=== PATIENT | female | born 1950 | race Caucasian/White ===

== ENCOUNTER 2017-04-10 11:35 | Outpatient (CLI) | payer MEDICARE ==
--- NOTE | 2017-04-10 13:15 | RAD ---
CHEST TWO VIEWS: Date: 04-10-17 Comparison: 03-10-15 History: Cough. FINDINGS: There is mild increased linear interstitial density with pulmonary hyperinflation, stable. There is no pneumothorax, pleural fluid, lobar consolidation, or alveolar edema. Post-operative clips are present in the upper abdomen. Mild increased linear density is noted in the right infrahilar region, similar when compared to the 2 015 exam. IMPRESSION: Increased linear interstitial density and pulmonary hyperinflation, stable. Question history of COPD. No focal consolidation or alveolar edema is noted. POS: [facility]
== END 2017-04-10 11:36 | disposition home or self-care (01) ==
LOC: RAD 11:35
PROVIDERS: ATTEND Family Medicine
DX: R05 Cough (principal); E78.5 Hyperlipidemia, unspecified; L65.9 Nonscarring hair loss, unspecified; I10 Essential (primary) hypertension
CPT/HCPCS: 36415; 71020; 80053; 80061; 81001; 84439; 84443; 84481; 85025

== ENCOUNTER 2017-05-15 11:26 | Outpatient (CLI) | payer MEDICARE | END 2017-05-15 11:27 | disposition home or self-care (01) | LOC: BICMAMMO 11:26 | PROVIDERS: ATTEND Family Medicine | DX: Z12.31 Encounter for screening mammogram for malignant neoplasm of breast (principal) | CPT/HCPCS: 77063; 77067 ==

== ENCOUNTER 2018-04-24 23:24 | Inpatient (IN) | payer MEDICARE ==
[2018-04-24 23:58] LABS: Hemoglobin 11.3 g/dL (12.0-16.0); White Blood Cell (WBC) Count 18.1 thou/uL (4.8-10.8)
[2018-04-24 23:59] LABS: #Basophils 0.1 thou/uL (0.0-0.2); #Eosinphils 0.2 thou/uL (0.0-0.7); #Lymphocytes 2.8 thou/uL (1.20-3.40); #Monocytes 0.9 thou/uL (0.11-0.59); %Basophils 0.5 % (0.0-1.0); %Eosinophils 1.4 % (0.0-10.0); %Lymphocytes 15.6 % (21.0-51.0); %Neutrophils 77.5 % (42.0-75.0); Mean Corpuscular HGB CONC 31.3 g/dL (32.0-36.0); Mean Corpuscular Hemoglobin 28.3 pg (27.0-31.0); Mean Corpuscular Volume 90.4 fL (78.0-98.0); Mean Platelet Volume 7.3 fL (7.4-10.4); Platelet Count 479 thou/uL (130-400); RBC Distribution Width 12.2 % (11.5-14.5)
[2018-04-25] MEDS ORDERED: Ondansetron PF 4 MG/2 ML Vial ONE (00:16)
[2018-04-25 00:18] LABS: ALT (SGPT) 32 U/L (8-55); AST (SGOT) 79 U/L (5-34); Albumin 3.7 g/dL (3.4-4.8); Alkaline Phosphatase 259 U/L (40-150); Anion Gap 22 mmol/L (10-20); BUN (Urea Nitrogen) 23 mg/dL (9.8-20.1); Bilirubin, Total 0.9 mg/dL (0.2-1.2); CK (CPK) 755 U/L (29-168); Calc. Creatinine Clearance 0 mL/min (70-130); Calcium 9.5 mg/dL (7.8-10.44); Carbon Dioxide 18 mmol/L (23-31); Chloride 102 mmol/L (98-107); Estimated GFR-MDRD 27; Globulin 3.8 g/dL (2.4-3.5); Glucose 149 mg/dL (80-115); Potassium 4.6 mmol/L (3.5-5.1); Protein, Total 7.5 g/dL (6.0-8.3); Sodium 137 mmol/L (136-145)
[2018-04-25 01:29] LABS: Bilirubin Small (Negative); Blood, Urine Negative (Negative); Clarity CLOUDY (Clear); Glucose, Urine (Dipstick) Negative (Negative); Leukocyte Large (Negative); Nitrite Positive (Negative); Protein, Urine (Dipstick) Trace mg/dL (Neg-Trace); Specific Gravity, Urine 1.016 (1.002-1.036)
[2018-04-25 01:32] LABS: Bacteria/HPF 4+ HPF (None Seen); RBC/HPF 0-3 HPF (0-3); Squamous Epithelial 0-3 HPF (0-3)
[2018-04-25 01:41] LABS: Pathc Cast-AUWi Flag 7.12 (0-2.49); Yeast-AUWi Flag 43.1 (0-25.0)
[2018-04-25 01:52] LABS: Hyaline Casts/LPF 0-3 HYALINE CAST LPF (0-3 Hyaline)
[2018-04-25 01:53] LABS: Other Casts/LPF None Seen LPF (0-3 Hyaline); Yeast-All Forms None Seen HPF (None Seen)
[2018-04-25] MEDS ORDERED: cefTRIAXone\\ROCEPHIN 1 GM VIAL ONE (04:01)
--- NOTE | 2018-04-25 07:01 | RAD ---
PELVIC RADIOGRAPH: Date: 04/24/18 PROVIDED CLINICAL HISTORY: Right hip pain. FINDINGS: There is no evidence for fracture or other acute osseous abnormality. If there is persistent clinical concern, conservative management and follow-up imaging are advised. IMPRESSION: As above. POS: [facility]
--- NOTE | 2018-04-25 08:00 | RAD ---
CHEST 1 VIEW: Date: 04/25/18 HISTORY: Cough. COMPARISON: Chest radiograph from 2017. FINDINGS: Abnormal appearance of the right paratracheal line. No pneumothorax. No large effusion. Right upper quadrant surgical clips are present. Possible ascites in the abdomen. IMPRESSION: Abnormal widening of the right paratracheal stripe, for which a nonemergent CT of the chest with cont rast is recommended. CODE T. POS: [facility]
[2018-04-25] MEDS ORDERED: Bisacodyl 5 MG TAB PO PRN (08:11)
[2018-04-25] MEDS ORDERED: Heparin 1,000 UNITS/ML VIAL ONE (09:00)
[2018-04-25] MEDS: cefTRIAXone\\ROCEPHIN 1 GM in Sodium Chloride 0.9% 100 ML IVPB SCH (09:46)
[2018-04-25] MEDS: Sodium Chloride 0.9% 1,000 ML IV SCH ×2 (09:47→15:27)
[2018-04-25] MEDS: Losartan 25 MG TAB PO SCH (09:47)
[2018-04-25] MEDS: Cyclobenzaprine 10 MG TAB PO SCH ×3 (09:47→21:18)
[2018-04-25] MEDS: HYDROcodone/Acetaminophen 5/325 mg Tablet PO PRN (11:03)
--- NOTE | 2018-04-25 12:52 | HP ---
COVERING PHYSICIAN: Dr. Dao Miranda. HISTORY OF PRESENT ILLNESS: The patient is a 68-year-old female, who presented to the emergency room complaining of lower back pain, inability to walk and mobilize due to back pain, inability to take care of herself due to inability to walk and mobilize secondary to back pain. The patient knows that she has had a recent history of back pain for approximately 4 to 6 months now after a fall. She re-injured her back again after another fall. She has been undergoing some physical therapy, some treatment with pain medication. She states that she is no longer able to lift herself up out of bed, really unable to ambulate secondary to pain. She was supposed to have an MRI, however, she was unable to get to the MRI center due to inability to get out of bed. She notes no other medical complaints related to fever and nausea. She does have some constipation issue and she has noticed some relatively poor p.o. intake. She lives alone, really does not have anybody care for her at home. Otherwise, no other medical issues are otherwise noted. She noticed pain to the right lower back with weakness of her right lower leg. It was noted that her PCP Dr. Mccann noted her liver and kidney functions were abnormal, and she has some medicines changed due to that, which she stated was Advil. Currently at this time, she is resting in bed, unable to raise herself up due to pain and feeling like her right hip does not work. She does note she has a recent x-rays of her hip done, which were normal. ALLERGIES: SHE IS ALLERGIC TO LISINOPRIL. CURRENT MEDICATIONS: 1. Losartan 100 mg daily. 2. Meloxicam 7.5 mg daily. 3. Atenolol 1 mg daily. 4. Cyclobenzaprine 10 mg every 8 hours. PAST MEDICAL HISTORY: Positive for hypertension. PAST SURGICAL HISTORY: Positive for cholecystectomy, hernia repair, anti-reflux surgery for gastroesophageal reflux disease. SOCIAL AND PERSONAL HISTORY: She is , although she lives away from her . She does not drink alcohol at this time. FAMILY HISTORY: Noncontributory at this time. PHYSICAL EXAMINATION: VITAL SIGNS: Temperature 98.1, pulse 100, respirations 20, O2 sats 92%, and BP 110/64. GENERAL: She appears to be alert, active, in no acute distress. She is unable to raise her head up in bed secondary to pain. She points to pain to her right hip and right lower back. She feels like her right leg is weak. HEENT: Normocephalic. Sclerae and conjunctivae clear. NECK: Supple. Full range of motion. No bruits. HEART: Reveals a regular rate and rhythm. No murmurs, gallops, or rubs. LUNGS: Bilateral breath sounds. ABDOMEN: Soft, nontender. Bowel sounds are present and active. There is no hepatosplenomegaly noted. NEUROLOGICAL: She is alert and oriented x3. She is able to lift her left lower leg against gravity, unable to hold and maintain it. It does appear to be normal in strength. Pulses are 2+ throughout the exam. She does have some palpable back pain to the right SI joint area. LABORATORY DATA: White blood count is 18.1, hemoglobin 11.3, hematocrit 36.2. Electrolytes; sodium 137, potassium 4.6, chloride 102, CO2 of 18, BUN 23, creatinine 1.85. Alkaline phosphatase is 2.59. Creatine kinase is 755. AST is elevated at 79. Urinalysis shows too numerous to count white blood cells. IMAGING STUDIES: Pelvis x-ray is normal. Chest x-ray is clear, although there is an abnormal to the right paratracheal line. IMPRESSION: 1. This is a 68-year-old female who presents with inability to walk and bear weight of unknown etiology, possibly related to some type of lumbar disease process. 2. Urinary tract infection. 3. Elevated creatinine, probably secondary to dehydration. 4. Elevated creatine kinase. Recent fall was noted. 5. Abnormal chest x-ray. PLAN: 1. I have discussed the findings with the patient. We will proceed with MRI of the lower back. 2. CT scan of the chest. 3. I have placed her on IV Levaquin for UTI. 4. I have discussed the possibility of disposition issues for the patient. We will get Case Management, PT/OT involved. Job ID: [id number]
--- NOTE | 2018-04-25 13:49 | CT ---
CT CHEST WITHOUT CONTRAST HIGH RESOLUTION: Date: 04/25/18 HISTORY: Abnormal chest x-ray. COMPARISON: Radiograph from prior day. FINDINGS: There is a large right suprahilar mass invading through the mediastinum. This mass measures 7.2 x 8.1 cm. There is mass effect on the posterior wall of the trachea. There is extension to the right upper lobe bronchi. There are abnormal right paratracheal lymph nodes measuring up to 1.5 cm. A 12.2 cm right adrenal and 2.8 cm left adrenal mass are present. There appear to be multiple hypodense foci throughout the live r, likely metastatic disease. There are severe emphysematous changes of the lungs. A very large bulla is present in the right upper lobe. Mild right basilar atelectasis. Multiple small peripheral pleural nodules. Severe background emphysema. IMPRESSION: 1. Large right hilar mass with mediastinal invasion indicating lung cancer. 2. Bilateral adrenal mass suggesting metastatic disease. 3. Difficult to evaluate, although there are felt to be multiple hypodense masses throughout the nataliia er, also likely metastatic disease. A full workup with a PET CT or a chest/abdomen/pelvis CT with contrast is recommended. Multiple attempts were made to discuss this case with the nurse, although was hung up on multiple giulia es. CODE CR. POS: [facility]
[2018-04-25] MEDS ORDERED: CEFAZOLIN/Water 2 GM/20 ML SYRINGE SLOW IVP SCH (14:30)
--- NOTE | 2018-04-25 14:48 | MRI ---
MRI LUMBAR SPINE WITHOUT CONTRAST: Technique: Multiplanar, multisequence MRI images were obtained of the lumbar spine. The exam was unable to be completed due to patient discomfort. T1, T2 and STIR sequence sagittal imag es were obtained. T2 axial images were obtained. Indications: Low back pain. Hip pain. Leg pain. The side of discomfort is not specified. Comparison: MRI Lumbar spine, July 2008. FINDINGS: Vertebral bodies of the lumbar spine maintain height and alignment. There is abnormal signal througho ut the visualized lower thoracic and lumbar vertebrae. There are heterogeneous areas of signal abnorm ality throughout these vertebral bodies suggesting metastatic disease to the spine. There is diffuse abnormal signal involving the sacrum. The right sacrum shows expansion and heterogen eity and there appears to be a soft tissue component with epidural extension producing central canal stenosis in the sacrum. This would be producing involvement of the S1 and S2 nerve roots, especially on the right. No significant disc bulge or disc protrusion seen from L1 through L5. At L5-S1 there is mild diffuse disc bulge with facet hypertrophy. There is bilateral foraminal narrowing at L5-S1 due to disc bulge and hypertrophic change. IMPRESSION: 1. Diffuse splotchy signal abnormality involving all visualized vertebral bodies consistent with diff use metastatic disease. 2. Diffuse signal abnormality involving the sacrum consistent with metastatic involvement. There is e xpansile process involving the right sacrum with soft tissue component resulting in epidural encroach ment in the sacrum as described above. Metastatic process would be suspected. This patient has a lung mass described on CT chest from earlier today. POS: [facility]
--- NOTE | 2018-04-25 16:20 | CON ---
DATE OF CONSULTATION: HISTORY OF PRESENT ILLNESS: This is a 68-year-old female, who has been having severe back and right hip pain for several weeks, resulting in ultimately inability to get around due to pain with standing. She has also noticed some fecal incontinence and decreased urine output by her account. She is scheduled for some physical therapy, but has not been able to get out of the house to attend to that. She was admitted to the hospital and found to have a large right hilar mass, probably enlarged lymph nodes extending into the mediastinum. PAST MEDICAL HISTORY: Includes a history of hypertension, for which she is on atenolol and losartan. She has no other major medical illnesses. ALLERGIES: SHE REPORTS ALLERGIES TO LISINOPRIL, WHICH CAUSES A COUGH. PAST SURGICAL HISTORY: Cholecystectomy. SOCIAL HISTORY: She is for 43 years. However, lives in [place] and has been there for almost the past 17 years and she lives up here. Initially moved here with her sister who subsequently from some sort of malignancy. The closest family here is a nephew, who lives in [place] and she lives in [place]. She smoked at least a pack of cigarettes a day until one and half years ago. She is a nonalcohol user. PHYSICAL EXAMINATION: GENERAL: On examination, she is alert, cooperative lady, and in no distress at rest. VITAL SIGNS: She has a blood pressure recorded at 110/64, heart rate of 100. NECK: I do not appreciate any lymphadenopathy and she has no tenderness. She does have soft radiated carotid bruits I believe and a soft murmur at the right upper sternal border just below the clavicle. ABDOMEN: Obese and nontender. EXTREMITIES: She has a palpable pedal pulse on the left foot and then absent pedal pulses on the right foot. She admits to numbness in the right foot, but has good color and temperature. Motor function appears intact. PLAN: At this time is for cervical mediastinal exploration and biopsy for tissue diagnosis. Informed consent has been obtained. Job ID: [id number]
[2018-04-25] MEDS: Atenolol 50 MG TAB PO SCH (21:18)
[2018-04-25] MEDS: Cetirizine HCl 10 MG TAB PO SCH (21:19)
[2018-04-25] MEDS: Enoxaparin Sodium 30 MG/0.3 ML SYRINGE SC SCH (21:20)
--- NOTE | 2018-04-26 00:13 | CON ---
DATE OF CONSULTATION: HISTORY OF PRESENT ILLNESS: Ms. Ramirez is a very pleasant woman who has fallen once tripping over a cat and once tripping over a dog, and fallen into a hole in the yard. She fell back into the hole trying to get out of the hole apparently. Her back has been hurting her since, and she tells me that she has actually been spending most of her time in bed because of severe back pain. I was consulted because of a chest x-ray and CT abnormality. PAST MEDICAL HISTORY: 1. Strongly positive for lung cancer in multiple family members. 2. History of cholecystectomy. 3. History of a herniorrhaphy. 4. History of reflux surgery. SOCIAL HISTORY: She is a smoker, but not a drinker. FAMILY HISTORY: She has a family history as mentioned strongly positive for lung cancer. I believe she has lost her sister to lung cancer. She has 1 sister left and lost both her parents and they are in their early 60s. PHYSICAL EXAMINATION: GENERAL: She is very pleasant. She is intermittently tearful talking about her family history. VITAL SIGNS: She is afebrile. Heart rate is 100, respiratory rate is 20, oximetry is 92% to 96%, blood pressure 121/70. HEENT: Pupils are equal. Sclerae are anicteric. NECK: Supple. LUNGS: Clear. HEART: Regular rhythm. S1 and S2 are normal. ABDOMEN: Soft and nontender. EXTREMITIES: Without clubbing, cyanosis, or edema. LYMPH: I could not palpate any cervical lymphadenopathy. LABORATORY DATA: White count 18.1, hemoglobin 11.3, platelets 479. Sodium 137, potassium 4.6, chloride 102, bicarb 18, BUN 23, creatinine 1.85. Creatinine on April [address] of her chest shows a superior right chest paratracheal mass, it is quite large. Significant mediastinal lymph nodes. This finding suggested of hepatic metastatic disease. Lumbar spine MRI showed evidence of diffuse metastatic disease. IMPRESSION: Widespread metastatic bronchogenic carcinoma. The likelihood of a tissue diagnosis from bronchoscopies probably ride around 50%. Most of this probably is extrabronchial, but there is a chance it could be endobronchial extension. I think the likelihood of a tissue diagnosis, especially with frozen sections is much higher with a mediastinoscopy. I have consulted Cardiothoracic Surgery, and they have been gracious enough to see her, and hopefully, we will have her on a schedule for tomorrow. This was a 50-minute consult, 50% of the time was spent on the unit coordinating care. Job ID: [id number]
--- NOTE | 2018-04-26 00:56 | CON ---
DATE OF CONSULTATION: REASON FOR CONSULTATION: Metastatic cancer. HISTORY OF PRESENT ILLNESS: A 68-year-old female with long tobacco abuse history, presenting to the ER with worsening lower back and right hip pain with an inability to walk secondary to the pain. The patient has been complaining of lower back and right hip pain for the last few months, status post fall, which had improved. However, she had fallen again in the yard and the pain returned and has not improved. She has been undergoing physical therapy and treatment with antiinflammatory medication. She states now because of the pains, she has difficulty getting out of bed. She was scheduled for outpatient MRI, however, this has not been completed. She complained of mild nausea in the ER, however, no other nausea or vomiting. She denies any diarrhea, constipation, fevers, or drenching night sweats. She does complain of approximately 30-pound weight loss over the last few months with some reduced appetite and states that she has had poor p.o. intake. She lives alone, is unable to cook because she has difficulty getting out of bed because of the pain. She also complains of right foot numbness and some weakness of her right leg. She denies any headaches, change in vision, lightheadedness, or dizziness. She denies any shortness of breath, but is complaining of cough over the last few months that has progressively gotten worsened and productive of brown colored sputum, but denies any hemoptysis. CT of the chest without contrast showed a large right hilar mass with mediastinal invasion and bilateral adrenal masses suggesting metastatic disease and multiple hypodense foci throughout the liver. MRI of the lumbar spine showed diffuse blotchy signal abnormality involving all visualized vertebral bodies consistent with diffuse metastatic disease. Also showed diffuse signal abnormality in the sacrum and expansile process involving the right sacrum with soft tissue component resulting in epidural encroachment in the sacrum. The patient has been evaluated by Dr. Wallace and is being planned for mediastinoscopy. REVIEW OF SYSTEMS: 10-point review of systems negative, except as per HPI. PAST MEDICAL HISTORY: 1. Hypertension. 2. Tobacco abuse. PAST SURGICAL HISTORY: 1. Cholecystectomy. 2. Hernia repair. 3. Anti-reflux surgery for GERD. SOCIAL HISTORY: She is , lives alone. Denies alcohol. Past social history of extensive tobacco abuse as a teenage years and quit approximately one and half years ago. She states she used to smoke up to 4 to 5 packs a day in the 70s and then reduced to one pack a day until she quit a year and a half ago. FAMILY HISTORY: Family history of non-small cell lung cancer in multiple family members, all of whom were smokers. PHYSICAL EXAMINATION: VITAL SIGNS: Temperature 98.1, pulse 100, respirations 20, saturating 92% to 96% on room air, and blood pressure 110/64. GENERAL APPEARANCE: The patient is lying in bed, in no acute distress. Appears comfortable. HEENT: Normocephalic and atraumatic with no scleral icterus present. NECK: Supple. Full range of motion. CARDIAC: S1, S2. Regular rhythm and rate without murmurs, rubs, or gallops. LUNGS: Clear to auscultation bilaterally without wheezing, rales, or rhonchi. ABDOMEN: Soft, nondistended, and nontender. LYMPHATICS: No palpable lymphadenopathy. EXTREMITIES: No edema. NEUROLOGIC: Cranial nerves 2 through 12 are grossly intact. The patient is able to move all extremities and strength is 5/5 in all four extremities. BACK: Some palpable tenderness in the right SI joint area. PSYCHIATRIC: Awake, alert, and oriented x3 with appropriate mood and affect. LABORATORY DATA: Hemoglobin 11.3, white blood cells 18.1 with 77.5% neutrophils with an ANC of 14.0, and platelets 479. Sodium 137, potassium 4.6, BUN 23, and creatinine 1.85. AST 79, ALT 32, alkaline phosphatase 259, and creatine kinase 755. Urine shows positive nitrites and small bilirubin, large leukocyte esterase, 4+ bacteria. Urine white cells [id number] count. Urine culture shows presumptive E. coli. IMAGING DATA: CT chest without contrast shows a large right suprahilar mass invading to the mediastinum measuring 7.2 x 8.1 cm. There is mass effect in the posterior wall of the trachea and extension of the right upper lobe bronchi. There were abnormal right paratracheal lymph nodes measuring up to 1.5 cm and the 12.2 cm right adrenal and 2.8 cm left adrenal masses that are present. There appeared to be multiple evident hypodense foci throughout the liver likely metastatic disease. Multiple small peripheral nodules. Severe background emphysema. MRI of the lumbar spine without contrast shows diffuse blotchy signal abnormality involving all visualized vertebral bodies consistent with diffuse osseous metastatic disease and diffuse signal abnormality involving the sacrum consistent with metastatic involvement. There is expansile process involving the right sacrum with soft tissue component resulting in epidural encroachment in the sacrum. ASSESSMENT AND PLAN: A 68-year-old female with extensive tobacco abuse history, presenting with worsening lower back and right hip pain, found to have diffuse osseous metastatic disease as well as a large right lung mass with metastases to the liver and adrenal glands. Disease is likely from a lung primary and patient has been evaluated by Dr. Wallace who is planning a mediastinoscopy tomorrow for tissue diagnosis. The patient does require further staging with PET scan, which can be done as an outpatient along with an MRI of the brain. At this time, we would hold off on MRI of the brain and any further CT scans with contrast as patient appears to have acute kidney injury, which may be secondary to rhabdomyolysis as her creatine kinase is extremely elevated and she has been bed down secondary to pain for a while. If her kidney function improves with fluids, can go ahead with MRI of the brain with contrast to evaluate for metastatic disease as well as CT of the chest, abdomen, pelvis with contrast. I discussed the likely diagnosis and different types of lung cancer and prognosis and potential treatments with the patient at the bedside. Due to patient's extreme pain keeping her bed-bound, she may benefit from palliative radiation to this area and I will consult Dr. Dawn to evaluate. She has no signs of cord compression and has 5/5 strength in both lower extremities and upper extremities without saddle anesthesia or incontinence and no evidence on MRI of the lumbar spine of cord compression, but she does have some epidural encroachment on the sacrum. We will follow along with you and follow final path results and further staging imaging. Thank you for this consult. Job ID: [id number]
[2018-04-26] MEDS: Sodium Chloride 0.9% 1,000 ML IV SCH ×3 (07:13→18:02)
[2018-04-26 07:32] LABS: #Eosinphils 0.2 thou/uL (0.0-0.7); #Lymphocytes 1.5 thou/uL (1.20-3.40); #Monocytes 0.7 thou/uL (0.11-0.59); #Neutrophils 6.8 thou/uL (1.40-6.50); %Basophils 0.5 % (0.0-1.0); %Eosinophils 2.2 % (0.0-10.0); %Monocytes 7.3 % (0.0-10.0); Hemoglobin 8.8 g/dL (12.0-16.0); Mean Corpuscular HGB CONC 32.8 g/dL (32.0-36.0); Mean Corpuscular Hemoglobin 30.1 pg (27.0-31.0); Mean Corpuscular Volume 91.9 fL (78.0-98.0); Mean Platelet Volume 7.4 fL (7.4-10.4); Platelet Count 288 thou/uL (130-400); RBC Distribution Width 12.2 % (11.5-14.5); Red Blood Cell (RBC) Count 2.91 mill/uL (4.20-5.40); White Blood Cell (WBC) Count 9.2 thou/uL (4.8-10.8)
[2018-04-26] MEDS ORDERED: Glycopyrrolate 0.2 MG/ML 5 ML SYRINGE ONE (07:37)
[2018-04-26] MEDS ORDERED: PHENYLEPHRINE-NS 100 MCG/ML 10 ML SYRINGE ONE (07:37)
[2018-04-26] MEDS ORDERED: Ondansetron PF 4 MG/2 ML Vial ONE (07:37)
[2018-04-26] MEDS ORDERED: Lidocaine 1% PF 5 ML VIAL ONE (07:37)
[2018-04-26] MEDS ORDERED: Rocuronium Bromide 10 MG/ML (10ML VIAL) ONE (07:37)
[2018-04-26] MEDS ORDERED: Dexamethasone 20 MG/5 ML VIAL ONE (07:37)
[2018-04-26] MEDS ORDERED: PROPOFOL 200 MG/20 ML VIAL ONE (07:37)
[2018-04-26 07:43] LABS: ALT (SGPT) 27 U/L (8-55); AST (SGOT) 71 U/L (5-34); Albumin 2.9 g/dL (3.4-4.8); Alkaline Phosphatase 208 U/L (40-150); Anion Gap 16 mmol/L (10-20); BUN (Urea Nitrogen) 23 mg/dL (9.8-20.1); Bilirubin, Total 0.4 mg/dL (0.2-1.2); Calc. Creatinine Clearance 24 mL/min (70-130); Calcium 8.3 mg/dL (7.8-10.44); Carbon Dioxide 18 mmol/L (23-31); Chloride 109 mmol/L (98-107); Estimated GFR-MDRD 19; Globulin 2.9 g/dL (2.4-3.5); Glucose 74 mg/dL (80-115); Potassium 4.4 mmol/L (3.5-5.1); Protein, Total 5.8 g/dL (6.0-8.3); Sodium 139 mmol/L (136-145)
[2018-04-26] MEDS: Losartan 25 MG TAB PO SCH (08:31)
[2018-04-26] MEDS: Cyclobenzaprine 10 MG TAB PO SCH ×2 (08:31→15:48)
--- NOTE | 2018-04-26 09:03 | PRG ---
DATE OF SERVICE: 04/26/2018 SUBJECTIVE: The patient continues to complain of pain, inability to ambulate. Workup in progress as per chart review. Planning for mediastinal exploration. OBJECTIVE: VITAL SIGNS: Temperature 99.0, pulse of 99 to 100, respirations 18, and blood pressure 105/63. GENERAL: She is awake and alert, uncomfortable due to pain. HEART: Regular rate and rhythm. LUNGS: Clear. EXTREMITIES: No edema. LABORATORY DATA: White blood cell count 9200, hemoglobin and hematocrit 8.8 and 26.8 significant drop from 04/24 when it was 11.3 and 36.2, platelets of 288. Sodium 139, potassium 4.4, chloride 109, CO2 of 18, BUN and creatinine of 23 and 2.57 with GFR of 19. AST and ALT of 71 and 227, alkaline phosphatase elevated at 208. ASSESSMENT AND PLAN: This is a 68-year-old female patient with new onset likely metastatic bronchogenic cancer. Appreciate consultants assistance. Further plan per Cardiovascular Surgery for mediastinal exploration and biopsy of tissue diagnosis. Job ID: [id number]
[2018-04-26] MEDS: cefTRIAXone\\ROCEPHIN 1 GM in Sodium Chloride 0.9% 100 ML IVPB SCH (09:43)
[2018-04-26] MEDS ORDERED: Fentanyl 100 MCG/2 ML VIAL ONE (12:24)
[2018-04-26] MEDS ORDERED: Ondansetron HCl/PF 4 MG/2 ML Vial IVP PRN (13:08)
--- NOTE | 2018-04-26 13:16 | CON ---
DATE OF CONSULTATION: 04/26/2018 REASON FOR CONSULTATION: Ms. Ramirez is a 68-year-old female, who appears to have a clinical stage IV, T3, N2, M1 lung carcinoma with bone metastasis. I was asked to see her for consideration of palliative radiation therapy. HISTORY OF PRESENT ILLNESS: Ms. Ramirez has had several falls recently. She fell one time and was bruised, but subsequently got better from that. About month later, she began having lower back pain on the right side. She did see her family physician for this and was placed on muscle relaxers and physical therapy and initially improved. However, more recently her pain had progressed. She was scheduled for an outpatient MRI. However, she was having difficulty moving around, although she was able to ambulate with a walker. However, she was having shortness of breath with only walking a few steps. Her sister thought she might have pneumonia. Therefore, she was brought to the emergency room for evaluation and workup. She was admitted to the hospital for that and underwent a CT scan of the chest as well as an MRI of the lumbar spine. Her exam had to be done without contrast because of an elevated creatinine. Her creatine kinase was elevated and there was concern that she was having rhabdomyolysis. MRI of the lumbar spine showed a very large mass involving the right side of the sacrum and encroaching on the nerve roots at S1 and S2. CT of the chest revealed a large right suprahilar mass measuring 7.2 x 8.1 cm. There was mediastinal adenopathy. There were a right adrenal mass and a left adrenal mass. There were multiple hypodense lesions in the liver concerning for metastatic disease. She had severe emphysematous changes of the lung with a large bulla in the right upper lobe. Concern was for metastatic malignancy. She has seen Dr. Samayoa, Dr. Thacker, and Dr. Wallace. Plan today is for her to undergo mediastinoscopy to try and get tissue diagnosis. I have been asked to see her to discuss her options for treatment with radiation. Presently, she reports that the pain is primarily in her right hip, back, and leg. She lies flat and does not move. She is fairly comfortable. The pain is much worse with movement. She denies any other areas of pain. She has had some numbness in her right foot, which she has had since she started physical therapy, so for at least a month. She has had some urgency of urination and it is noted that she is being treated for a urinary tract infection from her urinalysis when she was admitted. She has also had some constipation. She denies any specific weakness in the legs or arms, but again her movement is primarily limited because of her pain. She does have dyspnea on exertion and is only able to walk basically across the room. She has no orthopnea or shortness of breath at rest. She denies any chest pain or hemoptysis. She has a non-productive cough, which is new. She does report a 46-pound weight loss recently. She voices no other complaints. PAST MEDICAL HISTORY: 1. Hypertension. 2. GE reflux disease. 3. Status post cholecystectomy. 4. Status post umbilical hernia repair. 5. Status post hiatal hernia repair. MEDICATIONS: 1. Losartan. 2. Meloxicam. 3. Atenolol. 4. Cyclobenzaprine. ALLERGIES: LISINOPRIL, WHICH CAUSED A COUGH. SOCIAL HISTORY: She previously smoked up to 1.5 packs per day. She has not smoked for the last year and a half. She has no other tobacco use. She denies any alcohol use. She has been living in [place], [place] by herself. She is , but her apparently lives in [place] and they have not been together for 17 years. She has a sister with her today, who lives in [place]. FAMILY HISTORY: Her maternal grandfather had from stomach cancer. Her mother from lung cancer, throat cancer, and heart disease. She had a sister who from lung cancer. Her sister who is with her today is a survivor from lung cancer. Her father had heart disease. There is no other family history of malignancy. REVIEW OF SYSTEMS: A 12-system review of systems was positive for the 46-pound weight loss. She has no headaches, nausea, or vomiting. Remainder of the review of system is otherwise negative. PHYSICAL EXAMINATION: VITAL SIGNS: Height 5 feet 3 inches, weight 158 pounds, blood pressure 118/73, pulse 99, respiration 16, temperature 99.0. O2 saturation is 96%. GENERAL: She is alert and oriented and in no apparent distress. She is well-developed and well-nourished. Karnofsky performance status is 60%. EYES: Pupils are equal, round, and reactive to light. Extraocular movements are intact. ENT: Oral cavity and oropharynx are without lesion or erythema. Palate elevates symmetrically. Gingiva is intact. NECK: Supple without cervical or supraclavicular adenopathy. No thyromegaly. Larynx midline. LUNGS: Breathing nonlabored. Clear to auscultation and percussion. CARDIOVASCULAR: Heart, regular rate and rhythm without murmur. EXTREMITIES: No lower extremity edema. BACK: No tenderness on fist percussion of her spine. The subjective area of tenderness is over the right SI joint region. LYMPHATIC: No axillary or inguinal adenopathy. ABDOMEN: Bowel sounds present. Soft, nontender, nondistended without mass or hepatosplenomegaly. Liver percusses to normal size. SKIN: Without rash or purpura. NEUROLOGIC: Cranial nerves 2 through 12 grossly intact. Motor strength is 5/5 in both upper and lower extremities in all muscle groups tested. Reflexes are diminished but symmetrical. Sensory exam was not checked and gait was not tested as she has increased pain in the sitting and walking position. LABORATORY DATA: Urinalysis showed too numerous to count wbc's and positive nitrite consistent with urinary tract infection. Chemistry group showed fairly normal electrolytes. Creatinine was 1.85 on admission and increased to 2.57 today. Her alkaline phosphatase is elevated at 259. Creatine kinase is elevated at 755. Albumin was 3.7. CBC revealed a white blood cell count of 18,100 on admission. Hemoglobin is 11.3 with a hematocrit of 36.2, platelet count was 479,000. Today , it shows a white blood cell count of 9200 with hemoglobin of 8.8, hematocrit of 26.8, platelet count of 288,000. RADIOLOGICAL STUDIES: CT scan of the chest showed a very large right suprahilar mass measuring 8.1 cm. There was felt to be some mass effect on the posterior trachea. There is some associated mediastinal adenopathy. There are hypodense lesions in the liver. There is a large right adrenal mass and smaller a left adrenal mass. MRI of the lumbar spine shows a very large mass in the bone on the right side of the sacrum in the region of the SI joint. This is encroaching on the right S1 and S2 nerve root. ASSESSMENT: Ms. Ramirez is a 68-year-old female with, what appears to be, clinically a stage IV, T3, N2, M1 lung carcinoma. We do not yet have pathology. She also apparently has rhabdomyolysis and her creatinine is increasing. Her scans were limited by lack of contrast which could not be given because of her acute renal injury. PLAN: I had a long discussion with Ms. Ramirez today and her sister regarding her diagnosis, prognosis, prognostic factors, and treatment options. I explained to them that the most important thing at this point is to get tissue diagnosis. She is scheduled sometime today to undergo mediastinoscopy by Dr. Wallace for biopsy and to obtain tissue diagnosis. Her treatment options will depend on what the tissue diagnosis is. There is no question that her primary problem is pain at the present time. This is emanating from the bone metastasis involving the right side of the sacrum. She has no motor weakness, but does have some numbness on her foot which is likely from the lesion. She had difficulty ambulating which is because of the pain. She is getting pain medication to try and control her pain. She will need to have her pain controlled with medication by the time that she is discharged. I think she might benefit from a course of palliative radiation therapy to the sacral lesion. This may still be beneficial regardless of the diagnosis of either small cell carcinoma or non-small cell carcinoma which is most likely diagnosis. The logistics of radiation as well as the benefits and risks of treatments were discussed. The simulation procedure was discussed. Side effects would include, but will not be limited to skin reaction, fatigue, lower blood counts, nausea, vomiting, and small risk of damage to her intestines or other structures that receive radiation therapy. I will need to coordinate the delivery of her radiation therapy with Dr. Samayoa, specially if this is small cell carcinoma. If it is non-small carcinoma, we will likely proceed with radiation therapy, perhaps as soon as Sunday with simulation. If it is small cell carcinoma, we may still give her radiation therapy. She will need additional workup once she recovers from her acute kidney injury. This could include an MRI of the brain. Final pathology will help dictate that as well. She had numerous questions as did her sister regarding her prognosis, and I told them at this point it is too early to speculate on prognosis, although this is likely not going to be cured. However, the treatment and the potential benefits from treatment will all depend on the tissue pathology and so we will need to discuss this further once that is obtained. I will continue to follow her with you, and we will perhaps proceed with simulation on Sunday depending on her clinical course. Thank you for this interesting consultation. Job ID: [id number] [facility]
--- NOTE | 2018-04-26 15:45 | RAD ---
ONE VIEW CHEST: 04/26/18 COMPARISON: 04/24/18 HISTORY: Cough. FINDINGS: There is peripheral calcification in the right paratracheal region. There is associated mass on recen t CT. Stable emphysematous changes. IMPRESSION: Redemonstration of right paratracheal/right suprahilar mass. POS: [facility]
[2018-04-27] MEDS: Cetirizine HCl 10 MG TAB PO SCH ×2 (02:16→21:59)
[2018-04-27] MEDS: Atenolol 50 MG TAB PO SCH ×2 (02:16→21:53)
[2018-04-27] MEDS: Cyclobenzaprine 10 MG TAB PO SCH ×4 (02:17→21:59)
[2018-04-27] MEDS: Enoxaparin Sodium 30 MG/0.3 ML SYRINGE SC SCH ×2 (02:17→21:59)
[2018-04-27] MEDS: Sodium Chloride 0.9% 1,000 ML IV SCH ×2 (06:52→09:47)
[2018-04-27] MEDS: Losartan 25 MG TAB PO SCH (09:22)
[2018-04-27] MEDS: cefTRIAXone\\ROCEPHIN 1 GM in Sodium Chloride 0.9% 100 ML IVPB SCH (09:23)
[2018-04-27] MEDS: HYDROcodone/Acetaminophen 5/325 mg Tablet PO PRN ×3 (09:30→23:04)
[2018-04-27] MEDS: Potassium Chloride 10 MEQ in Dextrose 5 % And 0.9 % NaCl 1,000 ML IV SCH (10:30)
[2018-04-27 12:27] LABS: #Lymphocytes 0.9 thou/uL (1.20-3.40); #Monocytes 0.6 thou/uL (0.11-0.59); #Neutrophils 8.6 thou/uL (1.40-6.50); %Basophils 0.1 % (0.0-1.0); %Eosinophils 0.4 % (0.0-10.0); %Lymphocytes 9.1 % (21.0-51.0); %Monocytes 5.7 % (0.0-10.0); %Neutrophils 84.7 % (42.0-75.0); Hemoglobin 9.2 g/dL (12.0-16.0); Mean Corpuscular HGB CONC 32.2 g/dL (32.0-36.0); Mean Corpuscular Hemoglobin 29.6 pg (27.0-31.0); Mean Corpuscular Volume 91.9 fL (78.0-98.0); Mean Platelet Volume 7.2 fL (7.4-10.4); Platelet Count 332 thou/uL (130-400); RBC Distribution Width 12.4 % (11.5-14.5); White Blood Cell (WBC) Count 10.2 thou/uL (4.8-10.8)
--- NOTE | 2018-04-27 12:30 | PRG ---
DATE OF SERVICE: 04/27/2018 PRIMARY CARE PHYSICIAN: Castillo Mccann MD SUBJECTIVE: The patient continues to have pain, but she is able to ambulate with her walker to her room. She tolerated the procedure yesterday. She denies chest pain, shortness of breath, nausea, or vomiting. She states that her appetite is good. She denies any pain or burning with urination, but does have decreased urinary output. OBJECTIVE: VITAL SIGNS: Temperature 98.3, pulse of 87, respirations 18, blood pressure 109/67, and pulse ox 88% to 92% on 2 L. GENERAL: She is awake and alert. No acute distress. No conversational dyspnea. NECK: Supple with small hematoma midline with a healing incision, which is clean, dry, and intact. HEART: Regular rate and rhythm. LUNGS: Decreased breath sounds. No wheezes, rales, or rhonchi. ABDOMEN: Soft. EXTREMITIES: With no edema. She has some tenderness to palpation throughout her legs. 2+ peripheral pulses bilaterally. LABORATORY DATA: White blood cell count 9.2, hemoglobin and hematocrit 8.8 and 26.8 from yesterday, platelets of 288. Today's labs are pending. Pathology for mediastinal biopsy is pending. ASSESSMENT/PLAN: This is a 68-year-old female patient with new onset metastatic lung carcinoma. 1. Mediastinal mass, consistent with lung carcinoma with metastasis. Awaiting pathology. Further plan per Oncology and Radiation Oncology. 2. Acute renal injury. We will continue fluid resuscitation, likely secondary to prerenal component as well as mild rhabdomyolysis with elevated creatine kinase. We will continue to follow. 3. Anemia. I will follow hemoglobin later today and recheck in the morning. 4. Urinary tract infection. We will continue Rocephin day 2 5. Pain control appears to be stable. She appears much more comfortable today than on admission. Possible initiation of radiation therapy on Sunday for palliation of her pain. Job ID: [id number] [facility]
--- NOTE | 2018-04-27 12:42 | PRG ---
DATE OF SERVICE: 04/27/2018 SUBJECTIVE: Irma Ramirez is doing much better this morning, status post , awaiting path report. OBJECTIVE: VITAL SIGNS: Sats 80% on room air, temperature 98, and blood pressure 109/67. CHEST: Decreased breath sounds. No wheezing. CARDIAC: Normal S1 and S2. No gallops or murmurs. LABORATORY DATA: Urine is growing E coli. Creatinine is 2.57. IMPRESSION: 1. Status post no lung mass. 2. Azotemia. 3. Urinary tract infection. PLAN: Await path report. Treatment for UTI as outlined. She can hopefully be discharged home once she is stabilized and follow up with her Oncology. Job ID: [id number]
[2018-04-27 12:48] LABS: ALT (SGPT) 25 U/L (8-55); AST (SGOT) 50 U/L (5-34); Alkaline Phosphatase 189 U/L (40-150); Anion Gap 15 mmol/L (10-20); BUN (Urea Nitrogen) 28 mg/dL (9.8-20.1); Bilirubin, Total 0.3 mg/dL (0.2-1.2); CK (CPK) 487 U/L (29-168); Calc. Creatinine Clearance 26 mL/min (70-130); Calcium 8.6 mg/dL (7.8-10.44); Carbon Dioxide 21 mmol/L (23-31); Chloride 108 mmol/L (98-107); Estimated GFR-MDRD 20; Globulin 3.3 g/dL (2.4-3.5); Glucose 129 mg/dL (80-115); Potassium 4.3 mmol/L (3.5-5.1); Protein, Total 6.3 g/dL (6.0-8.3); Sodium 140 mmol/L (136-145)
[2018-04-28] MEDS: HYDROcodone/Acetaminophen 5/325 mg Tablet PO PRN ×3 (03:14→21:55)
[2018-04-28] MEDS: Potassium Chloride 10 MEQ in Dextrose 5 % And 0.9 % NaCl 1,000 ML IV SCH ×3 (03:15→14:41)
[2018-04-28 07:26] LABS: #Eosinphils 0.1 thou/uL (0.0-0.7); #Lymphocytes 1.3 thou/uL (1.20-3.40); #Monocytes 0.3 thou/uL (0.11-0.59); %Basophils 0.2 % (0.0-1.0); %Eosinophils 2.2 % (0.0-10.0); %Lymphocytes 18.6 % (21.0-51.0); %Monocytes 4.9 % (0.0-10.0); %Neutrophils 74.1 % (42.0-75.0); Hemoglobin 8.5 g/dL (12.0-16.0); Mean Corpuscular HGB CONC 31.5 g/dL (32.0-36.0); Mean Corpuscular Hemoglobin 29.4 pg (27.0-31.0); Mean Corpuscular Volume 93.6 fL (78.0-98.0); Platelet Count 325 thou/uL (130-400); RBC Distribution Width 12.4 % (11.5-14.5); Red Blood Cell (RBC) Count 2.89 mill/uL (4.20-5.40); White Blood Cell (WBC) Count 6.8 thou/uL (4.8-10.8)
[2018-04-28 07:49] LABS: Anion Gap 14 mmol/L (10-20); BUN (Urea Nitrogen) 25 mg/dL (9.8-20.1); Calc. Creatinine Clearance 30 mL/min (70-130); Calcium 8.5 mg/dL (7.8-10.44); Carbon Dioxide 20 mmol/L (23-31); Chloride 111 mmol/L (98-107); Estimated GFR-MDRD 24; Glucose 98 mg/dL (80-115); Potassium 4.1 mmol/L (3.5-5.1); Sodium 141 mmol/L (136-145)
[2018-04-28] MEDS: Cyclobenzaprine 10 MG TAB PO SCH ×3 (08:25→21:55)
[2018-04-28] MEDS: cefTRIAXone\\ROCEPHIN 1 GM in Sodium Chloride 0.9% 100 ML IVPB SCH (08:36)
[2018-04-28] MEDS: Cetirizine HCl 10 MG TAB PO SCH (21:55)
[2018-04-28] MEDS: Enoxaparin Sodium 30 MG/0.3 ML SYRINGE SC SCH (21:56)
[2018-04-28] MEDS: Atenolol 50 MG TAB PO SCH (21:56)
--- NOTE | 2018-04-28 23:45 | PRG ---
DATE OF SERVICE: 04/28/2018 PRIMARY CARE PHYSICIAN: Castillo Mccann MD SUBJECTIVE: The patient is doing some better. She has had improved pain. She is ambulating with a walker in the room. She denies chest pain, shortness of breath, nausea, or vomiting. She is anxious to begin treatment once the final pathology results. OBJECTIVE: VITAL SIGNS: Temperature 98.1, pulse of 96, respirations 18, blood pressure 111/64, pulse ox 93% on room air. GENERAL: She is awake and alert, in no acute distress. Speech is clear. She appears comfortable. HEENT: Mucosa is moist. NECK: Supple. HEART: Regular rate and rhythm. LUNGS: Clear bilaterally. ABDOMEN: Soft. EXTREMITIES: With no edema. LABORATORY DATA: White blood cell count 6800, hemoglobin and hematocrit 8.5 and 27.1, and platelets 325. Sodium 141, potassium 4.1, chloride 111, CO2 of 20, BUN and creatinine 25 and 2.09 with a GFR of 24, calcium of 8.5. Urine culture is growing E coli, sensitive to ceftriaxone. Again, mediastinal biopsy pathology is still pending. ASSESSMENT AND PLAN: This is a 68-year-old female patient, admitted with severe back and leg pain, found to have metastatic bone disease in her spine and upper legs as well as a mediastinal mass. 1. Mediastinal mass, consistent with lung carcinoma with metastasis, awaiting pathology. Further plan per Oncology and Radiation Oncology, possibly initiating radiation therapy tomorrow. 2. Acute renal injury, improving with fluid resuscitation. Continue to follow creatine kinase and renal function. 3. Anemia, improved from yesterday. 4. Urinary tract infection, on antibiotics with Rocephin day #3. 5. Analgesia. She appears to be more comfortable than admission, and hopefully radiation therapy will continue to aid in her pain as well. Job ID: [id number] [facility]
[2018-04-29 06:25] LABS: #Eosinphils 0.2 thou/uL (0.0-0.7); #Lymphocytes 1.6 thou/uL (1.20-3.40); #Monocytes 0.5 thou/uL (0.11-0.59); #Neutrophils 5.8 thou/uL (1.40-6.50); %Basophils 0.3 % (0.0-1.0); %Lymphocytes 20.3 % (21.0-51.0); %Monocytes 5.6 % (0.0-10.0); %Neutrophils 71.8 % (42.0-75.0); Hemoglobin 8.4 g/dL (12.0-16.0); Mean Corpuscular HGB CONC 31.2 g/dL (32.0-36.0); Mean Corpuscular Hemoglobin 29.3 pg (27.0-31.0); Mean Platelet Volume 6.7 fL (7.4-10.4); Platelet Count 298 thou/uL (130-400); RBC Distribution Width 12.3 % (11.5-14.5); Red Blood Cell (RBC) Count 2.88 mill/uL (4.20-5.40); White Blood Cell (WBC) Count 8.1 thou/uL (4.8-10.8)
[2018-04-29 06:48] LABS: ALT (SGPT) 28 U/L (8-55); AST (SGOT) 90 U/L (5-34); Albumin 2.6 g/dL (3.4-4.8); Alkaline Phosphatase 242 U/L (40-150); Anion Gap 12 mmol/L (10-20); BUN (Urea Nitrogen) 22 mg/dL (9.8-20.1); Bilirubin, Total 0.3 mg/dL (0.2-1.2); CK (CPK) 856 U/L (29-168); Calc. Creatinine Clearance 40 mL/min (70-130); Calcium 8.1 mg/dL (7.8-10.44); Carbon Dioxide 21 mmol/L (23-31); Chloride 110 mmol/L (98-107); Estimated GFR-MDRD 33; Globulin 2.7 g/dL (2.4-3.5); Glucose 92 mg/dL (80-115); Potassium 5.2 mmol/L (3.5-5.1); Protein, Total 5.3 g/dL (6.0-8.3); Sodium 138 mmol/L (136-145)
[2018-04-29] MEDS: cefTRIAXone\\ROCEPHIN 1 GM in Sodium Chloride 0.9% 100 ML IVPB SCH (07:52)
[2018-04-29] MEDS: HYDROcodone/Acetaminophen 5/325 mg Tablet PO PRN ×3 (07:52→20:24)
[2018-04-29] MEDS: Cyclobenzaprine 10 MG TAB PO SCH ×3 (07:52→20:24)
[2018-04-29] MEDS: Potassium Chloride 10 MEQ in Dextrose 5 % And 0.9 % NaCl 1,000 ML IV SCH (08:51)
[2018-04-29] MEDS ORDERED: Magnesium Citrate 300 ML BOT PO SCH (11:15)
[2018-04-29] MEDS ORDERED: methylPREDNISolone Sod Succ/PF 125 MG/2 ML VIAL IVP SCH (11:15)
--- NOTE | 2018-04-29 12:12 | PRG ---
DATE OF SERVICE: 04/29/2018 SUBJECTIVE: I re-evaluated Ms. Ramirez today. She underwent mediastinoscopy on Sunday to try and get pathological diagnosis. Pathology is currently pending. She has had more shortness of breath since Sunday. Yesterday, her breathing was doing better, but today seems to be a little worse. She is having cough. She is not getting out of bed much. She is able to ambulate some with assistance. However , at the most, she walks just perhaps to the bathroom. She is having more urine output. Her pain seems to be fairly well controlled at the present time with pain medication. She voices no other complaints. OBJECTIVE: VITAL SIGNS: Height 5 feet 3 inches, weight 158 pounds, blood pressure is 142/76, pulse is 99, respirations are 20, temperature 99.1, O2 saturation is 95% on 2 L. CONSTITUTIONAL: She is alert and oriented. Breathing is mildly labored. Karnofsky Performance Status is 50%. LUNGS: Some bibasilar crackles. CARDIOVASCULAR: Regular rate and rhythm without murmur. NEUROLOGIC: The patient is still moving all extremities, and neuro exam is unchanged from Sunday. LABORATORY DATA: CBC reveals white blood cell count of 8100 with hemoglobin of 8.4, hematocrit of 27.0, platelet count of 298,000. Chemistry group reveals creatinine of 1.58 today, which is better than several days ago when it was 2.57. Her potassium today is 5.2. Her creatine kinase remains elevated at 856, and her alkaline phosphatase is 242. Albumin is 2.6. ASSESSMENT: She likely has metastatic lung cancer to the bone. Pathology from her procedure on Sunday is currently pending. She does have more shortness of breath since Sunday. Her acute renal injury is stable on hydration. PLAN: I had planned to do a simulation today on Ms. Ramirez for consideration of starting radiation therapy. Possibly, I would have done a simulation and a treatment today. However, I am concerned about her stability as to do a treatment with radiation, it would require us taking her out of the hospital for several hours. Given that she has had more shortness of breath, I feel that we need to give her a little bit more time to see if these things can be improved. I have encouraged her to get out of bed as much as possible and to try and ambulate as much as possible. Hopefully, she would not develop pneumonia. If we take her out of the hospital and she has a code event, then we would not be equipped to handle that on that day like today. Neurologically, she is stable, and her pain seems to be well controlled at the present time. Additionally, we need to wait for pathology. Therefore, we will not proceed with simulation and treatment today. We will likely plan a simulation and treatment on Sunday. Pathology should be back by that time. Job ID: [id number] [facility]
[2018-04-29] MEDS ORDERED: Sodium Chloride 0.9% 1,000 ML IV SCH (12:15)
--- NOTE | 2018-04-29 13:36 | PRG ---
DATE OF SERVICE: 04/29/2018 SUBJECTIVE: Pathology report remains pending on mediastinal mass with apparent lung metastases. The patient states her pain is somewhat controlled on current oral narcotics; however, she has not had a bowel movement since admission and feels she is becoming more worsening constipation. Does have positive flatus. Denies any urinary symptoms following Rocephin for UTI with a culture showing pansensitive Escherichia coli. The patient denies any formal shortness of breath while on nasal cannula and at rest, but is short of breath with activity to the restroom off nasal cannula. The patient has emphysematous changes on chest x-ray. She is a long- time smoker, only quit one year ago per patient, likely has COPD, and this has been untreated secondary to the patient's lack of desire to seek treatment with her physician. LABORATORY DATA: Laboratory work of 138 sodium, 5.2 potassium, 1.58 creatinine, alkaline phosphatase of 242. CK of 856. White blood cell count of 2.8, hemoglobin of 8.4, and platelet count of 298. OBJECTIVE: VITAL SIGNS: Temperature is 99.8, pulse is 96, respiratory rate is 18, oxygen saturation 95% on 2 L nasal cannula, and blood pressure of 108/64. GENERAL: The patient is alert and oriented, no acute distress. HEENT: Head, normocephalic and atraumatic. Extraocular movements are intact. Sclerae are white. Nasal cannula in place. The patient appears greater than stated age. NECK: Supple. HEART: Regular rate and rhythm at the time of exam. No murmurs auscultated. LUNGS: With poor air movement bilaterally. Diminished in lung bases. No rhonchi, rales, crackles, or wheezes. ABDOMEN: Nontender. Positive bowel sounds throughout. EXTREMITIES: Lower extremities are without cyanosis or edema. The patient is alert and oriented x3. No focal deficits. Speech is normal. ASSESSMENT AND PLAN: Mediastinal mass with lung metastases. Given the patient' s tobacco history, likely a large contributing factor on chest x-ray and CT. Emphysema is apparent and the patient does produce symptoms consistent with this on exam, however, has not been treated or diagnosed on outpatient basis. We will start DuoNebs scheduled, Solu-Medrol burst and continue Rocephin for the time being for likely mild chronic obstructive pulmonary disease exacerbation. The patient remains on nasal cannula for comfort. The patient's anemia of chronic disease secondary to above metastatic disease, does not likely cause symptomatic anemia likely or other untreated chronic obstructive pulmonary disease, causing this urinary tract infection, is being improved by antibiotics as above. The patient's rhabdomyolysis appears to be waxing and waning. Encouraging the patient to get up and move with physical therapy. Acute kidney injury on chronic renal insufficiency, will continue to titrate the patient's fluids as needed. Currently, the patient is not on active IV fluids at this point in time, would look at giving the patient bolus since her CK increased. Constipation, giving mag citrate and following up with Senokot, as well the patient is on narcotics for pain management for metastatic disease and rhabdomyolysis. We will continue to follow along for the time being. The patient is on prophylactic Lovenox renal dose. Awaiting cancer plan from the cancer team. Job ID: [id number] [facility]
--- NOTE | 2018-04-29 16:17 | PRG ---
DATE OF SERVICE: 04/29/2018 SERVICE: Pulmonary Medicine. INTERVAL HISTORY: The patient is doing from a respiratory standpoint. Denies any current chest pain, nausea, vomiting, fevers, or chills. She is having a cough. She feels like she has sputum to generate, but cannot get it up. She also has right upper quadrant discomfort. She had not had a bowel movement over 5 days. Overall, there has been no significant change however to her general condition. We are still awaiting pathology results from the mediastinoscopy. OBJECTIVE: VITAL SIGNS: Afebrile, currently with a T-max of 99.1, pulse was 99, blood pressure 142/76, respirations 20, saturation 95% on 2 L nasal cannula. GENERAL: The patient is awake, alert, in no apparent distress. LUNGS: Decent air entry. I really do not appreciate a prolonged expiratory phase or wheezing. Rhonchi are present. They clear with cough. No crackles are noted. HEART: Normal rate, regular. ABDOMEN: Soft. There is tenderness to palpation in the right upper quadrant. No rebound is present. MUSCULOSKELETAL: No cyanosis or clubbing. No pitting in the bilateral lower extremities. NEUROLOGIC: Grossly nonfocal. LABORATORY DATA: WBC 8.1, hemoglobin 8.4, platelets 298,000. Potassium 5.2. Creatinine 1.58 and beautifully downtrending. Basic metabolic profile is otherwise unremarkable. CK is trending upward, alkaline phosphatase is trending upward. AST and ALT are both trending upward. Total bilirubin remains low. Urine white count is greater than 50. E. coli is growing in the urine. This is a pansensitive organism. ASSESSMENT: 1. Widely metastatic process, pathology on mediastinoscopy is currently pending. 2. Urinary tract infection. 3. Acute kidney injury, improving. 4. Right upper quadrant abdominal pain. 5. Constipation. DISCUSSION AND PLAN: I will put in a right upper quadrant ultrasound to make certain we are not dealing with any gallbladder issue here. The total bilirubin is normal and I am doubtful that we will. I will schedule some simethicone. Agree with steroids, nebulized medications, and antibiotics. The chest x-ray was reassuring on the . We will repeat a chest x-ray, Critical Care will continue to follow. Job ID: [id number]
[2018-04-29] MEDS: Dextrose 5 %-0.45 % NaCl 1,000 ML IV SCH (16:20)
--- NOTE | 2018-04-29 18:06 | RAD ---
2 VIEWS CHEST: Date: 04/29/18 COMPARISON: 04/26/18. HISTORY: Cough. FINDINGS: Two views of the chest show normal sized cardiomediastinal silhouette. There is a stable mass along t he right superior mediastinum. No consolidation or pleural effusion seen. IMPRESSION: Stable right upper lobe mass. POS: [facility]
[2018-04-29] MEDS: Simethicone Chewable 80 MG TAB PO SCH ×2 (18:08→20:24)
[2018-04-29] MEDS: Enoxaparin Sodium 30 MG/0.3 ML SYRINGE SC SCH (20:23)
[2018-04-29] MEDS: Cetirizine HCl 10 MG TAB PO SCH (20:24)
[2018-04-29] MEDS: Atenolol 50 MG TAB PO SCH (20:24)
[2018-04-29] MEDS: Senokot S 8.6-50 MG TAB PO SCH (20:24)
[2018-04-30] MEDS: HYDROcodone/Acetaminophen 5/325 mg Tablet PO PRN ×4 (00:52→19:12)
[2018-04-30] MEDS: Dextrose 5 %-0.45 % NaCl 1,000 ML IV SCH ×3 (01:09→19:35)
[2018-04-30 07:46] LABS: ALT (SGPT) 29 U/L (8-55); AST (SGOT) 59 U/L (5-34); Albumin 2.7 g/dL (3.4-4.8); Alkaline Phosphatase 232 U/L (40-150); Anion Gap 16 mmol/L (10-20); BUN (Urea Nitrogen) 19 mg/dL (9.8-20.1); Bilirubin, Total 0.2 mg/dL (0.2-1.2); Calc. Creatinine Clearance 50 mL/min (70-130); Calcium 8.1 mg/dL (7.8-10.44); Carbon Dioxide 18 mmol/L (23-31); Chloride 108 mmol/L (98-107); Estimated GFR-MDRD 42; Globulin 2.9 g/dL (2.4-3.5); Glucose 131 mg/dL (80-115); Potassium 4.6 mmol/L (3.5-5.1); Protein, Total 5.6 g/dL (6.0-8.3); Sodium 137 mmol/L (136-145)
[2018-04-30] MEDS: Senokot S 8.6-50 MG TAB PO SCH ×2 (07:52→19:26)
[2018-04-30] MEDS: Simethicone Chewable 80 MG TAB PO SCH ×3 (07:52→18:03)
[2018-04-30] MEDS: Cyclobenzaprine 10 MG TAB PO SCH ×3 (07:53→19:26)
[2018-04-30] MEDS: cefTRIAXone\\ROCEPHIN 1 GM in Sodium Chloride 0.9% 100 ML IVPB SCH (07:54)
--- NOTE | 2018-04-30 08:09 | ULT ---
RIGHT UPPER QUADRANT ULTRASOUND: Date: 04/30/18 HISTORY: Right upper quadrant pain. FINDINGS: The patient is post cholecystectomy. The common duct measures 9.0 mm in diameter. No intrahepatic tracy iary ductal dilatation is seen. The liver demonstrates multiple hypoechoic lesions, the largest measu ring 3.8 cm in the right lobe and 3.5 cm in the left lobe. Pancreas is not satisfactorily visualized due to overlying bowel gas. The right kidney is unremarkable. A 4.6 cm right adrenal mass is seen. No free fluid is seen in Morison's pouch. IMPRESSION: 1. Findings are suspicious for metastatic disease involving the liver and right adrenal gland. 2. Status post cholecystectomy with prominent common bile duct. POS: [facility]
[2018-04-30] MEDS ORDERED: Magnesium Citrate 300 ML BOT PO SCH (11:45)
--- NOTE | 2018-04-30 12:37 | EKG ---
Test Reason : HYPOTENSION Blood Pressure : / mmHG Vent. Rate : 101 BPM Atrial Rate : 101 BPM P-R Int : 114 ms QRS Dur : 072 ms QT Int : 340 ms P-R-T Axes : 050 015 053 degrees QTc Int : 440 ms Sinus tachycardia Abnormal ECG Confirmed by DUSTY COHEN ([id number]), loan expeditor KATY CRANE ([id number]) on 04/30/2018 12:37:28 PM Referred By: Confirmed By:DUSTY COHEN
--- NOTE | 2018-04-30 15:56 | PRG ---
DATE OF SERVICE: 04/30/2018 HISTORY OF PRESENT ILLNESS: The patient states that she never received laxative. Reading nursing report, the patient apparently refused. The patient is still requesting when discussed at bedside to something for constipation, is passing gas, is not throwing up. Does remain somewhat nauseated at times following pain medication administration. The patient does feel she is breathing slightly better with ambulation to restroom following titration and the patient's respiratory program regarding her emphysema, was initially n.p.o. this morning for ultrasound which has later been read to show liver and adrenal possible metastatic disease to the right side. Pathology report from mediastinal lymph node is still pending. Formal Cancer Team planning is still pending, pending the biopsy results. The patient remains on Rocephin for prior UTI, E coli sensitive, however, given the patient's shortness of breath. Regarding her emphysema status with possibly look to continue up until day #7, Rocephin while breathing treatments and steroids being applied. Temperature of 98.0, pulse of 82 to 103 last 12 hours, respiratory rate of 18, oxygen saturation 93% on 2 L nasal cannula, and blood pressure 100/62. Red blood cell count of 2.8, hemoglobin of 8.4, and white blood cell count of 8.1. Sodium 137, potassium of 4.6, CO2 of 18, creatinine following 1 L bolus yesterday and continued IV fluids was 1.26. CK level pending in a.m. Albumin of 2.7. Nasal viral panel is negative. Chest x-ray from yesterday afternoon shows stable right upper lobe mass. PHYSICAL EXAMINATION: GENERAL: The patient is alert and oriented, in no acute distress. HEENT: head; normocephalic and atraumatic. Extraocular movements are intact. The patient appears greater than stated age. Nasal cannula in place. Oral mucosa is moist. NECK: Supple. HEART: Regular rate and rhythm at time of exam. No murmurs auscultated. LUNGS: Clear to auscultation bilaterally. Moderate air movement slightly diminished at bases. ABDOMEN: Protuberant. Positive bowel sounds. Minimally tender throughout. No guarding or rebound. EXTREMITIES: Lower extremities are without cyanosis or edema. The patient is alert and oriented x3. No focal deficits. Speech is normal. ASSESSMENT AND PLAN: Mediastinal mass with apparent lung, liver, and adrenal gland right-sided metastatic disease, pending biopsy results, and Cancer Team plan. UTI, emphysema, anemia of chronic disease, acute on chronic renal insufficiency with rhabdomyolysis secondary to metastatic disease, and constipation. We will reorder magnesium citrate and hope the patient will take today and continue Rocephin as discussed above. Pressure breathing treatments and Dulera. Trend CK and renal function. Continue Physical Therapy efforts. The patient is barely walking giving muscle pain, analgesia currently with hydrocodone. The patient's listed PCP is Dr. Castillo Mccann, I believe he is still in vacation. We will discuss with Dr. Parikh, who will continue to follow the patient. Job ID: [id number]
--- NOTE | 2018-04-30 16:13 | PRG ---
DATE OF SERVICE: 04/30/2018 SUBJECTIVE: Ms. Ramirez was doing reasonably well. Her pain is reasonably well controlled. OBJECTIVE: VITAL SIGNS: She is afebrile. Heart rate is 82, respiratory rate is 16, oximetry is 93 on 2 L. Blood pressure is 100/62. LUNGS: Clear. HEART: Regular rhythm. ABDOMEN: Soft. LABORATORY DATA: Sodium 137, potassium 4.6, chloride 108, bicarb 18, BUN 19, and creatinine 1.26. IMPRESSION: 1. Stage IV bronchogenic carcinoma, cell type is still pending. She has no reported frozen section, the biopsies were submitted on . 2. Acute on chronic kidney disease, it is improving. 3. Mild hyperchloremic acidosis. 4. Elevated alkaline phosphatase, most likely related to bone metastases. 5. Hypoalbuminemia. 6. Anemia of chronic disease. 7. Deconditioning and weight loss. PLAN: Await pathology, then proceed with treatment. Job ID: [id number]
[2018-04-30] MEDS: Mometasone/Formoterol 120 PUFF INHALER INH SCH (18:21)
[2018-04-30] MEDS: Cetirizine HCl 10 MG TAB PO SCH (19:26)
[2018-04-30] MEDS: Atenolol 50 MG TAB PO SCH (19:26)
[2018-04-30] MEDS: Enoxaparin Sodium 30 MG/0.3 ML SYRINGE SC SCH (19:26)
[2018-05-01] MEDS: HYDROcodone/Acetaminophen 5/325 mg Tablet PO PRN ×2 (03:24→17:51)
[2018-05-01] MEDS: Mometasone/Formoterol 120 PUFF INHALER INH SCH ×2 (06:38→18:09)
[2018-05-01] MEDS: Dextrose 5 %-0.45 % NaCl 1,000 ML IV SCH (07:02)
[2018-05-01] MEDS: cefTRIAXone\\ROCEPHIN 1 GM in Sodium Chloride 0.9% 100 ML IVPB SCH (07:43)
[2018-05-01] MEDS: Senokot S 8.6-50 MG TAB PO SCH ×2 (07:44→19:44)
[2018-05-01] MEDS: Cyclobenzaprine 10 MG TAB PO SCH ×3 (07:44→19:42)
[2018-05-01 08:33] LABS: ALT (SGPT) 30 U/L (8-55); AST (SGOT) 54 U/L (5-34); Albumin 2.6 g/dL (3.4-4.8); Alkaline Phosphatase 227 U/L (40-150); Anion Gap 14 mmol/L (10-20); BUN (Urea Nitrogen) 16 mg/dL (9.8-20.1); Bilirubin, Total 0.2 mg/dL (0.2-1.2); CK (CPK) 539 U/L (29-168); Calc. Creatinine Clearance 62 mL/min (70-130); Calcium 8.1 mg/dL (7.8-10.44); Carbon Dioxide 20 mmol/L (23-31); Chloride 110 mmol/L (98-107); Estimated GFR-MDRD 54; Globulin 2.8 g/dL (2.4-3.5); Glucose 97 mg/dL (80-115); Potassium 3.9 mmol/L (3.5-5.1); Protein, Total 5.4 g/dL (6.0-8.3); Sodium 140 mmol/L (136-145)
[2018-05-01] MEDS: Lorazepam 1 MG TAB PO PRN ×2 (11:05→23:13)
[2018-05-01] MEDS: Cetirizine HCl 10 MG TAB PO SCH (19:42)
[2018-05-01] MEDS: Atenolol 50 MG TAB PO SCH (19:42)
[2018-05-01] MEDS: Enoxaparin Sodium 30 MG/0.3 ML SYRINGE SC SCH (19:44)
--- NOTE | 2018-05-01 21:23 | PRG ---
DATE OF SERVICE: 05/01/2018 HISTORY OF PRESENT ILLNESS: The [facility] on an outpatient basis with hospital unavailable for physical exam. However, the patient did work with Physical Therapy upon return and ambulated 100 feet on 2 L nasal cannula with a rolling walker. Continues to have some muscular pain. No new concerns per nursing staff. Pathology report are currently still pending on mediastinal mass. The patient is making progress regarding bowel movements, had 2 today regarding constipation. On vital signs, temperature 99.0, pulse of 100, respiratory rate of 18, oxygen saturation 92% on 2 L nasal cannula, blood pressure 122/86. Hemoglobin 8.4, platelet count of 298. Sodium 140, potassium 3.9, creatinine of 1.02. CK trending down to 539. MRI ordered for tomorrow of brain. ASSESSMENT AND PLAN: Metastatic mass of mediastinum with lung, liver, adrenal gland metastatic disease with likely involvement into muscles. Awaiting pathology report for cancer team's plan. Patient adequately treated regarding urinary tract infection, however, possible chronic obstructive pulmonary disease exacerbation. Regarding the patient's emphysema found on imaging, continuing Dulera and breathing treatments. I would likely recommend using antibiotics by day #7. The patient's acute renal insufficiency is slowly improving with IV fluids regarding rhabdomyolysis, secondary to metastatic disease. Constipation appears to be resolved following Senokot S, as well as magnesium citrate. Continue with Physical Therapy efforts, nasal cannula for oxygen support, and analgesia with hydrocodone and follow up on cancer team's plan and brain MRI. Job ID: [id number]
[2018-05-01] MEDS ORDERED: Diltiazem HCl 125 MG, Admixture Fee 1 EACH in Sodium Chloride 0.9% 100 ML IVPB SCH (22:30)
[2018-05-01 23:25] LABS: Anion Gap 13 mmol/L (10-20); BUN (Urea Nitrogen) 15 mg/dL (9.8-20.1); Calc. Creatinine Clearance 65 mL/min (70-130); Calcium 8.8 mg/dL (7.8-10.44); Carbon Dioxide 24 mmol/L (23-31); Chloride 107 mmol/L (98-107); Estimated GFR-MDRD 57; Glucose 99 mg/dL (80-115); Potassium 4.3 mmol/L (3.5-5.1); Sodium 140 mmol/L (136-145)
[2018-05-01 23:31] LABS: Troponin I 0.011 ng/mL (< 0.028)
[2018-05-02] MEDS: Mometasone/Formoterol 120 PUFF INHALER INH SCH ×2 (07:22→18:39)
[2018-05-02] MEDS: HYDROcodone/Acetaminophen 5/325 mg Tablet PO PRN ×2 (07:26→19:52)
[2018-05-02] MEDS: Senokot S 8.6-50 MG TAB PO SCH ×2 (08:25→19:55)
[2018-05-02] MEDS: Cyclobenzaprine 10 MG TAB PO SCH ×3 (08:26→20:00)
--- NOTE | 2018-05-02 09:05 | PRG ---
DATE OF SERVICE: 05/02/2018 PRIMARY CARE PHYSICIAN: Castillo Mccann MD SUBJECTIVE: The patient is now in telemetry due to episode of SVT. She denies chest pain, shortness of breath. She has had increased cough. She tolerated outpatient consultation with [facility] in preparation for radiation therapy. She does appear more short of breath today with some improvement with her neb treatments. Appears more confused. Also MRI of her brain pending for today. OBJECTIVE: VITAL SIGNS: Temperature 98.2, pulse of 102 to 108, respirations 20, blood pressure 141/66, pulse ox is 96% on 3 L nasal cannula. GENERAL: She is awake and alert, confused, but answers questions appropriately, easily redirected. Denies pain, some cough and shortness of breath with exertion. Mucosa is moist. NECK: Supple. HEART: Tachycardic. LUNGS: Wheezes expiratory. ABDOMEN: Soft. EXTREMITIES: No edema. LABORATORY DATA: Pending. ASSESSMENT AND PLAN: 1. This is a 68-year-old female patient admitted for inability to walk and intractable pain, found to have a mediastinal mass with metastasis to her bones, lung, liver, adrenal gland, awaiting final pathology from the mediastinal biopsy. Appreciate Oncology's evaluation and following. 2. Urinary tract infection, appears to be resolved. We will discontinue antibiotics day number seven. 3. Chronic obstructive pulmonary disease exacerbation. We will continue neb treatments, possibly initiate steroids if okay with Pulmonary. 4. Rhabdomyolysis is resolving. 5. Confusion. Possible metastatic brain disease as well. We will await MRI of the brain and follow her labs. Job ID: [id number]
--- NOTE | 2018-05-02 10:44 | PRG ---
DATE OF SERVICE: 05/01/2018 SERVICE: Pulmonary Medicine INTERVAL HISTORY: The patient is doing really well from Respiratory standpoint. Denies any fevers, chills, nausea, or vomiting. She continues to cough and is bringing up a little bit of phlegm. That being said, her appetite is improved. She went down for radiation therapy today. It was challenging for her to sit through, but she was able to get through at all without significant setback. PHYSICAL EXAMINATION: VITAL SIGNS: Afebrile, pulse 100, blood pressure 132/78, respirations 20, saturation 94% on 2 L nasal cannula. GENERAL: The patient is awake, alert, in no apparent distress. LUNGS: Decent air entry. Rhonchi are present. No prolonged expiratory phase or wheezing is appreciated. HEART: Normal rate and regular. ABDOMEN: Soft, nontender, and nondistended. Bowel sounds are positive. MUSCULOSKELETAL: No cyanosis or clubbing. There is no pitting in the bilateral lower extremities. Skin tenting is much improved. : No Mathews. NEUROLOGIC: Grossly nonfocal. LABORATORY AND DIAGNOSTIC DATA: Sodium 140, chloride 110, bicarb 20 and improving, creatinine downtrending to 1.02. AST and ALT remain elevated, but are stable. Alkaline phosphatase is also stable. Urine culture is growing E coli. Respiratory virus panel is unremarkable. Ultrasound of the abdomen demonstrates metastatic disease of the liver, and adrenal gland. Prominent common bile duct is noted. Chest x-ray demonstrates mediastinal lesion. ASSESSMENT: 1. Widely metastatic process, pathology currently pending from mediastinoscopy. 2. Urinary tract infection. 3. Acute kidney injury, resolved. 4. Constipation. DISCUSSION AND PLAN: She is tolerating p.o. As such, I will interrupt IV fluids. Her abdominal pain is much improved. Pulmonary will continue to follow along for the time being. Pathology is currently pending. Job ID: [id number]
[2018-05-02] MEDS: Atenolol 50 MG TAB PO SCH (19:51)
[2018-05-02] MEDS: Enoxaparin Sodium 30 MG/0.3 ML SYRINGE SC SCH (19:52)
[2018-05-02] MEDS: Cetirizine HCl 10 MG TAB PO SCH (19:54)
[2018-05-03] MEDS: HYDROcodone/Acetaminophen 5/325 mg Tablet PO PRN ×2 (02:39→06:36)
[2018-05-03 06:35] LABS: #Eosinphils 0.1 thou/uL (0.0-0.7); #Lymphocytes 1.6 thou/uL (1.20-3.40); #Monocytes 0.3 thou/uL (0.11-0.59); #Neutrophils 4.6 thou/uL (1.40-6.50); %Basophils 0.3 % (0.0-1.0); %Eosinophils 1.7 % (0.0-10.0); %Lymphocytes 24.4 % (21.0-51.0); %Monocytes 3.8 % (0.0-10.0); %Neutrophils 69.8 % (42.0-75.0); Hemoglobin 7.6 g/dL (12.0-16.0); Mean Corpuscular HGB CONC 32.9 g/dL (32.0-36.0); Mean Corpuscular Hemoglobin 30.2 pg (27.0-31.0); Mean Corpuscular Volume 91.8 fL (78.0-98.0); Platelet Count 347 thou/uL (130-400); RBC Distribution Width 12.6 % (11.5-14.5); Red Blood Cell (RBC) Count 2.52 mill/uL (4.20-5.40); White Blood Cell (WBC) Count 6.6 thou/uL (4.8-10.8)
[2018-05-03 06:56] LABS: Anion Gap 14 mmol/L (10-20); BUN (Urea Nitrogen) 14 mg/dL (9.8-20.1); Calc. Creatinine Clearance 75 mL/min (70-130); Calcium 8.4 mg/dL (7.8-10.44); Carbon Dioxide 23 mmol/L (23-31); Chloride 106 mmol/L (98-107); Estimated GFR-MDRD 68; Glucose 80 mg/dL (80-115); Potassium 4.1 mmol/L (3.5-5.1); Sodium 139 mmol/L (136-145)
[2018-05-03] MEDS: Mometasone/Formoterol 120 PUFF INHALER INH SCH ×2 (07:04→19:32)
[2018-05-03] MEDS: Senokot S 8.6-50 MG TAB PO SCH ×3 (07:50→22:44)
[2018-05-03] MEDS ORDERED: CARBOplatin 450 MG in Sodium Chloride 0.9% 250 ML 250 ML IVPB SCH (08:00)
[2018-05-03] MEDS ORDERED: Dexamethasone 10 MG in Sodium Chloride 0.9% 50 ML IVPB SCH (08:00)
[2018-05-03] MEDS ORDERED: Palonosetron HCl 0.25 MG in Sodium Chloride 0.9% 50 ML IVPB SCH (08:00)
--- NOTE | 2018-05-03 09:17 | SPC ---
SONOGRAPHIC GUIDED LEFT UPPER EXTREMITY PICC PLACEMENT: HISTORY: Cancer. Need for long-term IV access. FINDINGS: After explaining the procedure and answering all questions, the left upper extremity was prepped and draped in the usual sterile fashion. Sterile technique, buffered local anesthesia, sonographic olga nce, and a 22 gauge needle were used to carefully access the left basilic vein. Standard technique w as used to place the tip of a 5 Yi dual-lumen PICC so that the tip lies at the level of the super ior vena cava. The catheter was flushed and secured externally. The patient tolerated the procedure well and was returned in unchanged condition. FLUOROSCOPY TIME: Zero seconds. IMPRESSION: Left upper extremity peripherally inserted central catheter, ready for use. POS: TPC
[2018-05-03] MEDS ORDERED: SODIUM CHLORIDE 0.9% IVPB SCH (13:00)
[2018-05-03] MEDS ORDERED: CARBOPLATIN IVPB SCH (13:00)
[2018-05-03 13:04] LABS: Uric Acid 6.3 mg/dL (2.6-6.0)
[2018-05-03 13:23] LABS: T4 6.7 ug/dL (4.87-11.72); Thyroid Stimulating Hormone 1.1983 uIU/mL (0.35-4.94)
--- NOTE | 2018-05-03 17:58 | PRG ---
DATE OF SERVICE: 05/03/2018 SERVICE: Pulmonary Medicine. INTERVAL HISTORY: The patient is doing fine from respiratory standpoint. Denies any current chest pain, nausea, vomiting, fevers, or chills. She was brought down to the telemetry unit yesterday because of a tachyarrhythmia. Ultimately, this was well controlled this morning. She was moved to the Oncology floor. She was initiated chemotherapy. She started having a tachyarrhythmia once again with a little bit of increasing shortness of breath. Otherwise, there has been no interval change to her condition. She denies any current fevers, chills, nausea, or vomiting. She is not coughing anything. PHYSICAL EXAMINATION: VITAL SIGNS: Afebrile, pulse 150, respirations 22, saturations 93% on 3.5 L nasal cannula. GENERAL: The patient is awake and alert, in no apparent distress. LUNGS: Minimal dependent crackles are noted. She actually does not have a lot of rhonchi today. No wheezing is appreciated. There is no prolonged expiratory phase. HEART: Normal rate and regular. ABDOMEN: Soft, nontender, and nondistended. Bowel sounds are positive. MUSCULOSKELETAL: No cyanosis or clubbing. There is trace pitting in the bilateral lower extremities. NEUROLOGIC: Grossly nonfocal. LABORATORY DATA: WBC 6.6, hemoglobin 7.6, platelets 347,000. Basic metabolic profile is essentially unremarkable. Potassium 4.1, uric acid 6.3. LDH 1648. TSH falls within normal limits. Troponin is negative x1. Urine culture is growing E coli. Respiratory virus panel was unremarkable. ASSESSMENT: 1. Small-cell lung cancer, widely metastatic. 2. Urinary tract infection. 3. Acute kidney injury, resolved. 4. Supraventricular tachycardia, recurrent. DISCUSSION AND PLAN: I will schedule diltiazem 30 mg p.o. q.6 hours for now. We will titrate this up through time if needed. Pulmonary Critical Care will continue to follow through the weekend. Once her heart rate is under control, she will be a decent candidate for transition home. If she remains significantly volume overloaded, a single dose of Lasix will be considered. Job ID: [id number]
[2018-05-03] MEDS: Atenolol 50 MG TAB PO SCH (20:03)
[2018-05-03] MEDS: Enoxaparin Sodium 30 MG/0.3 ML SYRINGE SC SCH (20:03)
[2018-05-04 06:20] LABS: #Lymphocytes 0.5 thou/uL (1.20-3.40); #Monocytes 0.2 thou/uL (0.11-0.59); #Neutrophils 5.7 thou/uL (1.40-6.50); %Eosinophils 0.4 % (0.0-10.0); %Lymphocytes 8.3 % (21.0-51.0); %Neutrophils 88.3 % (42.0-75.0); Hemoglobin 7.9 g/dL (12.0-16.0); Mean Corpuscular HGB CONC 31.4 g/dL (32.0-36.0); Mean Corpuscular Volume 92.4 fL (78.0-98.0); Mean Platelet Volume 6.7 fL (7.4-10.4); Platelet Count 383 thou/uL (130-400); RBC Distribution Width 12.6 % (11.5-14.5); Red Blood Cell (RBC) Count 2.72 mill/uL (4.20-5.40); White Blood Cell (WBC) Count 6.5 thou/uL (4.8-10.8)
[2018-05-04] MEDS: Mometasone/Formoterol 120 PUFF INHALER INH SCH ×2 (07:28→20:11)
[2018-05-04] MEDS ORDERED: Dexamethasone 10 MG in Sodium Chloride 0.9% 50 ML IVPB SCH (08:00)
[2018-05-04] MEDS: Acetaminophen 325 MG TAB PO PRN ×2 (08:42→15:44)
[2018-05-04] MEDS: Senokot S 8.6-50 MG TAB PO SCH ×2 (08:43→20:41)
[2018-05-04] MEDS: Atenolol 50 MG TAB PO SCH ×2 (08:43→20:39)
[2018-05-04] MEDS: guaiFENesin/Codeine Phosphate 200 mg/20 mg 10 ml UD Cup PO PRN ×2 (10:09→18:23)
[2018-05-04] MEDS: Enoxaparin Sodium 30 MG/0.3 ML SYRINGE SC SCH (20:41)
--- NOTE | 2018-05-04 21:12 | PRG ---
DATE OF SERVICE: 05/04/2018 SERVICE: Pulmonary Medicine. INTERVAL HISTORY: The patient is doing fine from respiratory standpoint. Breathing comfortably. She is actually in good mood today. She denies any fevers, chills, or overnight events. She is not looking for the MRI of the brain tomorrow because she has pretty severe claustrophobia. Otherwise, there has been no interval change to her condition. PHYSICAL EXAMINATION: VITAL SIGNS: Afebrile, pulse 96, blood pressure 130/60, respirations 20, saturation 92% on 4 L nasal cannula. GENERAL: The patient is awake and alert, in no apparent distress. LUNGS: Improved air entry. She still has decreased entry on the right. There was good air entry on the left with a prolonged expiratory phase. There are some rhonchus breath sounds today, less wheezing is appreciated here. HEART: Normal rate and regular. ABDOMEN: Soft, nontender, and nondistended. Bowel sounds are positive. MUSCULOSKELETAL: No cyanosis or clubbing. There is no pitting in the bilateral lower extremities. NEUROLOGIC: Grossly nonfocal. LABORATORY DATA: CBC is essentially unremarkable/stable with a hemoglobin of 7.9. Basic metabolic profile is completely unremarkable. Uric acid was 6.3, LDH 1648. E coli was growing in the urine previously. ASSESSMENT: 1. Small-cell lung cancer, widely metastatic. 2. Urinary tract infection secondary to Escherichia coli. 3. Acute kidney injury, resolved. 4. Supraventricular tachycardia, resolved. DISCUSSION AND PLAN: The 30 mg of diltiazem that she takes q.6 hours seems to be holding her heart rate. As such, we will leave the dose where it is. From a purely respiratory standpoint, nothing prevents discharge from the hospital. Pulmonary will continue to follow along; however, while she remains in-house. I gave her brief course of steroids for her respiratory issues. Job ID: [id number]
[2018-05-05] MEDS: guaiFENesin/Codeine Phosphate 200 mg/20 mg 10 ml UD Cup PO PRN ×2 (00:19→23:45)
[2018-05-05 05:30] LABS: #Lymphocytes 0.4 thou/uL (1.20-3.40); #Monocytes 0.1 thou/uL (0.11-0.59); #Neutrophils 8.6 thou/uL (1.40-6.50); %Eosinophils 0.2 % (0.0-10.0); %Lymphocytes 4.2 % (21.0-51.0); %Monocytes 1.4 % (0.0-10.0); %Neutrophils 94.2 % (42.0-75.0); Hemoglobin 8.1 g/dL (12.0-16.0); Mean Corpuscular HGB CONC 32.5 g/dL (32.0-36.0); Mean Corpuscular Hemoglobin 29.9 pg (27.0-31.0); Mean Corpuscular Volume 92.2 fL (78.0-98.0); Mean Platelet Volume 6.5 fL (7.4-10.4); Platelet Count 457 thou/uL (130-400); RBC Distribution Width 12.6 % (11.5-14.5); Red Blood Cell (RBC) Count 2.69 mill/uL (4.20-5.40); White Blood Cell (WBC) Count 9.2 thou/uL (4.8-10.8)
[2018-05-05 05:55] LABS: Anion Gap 13 mmol/L (10-20); BUN (Urea Nitrogen) 16 mg/dL (9.8-20.1); Calc. Creatinine Clearance 82 mL/min (70-130); Calcium 8.3 mg/dL (7.8-10.44); Carbon Dioxide 24 mmol/L (23-31); Chloride 108 mmol/L (98-107); Estimated GFR-MDRD 72; Glucose 123 mg/dL (80-115); Potassium 4.2 mmol/L (3.5-5.1); Sodium 141 mmol/L (136-145); Uric Acid 6.9 mg/dL (2.6-6.0)
[2018-05-05] MEDS: Mometasone/Formoterol 120 PUFF INHALER INH SCH ×2 (06:26→19:44)
[2018-05-05] MEDS ORDERED: Dexamethasone 10 MG in Sodium Chloride 0.9% 50 ML IVPB SCH (08:00)
[2018-05-05 08:30] LABS: CK (CPK) 437 U/L (29-168); LDH 1762 U/L (125-220)
[2018-05-05] MEDS ORDERED: Midazolam HCl 2 mg/2 ml Vial ONE ×2 (10:45→10:52)
[2018-05-05] MEDS ORDERED: Fentanyl 100 MCG/2 ML VIAL ONE (10:52)
[2018-05-05] MEDS ORDERED: PROPOFOL 200 MG/20 ML VIAL ONE (11:15)
--- NOTE | 2018-05-05 12:35 | PRG ---
DATE OF SERVICE: 05/05/2018 SUBJECTIVE: She is in usual unchanged state from yesterday. Conversive. Her cough seems to be settled when she is in position and taken the cough medicine. Position being left lateral decubitus type position. OBJECTIVE: VITAL SIGNS: She is maintained being afebrile, pulse is 98, respiratory rate is 18 to 28, today little higher. Saturating 97% and BP is up little bit to 160s/70s. LUNGS: She had gone down and had an MRI today following up on her lungs. Lung sounds are continued to be rales bilaterally. HEART: S1 and S2 with no rubs, murmurs, or gallops. ASSESSMENT: Metastatic small cell cancer bronchogenic with metastasis to bone. She also has urinary tract infection, continue antibiotics. Her supraventricular tachycardia is resolved with diltiazem. PLAN: Plan is for discharge per Oncology at this point. Job ID: [id number]
[2018-05-05] MEDS: Atenolol 50 MG TAB PO SCH ×2 (13:22→21:12)
[2018-05-05] MEDS: predniSONE 20 MG TAB PO SCH (13:22)
[2018-05-05] MEDS: Senokot S 8.6-50 MG TAB PO SCH ×2 (13:22→21:13)
--- NOTE | 2018-05-05 13:49 | MRI ---
MRI BRAIN WITH AND WITHOUT GADOLINIUM CONTRAST: HISTORY: Lung cancer. Initial staging. FINDINGS: There is no evidence of acute intracranial hemorrhage or infarct. Ventricles appear normal in size, shape, and position. There is no mass effect, shift of midline structures, or abnormal areas of cont rast enhancement. IMPRESSION: No evidence of intracranial metastatic disease. POS: SHERIDANH
[2018-05-05] MEDS ORDERED: Furosemide 20 MG/2 ML VIAL SLOW IVP SCH (19:15)
--- NOTE | 2018-05-05 19:20 | PRG ---
DATE OF SERVICE: 05/05/2018 SERVICE: Pulmonary Medicine. INTERVAL HISTORY: The patient is doing poorly from respiratory standpoint. She underwent an MRI today. She is having increasing work of breathing and shortness of breath. She also has complaints of mouth sores which are quite painful and preventing her from actually taking any p.o. nutrition. PHYSICAL EXAMINATION: VITAL SIGNS: Afebrile, pulse 97, blood pressure 132/63, respirations 20, saturation 92% on 4 L nasal cannula. GENERAL: The patient is awake and alert, in no apparent distress. LUNGS: Decent air entry. Slightly prolonged expiratory phase is noted. There is expiratory wheezing present, but dependent crackles predominate. HEART: Normal rate, regular. ABDOMEN: Soft, nontender, and nondistended. Bowel sounds are positive. MUSCULOSKELETAL: No cyanosis or clubbing. There is no pitting in the bilateral lower extremities. NEUROLOGIC: Grossly nonfocal. LABORATORY DATA: Sodium 141, chloride 108 and up trending, glucose 123. Uric acid is up trending to 6.9, LDH is up trending to 1700 with a CK of 437, downtrending gently. E. coli is growing in the urine. IMAGING: MRI demonstrates no evidence of intracranial metastatic disease. ASSESSMENT: 1. Small-cell lung cancer, widely metastatic. 2. Urinary tract infection secondary to Escherichia coli. 3. Acute kidney injury, resolved. 4. Supraventricular tachycardia, resolved. 5. Mouth sores. DISCUSSION AND PLAN: The patient's touch volume overloaded. As such, we will provide her with a dose of Lasix today and tomorrow morning. We will continue antibiotics, steroids, nebulized medications. Pulmonary Critical Care will continue to follow along while the patient remains inhouse. I will also give her some Magic mouthwash for her mouth sores. Job ID: [id number]
[2018-05-05] MEDS: Acetaminophen 325 MG TAB PO PRN (21:13)
[2018-05-05] MEDS: Enoxaparin Sodium 30 MG/0.3 ML SYRINGE SC SCH (21:14)
[2018-05-05] MEDS: Aluminum & Magnesium Hydroxide 60 ML, Lidocaine 2% Viscous Solution 30 ML, diphenhydrAM... SSW PRN (21:15)
[2018-05-06 06:48] LABS: Band 3 % (5-11); Hemoglobin 7.9 g/dL (12.0-16.0); Lymphocytes 4 % (21-51); MDiff Complete? YES; Mean Corpuscular HGB CONC 32.1 g/dL (32.0-36.0); Mean Corpuscular Hemoglobin 29.6 pg (27.0-31.0); Mean Corpuscular Volume 92.3 fL (78.0-98.0); Mean Platelet Volume 6.5 fL (7.4-10.4); Neutrophil 93 % (42-75); Platelet Count 430 thou/uL (130-400); Platelet Morphology Comment Appears Increased; RBC Distribution Width 12.6 % (11.5-14.5); Red Blood Cell (RBC) Count 2.67 mill/uL (4.20-5.40); White Blood Cell (WBC) Count 7.9 thou/uL (4.8-10.8)
[2018-05-06 06:51] LABS: Anion Gap 16 mmol/L (10-20); BUN (Urea Nitrogen) 24 mg/dL (9.8-20.1); Calc. Creatinine Clearance 72 mL/min (70-130); Calcium 8.5 mg/dL (7.8-10.44); Carbon Dioxide 22 mmol/L (23-31); Chloride 108 mmol/L (98-107); Estimated GFR-MDRD 62; Glucose 120 mg/dL (80-115); Potassium 4.5 mmol/L (3.5-5.1); Sodium 141 mmol/L (136-145)
[2018-05-06] MEDS: Atenolol 50 MG TAB PO SCH ×2 (08:03→20:27)
[2018-05-06] MEDS: Senokot S 8.6-50 MG TAB PO SCH ×2 (08:03→20:27)
[2018-05-06] MEDS: predniSONE 20 MG TAB PO SCH (08:04)
[2018-05-06] MEDS: Mometasone/Formoterol 120 PUFF INHALER INH SCH ×2 (08:41→19:48)
[2018-05-06] MEDS ORDERED: Furosemide 20 MG/2 ML VIAL SLOW IVP SCH (09:00)
[2018-05-06] MEDS: Ibuprofen 600 MG TAB PO PRN (09:11)
[2018-05-06] MEDS: Polyethylene Glycol 3350 17 GM Packet PO SCH (09:11)
--- NOTE | 2018-05-06 09:59 | PRG ---
DATE OF SERVICE: 05/06/2018 SUBJECTIVE: The patient this morning is in good spirits. States her low back pain has improved somewhat. Eager for physical therapy. OBJECTIVE: VITAL SIGNS: Temperature 98.1, pulse 88, respirations 20, and blood pressure 138/70. HEENT: Clear. NECK: Supple. HEART: Regular rate and rhythm. LUNGS: Left-sided rhonchi. ABDOMEN: Soft. EXTREMITIES: No edema. LABORATORY DATA: White count 7.9, hemoglobin and hematocrit 7.9 and 24.6, platelet 430. Sodium 141, potassium 4.5, creatinine 0.91, BUN 24, blood sugar 120. LDH 1762, CK 437, TSH 1.193. Urine with greater than 50 wbc's, 4+ bacteria with E. coli. ASSESSMENT: 1. Metastatic small cell lung cancer with mets to the spine and adrenal glands. 2. Dehydration, resolving. 3. Escherichia coli urinary tract infection. 4. Tachyarrhythmia, stable with Cardizem. 5. Acute kidney injury, resolved. 6. Mouth sores. 7. Constipation. 8. Status post mediastinoscopy with biopsy by Dr. Wallace. 9. Anemia, started on . PLAN: 1. Continue chemo and radiation per Dr. Samayoa and Dr. Dawn. 2. MiraLAX and Colace. 3. Physical therapy. 4. Continue to follow. Job ID: [id number]
--- NOTE | 2018-05-06 11:17 | PRG ---
DATE OF SERVICE: 05/03/2018 SUBJECTIVE: The patient is doing well. She denies chest pain or shortness of breath. No more further episodes of palpitations. No chest pain. Continues to await further therapy. She tolerated therapy with [facility]. OBJECTIVE: VITAL SIGNS: On 05/03; temperature 98.1, pulse is 98, respirations 18, blood pressure 133/60, pulse ox 93% on room air. GENERAL: She is awake and alert. Appears comfortable, in no acute distress. HEART: Regular rate and rhythm. LUNGS: No wheezes. Decreased breath sounds. ABDOMEN: Soft. EXTREMITIES: There is no edema. LABORATORY DATA: White blood cell count 6,600, hemoglobin 7.6, platelets 347,000. Potassium 4.1. ASSESSMENT AND PLAN: 1. This is a 68-year-old female patient, admitted for inability to walk, intractable pain, and now found to have widely metastatic bronchogenic carcinoma. Plan for treatment per Oncology and Radiation Oncology. 2. Chronic obstructive pulmonary disease. Continue neb treatments. 3. Rhabdomyolysis is resolved. 4. Urinary tract infection. Off antibiotics now. 5. Mental status change. Possible metastatic disease to the brain. Job ID: [id number]
--- NOTE | 2018-05-06 11:26 | PQF ---
MARCO ANTONIO MENDES, MARY Humphrey JR, MD [id number] CLINICAL DOCUMENTATION IMPROVEMENT CLARIFICATION FORM: ICD-10 Updated PLEASE DO AN ADDENDUM TO THE PROGRESS NOTE WITH ANY DOCUMENTATION UPDATES OR ADDITIONS AND CARRY THROUGH TO DC SUMMARY. THANK YOU. DATE: 05-06-18 ATTN: DR. TUTTLE Please exercise your independent, professional judgment in responding to the clarification form. Clinical indicators are provided on the bottom of this form for your review Please check appropriate box(s): [ ] Acute Metabolic Encephalopathy: [ ] Acute Hypoxic Encephalopathy [ ] Other Diagnosis [ ] Unable to determine In addition, please specify: Present on Admission (POA): [ ] Yes [ ] No [ ] Unable to determine For continuity of documentation, please document condition throughout progress notes and discharge summary. Thank You. CLINICAL INDICATORS - SIGNS / SYMPTOMS / LABS ED P 93-103 RR 94-99% ON RA BP 72/41; 109/70 04-27 ([facility]): O2 SAT 80% [facility]% ON RA 04-29 ([facility]): SHE HAS HAD MORE SOB SINCE SUNDAY; O2 SAT 95% ON 2LNC; BREATHING IS MILDLY LABORED 04-29 (CHRISTY): DENIES ANY FORMAL SOB WHILE ON NC AND AT REST. GETS SOB W/ ACTIVITY TO RESTROOM OFF NC. EMPHYSEMA; WILL START DUONEBS; SOLU-MEDROL; ROCEPHIN; LIKELY MILD COPD EXACERBATION; 05-02 ([facility]): CONFUSION. POSSIBLE METASTATIC BRAIN DX - AWAIT MRI OF BRAIN; UTI; COPD EXAC; RHABDO; SVT; MARGARETTE 05-05 MRI BRAIN - NO EVIDENCE OF INTRACRANIAL METASTATIC DX RISK FACTORS 04-30 DOUGLAS: * STAGE IV BRONCHOGENIC CARCINOMA, * ELEVATED ALKALINE PHOSPHATASE, MOST LIKELY R/T BONE METS * HYPOALBUMINEMIA 04-27 ([facility]); MARGARETTE; UTI TREATMENTS: MAR: ROCEPHIN IV 04-25 TO 05-01 IVF NS 04-25/04-30 CARDIZEM IV 05-01 POTASSIUM IV 04-27 TO 04-29 LASIX IV 05-05 CPOE: 05-05 MRI BRAIN OXYGEN 04-30 2-4 LNC THANK YOU, TIFFANY (This form is maintained as a part of the permanent medical record) 2014 [employer]. All Rights Reserved Tiffany Shelby RN, BS [email or web address]
--- NOTE | 2018-05-06 13:44 | PRG ---
DATE OF SERVICE: SUBJECTIVE: The patient appears to be doing well. She had some chemo earlier today. OBJECTIVE: VITAL SIGNS: Temperature 97.7, pulse 87, respirations 20, O2 saturation 93% on a Ventimask, blood pressure 146/68. HEENT: Unremarkable. NECK: No JVD. LUNGS: Coarse breath sounds. CARDIAC: S1 and S2 regular. ABDOMEN: Soft. EXTREMITIES: No edema. LABORATORY DATA: White blood cell count 7.9, hematocrit 24.6, and platelet count 430. Sodium 141, potassium 4.5, BUN 24, creatinine 0.9, glucose 120. ASSESSMENT: Small cell lung cancer. PLAN: Continuing chemotherapy. She remains hypoxic and is receiving breathing treatments, steroids, and Dulera. She will remain in the hospital until her hypoxemia is improved. Job ID: [id number]
[2018-05-06] MEDS ORDERED: PEGFILGRASTIM-JMDB 6 MG/0.6 ML SYRINGE SQ SCH (14:15)
[2018-05-06] MEDS: Aluminum & Magnesium Hydroxide 60 ML, Lidocaine 2% Viscous Solution 30 ML, diphenhydrAM... SSW PRN (14:47)
[2018-05-06] MEDS ORDERED: Milk Of Magnesia 30 ML UDCUP PO PRN (20:08)
[2018-05-06] MEDS: Enoxaparin Sodium 30 MG/0.3 ML SYRINGE SC SCH (20:29)
[2018-05-07] MEDS: Mometasone/Formoterol 120 PUFF INHALER INH SCH ×2 (06:43→18:35)
[2018-05-07 06:58] LABS: Anion Gap 15 mmol/L (10-20); BUN (Urea Nitrogen) 31 mg/dL (9.8-20.1); Calc. Creatinine Clearance 77 mL/min (70-130); Calcium 8.6 mg/dL (7.8-10.44); Carbon Dioxide 24 mmol/L (23-31); Chloride 105 mmol/L (98-107); Estimated GFR-MDRD 61; Glucose 105 mg/dL (80-115); Potassium 3.8 mmol/L (3.5-5.1); Sodium 140 mmol/L (136-145)
[2018-05-07] MEDS: Atenolol 50 MG TAB PO SCH ×2 (08:43→20:19)
[2018-05-07] MEDS: predniSONE 20 MG TAB PO SCH (08:43)
[2018-05-07] MEDS: Polyethylene Glycol 3350 17 GM Packet PO SCH (08:54)
[2018-05-07] MEDS: Senokot S 8.6-50 MG TAB PO SCH ×2 (08:54→20:19)
[2018-05-07] MEDS: Sodium Chloride 0.9% 1,000 ML IV SCH (11:24)
--- NOTE | 2018-05-07 14:32 | PRG ---
DATE OF SERVICE: SUBJECTIVE: This morning, she is better, less short of breath. OBJECTIVE: VITAL SIGNS: Saturations are 90, pulse 92, temperature 99, blood pressure 109/58. CHEST: Decreased breath sounds. No wheezing CARDIAC: Normal S1 and S2. No gallops. ABDOMEN: No masses. IMPRESSION: 1. Small cell carcinoma. 2. Respiratory failure. PLAN: She can go home until oxygen saturation is improved. It is unclear why sats are not any better. Her CT shows a large mediastinal mass without any other infiltrates. Try nasal O2. Continue otherwise supportive care. Added Dulera to her present treatment. We will follow. Job ID: [id number]
--- NOTE | 2018-05-07 14:35 | PRG ---
DATE OF SERVICE: 05/07/2018 SUBJECTIVE: The patient has no complaints of chest pain, shortness of breath. She is on oxygen. She does complain of persistent constipation, although she was up and down on the bedside commode last night. Question of whether she is refusing her MiraLAX. OBJECTIVE: VITAL SIGNS: Temperature 99.0, pulse 92, respirations 20, pulse ox 90 on a Venturi mask, blood pressure 119/58. HEART: Regular rate and rhythm. LUNGS: Clear. ABDOMEN: Soft, nontender. EXTREMITIES: With no edema. LABORATORY DATA: Sodium 140, potassium 3.8, chloride 105, CO2 of 24, creatinine 0.92, BUN 31, glucose 105. ASSESSMENT: 1. Hypoxemia, on a Venturi mask. 2. Metastatic small cell lung cancer with metastasis to the spine and adrenal glands. 3. Dehydration, improving. 4. Escherichia coli urinary tract infection, on antibiotics. 5. Tachyarrhythmia, stable with Cardizem. 6. Acute kidney injury. 7. Mouth sores. 8. Constipation. 9. Status post mediastinoscopy with biopsy by Dr. Wallace. 10. Anemia of chronic disease. PLAN: 1. Continue chemoradiation. 2. MiraLAX and Colace. 3. Physical therapy. 4. We will increase hydration. Job ID: [id number]
[2018-05-07] MEDS: Enoxaparin Sodium 30 MG/0.3 ML SYRINGE SC SCH (20:19)
[2018-05-08] MEDS: Sodium Chloride 0.9% 1,000 ML IV SCH ×2 (00:17→14:26)
[2018-05-08 04:18] LABS: Anion Gap 12 mmol/L (10-20); BUN (Urea Nitrogen) 21 mg/dL (9.8-20.1); Calc. Creatinine Clearance 92 mL/min (70-130); Calcium 8.3 mg/dL (7.8-10.44); Carbon Dioxide 25 mmol/L (23-31); Chloride 107 mmol/L (98-107); Estimated GFR-MDRD 75; Glucose 87 mg/dL (80-115); Sodium 140 mmol/L (136-145)
[2018-05-08] MEDS: Mometasone/Formoterol 120 PUFF INHALER INH SCH ×2 (06:08→19:09)
--- NOTE | 2018-05-08 07:58 | PRG ---
DATE OF SERVICE: 05/08/2018 SUBJECTIVE: The patient slept well last night. She still has a prominent cough, but loose. Weaned down to a 4 L of O2 nasal cannula. OBJECTIVE: VITAL SIGNS: Temperature 98.4, pulse 93, respirations 18, pulse ox 90 on 4 L of O2, blood pressure 138/62. HEART: Regular rate and rhythm. LUNGS: With bilateral rales. No wheezing this morning. ABDOMEN: Soft. EXTREMITIES: No edema. LABORATORY DATA: Sodium 140, potassium 4.0, creatinine 0.77, BUN 21. ASSESSMENT: 1. Hypoxemia, on 4 L of O2 nasal cannula. 2. Metastatic small-cell lung cancer with metastases to the spine and adrenal glands. 3. Dehydration, improving. 4. Escherichia coli urinary tract infection. 5. Tachyarrhythmia, stable. 6. Acute kidney injury. 7. Mouth sores. 8. Constipation. 9. Status post mediastinoscopy with biopsy by Dr. Wallace. 10. Anemia of chronic disease. PLAN: 1. Continue chemo and radiation. 2. Increase physical therapy. 3. Discharge planning. Job ID: [id number]
[2018-05-08] MEDS: Atenolol 50 MG TAB PO SCH ×2 (08:06→20:08)
[2018-05-08] MEDS: predniSONE 20 MG TAB PO SCH (08:06)
[2018-05-08] MEDS: Polyethylene Glycol 3350 17 GM Packet PO SCH (08:08)
[2018-05-08] MEDS: Senokot S 8.6-50 MG TAB PO SCH ×2 (08:08→20:09)
[2018-05-08] MEDS: Ibuprofen 600 MG TAB PO PRN (09:01)
[2018-05-08] MEDS: Aluminum & Magnesium Hydroxide 60 ML, Lidocaine 2% Viscous Solution 30 ML, diphenhydrAM... SSW PRN (12:18)
[2018-05-08] MEDS: Enoxaparin Sodium 30 MG/0.3 ML SYRINGE SC SCH (20:09)
[2018-05-09] MEDS: Sodium Chloride 0.9% 1,000 ML IV SCH ×2 (03:52→20:32)
[2018-05-09 04:48] LABS: Anion Gap 12 mmol/L (10-20); BUN (Urea Nitrogen) 15 mg/dL (9.8-20.1); Calc. Creatinine Clearance 104 mL/min (70-130); Calcium 8.2 mg/dL (7.8-10.44); Carbon Dioxide 23 mmol/L (23-31); Chloride 108 mmol/L (98-107); Estimated GFR-MDRD 87; Glucose 83 mg/dL (80-115); Potassium 4.1 mmol/L (3.5-5.1); Sodium 139 mmol/L (136-145)
[2018-05-09] MEDS: Mometasone/Formoterol 120 PUFF INHALER INH SCH ×2 (07:12→20:09)
[2018-05-09] MEDS: Atenolol 50 MG TAB PO SCH ×2 (08:42→20:29)
[2018-05-09] MEDS: Polyethylene Glycol 3350 17 GM Packet PO SCH (08:42)
[2018-05-09] MEDS: Senokot S 8.6-50 MG TAB PO SCH ×2 (08:42→20:13)
--- NOTE | 2018-05-09 10:46 | PRG ---
DATE OF SERVICE: 05/09/2018 SUBJECTIVE: The patient continues to improve slowly. She is now ambulating with Physical Therapy. She still remains slightly hypoxic. OBJECTIVE: VITAL SIGNS: Temperature 98.1, pulse 113, respirations 18, pulse ox 90 on 3 L, and blood pressure 125/68. HEART: Regular rate and rhythm. LUNGS: With occasional rhonchi. Productive cough still present. ABDOMEN: Soft. EXTREMITIES: No edema. LABORATORY DATA: Sodium 139, potassium 4.1, creatinine 0.68, and BUN 13. ASSESSMENT: 1. Hypoxemia, improving slowly on 3 L nasal cannula with 90% O2 saturation. 2. Metastatic small cell lung cancer with mets to spine and adrenal glands. 3. Dehydration, improved. 4. Escherichia coli urinary tract infection, resolving. 5. Tachyarrhythmia. 6. Acute kidney injury. 7. Oral thrush, to begin Diflucan. 8. Constipation, resolved now with loose stools. 9. Status post mediastinoscopy with biopsy by Dr. Wallace. 10. Anemia of chronic disease, on Neulasta. PLAN: 1. Continue chemo and radiation. 2. Continue physical therapy. 3. Discontinue MiraLAX. 4. Begin Zoloft 25 daily. 5. Begin Diflucan 100 daily. 6. Discharge planning. Job ID: [id number]
[2018-05-09] MEDS: Fluconazole 100 MG TAB PO SCH (10:47)
[2018-05-09] MEDS ORDERED: predniSONE 20 MG TAB PO SCH (16:00)
--- NOTE | 2018-05-09 16:18 | PRG ---
DATE OF SERVICE: 05/09/2018 SUBJECTIVE: Ms. Ramirez still is hypoxemic. She has respiratory distress to a mild degree when she walks around the room. When she is at rest, she is comfortable. Heart rate is 85, respiratory rate is 18, oximetry is 95% on 3 L. Room air testing will be done today to determine oxygen requirements, but it is highly likely she will require home O2 oxygen. She will also benefit from a nebulizer given the severity of her chronic obstructive pulmonary disease. OBJECTIVE: LUNGS: She has wheezing. HEART: Regular rhythm. ABDOMEN: Soft and nontender. EXTREMITIES: Without asymmetry. She is complaining of left lower extremity difficulties with pain and says she has trouble putting on pants. She may do better wearing a pullover dress when she gets home. LABORATORY DATA: Her last hemoglobin 7.9 three days ago. Her electrolytes are normal. IMPRESSION: 1. Small cell lung cancer. 2. Chronic obstructive pulmonary disease with ongoing bronchospasm. Would probably benefit from a low-dose of prednisone as well as a nebulizer at home. I do not think the Symbicort will be enough in the way of inhaled steroids to prevent her bronchospasm. Some of her wheezing is secondary to endobronchial compression of her bronchus, I suspect. We will continue to follow until she is discharged. Job ID: [id number]
[2018-05-09] MEDS ORDERED: Loperamide HCl 2 MG CAP PO PRN (17:15)
[2018-05-09] MEDS ORDERED: Diphenoxylate HCl/Atropine Tablet PO PRN (17:15)
--- NOTE | 2018-05-09 20:03 | RAD ---
KUB: 05/09/18 HISTORY: 68-year-old female with history of abdominal pain and constipation. The transverse colon appears to have some potential associated colonic wall thickening associated wit h it which could raise concern for colitis. There is a circumscribed approximately 10 cm diameter sof t tissue density mass off the lower pole region of the left kidney, this certainly could represent a cyst. No evidence of abnormal solid fecal material throughout the colon or rectum to suggest constipa tion. IMPRESSION: Evidence for some transverse colon wall thickening, nonspecific, but this certainly can be seen in ca ses of colitis. Approximately 10 cm diameter mass involving the lower pole of the left kidney w hich may just represent a very large cyst. Nonemergent followup imaging in this regard is suggested. POS: CLAIR
[2018-05-09] MEDS: Enoxaparin Sodium 30 MG/0.3 ML SYRINGE SC SCH (20:28)
[2018-05-10 06:23] LABS: Anion Gap 13 mmol/L (10-20); BUN (Urea Nitrogen) 14 mg/dL (9.8-20.1); Calc. Creatinine Clearance 103 mL/min (70-130); Calcium 8.1 mg/dL (7.8-10.44); Carbon Dioxide 21 mmol/L (23-31); Chloride 107 mmol/L (98-107); Estimated GFR-MDRD 85; Glucose 104 mg/dL (80-115); Potassium 4.4 mmol/L (3.5-5.1); Sodium 137 mmol/L (136-145)
[2018-05-10] MEDS: Mometasone/Formoterol 120 PUFF INHALER INH SCH ×2 (07:36→19:12)
[2018-05-10] MEDS: Atenolol 50 MG TAB PO SCH ×2 (08:53→20:12)
[2018-05-10] MEDS: predniSONE 20 MG TAB PO SCH (08:53)
[2018-05-10] MEDS: Senokot S 8.6-50 MG TAB PO SCH ×2 (08:53→19:52)
[2018-05-10] MEDS: Fluconazole 100 MG TAB PO SCH (08:53)
[2018-05-10] MEDS: Aluminum & Magnesium Hydroxide 60 ML, Lidocaine 2% Viscous Solution 30 ML, diphenhydrAM... SSW PRN ×2 (10:52→18:27)
[2018-05-10] MEDS: Sodium Chloride 0.9% 1,000 ML IV SCH ×2 (10:53→23:49)
[2018-05-10] MEDS: Vancomycin HCl 25 MG/ML Oral PO SCH ×3 (11:34→23:49)
--- NOTE | 2018-05-10 13:22 | PRG ---
DATE OF SERVICE: 05/10/2018 SUBJECTIVE: Irma Ramirez was complaining of abdominal pain last night, but says she is better this morning. Abdominal films did not show any dilated loops of bowel or anything suggestive of fecal impaction. A renal mass was seen per the report. Her lungs are still remarkable for mild wheezes. OBJECTIVE: VITAL SIGNS: She is afebrile. Oximetry is 95% on 4 L. We turned her oxygen down to 3 L for a goal saturating of 90 respiratory, and blood pressure of 149/65. LUNGS: Remarkable for diffuse wheezes. HEART: Regular rhythm. ABDOMEN: Soft. LABORATORY DATA: Sodium 137, potassium 4.4, chloride 107, bicarbonate 21, BUN 14, creatinine 0.69. IMPRESSION: 1. Small cell lung cancer. 2. Deconditioning. 3. Chronic obstructive pulmonary disease, back on prednisone. She probably should take a week of 20 mg and then cut to 10 mg a day. I will be happy to see her in 2 weeks after discharge. She may be stable for discharge this week and hopefully oxygen therapy and nebulizer at the house. Job ID: [id number]
--- NOTE | 2018-05-10 14:24 | PRG ---
DATE OF SERVICE: 05/10/2018 SUBJECTIVE: The patient's diarrhea has improved this morning. She did have multiple bouts yesterday. Her Clostridium difficile toxin did come back positive. No nausea or vomiting this morning. She still has a prominent cough. OBJECTIVE: VITAL SIGNS: Temperature 98.6, pulse 95, respirations 22, pulse ox 94% on 4 L, and blood pressure 149/65. HEART: Regular rate and rhythm. LUNGS: Clear. ABDOMEN: Normal bowel sounds. Mildly diffuse tenderness. EXTREMITIES: No edema. LABORATORY DATA: Sodium 137, potassium 4.4, BUN 14, creatinine 0.69, CO2 of 21, glucose 104. ASSESSMENT: 1. Clostridium difficile gastroenteritis. 2. Metastatic small cell lung cancer with METS to the spine and adrenal gland. 3. Dehydration, stable. 4. Escherichia coli urinary tract infection, resolved. 5. Tachyarrhythmia, on Tenormin and Cardizem. 6. Acute kidney injury, stable. 7. Oral thrush, on Diflucan. 8. Constipation, resolved. 9. Status post mediastinoscopy with biopsy by Dr. Wallace. 10. Anemia of chronic disease. PLAN: 1. Complete first course of chemo, and schedule for another round in three weeks. Receive XRT this week and schedule for next week. 2. Continue with PT. 3. Palliative Care consult. 4. Vanco 125 p.o. q.6 x10 days. 5. Hold MiraLAX. 6. Continue Zoloft 25 daily. 7. Continue Diflucan. 8. Discharge planning. Job ID: [id number]
--- NOTE | 2018-05-10 14:31 | PQF ---
MARCO ANTONIO MENDES, MARY Humphrey JR, MD [id number] CLINICAL DOCUMENTATION IMPROVEMENT CLARIFICATION FORM: ICD-10 Updated PLEASE DO AN ADDENDUM TO THE PROGRESS NOTE WITH ANY DOCUMENTATION UPDATES OR ADDITIONS AND CARRY THROUGH TO DC SUMMARY. THANK YOU. DATE: 05-10-18 ATTN: DR. TUTTLE Please exercise your independent, professional judgment in responding to the clarification form. Clinical indicators are provided on the bottom of this form for your review Please check appropriate box(s): [ ] Acute Respiratory Failure: [ ] with Hypoxia[ ] with Hypercapnia [ ] Acute On Chronic Respiratory Failure: [ ] with Hypoxia [ ] with Hypercapnia [ ] Acute Respiratory Failure due to small cell lung cancer, widely metastatic [ ] Chronic Respiratory Failure only [ ] with Hypoxia [ ] with Hypercapnia [ ] Other diagnosis [ ] Unable to determine In addition, please specify: Present on Admission (POA): [ ] Yes [ ] No [ ] Unable to determine For continuity of documentation, please document condition throughout progress notes and discharge summary. Thank You. CLINICAL INDICATORS - SIGNS / SYMPTOMS / LABS 04-27 (ANGELA): O2 SAT 80% ON RA 04-28 (RIKKI): 93% ON RA 04-29 (LANDON): SHE HAS HAD MORE SOB SINCE SUNDAY; O2 SAT 95% ON 2LNC; BREATHING IS MILDLY LABORED 04-29 (JAELYN): DENIES ANY FORMAL SOB WHILE ON NC AND AT REST. GETS SOB W/ ACTIVITY TO RESTROOM OFF NC. EMPHYSEMA; WILL START DUONEBS; SOLU-MEDROL; ROCEPHIN; LIKELY MILD COPD EXACERBATION; 1-1 (MARRY) HYOXEMIA ON VENTURI MASK - (ANGELA): RESP FAILURE 1-2 (MARRY): HYPOXEMIA ON 4L OF O2 NC. 1-3 (STELLA): ROOM AIR TESTING WILL BE DONE TODAY TO DETERMINE OXYGEN REQUIREMENTS, BUT IT IS HIGHLY LIKELY SHE WILL REQUIRE HOME OXYGEN RISKS: 04-29 (JAELYN) LIKELY MILD COPD EXACERBATION; 05-03 (ALEE): SMALL-CELL LUNG CANCER, WIDELY METASTATIC TREATMENTS: COPE: RT ORDERS FOR OXYGEN 04-30 OXYGEN 3NLC THEN 4LNC 05-04 VENTURI MASK 1-1 4LNC MAR: ROCEPHIN IV 04-25 TO 12-26 IVF D5 W/ NACL @ 100ML/HR 04-29 THEN NS IV @ 75 ML/HR VANCOMYCIN PO 1-4 DUONEB 04-29 TO PRESENT PREDNISONE PO 1-4 DECADRON 05-03 / 05-04 / 05-05 Thank you, Tiffany (This form is maintained as a part of the permanent medical record) 2015 [employer]. All Rights Reserved Tiffany Shelby RN, BS [email or web address]
[2018-05-10] MEDS: Enoxaparin Sodium 30 MG/0.3 ML SYRINGE SC SCH (20:12)
[2018-05-10] MEDS: guaiFENesin/Codeine Phosphate 200 mg/20 mg 10 ml UD Cup PO PRN (20:13)
[2018-05-11] MEDS: Aluminum & Magnesium Hydroxide 60 ML, Lidocaine 2% Viscous Solution 30 ML, diphenhydrAM... SSW PRN ×2 (04:25→18:26)
[2018-05-11 04:39] LABS: Anion Gap 12 mmol/L (10-20); BUN (Urea Nitrogen) 12 mg/dL (9.8-20.1); Calc. Creatinine Clearance 98 mL/min (70-130); Carbon Dioxide 23 mmol/L (23-31); Chloride 105 mmol/L (98-107); Estimated GFR-MDRD 81; Glucose 93 mg/dL (80-115); Sodium 136 mmol/L (136-145)
[2018-05-11 05:03] LABS: White Blood Cell (WBC) Count 0.4 thou/uL (4.8-10.8)
[2018-05-11] MEDS: Vancomycin HCl 25 MG/ML Oral PO SCH ×3 (05:40→17:46)
[2018-05-11 05:56] LABS: Hemoglobin 6.2 g/dL (12.0-16.0); Mean Corpuscular HGB CONC 32.5 g/dL (32.0-36.0); Mean Corpuscular Hemoglobin 29.1 pg (27.0-31.0); Mean Corpuscular Volume 89.5 fL (78.0-98.0); Mean Platelet Volume 8.2 fL (7.4-10.4); Platelet Count 70 thou/uL (130-400); Platelet Morphology Comment Appears Decreased; RBC Distribution Width 12.2 % (11.5-14.5); Red Blood Cell (RBC) Count 2.14 mill/uL (4.20-5.40)
[2018-05-11] MEDS: Acetaminophen 325 MG TAB PO PRN ×2 (08:53→17:02)
[2018-05-11] MEDS: predniSONE 20 MG TAB PO SCH (08:54)
[2018-05-11] MEDS: Atenolol 50 MG TAB PO SCH ×2 (08:55→22:35)
[2018-05-11] MEDS: Fluconazole 100 MG TAB PO SCH (08:56)
[2018-05-11] MEDS: Senokot S 8.6-50 MG TAB PO SCH (08:56)
[2018-05-11] MEDS: Mometasone/Formoterol 120 PUFF INHALER INH SCH ×2 (09:13→22:03)
--- NOTE | 2018-05-11 10:21 | PRG ---
DATE OF SERVICE: 05/11/2018 SUBJECTIVE: The patient is having problems with constipation and she says her breathing is okay. OBJECTIVE: VITAL SIGNS: On exam, her temperature is 100.2, pulse 110, respirations in the mid 20s, O2 saturation 94% on 4 L, and blood pressure 167/75. HEENT: Unremarkable. NECK: No JVD. LUNGS: Coarse rhonchi. CARDIAC: S1 and S2, regular. ABDOMEN: Soft. EXTREMITIES: No edema. LABORATORY DATA: White blood cell count 0.4, hemoglobin 6.2, hematocrit 19.2, and platelet count 70. Sodium 136, potassium 4, chloride 105, CO2 of 23, BUN 12, creatinine 0.7, and glucose 81. ASSESSMENT: 1. Neutropenia and anemia. 2. Status post chemotherapy for small-cell lung cancer. 3. Deconditioning. 4. Chronic obstructive pulmonary disease with continued hypoxemia. 5. Constipation. PLAN: 1. The patient will likely require transfusion of blood products, given the development of anemia. 2. Also may need to start on Neupogen. 3. Laxative as needed. Job ID: [id number]
[2018-05-11] MEDS: Sodium Chloride 0.9% 1,000 ML IV SCH (13:05)
--- NOTE | 2018-05-11 17:31 | PRG ---
DATE OF SERVICE: 05/11/2018 SUBJECTIVE: This morning, the patient is feeling relatively well. However, she just developed her bout of diarrhea. Yesterday, she had no diarrhea and did well until 30 minutes. She states her breathing is much improved. She continues to feel weak. Her cough has improved. OBJECTIVE: VITAL SIGNS: Temperature 98.8, T-max is 100.2, pulse 107, respiration 22, pulse ox 93 on 4 L nasal cannula, and blood pressure 150/67. GENERAL: The patient looks relatively well. HEENT: Clear. HEART: Regular rate and rhythm. LUNGS: With coarse breath sounds; however, much improved. No wheezing or rhonchi present at this time. ABDOMEN: Soft. EXTREMITIES: No edema. LABORATORY DATA: White count 0.4, H and H 6.2 and 19.2, and platelets 70. Sodium 136, potassium 4.0, creatinine 0.72, and BUN 12. ASSESSMENT: 1. Clostridium difficile gastroenteritis, waxing and waning. 2. Metastatic small cell lung cancer with metastases to the spine and adrenal gland. 3. Dehydration, stable. 4. Acute on chronic respiratory failure with hypoxemia. 5. Escherichia coli urinary tract infection. 6. Acute tachyarrhythmia. 7. Acute kidney injury, improved. 8. Oral thrush, improved. 9. Status post mediastinoscopy with biopsy by Dr. Wallace. 10. Pancytopenia secondary to chemo with anemia of chronic disease. PLAN: 1. Packed red blood cells today given by Dr. Rodríguez. 2. Recheck labs in a.m. 3. Continue with p.o. vancomycin. 4. Palliative Care consult. 5. We will continue to discuss with Dr. Samayoa. Job ID: [id number]
[2018-05-11] MEDS: Cefepime 2 GM in Sodium Chloride 0.9% 100 ML IVPB SCH (17:46)
[2018-05-11] MEDS: Ibuprofen 600 MG TAB PO PRN (19:10)
[2018-05-11] MEDS ORDERED: Furosemide 40 MG/4 ML VIAL ONE (19:22)
--- NOTE | 2018-05-11 19:54 | RAD ---
CHEST ONE VIEW: 05/11/18 HISTORY: Respiratory distress. COMPARISON: Radiograph 04/29/18. FINDINGS: There appears to be a catheter projecting over the left hemiabdomen. PICC line is in good position. Mild pulmonary edema. Heart size is enlarged. Small effusions. Large right hilar mass. IMPRESSION: 1. Mild increased air space opacity suggesting pulmonary edema. 2. Large right hilar and peritracheal mass. POS: HOME
[2018-05-11 20:01] LABS: Hemoglobin 8.3 g/dL (12.0-16.0); Mean Corpuscular HGB CONC 33.4 g/dL (32.0-36.0); Mean Corpuscular Hemoglobin 29.6 pg (27.0-31.0); Mean Corpuscular Volume 88.6 fL (78.0-98.0); Platelet Count 38 thou/uL (130-400); RBC Distribution Width 12.3 % (11.5-14.5); Red Blood Cell (RBC) Count 2.81 mill/uL (4.20-5.40); White Blood Cell (WBC) Count 0.2 thou/uL (4.8-10.8)
[2018-05-11 20:13] LABS: Base Excess (BEa) -5.2 mEq/L (-2.0 to +3.0); CO2 Tension 26.7 mmHg (35.0-45.0); Calcium, Ionized 1.08 mmol/L (1.12-1.30); Carboxyhemoglobin (COHb) 1.4 gm% (0.0-3.0); Hemoglobin (Hb) 8.7 g/dL (12.0-16.0); O2 Tension (PaO2) 114.3 mmHg (> 80.0); Potassium - ABG Lab 3.94 mmol/L (3.70-5.30); pH, Arterial 7.45 (7.35-7.45)
[2018-05-11 20:15] LABS: ALV-art Gradient 280.125 (0-20); Puncture Site R BRACHIAL
[2018-05-11 20:20] LABS: Platelet Morphology Comment Appears Decreased
[2018-05-11 20:41] LABS: CKMB 2.5 ng/mL (0-6.6)
[2018-05-11 20:46] LABS: ALT (SGPT) 108 U/L (8-55); AST (SGOT) 115 U/L (5-34); Albumin 3.2 g/dL (3.4-4.8); Alkaline Phosphatase 160 U/L (40-150); Anion Gap 18 mmol/L (10-20); BUN (Urea Nitrogen) 14 mg/dL (9.8-20.1); Calc. Creatinine Clearance 85 mL/min (70-130); Calcium 7.7 mg/dL (7.8-10.44); Carbon Dioxide 17 mmol/L (23-31); Chloride 104 mmol/L (98-107); Estimated GFR-MDRD 69; Globulin 2.6 g/dL (2.4-3.5); Glucose 128 mg/dL (80-115); Potassium 4.5 mmol/L (3.5-5.1); Protein, Total 5.8 g/dL (6.0-8.3); Sodium 134 mmol/L (136-145)
--- NOTE | 2018-05-11 21:09 | PDOC.EVN ---
Event Note - Event Note Event Note: Progress Note- CODE GREEN: Subjective: I responded to a CODE GREEN called overhead at 1905 and arrived shortly after the code had been called. Nursing staff stated patient was on contact precautions for C-diff and neutropenia. Had been diagnosed this hospital stay with small cell carcinoma and was currently receiving chemotherapy in patient. Became pancytopenic today with WBC of 0.3, hemoglobin of 6.2, and platelets of 70. She had 1 unit PRBCs ordered and finished transfusion around 1500 today. Developed first true fever after transfusion and became acutely short of breath at approximately 1900 prompting the CODE GREEN. Objective: Initial vitals. BP 180s/80s, Pulse 130- regular, Resp 30, SpO2 93% on non-rebreather. GEN: respiratory distress CV: tachycardia, regular, Pulm: crackles throughout lungs Labs: BNP 1300, Hemoglobin 8.3, Trop- 0.030 CXR: pulmonary edema, right mediastinal mass A&P: 1. Transfusion associated fluid overload- Ordered lasix 40 mg IVP and ordered patient to be transferred to the ICU for BiPAP. I re-evaluated the patient in the ICU and she was resting comfortably on the BiPAP with oxygen saturation at 100%. Patient was a FULL CODE at my last evaluation. I spoke with Dr. Rodríguez ( recreational aide pulmonology) who was in agreement with the plan at this time. I also spoke with the patient's nephew/adoptive son following the CODE GREEN and updated him on the patient's status. Will re-evaluate later this evening and will defer further evaluation to the patient's primary team.
[2018-05-11] MEDS ORDERED: Furosemide 40 MG/4 ML VIAL SLOW IVP SCH (23:30)
[2018-05-11] MEDS: Enoxaparin Sodium 30 MG/0.3 ML SYRINGE SC SCH (23:37)
[2018-05-12] MEDS: Vancomycin HCl 25 MG/ML Oral PO SCH ×4 (00:30→18:49)
[2018-05-12] MEDS: Cefepime 2 GM in Sodium Chloride 0.9% 100 ML IVPB SCH ×3 (00:51→19:26)
--- NOTE | 2018-05-12 00:57 | PRG ---
DATE OF SERVICE: 05/11/2018 TIME SEEN: 10:30 p.m. SUBJECTIVE: This evening, patient had bouts of increasing shortness of breath. She was transferred over to the ICU. Chest x-ray was obtained, which showed pulmonary edema with BNP of 1663. OBJECTIVE: VITAL SIGNS: Temperature at this time 102.1, pulse 96, and O2 saturation 100% on BiPAP. GENERAL: The patient with respiratory distress, comfortable with BiPAP. HEART: Regular rate and rhythm. LUNGS: With bilateral rhonchi and rales. ABDOMEN: Soft. EXTREMITIES: No edema. LABORATORY DATA: White count 0.2, hemoglobin and hematocrit 8.3 and 24.9, and platelets 38. ASSESSMENT: 1. Acute respiratory failure/pulmonary edema, secondary to pulmonary overload probably related to the transfusion. 2. Clostridium difficile gastroenteritis. 3. Metastatic small cell lung cancer. 4. Escherichia coli urinary tract infection. PLAN: 1. Given additional dose of Lasix 40 IV. 2. Re-culture blood culture and urine culture. 3. Pulmonary involved. 4. Continue to follow. Job ID: [id number]
[2018-05-12] MEDS ORDERED: Sodium Chloride 0.9% 500 ML IVPB SCH (02:30)
[2018-05-12 06:06] LABS: Hemoglobin 6.5 g/dL (12.0-16.0); Mean Corpuscular HGB CONC 33.5 g/dL (32.0-36.0); Mean Corpuscular Hemoglobin 29.6 pg (27.0-31.0); Mean Corpuscular Volume 88.5 fL (78.0-98.0); Mean Platelet Volume 8.7 fL (7.4-10.4); Platelet Count 22 thou/uL (130-400); RBC Distribution Width 12.2 % (11.5-14.5); Red Blood Cell (RBC) Count 2.18 mill/uL (4.20-5.40); White Blood Cell (WBC) Count 0.1 thou/uL (4.8-10.8)
[2018-05-12 06:17] LABS: Anion Gap 14 mmol/L (10-20); BUN (Urea Nitrogen) 16 mg/dL (9.8-20.1); Calc. Creatinine Clearance 73 mL/min (70-130); Calcium 7.6 mg/dL (7.8-10.44); Carbon Dioxide 21 mmol/L (23-31); Chloride 105 mmol/L (98-107); Estimated GFR-MDRD 64; Glucose 98 mg/dL (80-115); Potassium 3.3 mmol/L (3.5-5.1); Sodium 137 mmol/L (136-145)
[2018-05-12 06:39] LABS: Platelet Morphology Comment Appears Decreased
[2018-05-12] MEDS: Mometasone/Formoterol 120 PUFF INHALER INH SCH ×2 (07:51→18:29)
[2018-05-12] MEDS ORDERED: Acetaminophen 1,000 MG in Premix Bag 1 BAG IVPB SCH (08:15)
[2018-05-12] MEDS ORDERED: diphenhydrAMINE 25 MG CAP PO SCH (08:15)
[2018-05-12] MEDS ORDERED: Famotidine/PF 20 mg/2ml Vial SLOW IVP SCH (08:15)
[2018-05-12] MEDS ORDERED: Furosemide 40 MG/4 ML VIAL SLOW IVP SCH ×2 (09:00→10:00)
--- NOTE | 2018-05-12 09:09 | PRG ---
DATE OF SERVICE: 05/12/2018 PULMONARY/CRITICAL CARE PROGRESS NOTE TIME SPENT: 35 minutes of critical care time. SUBJECTIVE: This patient was transferred to the ICU last night after developing severe respiratory distress when she had a fever. She was treated for pulmonary edema, although I am not quite sure that was the cause of her respiratory arrest. She is better this morning. I have been able to take her BiPAP off that she wore all night. OBJECTIVE: VITAL SIGNS: Her temperature is 97.9, pulse is 80, blood pressure 101/49, O2 saturation 100%. A 24-hour intake 2525 in and 1940 out. HEENT: Unremarkable. NECK: No JVD. LUNGS: She has crackles at both bases. CARDIAC: S1 and S2. Regular. ABDOMEN: Soft. EXTREMITIES: No edema. LABORATORY DATA: White blood cell count 0.1, hemoglobin 6.5, hematocrit 19.3, and platelet count 22. Sodium 137, potassium 3.3, chloride 105, CO2 of 21, BUN 16, creatinine 0.8, glucose 98. ASSESSMENT: 1. Neutropenic with fever. 2. Severe anemia. 3. Thrombocytopenia. 4. Status post chemotherapy. 5. Oral thrush. 6. Underlying chronic obstructive pulmonary disease. 7. Lung cancer. PLAN: 1. The patient will be transfused with 1 unit of blood and one combined unit platelets. She will be premedicated with Pepcid, Benadryl, and Tylenol, and she will also receive Lasix during the transfusion. 2. She will continue empiric antibiotics, steroids, nebulization therapy. 3. On and off BiPAP as needed. 4. Leave in the ICU for right now. Job ID: [id number]
[2018-05-12] MEDS: predniSONE 20 MG TAB PO SCH (09:34)
[2018-05-12] MEDS: Fluconazole 100 MG TAB PO SCH (09:34)
[2018-05-12] MEDS: Atenolol 50 MG TAB PO SCH ×2 (09:35→21:04)
[2018-05-12] MEDS ORDERED: Pantoprazole 40 MG VIAL IVP SCH (11:00)
[2018-05-12] MEDS: Aluminum & Magnesium Hydroxide 60 ML, Lidocaine 2% Viscous Solution 30 ML, diphenhydrAM... SSW PRN ×2 (11:40→19:57)
[2018-05-12] MEDS ORDERED: Digoxin 0.5 MG/2 ML AMP ONE (15:54)
[2018-05-12] MEDS ORDERED: Digoxin 0.5 MG/2 ML AMP SLOW IVP SCH ×3 (16:15→22:30)
--- NOTE | 2018-05-12 17:52 | PRG ---
DATE OF SERVICE: SUBJECTIVE: The patient had a rough night last night, had to be placed on BiPAP and transferred to the ICU. She was given IV Lasix and did diurese; however, her blood pressure dropped and had to receive a 500 mL normal saline bolus. This morning, she is off BiPAP and feeling much better and talking and conversing. OBJECTIVE: VITAL SIGNS: Temperature last night 102.1, this morning, 98.5, pulse 90, blood pressure 90/35 and 115/75. HEART: Regular rate and rhythm. LUNGS: Improved this morning. Still with occasional expiratory rhonchi. ABDOMEN: Soft. EXTREMITY: With no edema. LABORATORY DATA: Sodium 137, potassium 3.3, creatinine 0.88. White count 0.1, hemoglobin and hematocrit of 6.5 and 19.3, and platelet of 22. ASSESSMENT: 1. Acute respiratory failure with pulmonary edema. 2. Klebsiella bacteremia/sepsis. 3. Clostridium difficile gastroenteritis. 4. Escherichia coli urinary tract infection. 5. Metastatic small-cell lung cancer. 6. Oral thrush. PLAN: 1. One unit packed red blood cell and 1 unit of platelets. 2. Continue cefepime, vancomycin, and consult Dr. Betancur. 3. Continue Diflucan. 4. I have talked with sister and the patient at length. The sister had previously worked at [employer], so she is very familiar with treatment and the course of treatment. 5. We will continue to follow. Job ID: [id number]
[2018-05-12] MEDS: HEPARIN IVPB SCH (18:49)
[2018-05-12] MEDS: [UNRECOGNIZED DRUG - OTHER] IVPB SCH (18:49)
[2018-05-12] MEDS: GENTAMICIN IVPB SCH (18:49)
--- NOTE | 2018-05-12 19:56 | CON ---
DATE OF CONSULTATION: 05/12/2018 REASON FOR CONSULTATION: Neutropenic fever with bacteremia. 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 The index diagnosis was established when she presented at the end of April with lower back pain, inability to walk. Workup revealed a large right hilar mass with mediastinal invasion and bilateral adrenal metastases. Vertebral bodies severely visualized on MRI of lumbar spine showed also evidence of diffuse metastatic disease and appeared to be a soft tissue component with epidural extension producing central canal stenosis of the sacral area and involvement of S1 and S2 nerve roots. MRI of head did not show any evidence of involvement of the central nervous system in the cranial area. The surgical pathology was consistent with a small cell carcinoma. On May 02, the patient had a left upper extremity double-lumen PICC line inserted. On May 03, she started chemotherapy with carboplatin, etoposide, and dexamethasone. Initially, she was given Rocephin and vancomycin that was discontinued. Cultures from urine sample from April 25 revealed a fairly sensitive strain of E. coli. On May 09, she developed diarrhea and C. diff toxin and antigen positive and she was started on oral vancomycin. Her white cell count dropped to 0.4 on May 11 from the first course of chemotherapy, at same time there was development of temperature elevation up to 102 and now we have 2 sets of blood cultures, 1 from the PICC line and the other from venous sample from the right arm positive for Klebsiella pneumoniae, pending susceptibility studies. Currently, the patient is awake. She is feeling a little bit better. Denies any headaches. No visual symptoms. Mild dyspnea noted. No chest pain. Still with moderate back pain in the lower lumbosacral area. No abdominal pain. Diarrhea seems to have subsided for the past 24 to 48 hours. She has urinary catheter inserted since yesterday. PAST MEDICAL HISTORY: Includes chronic smoking as well as hypertension. She has had prior cholecystectomy, hernia repair, and Yvonne fundoplication for management of GERD and now recently diagnosed small cell lung cancer with widely metastatic disease. SOCIAL HISTORY: , although lives separate from her . Quit smoking recently. FAMILY HISTORY: Noncontributory. CURRENT MEDICATIONS: 1. Tylenol. 2. Albuterol. 3. Atenolol. 4. Cefepime 2 g q.8. 5. Diltiazem. 6. Furosemide. 7. Fluconazole. 8. Motrin. 9. Prednisone 20 mg daily. 10. Zoloft. 11. Filgrastim. 12. Oral vancomycin. PHYSICAL EXAMINATION: VITAL SIGNS: T-max 102, she has been afebrile for the past 24 hours. Blood pressure 105/63, pulse 127, respirations 19, O2 saturations 96% 2 L nasal cannula. SKIN: The patient has a PICC line in the medial aspect of left upper extremity and peripheral IV access in distal aspect of the left upper extremity. She has a Mathews catheter inserted. I's and O's had been positive for the past many days. No areas of skin breakdown. Some petechiae. HEENT: No lymphadenopathy. Ocular movements conjugate. Pupils are equal. Oral cavity has very tiny little ulcerations with mild stomatitis. Numerous teeth in place with some decay and gum disease. NECK: Supple. No jugular venous distention or carotid bruits. LUNGS: Symmetric air entry without crackles or wheezing. ABDOMEN: Soft, not distended or tender. No ascites. Bowel sounds are present. No bladder distention. EXTREMITIES: No joint inflammatory activity. Trace edema in lower extremities. Pulses 1+ in dorsalis pedis. Plantar responses are flexor. She moves all extremities equally. NEUROLOGIC: She is awake and oriented, follows commands, pleasant. Good recollection. LABORATORY DATA: The latest white cell count 0.1, hemoglobin 6.5, MCV 88, platelets 22,000. PH 7.45, pCO2 of 26, pO2 of 114. Sodium 137, creatinine 0.88. There is elevation of transaminases and alkaline phosphatase and bilirubin, which has worsened recently. The alkaline phosphatase has been elevated for a longer period of time, probably indicative of liver metastatic disease. Microbiology as noted above. She also has presumptive Enterococcus from the urine culture. There is a chest x-ray from yesterday, which showed increased airspace opacity suggestive of pulmonary edema and large right hilar peritracheal mass. ASSESSMENT: 1. Hypertension. 2. Newly diagnosed metastatic small cell lung cancer with involvement of liver and widespread areas of bone and adrenals. 3. Recently started chemotherapy with neutropenic fever and Klebsiella species bacteremia, possibility of colonization of the PICC line inserted about a week before. 4. Clostridium difficile colitis diagnosed a few days before the Klebsiella bacteremia was identified. DISCUSSION: Differential diagnosis includes Klebsiella bacteremia from PICC line colonization versus an alternate source. Until proven otherwise, the PICC line is to be considered colonized. In view of the difficulty in replacing it due to coagulability problems and improvement in her overall clinical status on cefepime, we will recommend gentamicin lock solution to be administered until the line can be safely removed and exchanged. This may be not feasible for quite a few days. I do not think we need to target the Enterococcus obtained from the urinary sample just yet. The C. difficile treatment will have to continue while she is on antimicrobial therapy. She is at high risk for recrudescence of C. difficile upon discontinuation of C. difficile treatment. I would recommend tapering vancomycin phase once the acute phase of treatment is completed. Again, the main goal here is to continue supportive management antimicrobials until we have adequate recovery of her white cell count. If there is a recrudescence of fever, then we will have to add antifungal therapy with either micafungin or voriconazole. Job ID: [id number] [facility]
[2018-05-12] MEDS ORDERED: Amiodarone 150 MG, Admixture Fee 1 EACH in Dextrose 5% in Water 100 ML IVPB SCH (21:45)
--- NOTE | 2018-05-12 22:01 | CON ---
DATE OF CONSULTATION: 05/12/2018 TYPE OF CONSULTATION: Cardiology INDICATION FOR CONSULTATION: This is a 68-year-old female who has lung cancer with metastasis, who is in the hospital for chemotherapy and radiation therapy, who developed today atrial fibrillation with rapid ventricular response and decompensation. We were asked to see her concerning her atrial fibrillation. She also has sepsis. She also has white blood cell count, which is less than 1. At this time, her heart rate is in the 130s to 140s. She became hypoxic and also had increased respiratory rate, and was admitted to the intensive care unit. She was not intubated. She is a full code. At this time, her heart rate is between 110s to 130s with atrial fibrillation. At one time, she was in atrial flutter with heart rate of 141 beats per minute. She then converted to atrial fibrillation. At this time, she remains in atrial fibrillation. Earlier today, she was in the sinus rhythm. I do not see any history of previous cardiac history in the past. PAST MEDICAL HISTORY: Significant for lung cancer with metastasis. She has history of cholecystectomy. She has had gastroesophageal reflux surgery. She has had herniorrhaphy. SOCIAL HISTORY: She has smoked in the past. She has family members, who are alive and well. FAMILY HISTORY: She has had a history of lung cancer in the past with family members, sister and also I believe her father. ALLERGIES: SHE IS ALLERGIC TO LISINOPRIL AND LORAZEPAM. MEDICATIONS: Her present medications include: 1. Tylenol. 2. Tenormin. 3. Maxipime. 4. Diltiazem. 5. She has been on p.o. diltiazem. We will switch this to IV. 6. She is on diphenhydramine. 7. She is on Lovenox and we will need to change this. 8. She is on Diflucan. 9. Gentamicin. 10. Guaifenesin with codeine. 11. Motrin. 12. Nebulizer treatments. 13. Protonix. 14. Prednisone. 15. Vancomycin. REVIEW OF SYSTEMS: Not obtainable at this time. She is lethargic at this time and not responding to questions. PHYSICAL EXAMINATION: GENERAL: Reveals blood pressure 132/59, heart rate at this time is about 110s to 120s, respiratory rate is 15. She is afebrile, O2 saturation is 97%. HEENT: Shows head to be normocephalic and atraumatic. NECK: Carotid pulses are present without any bruits. CHEST: Has scattered rales. This may be upper airway noise. She is not clearing respirations very well. CARDIOVASCULAR: Reveals an irregularly irregular rhythm. I do not hear any gross murmurs. ABDOMEN: Soft and nontender. EXTREMITIES: Showed no clubbing, cyanosis, or edema. Pulses are present. NEUROLOGICAL: Again, the patient is lethargic. LABORATORY DATA: Today shows sodium 137, her creatinine was 0.88. Liver function was slightly abnormal with AST of 115, ALT of 108, calcium is 7.7. Her BNP was 1663. Troponin I is 0.030. Her WBC is 0.1, hemoglobin 6.5, her platelet count is 22,000. She has been seen by Dr. Asher already regarding her lung cancers and most likely sepsis. She will continue on her antibiotics. She has been given blood transfusion at this time. IMPRESSION: 1. Atrial fibrillation and flutter with rapid ventricular response. I will add digoxin. She is already on IV diltiazem. We will add digoxin to see if we can get better rate control. Hopefully, she will convert back to sinus rhythm. 2. Metastatic lung cancer with what appears to be underlying sepsis, as well as severe decrease in her white blood cell count of 0.1, also significant anemia with hemoglobin of 6.5 with leukopenia. She is obviously at risk for further infections. Platelet count is also 22,000. She is at risk of increased bleeding. She is not a very good candidate for anticoagulation. Despite having atrial flutter and fibrillation, the best that we can resolve this as soon as possible with hope that she will convert back to sinus rhythm. She does not have any history of coronary disease in the past. We will obtain an echocardiogram for evaluation of left ventricular systolic function and chamber sizes. 3. Metastatic lung disease. This is being dealt with by the oncologist. Obviously, her prognosis is not good. She continues to be a full code. This may need to be discussed. We will try best to stabilize the patient and hopefully convert her back to sinus rhythm. She will be able to maintain her present treatment. 4. Hypertension, this is under good control at this time. We will treat her appropriately. If need to be, we can hold off on her medication if she becomes hypotensive. Further recommendations will depend on the results of the echocardiogram. Job ID: [id number]
[2018-05-12] MEDS ORDERED: Furosemide 40 MG/4 ML VIAL ONE (22:02)
[2018-05-12] MEDS: Amiodarone 450 MG, Admixture Fee 1 EACH in Dextrose 5% in Water 250 ML IVPB SCH (22:12)
[2018-05-13] MEDS: Vancomycin HCl 25 MG/ML Oral PO SCH ×5 (00:16→23:14)
[2018-05-13] MEDS: Cefepime 2 GM in Sodium Chloride 0.9% 100 ML IVPB SCH ×3 (01:57→17:18)
[2018-05-13] MEDS ORDERED: Digoxin 0.5 MG/2 ML AMP SLOW IVP SCH (02:00)
[2018-05-13] MEDS: GENTAMICIN IVPB SCH ×4 (02:36→21:52)
[2018-05-13] MEDS: HEPARIN IVPB SCH ×4 (02:36→21:52)
[2018-05-13] MEDS: [UNRECOGNIZED DRUG - OTHER] IVPB SCH ×4 (02:36→21:52)
[2018-05-13] MEDS: Amiodarone 450 MG, Admixture Fee 1 EACH in Dextrose 5% in Water 250 ML IVPB SCH (05:49)
[2018-05-13 06:43] LABS: Hemoglobin 9.9 g/dL (12.0-16.0); Mean Corpuscular HGB CONC 33.4 g/dL (32.0-36.0); Mean Corpuscular Hemoglobin 29.1 pg (27.0-31.0); Platelet Count 34 thou/uL (130-400); RBC Distribution Width 12.2 % (11.5-14.5); Red Blood Cell (RBC) Count 3.41 mill/uL (4.20-5.40); White Blood Cell (WBC) Count 0.2 thou/uL (4.8-10.8)
[2018-05-13 06:52] LABS: Anion Gap 17 mmol/L (10-20); BUN (Urea Nitrogen) 16 mg/dL (9.8-20.1); Calc. Creatinine Clearance 75 mL/min (70-130); Calcium 8.1 mg/dL (7.8-10.44); Carbon Dioxide 24 mmol/L (23-31); Chloride 98 mmol/L (98-107); Estimated GFR-MDRD 66; Glucose 95 mg/dL (80-115); Sodium 136 mmol/L (136-145)
[2018-05-13 07:29] LABS: MDiff Complete? YES; Platelet Morphology Comment Appears Decreased; Polychromasia SLIGHT = 2-3 cells (100X) (0-2/hpf)
--- NOTE | 2018-05-13 07:38 | PRG ---
DATE OF SERVICE: 05/11/2018 The patient is on chemo and radiation therapy for small cell carcinoma of the lung. She also has Clostridium difficile infection and she on oral antibiotics. She is not on the IV antibiotics. She had a temperature of 100.2 at 8 o'clock this morning. Currently, she is having chills. Most recent blood pressure 139/64. Her CBC shows WBC 400, hemoglobin 6.2, and platelets of 70,000. The patient will be cultured and started on cefepime. I will also request Infectious Disease Consultation to manage antibiotics in view of the fact that the patient has Clostridium difficile infection and could potentially be septic. Job ID: [id number]
[2018-05-13] MEDS: Mometasone/Formoterol 120 PUFF INHALER INH SCH ×2 (07:44→18:28)
[2018-05-13] MEDS: Digoxin 0.5 MG/2 ML AMP SLOW IVP SCH (08:09)
[2018-05-13] MEDS: Atenolol 50 MG TAB PO SCH ×2 (08:10→21:15)
[2018-05-13] MEDS: Fluconazole 100 MG TAB PO SCH (08:10)
[2018-05-13] MEDS: predniSONE 20 MG TAB PO SCH (08:11)
[2018-05-13] MEDS: Pantoprazole 40 MG VIAL IVP SCH (08:11)
--- NOTE | 2018-05-13 09:09 | RAD ---
SINGLE VIEW OF THE CHEST: Comparison: 04-26-18, 05-11-18 History: Respiratory distress FINDINGS: Single view of the chest shows an enlarged but stable cardiomediastinal silhouette with atherosclerot ic calcifications in the aorta. The PICC line is unchanged in position. Increased interstitial markin gs are present. There is no evidence of consolidation, mass, or pleural effusion. IMPRESSION: Stable exam. POS: CLAIR
--- NOTE | 2018-05-13 09:44 | PRG ---
DATE OF SERVICE: 05/13/2018 SUBJECTIVE: A 68-year-old female, in the ICU this morning. She is on an amiodarone drip. OBJECTIVE: VITAL SIGNS: Pulse is 68, blood pressure is 126/80, sats are 96, respiratory rate 22. She denies any difficulty breathing. Echo is being done. CHEST: Decreased breath sounds. No wheezing. CARDIAC: Normal S1 and S2. ABDOMEN: Soft, no masses. LABORATORY DATA: She had a blood culture positive for Klebsiella. She is on vancomycin and Maxipime. White count is 0.2, platelet count 34. Lytes are normal. IMPRESSION: 1. Status post chemotherapy for small cell lung cancer with ensuing pancytopenia. 2. Atrial fibrillation. 3. Respiratory failure, improved. PLAN: Continue broad-spectrum antibiotics, amiodarone, neb treatments, supportive care, p.r.n. BiPAP. We will follow while in the ICU. Job ID: [id number]
--- NOTE | 2018-05-13 10:00 | PRG ---
DATE OF SERVICE: 05/13/2018 TIME: 7:45 a.m. SUBJECTIVE: The patient is feeling much better this morning. She did have a rough night last night. She was started on amiodarone drip and converted to a normal sinus rhythm at 11 p.m. last night. No complaints of any chest pain, shortness of breath, nausea, or vomiting at this time. OBJECTIVE: VITAL SIGNS: Temperature 98.6, pulse 85, respirations 15, and pulse ox 99 on 2 L. HEART: Regular rate and rhythm. LUNGS: Relatively clear. ABDOMEN: Soft. ASSESSMENT: 1. Acute respiratory failure with pulmonary edema, stable at this time. 2. Klebsiella bacteremia. 3. Clostridium difficile gastroenteritis. 4. Escherichia coli urinary tract infection. 5. Metastatic small cell lung cancer. 6. Oral thrush. 7. New onset atrial fibrillation converted to a sinus rhythm. PLAN: 1. Continue amiodarone drip per Cardiology. 2. Continue antibiotics. Appreciate Dr. Betancur. The patient is doing much better this morning, feeling much better. We will continue to follow. Job ID: [id number]
[2018-05-13] MEDS: Aluminum & Magnesium Hydroxide 60 ML, Lidocaine 2% Viscous Solution 30 ML, diphenhydrAM... SSW PRN (10:16)
--- NOTE | 2018-05-13 16:52 | PQF ---
MARCO ANTONIO MENDES, MARY Humphrey JR, MD [id number] CLINICAL DOCUMENTATION IMPROVEMENT CLARIFICATION FORM: ICD-10 Updated PLEASE DO AN ADDENDUM TO THE PROGRESS NOTE WITH ANY DOCUMENTATION UPDATES OR ADDITIONS AND CARRY THROUGH TO DC SUMMARY. THANK YOU. DATE: 05-13-18 ATTN: DR. TUTTLE Please exercise your independent, professional judgment in responding to the clarification form. Clinical indicators are provided on the bottom of this form for your review Please check appropriate box(es): [ ] Sepsis due to PICC Line [ ] Sepsis due to UTI [ ] Sepsis due to C.Diff Gastroenteritis [ ] Other diagnosis [ ] Unable to determine In addition, please specify: Present on Admission (POA): [ ] Yes [ ] No [ ] Unable to determine For continuity of documentation, please document condition throughout progress notes and discharge summary. Thank You. CLINICAL INDICATORS - SIGNS / SYMPTOMS / LABS - UA - E-COLI 1-5 (BERYL) C-Diff and could potentially be septic 1-6 (SUHAS): Possibility of colonization of PICC Line inserted about a week before vs alternative source 1-3 STOOL - C. DIFFICILE RISK FACTORS 12- H&P (SAMAYOA): UTI - (MARRY): METASTATIC SMALL CELL LUNG CANCER W/ METS TO SPINE AND ADRENAL GLANDS 05-03 STARTED CHEMO (JUL) TREATMENTS: 1-6 ID CONSULT MAR: MAXIPIME IV 1-5 TO PRESENT VANCOMYCIN IV 1-4 TO PRESENT ROCEPHIN IV 04-25 TO 05-01 ETOPOSIDE IV 05-03 CARBOPLATIN IV 05-03 12- UA - E-COLI 1-3 STOOL - C. DIFFICILE 1-5 BLOOD CULTURE: PICC LINE - GRAM NEGATIVE AYAKA RIGHT ARM - KLEBSIELLA PNEUMONIAE 1-6 URINE CULTURE - PRESUMPTIVE ENTEROCOCCUS THANK YOU, TIFFANY (This form is maintained as a part of the permanent medical record) 2015 [employer]. All Rights Reserved Tiffany Shelby RN, BS [email or web address] Cell [facility]
--- NOTE | 2018-05-13 17:40 | PRG ---
DATE OF SERVICE: 05/13/2018 SUBJECTIVE: A bit sleepy, but feels okay. No headaches. Little bit of cough with kind of thick sputum. No chest pain. No abdominal pain. OBJECTIVE: VITAL SIGNS: Temperature max 99.9, BP 120/50s, pulse 72, respirations 22. GENERAL: Awake and oriented. LUNGS: Large airway rhonchi noticed. HEART: S1 and S2. Regular rate. ABDOMEN: Soft, not distended. PICC line in place. LABORATORY DATA: White cell count is at 0.2, 34,000 platelets. Hemoglobin 9.9, creatinine 0.86. Urine culture with presumptive enterococcus and Klebsiella pneumoniae. Two sets of blood cultures, one from PICC line and one from venous sample. Repeat chest x-ray with cardiomediastinal silhouette enlarged, interstitial markings are increased. ASSESSMENT AND DISCUSSION: 1. Hypertension, newly diagnosis metastatic small cell lung cancer with liver involvement and bone, adrenal gland involvement, recent started chemotherapy with neutropenic fever, Klebsiella species bacteremia with a likely colonization of PICC line. 2. C difficile colitis with improvement in diarrhea. The patient currently on cefepime intravenously plus vancomycin orally administered. Plan is to eventually remove the PICC line once coagulopathy resolves with improvement in the bone marrow function. Await on susceptibility profile of the organism to eventually transition to oral antimicrobial therapy if feasible. Job ID: [id number]
--- NOTE | 2018-05-13 18:30 | PDOC.CTH ---
Cardiology Progress Note - Subjective Pt. seen and eval. by me. No cardiac complaints. She converted from Afib to NSR on Amiodarone. She tells me that she has a history of SVT in the past. - Objective Vital Signs Temp Pulse Resp Pulse Ox 05/13/18 18:28 100 05/13/18 18:27 71 18 100 05/13/18 13:58 71 17 99 05/13/18 12:00 99.9 F H 05/13/18 08:10 92 05/13/18 08:09 85 05/13/18 08:00 98.6 F 05/13/18 07:44 99 05/13/18 07:43 85 15 99 05/13/18 07:35 98 05/13/18 07:00 98.6 F Admit Weight 158 lb 11.2 oz Weight 162 lb 11.218 oz 05/12/18 05/13/18 05/14/18 06:59 06:59 06:59 Intake Total 2525 2060 889 Output Total 1940 3405 600 Balance 585 -1345 289 - Physical Examination General/Neuro: alert & oriented x3 Neck: no JVD present Lungs: unlabored respirations, other: (bilateral scattered rhonchi) Heart: RRR Abdomen: NT/ND, soft - Labs Result Diagrams: 05/13/18 05:55 05/13/18 05:55 Troponin/CKMB CK-MB (CK-2) 2.5 ng/mL (0-6.6) 05/11/18 19:50 Troponin I 0.030 ng/mL (< 0.028) H 05/11/18 19:50 - Assessment/Plan 1. Sepsis on antibiotics, 2. Neutropenia due to metastatic lung cancer chemotherapy. 3. Rhabdomyollysis. 4. MARGARETTE 5.Metastaicsmall cell lung cancer. 6. Afib/flutter. Maintaining NSR on amiodarone. Continue present Tx.
[2018-05-14] MEDS: Cefepime 2 GM in Sodium Chloride 0.9% 100 ML IVPB SCH ×3 (02:19→17:03)
[2018-05-14] MEDS: Vancomycin HCl 25 MG/ML Oral PO SCH ×3 (05:16→18:34)
[2018-05-14 05:51] LABS: Mean Corpuscular HGB CONC 33.9 g/dL (32.0-36.0); Mean Corpuscular Hemoglobin 29.7 pg (27.0-31.0); Mean Corpuscular Volume 87.8 fL (78.0-98.0); Platelet Count 22 thou/uL (130-400); RBC Distribution Width 12.3 % (11.5-14.5); Red Blood Cell (RBC) Count 3.37 mill/uL (4.20-5.40); White Blood Cell (WBC) Count 0.6 thou/uL (4.8-10.8)
[2018-05-14 05:58] LABS: Anion Gap 14 mmol/L (10-20); BUN (Urea Nitrogen) 20 mg/dL (9.8-20.1); Calc. Creatinine Clearance 83 mL/min (70-130); Calcium 8.2 mg/dL (7.8-10.44); Carbon Dioxide 24 mmol/L (23-31); Chloride 103 mmol/L (98-107); Estimated GFR-MDRD 74; Glucose 83 mg/dL (80-115); Potassium 3.4 mmol/L (3.5-5.1); Sodium 138 mmol/L (136-145)
[2018-05-14 06:17] LABS: Band 12 % (5-11); Lymphocytes 74 % (21-51); MDiff Complete? YES; Metamyelocyte 2 % (0-0); Monocytes 6 % (0-10); Neutrophil 6 % (42-75); Platelet Morphology Comment Appears Decreased
[2018-05-14] MEDS: Mometasone/Formoterol 120 PUFF INHALER INH SCH ×2 (08:05→20:02)
[2018-05-14] MEDS: Atenolol 50 MG TAB PO SCH ×2 (08:57→20:57)
[2018-05-14] MEDS: Fluconazole 100 MG TAB PO SCH (08:58)
[2018-05-14] MEDS: Pantoprazole 40 MG VIAL IVP SCH (08:58)
[2018-05-14] MEDS: predniSONE 20 MG TAB PO SCH (08:58)
[2018-05-14] MEDS: Digoxin 0.5 MG/2 ML AMP SLOW IVP SCH (08:59)
--- NOTE | 2018-05-14 09:19 | PRG ---
DATE OF SERVICE: 05/14/2018 SUBJECTIVE: James is status post chemotherapy in the ICU. OBJECTIVE: VITAL SIGNS: Blood pressure resolved at 117/60, pulse is 76, respirations 18. GENERAL: She is in no distress. CHEST: Decreased breath sounds. No wheezing. CARDIAC: Normal S1 and S2. No gallops. ABDOMEN: No masses. DIAGNOSTIC DATA: Chest x-ray today shows the right paratracheal mass, but otherwise no other infiltrates were seen. LABORATORY DATA: Pancytopenia with a white count of 0.6, hemoglobin and hematocrit 10 and 29, platelet count 22. IMPRESSION: Status post chemo for small cell; pancytopenia; hypotension, resolved. She can probably be transferred outside to Oncology floor once she is off the amiodarone. PLAN: Pulmonary/Critical Care will follow while in the ICU. Job ID: [id number]
--- NOTE | 2018-05-14 09:33 | RAD ---
PORTABLE UPRIGHT FRONTAL CHEST RADIOGRAPH: Date: 05-14-18 Comparison: 05-13-18 History: Shortness of breath. FINDINGS: There is a left upper extremity PICC, distal tip terminating over the region of the cavoatrial juncti on. There is a suprahilar/paratracheal mass on the right, stable. No pneumothorax, lobar consolidatio n, or alveolar edema. Mild blunting of the costophrenic angles may signify small pleural effusions or pleural thickening. IMPRESSION: No significant interval change. POS: CLAIR
--- NOTE | 2018-05-14 10:05 | PRG ---
DATE OF SERVICE: 05/14/2018 SUBJECTIVE: This point, the patient is doing well. She continues to improve slowly daily. No complaints of shortness of breath. She states her cough has improved. OBJECTIVE: VITAL SIGNS: Temperature 97.7, heart rate 75, blood pressure 131/53, and O2 saturation 91%. GENERAL: No acute distress this a.m. She looks much better. HEART: Regular rate and rhythm. LUNGS: Clear. ABDOMEN: Soft. EXTREMITIES: With no edema. LABORATORY DATA: White count 0.6, H and H 10 and 29.6, and platelet 22. Sodium 138, potassium 3.4, chloride 103, and glucose 83. ASSESSMENT: 1. Acute respiratory failure with pulmonary edema, stable. 2. Klebsiella bacteremia probably from the peripherally inserted central catheter line. 3. Clostridium difficile gastroenteritis. 4. Escherichia coli urinary tract infection. 5. Metastatic small cell lung cancer. 6. Thrush. 7. New onset atrial fibrillation, presently in a sinus rhythm. PLAN: 1. Continue amiodarone per Cardiology. 2. Replace PICC line soon. 3. Continue present plan. 4. To call to discuss the low platelet count with Sheila. The patient may need another 6-pack of platelets. Job ID: [id number]
--- NOTE | 2018-05-14 10:18 | PQF ---
MARCO ANTONIO MENDES DR. [id number] T4-A- [id number] CLINICAL DOCUMENTATION IMPROVEMENT CLARIFICATION FORM: ICD-10 Updated PLEASE DO AN ADDENDUM TO THE PROGRESS NOTE WITH ANY DOCUMENTATION UPDATES OR ADDITIONS AND CARRY THROUGH TO DC SUMMARY. THANK YOU. DATE: 05-06-18 ATTN: DR. BRANDT Please exercise your independent, professional judgment in responding to the clarification form. Clinical indicators are provided on the bottom of this form for your review Please check appropriate box(s): [ ] Acute Metabolic Encephalopathy: [ ] Acute Hypoxic Encephalopathy [ xx] Other Diagnosis [ ] Unable to determine In addition, please specify: Present on Admission (POA): [ ] Yes [xx ] No [ ] Unable to determine For continuity of documentation, please document condition throughout progress notes and discharge summary. Thank You. CLINICAL INDICATORS - SIGNS / SYMPTOMS / LABS ED P 93-103 RR - 94-99% ON RA BP 72/41; 109/70 04-27 (ANGELA): O2 SAT 80% ON RA 04-28 (RIKKI): 93% ON RA 04-29 (LANDON): SHE HAS HAD MORE SOB SINCE SUNDAY; O2 SAT 95% ON 2LNC; BREATHING IS MILDLY LABORED 04-29 (JAELYN): DENIES ANY FORMAL SOB WHILE ON NC AND AT REST. GETS SOB W/ ACTIVITY TO RESTROOM OFF NC. EMPHYSEMA; WILL START DUONEBS; SOLU-MEDROL; ROCEPHIN; LIKELY MILD COPD EXACERBATION; 05-02 (RIKKI): CONFUSION. POSSIBLE METASTATIC BRAIN DX - AWAIT MRI OF BRAIN; UTI; COPD EXAC; RHABDO; SVT; MARGARETTE 05-05 MRI BRAIN - NO EVIDENCE OF INTRACRANIAL METASTATIC DX RISK FACTORS 04-30 DOUGLAS: * STAGE IV BRONCHOGENIC CARCINOMA, * ELEVATED ALKALINE PHOSPHATASE, MOST LIKLY R/T BONE METS * HYPOALBUMINEMIA 04-27 (RIKKI); MARGARETTE; UTI TREATMENTS: MAR: ROCEPHIN IV 04-25 TO 05-01 IVF NS 04-25/04-30 CARDIZEM IV 05-01 POTASSIUM IV 04-27 TO 04-29 LASIX IV 05-05 CPOE: 05-05 MRI BRAIN OXYGEN 04-30 2-4 LNC THANK YOU, TIFFANY (This form is maintained as a part of the permanent medical record) 2014 [employer]. All Rights Reserved Tiffany Shelby RN, BS [email or web address] Cell [facility]
[2018-05-14] MEDS: GENTAMICIN IVPB SCH (10:45)
[2018-05-14] MEDS: [UNRECOGNIZED DRUG - OTHER] IVPB SCH (10:45)
[2018-05-14] MEDS: HEPARIN IVPB SCH (10:45)
[2018-05-14 13:43] VITALS: BMI 28.8
--- NOTE | 2018-05-14 14:00 | PDOC.CTH ---
Cardiology Progress Note - Subjective The pt seen and examined. No overnight events. No cardiac complaints. - Objective Vital Signs Temp Pulse Resp BP Pulse Ox 05/14/18 13:15 74 22 H 05/14/18 12:00 97.8 F 05/14/18 08:59 78 05/14/18 08:58 78 126/55 L 05/14/18 08:57 78 126/55 L 05/14/18 08:39 95 05/14/18 08:00 97.4 F L 98 05/14/18 07:59 78 18 95 05/14/18 04:00 97.7 F Admit Weight 158 lb 11.2 oz Weight 162 lb 11.218 oz 05/13/18 05/14/18 05/15/18 06:59 06:59 06:59 Intake Total 2060 1368 650 Output Total 3405 1045 280 Balance -1345 323 370 - Physical Examination General/Neuro: alert & oriented x3 Neck: no JVD present Lungs: other: (diminished at bases) Heart: RRR Abdomen: soft Extremities: other: (No edema) - Labs Result Diagrams: 05/14/18 05:15 05/14/18 05:15 Troponin/CKMB CK-MB (CK-2) 2.5 ng/mL (0-6.6) 05/11/18 19:50 Troponin I 0.030 ng/mL (< 0.028) H 05/11/18 19:50 - Assessment/Plan 1. Afib/flutter - Maintaining NSR on amiodarone, which was stopped due to hx of lung cancer. Start Digoxin 0.125mg qd and Cardizem 120mg qd. Not on OAC or ASA due to very low Platelet level. 2. Sepsis - on antibiotics, 3. Neutropenia due to metastatic lung cancer chemotherapy. 4. Rhabdomyollysis. 5. MARGARETTE - improved and stable 6.Metastaicsmall cell lung cancer. MAR reviewed Review of Systems - Review of Systems Constitutional: reports: weakness EENTM: reports: no symptoms reported Respiratory: reports: shortness of breath Cardiac (ROS): reports: no symptoms reported ABD/GI: reports: no symptoms reported : reports: no symptoms reported
[2018-05-14] MEDS: Aluminum & Magnesium Hydroxide 60 ML, Lidocaine 2% Viscous Solution 30 ML, diphenhydrAM... SSW PRN (18:35)
[2018-05-15] MEDS: Vancomycin HCl 25 MG/ML Oral PO SCH ×4 (01:46→17:35)
[2018-05-15] MEDS: Cefepime 2 GM in Sodium Chloride 0.9% 100 ML IVPB SCH ×3 (02:49→17:35)
[2018-05-15] MEDS: [UNRECOGNIZED DRUG - OTHER] IVPB SCH ×3 (03:30→17:36)
[2018-05-15] MEDS: GENTAMICIN IVPB SCH ×3 (03:30→17:36)
[2018-05-15] MEDS: HEPARIN IVPB SCH ×3 (03:30→17:36)
[2018-05-15 04:03] LABS: Anion Gap 10 mmol/L (10-20); BUN (Urea Nitrogen) 25 mg/dL (9.8-20.1); Calc. Creatinine Clearance 84 mL/min (70-130); Calcium 8.1 mg/dL (7.8-10.44); Carbon Dioxide 25 mmol/L (23-31); Chloride 106 mmol/L (98-107); Estimated GFR-MDRD 75; Glucose 110 mg/dL (80-115); Potassium 3.2 mmol/L (3.5-5.1); Sodium 138 mmol/L (136-145)
[2018-05-15 04:14] LABS: Band 18 % (5-11); Hemoglobin 11.3 g/dL (12.0-16.0); Lymphocytes 39 % (21-51); MDiff Complete? YES; Mean Corpuscular HGB CONC 34.5 g/dL (32.0-36.0); Mean Corpuscular Hemoglobin 30.1 pg (27.0-31.0); Mean Corpuscular Volume 87.3 fL (78.0-98.0); Mean Platelet Volume 9.5 fL (7.4-10.4); Monocytes 14 % (0-10); Myelocyte 2 % (0-0); Neutrophil 27 % (42-75); Platelet Count 39 thou/uL (130-400); Platelet Morphology Comment Appears Decreased; RBC Distribution Width 12.3 % (11.5-14.5); Red Blood Cell (RBC) Count 3.73 mill/uL (4.20-5.40); White Blood Cell (WBC) Count 1.7 thou/uL (4.8-10.8)
[2018-05-15] MEDS: Mometasone/Formoterol 120 PUFF INHALER INH SCH ×2 (07:47→19:21)
[2018-05-15] MEDS: predniSONE 20 MG TAB PO SCH (09:12)
[2018-05-15] MEDS: Atenolol 50 MG TAB PO SCH ×2 (09:12→21:35)
[2018-05-15] MEDS: Pantoprazole 40 MG VIAL IVP SCH (09:12)
[2018-05-15] MEDS: Fluconazole 100 MG TAB PO SCH (09:12)
[2018-05-15] MEDS: Digoxin 0.5 MG/2 ML AMP SLOW IVP SCH (09:13)
--- NOTE | 2018-05-15 09:21 | RAD ---
SINGLE VIEW OF THE CHEST: Comparison: 05-14-18 History: Ventilated patient with respiratory failure. FINDINGS: Single view of the chest shows a normal sized cardiomediastinal silhouette. The PICC line is unchange d in position. There is fullness along the right superior mediastinum. No change has occurred compare d to the prior exam. IMPRESSION: Stable exam. POS: [facility]
--- NOTE | 2018-05-15 12:00 | PRG ---
DATE OF SERVICE: 05/15/2018 SUBJECTIVE: Irma Ramirez is status post chemotherapy for small-cell lung cancer. She was transferred yesterday out of the ICU. She is doing better. OBJECTIVE: VITAL SIGNS: Sats are 95% on 2 L, pulse 68, and blood pressure was 138/64. CHEST: Decreased breath sounds. No wheezing. CARDIAC: Normal S1 and S2. No gallops. ABDOMEN: No masses. LABORATORY DATA: White count improved to 1.7, hemoglobin and hematocrit 11 and 32, and platelet count is still low 39. IMPRESSION: 1. Small-cell lung cancer, status post chemotherapy. 2. Pancytopenia. Platelet count is stable. She received 10 units of packed cells. X-ray stable, right paratracheal mass looks smaller. Disposition, home when okay with Oncology. Pulmonary will follow. Job ID: [id number]
--- NOTE | 2018-05-15 13:41 | PDOC.CTH ---
Cardiology Progress Note - Subjective The pt seen and examined. No overnight events. No cardiac complaints. - Objective Vital Signs Temp Pulse Resp BP Pulse Ox 05/15/18 09:13 68 05/15/18 09:12 68 05/15/18 09:10 68 05/15/18 08:00 95 05/15/18 04:00 98.3 F 91 20 138/64 92 L Admit Weight 158 lb 11.2 oz Weight 162 lb 11.218 oz 05/14/18 05/15/18 05/16/18 06:59 06:59 06:59 Intake Total 1368 1100 Output Total 1045 330 Balance 323 770 - Physical Examination General/Neuro: alert & oriented x3 Neck: no JVD present Lungs: CTA (diminished at bases) Heart: RRR Abdomen: soft Extremities: other: (no edema) - Labs Result Diagrams: 05/15/18 03:35 05/15/18 03:35 Troponin/CKMB CK-MB (CK-2) 2.5 ng/mL (0-6.6) 05/11/18 19:50 Troponin I 0.030 ng/mL (< 0.028) H 05/11/18 19:50 - Assessment/Plan 1. Afib/flutter - Maintaining regular rhythm with Digoxin 0.125mg qd and Cardizem 120mg qd. Not on OAC or ASA due to very low Platelet level. 2. Sepsis - on antibiotics, 3. Neutropenia due to metastatic lung cancer chemotherapy. 4. Rhabdomyollysis. 5. MARGARETTE - improved and stable 6.Metastic small cell lung cancer. MAR reviewed Pt. seen and eval. by me. I agree with the A/P by the [employer]. She is maintaining NSR. She has a history of SVT in the past. At ths time it is best to continue the betablockers. No further cardiac w/u at this time. I will sign off. if further cardiac problems then I will be happy to see her again. Review of Systems - Review of Systems Constitutional: reports: no symptoms reported EENTM: reports: no symptoms reported Respiratory: reports: no symptoms reported Cardiac (ROS): reports: no symptoms reported ABD/GI: reports: no symptoms reported : reports: no symptoms reported Musculoskeletal: reports: no symptoms reported
--- NOTE | 2018-05-15 14:43 | PRG ---
DATE OF SERVICE: 05/15/2018 SUBJECTIVE: The patient looks and feels so much better this morning. She is awake, alert, sitting up in bed. OBJECTIVE: VITAL SIGNS: Temperature 98.3, pulse 91, respirations 20, pulse oximetry 92% on 2 L, blood pressure 138/64. HEART: Regular rate and rhythm. LUNGS: Clear. ABDOMEN: Soft. LABORATORY DATA: White count 1.7, up from 0.6, H and H 11 and 32, platelets 39. Sodium 138, potassium 3.2, chloride 106, creatinine 0.7, BUN 25. ASSESSMENT: 1. Acute respiratory failure with pulmonary edema, stable. 2. Klebsiella bacteremia probably from PICC line. 3. Clostridium difficile gastroenteritis. 4. Escherichia coli urinary tract infection. 5. Metastatic small-cell lung cancer. 6. New onset atrial fibrillation. Presently in sinus rhythm. PLAN: 1. Continue digoxin. 2. Replace PICC line soon. 3. Discharge planning. Job ID: [id number]
[2018-05-15] MEDS: Aluminum & Magnesium Hydroxide 60 ML, Lidocaine 2% Viscous Solution 30 ML, diphenhydrAM... SSW PRN (21:30)
[2018-05-16] MEDS: Vancomycin HCl 25 MG/ML Oral PO SCH ×4 (00:25→18:36)
[2018-05-16] MEDS: Cefepime 2 GM in Sodium Chloride 0.9% 100 ML IVPB SCH ×2 (02:50→12:37)
[2018-05-16] MEDS: [UNRECOGNIZED DRUG - OTHER] IVPB SCH (03:54)
[2018-05-16] MEDS: HEPARIN IVPB SCH (03:54)
[2018-05-16] MEDS: GENTAMICIN IVPB SCH (03:54)
[2018-05-16 07:08] LABS: Hemoglobin 9.5 g/dL (12.0-16.0); Mean Corpuscular HGB CONC 32.9 g/dL (32.0-36.0); Mean Corpuscular Hemoglobin 28.9 pg (27.0-31.0); Mean Corpuscular Volume 87.6 fL (78.0-98.0); Platelet Count 43 thou/uL (130-400); RBC Distribution Width 12.2 % (11.5-14.5); Red Blood Cell (RBC) Count 3.27 mill/uL (4.20-5.40); White Blood Cell (WBC) Count 6.6 thou/uL (4.8-10.8)
[2018-05-16] MEDS: Mometasone/Formoterol 120 PUFF INHALER INH SCH ×2 (08:15→19:33)
[2018-05-16 08:21] LABS: Band 31 % (5-11); Dohle Bodies MODERATE; Lymphocytes 21 % (21-51); MDiff Complete? YES; Metamyelocyte 3 % (0-0); Monocytes 13 % (0-10); Myelocyte 4 % (0-0); Neutrophil 27 % (42-75); Nucleated RBC 2 % (0); Ovalocytes SLIGHT = 2-5 cells (100X) (0-1/hpf); Platelet Morphology Comment Appears Decreased; Polychromasia SLIGHT = 2-3 cells (100X) (0-2/hpf); Reactive Lymphocytes 1 % (0-10); Reflex for Review?? NO; Toxic Granulation MODERATE
[2018-05-16] MEDS: Digoxin 0.5 MG/2 ML AMP SLOW IVP SCH (11:22)
[2018-05-16] MEDS: Atenolol 50 MG TAB PO SCH ×2 (11:52→20:17)
[2018-05-16] MEDS: Digoxin 0.125 MG TAB PO SCH (11:52)
[2018-05-16] MEDS: Pantoprazole 40 MG VIAL IVP SCH (11:53)
[2018-05-16] MEDS: Fluconazole 100 MG TAB PO SCH (11:53)
[2018-05-16] MEDS: predniSONE 20 MG TAB PO SCH (11:55)
--- NOTE | 2018-05-16 14:47 | PRG ---
DATE OF SERVICE: 05/16/2018 SUBJECTIVE: The patient remains stable. Complains of rawness to her bottom. OBJECTIVE: VITAL SIGNS: Temperature 98.3, pulse 68, respirations 16, and pulse ox 94 on 2 L. HEART: Regular rate and rhythm. LUNGS: Clear. ABDOMEN: Soft, nontender. : Bottom is quite raw, red with maceration. Small open sore on the sacrum. LABORATORY DATA: White count 6.6, H and H of 9.5 and 28.7, and platelets 43. ASSESSMENT: 1. Sacral decubitus/breakdown. Plan to obtain wound care consult. 2. Acute respiratory failure with pulmonary edema, resolved. 3. Klebsiella bacteremia from PICC line. 4. Clostridium difficile gastroenteritis. 5. Escherichia coli urinary tract infection. 6. Metastatic small cell lung cancer. 7. New-onset atrial fibrillation in sinus rhythm. PLAN: 1. Wound care consult. 2. Replace PICC line soon. Hopefully, the platelet count will rise above 50 within the next day or two. 3. Discharge planning. The patient has an apartment available nearby. Discharged home when okay with Oncology. 4. The patient to sit in chair most of the day. Job ID: [id number]
[2018-05-16] MEDS: Aluminum & Magnesium Hydroxide 60 ML, Lidocaine 2% Viscous Solution 30 ML, diphenhydrAM... SSW PRN (18:37)
--- NOTE | 2018-05-16 19:29 | EKG ---
Test Reason : Blood Pressure : / mmHG Vent. Rate : 141 BPM Atrial Rate : 322 BPM P-R Int : 000 ms QRS Dur : 094 ms QT Int : 326 ms P-R-T Axes : 000 001 233 degrees QTc Int : 499 ms Atrial flutter with variable A-V block Abnormal ECG Confirmed by JAMIL SOLOMON ([id number]) on 05/16/2018 7:28:54 PM Referred By: Confirmed By:JAMIL SOLOMON
[2018-05-16] MEDS: Cefdinir 300 MG CAP PO SCH (20:17)
[2018-05-17] MEDS: Vancomycin HCl 25 MG/ML Oral PO SCH ×4 (00:04→17:44)
[2018-05-17] MEDS ORDERED: HEPARIN IVPB SCH (00:15)
[2018-05-17] MEDS ORDERED: GENTAMICIN IVPB SCH (00:15)
[2018-05-17] MEDS ORDERED: [UNRECOGNIZED DRUG - OTHER] IVPB SCH (00:15)
[2018-05-17 03:53] LABS: Band 27 % (5-11); Hemoglobin 9.7 g/dL (12.0-16.0); Lymphocytes 11 % (21-51); MDiff Complete? YES; Mean Corpuscular HGB CONC 34.3 g/dL (32.0-36.0); Mean Corpuscular Hemoglobin 29.7 pg (27.0-31.0); Mean Corpuscular Volume 86.5 fL (78.0-98.0); Mean Platelet Volume 9.9 fL (7.4-10.4); Metamyelocyte 7 % (0-0); Monocytes 7 % (0-10); Myelocyte 3 % (0-0); Neutrophil 45 % (42-75); Platelet Count 47 thou/uL (130-400); Platelet Morphology Comment Appears Decreased; RBC Distribution Width 12.3 % (11.5-14.5); Red Blood Cell (RBC) Count 3.26 mill/uL (4.20-5.40); White Blood Cell (WBC) Count 9.9 thou/uL (4.8-10.8)
[2018-05-17] MEDS: Mometasone/Formoterol 120 PUFF INHALER INH SCH ×2 (07:38→19:30)
[2018-05-17] MEDS: Atenolol 50 MG TAB PO SCH ×2 (08:17→19:48)
[2018-05-17] MEDS: predniSONE 20 MG TAB PO SCH (08:17)
[2018-05-17] MEDS: Digoxin 0.125 MG TAB PO SCH (08:18)
[2018-05-17] MEDS: Cefdinir 300 MG CAP PO SCH ×2 (08:18→19:48)
[2018-05-17] MEDS: Fluconazole 100 MG TAB PO SCH (08:19)
--- NOTE | 2018-05-17 15:34 | PRG ---
DATE OF SERVICE: 05/17/2018 SUBJECTIVE: The patient is feeling great. She denies any headaches. No shortness of breath or abdominal pain. PICC line has been removed. OBJECTIVE: VITAL SIGNS: Normal. GENERAL: Awake, alert, and oriented. LUNGS: Clear. HEART: S1 and S2. Regular rate. ABDOMEN: Soft, not distended or tender. LABORATORY DATA: White cell count is up to 6.6, hemoglobin 9.5, platelets 43,000. Chemistry not remarkable. ASSESSMENT AND DISCUSSION: Hypertension, newly diagnosed metastatic small cell lung cancer with liver metastasis as well as bone metastasis, adrenal gland involvement. Started chemotherapy with neutropenic fever with likely Klebsiella bacteremia with colonization of PICC line. Clostridium difficile colitis with improvement. At this point, we will transition her to oral Augmentin for 5 days and continue Clostridium difficile treatment with vancomycin with a protracted oral tapering dose. Job ID: [id number]
[2018-05-17 19:49] VITALS: BP 138/63
[2018-05-17 20:34] VITALS: TEMP 98.3
--- NOTE | 2018-05-18 01:32 | DIS ---
DATE OF ADMISSION: 04/25/2018 DATE OF DISCHARGE: 05/17/2018 DISCHARGE DIAGNOSES: 1. Metastatic small cell lung cancer with metastasis to the spine and adrenal glands. 2. Acute respiratory failure with pulmonary edema. 3. Sacral decubitus/breakdown. 4. Klebsiella sepsis from PICC line. 5. Clostridium difficile gastroenteritis with sepsis. 6. Escherichia coli urinary tract infection. 7. New onset atrial fibrillation, in sinus rhythm. CONSULTANTS: 1. Dr. Hoover. 2. Dr. Quinteros. 3. Dr. Samayoa. 4. Dr. Betancur. 5. Dr. Rodríguez. 6. Dr. Wallace. PROCEDURES: Mediastinoscopy with biopsy by uri Stratton. BRIEF HISTORY: This is a 68-year-old white female who presented to the emergency room with persistent and exacerbating low back pain with inability to walk due to the pain. She has had back pain for off and on for the past several months. She was undergoing physical therapy and receiving pain medications. Plain x-rays have been unremarkable. However, she presented to the emergency room with severe pain, where multiple x-rays were obtained, which revealed metastatic cancer. HOSPITAL COURSE: A chest CT was obtained, which revealed a large right suprahilar mass invading the mediastinum, which measured 7 x 8 cm with a mass effect on the posterior wall of the trachea. Multiple densities noted throughout the liver with bilateral adrenal masses measuring approximately up to 3 cm. A lumbar spine MRI was obtained, which revealed diffuse metastatic disease especially involving the sacrum. Multiple consults were obtained include Dr. Dawn and Dr. Samayoa. Chemotherapy was initiated as well as radiation therapy. The patient subsequently developed pancytopenia and sepsis, which required intubation and placement in the ICU. The platelet count was followed and eventually, the platelets fannie to 47 and her pancytopenia slowly improved. She was in the ICU for approximately 1 week and eventually transferred back to Oncology, where she is doing well. Multiple cultures were obtained and she was found to have C difficile gastroenteritis as well as sepsis due to Klebsiella, which most likely came from the PICC line. This is presently being removed today. She was also noted to have an E coli UTI upon early admission. She has been placed on multiple antibiotics and she has been seen by social service. She presently has arrangements in an apartment to live nearby. DISCHARGE MEDICATIONS: Will include; 1. Atenolol 100 p.o. b.i.d. 2. Cefdinir 300 p.o. b.i.d. 3. Digoxin 0.125 p.o. daily. 4. Diltiazem 120 p.o. daily CD. 5. Protonix 40 daily. 6. Prednisone will be tapered to 10 daily. 7. Zoloft 25 daily. 8. Vancomycin 125 p.o. q.i.d. for an additional 3 days. If all goes well, the patient will be discharged today. The patient was also noted to have sacral breakdown and she has been presently receiving therapy with wound care. Job ID: [id number]
--- NOTE | 2018-05-19 08:58 | EKG ---
Test Reason : URGENT Blood Pressure : / mmHG Vent. Rate : 156 BPM Atrial Rate : 312 BPM P-R Int : 000 ms QRS Dur : 068 ms QT Int : 156 ms P-R-T Axes : -58 018 196 degrees QTc Int : 251 ms Atrial flutter with variable A-V block Low voltage QRS Nonspecific ST and T wave abnormality Abnormal ECG Confirmed by VALERIA POTTS, TRACY ([id number]) on 05/19/2018 8:57:38 AM Referred By: MARRY Confirmed By:TRACY SHAW MD
--- NOTE | 2018-05-19 09:05 | EKG ---
Test Reason : Blood Pressure : / mmHG Vent. Rate : 097 BPM Atrial Rate : 097 BPM P-R Int : 122 ms QRS Dur : 080 ms QT Int : 360 ms P-R-T Axes : 035 021 050 degrees QTc Int : 457 ms Normal sinus rhythm Low voltage QRS Nonspecific ST abnormality Abnormal ECG Confirmed by TRACY SHAW MD ([id number]) on 05/19/2018 9:05:13 AM Referred By: Confirmed By:TRACY SHAW MD
--- NOTE | 2018-05-20 10:23 | OP ---
DATE OF PROCEDURE: 04/26/2018 PREOPERATIVE DIAGNOSIS: Massive mediastinal lymphadenopathy. PROCEDURE: Cervical mediastinal exploration and biopsy. ANESTHESIA: General. ESTIMATED BLOOD LOSS: Minimal. DESCRIPTION OF PROCEDURE: After adequate anesthesia had been obtained, the patient was prepped and draped. Incision was made in the suprasternal notch, carried down to the trachea and blunt dissection carried into the mediastinum. The scope was then inserted and large amount of adenopathy was noted just to the right of the trachea. After aspiration, multiple biopsies were obtained of this necrotic material and sent for pathology. There was some bleeding from the capsule of these lymph nodes and this was controlled with coagulation and then pressure. Following good control, the wound was closed in layers and the patient is to be taken to the ICU in guarded condition. Job ID: [id number]
== END 2018-05-17 22:54 | disposition home or self-care (01) | DRG 180 ==
LOC: ERS 23:24 → T4-A 04-25 02:04 → OBSVTOIN 04-25 02:04 → 2NO 05-01 22:01 → ONC 05-03 10:20 → CCU 05-11 19:49 → ONC 05-14 18:13
PROVIDERS: ADMIT Family Medicine; ATTEND Family Medicine
PROC: 5A09457 Assistance with Respiratory Ventilation, 24-96 Consecutive Hours, Continuous Positive Airway Pressure (ICD-10-PCS; principal; 2018-04-26)
PROC: 0WBC4ZX Excision of Mediastinum, Percutaneous Endoscopic Approach, Diagnostic (ICD-10-PCS; 2018-05-06)
DX: C34.90 Malignant neoplasm of unspecified part of unspecified bronchus or lung (principal); A41.59 Other Gram-negative sepsis; T80.211A Bloodstream infection due to central venous catheter, initial encounter; J96.01 Acute respiratory failure with hypoxia; D61.810 Antineoplastic chemotherapy induced pancytopenia; N39.0 Urinary tract infection, site not specified; C79.72 Secondary malignant neoplasm of left adrenal gland; C79.71 Secondary malignant neoplasm of right adrenal gland; C79.51 Secondary malignant neoplasm of bone; M62.82 Rhabdomyolysis; N17.9 Acute kidney failure, unspecified; J44.1 Chronic obstructive pulmonary disease with (acute) exacerbation; I47.1 Supraventricular tachycardia; B37.0 Candidal stomatitis; A04.72 Enterocolitis due to Clostridium difficile, not specified as recurrent; I48.92 Unspecified atrial flutter; I48.91 Unspecified atrial fibrillation; T45.1X5A Adverse effect of antineoplastic and immunosuppressive drugs, initial encounter; D70.9 Neutropenia, unspecified; R50.81 Fever presenting with conditions classified elsewhere; Z87.891 Personal history of nicotine dependence; E86.0 Dehydration; B96.20 Unspecified Escherichia coli [E. coli] as the cause of diseases classified elsewhere; Z92.21 Personal history of antineoplastic chemotherapy; Z92.3 Personal history of irradiation; Z79.899 Other long term (current) drug therapy; Z88.8 Allergy status to other drugs, medicaments and biological substances; I10 Essential (primary) hypertension; Z79.1 Long term (current) use of non-steroidal anti-inflammatories (NSAID); K21.9 Gastro-esophageal reflux disease without esophagitis
CPT/HCPCS: 36415; 36416; 36430; 36569; 51701; 70553; 71045; 71046; 71250; 72148; 72170; 74018; 76705; 77014; 77290; 77307; 77334; 77336; 77412; 77417; 80048; 80053; 81003; 81015; 82550; 82553; 82805; 83615; 83880; 84436; 84443; 84484; 84550; 85014; 85018; 85025; 86850; 86900; 86901; 87045; 87046; 87077; 87086; 87149; 87186; 87324; 87449; 87633; 87798; 87899; 88305; 88331; 88334; 88341; 88342; 88360; 93005; 93010; 93306; 94640; 94660; 94664; 96361; 96365; 96375; C1751; C9113; G8978-GP-CJ; G8978-GP-CK; G8979-GP-CI; G8987-GO-CL; G8988-GO-CJ; J0131; J0282; J0692; J0696; J1100; J1160; J1447; J1580; J1644; J1650; J1940; J2001; J2250; J2405; J2469; J2505; J2704; J2930; J3010; J3480; J7042; J7050; J7070; J7506; J7620; J9045; J9181; P9016; P9035; S0028

== ENCOUNTER 2018-05-28 09:55 | Day surgery (SDC) | payer MEDICARE ==
[2018-05-28] MEDS ORDERED: Sodium Chloride 0.9% 20 ML ONE (10:14)
[2018-05-28 10:18] VITALS: BP 142/66; TEMP 97.6
[2018-05-28] MEDS ORDERED: PALONOSETRON HCL 0.05 MG/ML 5 ML VIAL IVP SCH (10:30)
[2018-05-28] MEDS ORDERED: Dexamethasone 4 mg/ml Vial SLOW IVP SCH (10:30)
[2018-05-28] MEDS ORDERED: CARBOplatin 450 MG in Sodium Chloride 0.9% 250 ML 250 ML IVPB SCH (10:30)
[2018-05-28] MEDS ORDERED: ETOPOSIDE IVPB SCH (10:45)
[2018-05-28] MEDS ORDERED: SODIUM CHLORIDE 0.9% IVPB SCH (10:45)
[2018-05-28] MEDS ORDERED: ATEZOLIZUMAB 1,200 MG in Sodium Chloride 0.9% 250 ML 250 ML IVPB SCH (11:00)
== END 2018-05-28 15:34 | disposition home or self-care (01) ==
LOC: ONC/OP 09:55
PROVIDERS: ATTEND Internal Medicine Hematology & Oncology
DX: Z51.11 Encounter for antineoplastic chemotherapy (principal); C34.11 Malignant neoplasm of upper lobe, right bronchus or lung; Z88.8 Allergy status to other drugs, medicaments and biological substances; Z87.891 Personal history of nicotine dependence
CPT/HCPCS: 96375; 96413; 96417; J1100; J2469; J7050; J9022; J9045; J9181

== ENCOUNTER 2018-05-29 08:49 | Day surgery (SDC) | payer MEDICARE ==
[2018-05-29] MEDS ORDERED: Sodium Chloride 0.9% 20 ML ONE (08:55)
[2018-05-29] MEDS ORDERED: Dexamethasone 10 MG/ML VIAL SLOW IVP SCH (09:15)
[2018-05-29] MEDS ORDERED: SODIUM CHLORIDE 0.9% IVPB SCH (09:15)
[2018-05-29] MEDS ORDERED: ETOPOSIDE IVPB SCH (09:15)
[2018-05-29 10:05] VITALS: BP 142/60; TEMP 98
== END 2018-05-29 12:16 | disposition home or self-care (01) ==
LOC: ONC/OP 08:49
PROVIDERS: ATTEND Internal Medicine Hematology & Oncology
DX: Z51.11 Encounter for antineoplastic chemotherapy (principal); C34.11 Malignant neoplasm of upper lobe, right bronchus or lung; Z79.52 Long term (current) use of systemic steroids; Z79.899 Other long term (current) drug therapy; Z88.8 Allergy status to other drugs, medicaments and biological substances
CPT/HCPCS: 96375; 96413; J1100; J1642; J7050; J9181

== ENCOUNTER 2018-05-30 08:55 | Day surgery (SDC) | payer MEDICARE ==
[2018-05-30] MEDS ORDERED: Sodium Chloride 0.9% 30 ML ONE (09:13)
[2018-05-30] MEDS ORDERED: Dexamethasone 10 MG/ML VIAL SLOW IVP SCH (09:15)
[2018-05-30 09:59] VITALS: BP 131/60; TEMP 97.6
[2018-05-31] MEDS ORDERED: Dexamethasone 10 MG/ML VIAL SLOW IVP SCH (09:00)
== END 2018-05-30 11:51 | disposition home or self-care (01) ==
LOC: ONC/OP 08:55
PROVIDERS: ATTEND Internal Medicine Hematology & Oncology
DX: Z51.11 Encounter for antineoplastic chemotherapy (principal); C34.11 Malignant neoplasm of upper lobe, right bronchus or lung; Z79.899 Other long term (current) drug therapy; Z88.8 Allergy status to other drugs, medicaments and biological substances
CPT/HCPCS: 96375; 96413; J1100; J7050; J9181

== ENCOUNTER 2018-05-31 08:57 | Day surgery (SDC) | payer MEDICARE ==
[2018-05-31] MEDS ORDERED: PEGFILGRASTIM-JMDB 6 MG/0.6 ML SYRINGE SQ SCH (09:15)
[2018-05-31 09:22] VITALS: BP 169/72; TEMP 97.6
== END 2018-05-31 11:10 | disposition home or self-care (01) ==
LOC: ONC/OP 08:57
PROVIDERS: ATTEND Internal Medicine Hematology & Oncology
DX: Z51.11 Encounter for antineoplastic chemotherapy (principal); C34.11 Malignant neoplasm of upper lobe, right bronchus or lung; Z79.899 Other long term (current) drug therapy; Z88.8 Allergy status to other drugs, medicaments and biological substances
CPT/HCPCS: 96372; Q5108

== ENCOUNTER 2018-06-07 10:36 | Inpatient (IN) | payer MEDICARE ==
[2018-06-07] MEDS: Sodium Chloride 0.9% 1,000 ML IV SCH ×2 (13:57→23:46)
[2018-06-07 14:13] VITALS: BMI 27.1
[2018-06-07] MEDS ORDERED: Acetaminophen 325 MG TAB PO PRN (17:40)
[2018-06-07] MEDS ORDERED: Ondansetron PF 4 MG/2 ML Vial IVP PRN (17:40)
[2018-06-07] MEDS ORDERED: HYDROcodone/Acetaminophen 7.5/325 mg Tablet PO PRN (17:40)
--- NOTE | 2018-06-07 18:09 | HP ---
HISTORY OF PRESENT ILLNESS: This is a 68-year-old white female with metastatic small cell lung cancer to the spine and adrenal glands, who presents with neutropenic fever. The patient was hospitalized in late April for chronic low back pain. She was seen in the emergency room and x-rays were obtained, which revealed metastatic cancer. She had lesions involving her spine and adrenal gland as well as her sacrum. She also had a large right suprahilar mass invading the mediastinum, which was approximately 8 cm. There is also multiple lesions within the liver and adrenal glands as well as the sacrum. Dr. Dawn and Dr. Samayoa were consulted. The patient received several weeks of radiation and has recently received her second round of chemotherapy, which was completed several days prior. She was doing well until this morning when she felt very ill with a high fever. She presented to Dr. Samayoa's office, where she was given IV fluids and antibiotics. She was then admitted to Oncology for further treatment. PAST MEDICAL HISTORY: 1. Metastatic small cell lung cancer. 2. Recent history of acute respiratory failure with pulmonary edema. 3. History of sacral decubitus breakdown. 4. In 04/2018, Klebsiella infection of the PICC line, which was removed. 5. C. diff gastroenteritis with sepsis. 6. Recent E. coli UTI. 7. Paroxysmal atrial fibrillation. 8. Hypertension. 9. Hyperlipidemia. 10. Tobacco abuse. PAST SURGICAL HISTORY: Include gallbladder surgery, abdominal hernia surgery, and thyroid nodule removal. FAMILY HISTORY: Father with heart disease and hypertension. Mother with lung cancer and heart disease and throat cancer. Several siblings with lung cancer. SOCIAL HISTORY: She lives alone. She is a former smoker, she quit in 2017. She is . She has no children. She has multiple animals at home. MEDICATIONS: Include; 1. Atenolol 100 p.o. b.i.d. 2. Cefdinir 300 p.o. b.i.d. 3. Digoxin 0.125 daily. 4. Diltiazem 120 CD daily. 5. Protonix 40 daily. 6. Prednisone 10 mg daily. 7. Zoloft 25 daily. 8. Vancomycin 125 p.o. q.i.d. ALLERGIES: TO LISINOPRIL, WHICH CAUSES COUGH. REVIEW OF SYSTEMS: As above. PHYSICAL EXAMINATION: VITAL SIGNS: Temperature 98.1, pulse 66, respirations 16, pulse ox 100, and blood pressure 117/56. GENERAL: The patient actually looks much better than when she was last seen. HEENT: Clear. NECK: Supple. HEART: Regular rate and rhythm. LUNGS: Relatively clear. ABDOMEN: Soft and nontender. EXTREMITIES: With no edema. ASSESSMENT: 1. Metastatic small cell lung cancer. 2. Neutropenic fever. 3. Pancytopenia. 4. Clostridium difficile gastroenteritis. 5. Paroxysmal atrial fibrillation. PLAN: 1. Admit. 2. Transfuse 2 units packed red blood cells. 3. Cefepime IV. 4. Vancomycin p.o. 5. Consult Sheila Magaña, who has already seen the patient. 6. We will continue to follow. 7. We will continue the vancomycin per Dr. Betancur's protocol. Job ID: [id number]
[2018-06-07] MEDS: Famotidine 20 MG TAB PO SCH (20:49)
[2018-06-07] MEDS: Atenolol 50 MG TAB PO SCH (20:49)
[2018-06-08 04:30] LABS: Platelet Count 26 thou/uL (130-400)
[2018-06-08 04:46] LABS: Anion Gap 12 mmol/L (10-20); BUN (Urea Nitrogen) 16 mg/dL (9.8-20.1); Calc. Creatinine Clearance 83 mL/min (70-130); Calcium 8.1 mg/dL (7.8-10.44); Carbon Dioxide 18 mmol/L (23-31); Chloride 112 mmol/L (98-107); Estimated GFR-MDRD 80; Glucose 83 mg/dL (80-115); Potassium 4.1 mmol/L (3.5-5.1); Sodium 138 mmol/L (136-145)
[2018-06-08 04:59] LABS: Band 18 % (5-11); Large Platelets SLIGHT; Lymphocytes 42 % (21-51); MDiff Complete? YES; Mean Corpuscular HGB CONC 33.2 g/dL (32.0-36.0); Mean Corpuscular Hemoglobin 29.5 pg (27.0-31.0); Mean Corpuscular Volume 88.8 fL (78.0-98.0); Mean Platelet Volume 9.4 fL (7.4-10.4); Monocytes 8 % (0-10); Neutrophil 30 % (42-75); Platelet Morphology Comment Appears Decreased; RBC Distribution Width 14.7 % (11.5-14.5); Reactive Lymphocytes 2 % (0-10); Red Blood Cell (RBC) Count 3.05 mill/uL (4.20-5.40)
[2018-06-08] MEDS: Atenolol 50 MG TAB PO SCH ×2 (08:41→20:57)
[2018-06-08] MEDS: Digoxin 0.125 MG TAB PO SCH (08:42)
[2018-06-08] MEDS: Famotidine 20 MG TAB PO SCH ×2 (08:44→20:57)
[2018-06-08] MEDS: Sodium Chloride 0.9% 1,000 ML IV SCH ×2 (08:44→21:10)
[2018-06-08] MEDS: predniSONE 5 MG TAB PO SCH (08:47)
[2018-06-08] MEDS: Vancomycin HCl 25 MG/ML Oral PO SCH (08:53)
--- NOTE | 2018-06-08 09:12 | PRG ---
DATE OF SERVICE: 06/08/2018 SUBJECTIVE: The patient is doing well this morning. No complaints of headache, shortness of breath, nausea, or vomiting. She received 2 units of packed red blood cells yesterday. OBJECTIVE: VITAL SIGNS: Temperature 98.0, pulse 70, respirations 12, pulse ox is 99% on room air, and blood pressure 123/56. HEART: Regular rate and rhythm. LUNGS: Clear. ABDOMEN: Soft. EXTREMITIES: No edema. LABORATORY DATA: White count 1.0 up from less than 1, H and H 9.0 and 27.1, and platelets 26. Sodium 138, potassium 4.1, chloride 112, CO2 of 18, creatinine 0.73, and BUN 16. ASSESSMENT: 1. Neutropenic fever. 2. Pancytopenia. 3. Metastatic small-cell lung cancer. 4. Clostridium difficile gastroenteritis, culture negative. 5. Paroxysmal atrial fibrillation. PLAN: 1. We will leave platelet transfusion up to Sheila Magaña. 2. Continue cefepime and vancomycin. 3. Repeat labs in a.m. Job ID: [id number]
--- NOTE | 2018-06-08 23:30 | CON ---
DATE OF CONSULTATION: REASON FOR CONSULT: Neutropenic fever. HISTORY OF PRESENT ILLNESS: Ms. Ramirez is a pleasant 68-year-old female, who has received two cycles of chemotherapy for extensive stage small cell carcinoma. Her last cycle of carboplatin, etoposide and acentric was completed on May 30. She did have Neulasta on May 31. She presented to the clinic on yesterday with a fever of 101.1 and generalized fatigue. Her white count was 0.4. Her hemoglobin was 6.8 and her platelet count was 53,000. She was admitted for neutropenic fever. Her UA was positive for nitrites and bacteria. She has been started on antibiotics and IV fluids. PAST MEDICAL HISTORY: 1. Extensive stage small cell carcinoma. 2. Hypertension. 3. Anxiety and depression. 4. GERD. 5. History of smoking. PAST SURGICAL HISTORY: 1. Cholecystectomy. 2. Umbilical hernia repair. 3. Hiatal hernia repair. 4. Antireflux surgery. 5. Cervical mediastinal exploration and biopsy. ALLERGIES: ATIVAN AND LOSARTAN. HOME MEDICATIONS: 1. Vancomycin 125 mg daily. 2. Tenormin b.i.d. 3. Lanoxin daily. 4. Cardizem daily. 5. Protonix daily. 6. Prednisone daily. 7. Zoloft daily. FAMILY HISTORY: Non-small cell lung cancer in multiple family members, all of whom were smokers. SOCIAL HISTORY: , lives with her sister, Ebony Patel. 40-pack year history of smoking. No alcohol or illicit drug use. REVIEW OF SYSTEMS: GENERAL: Positive for fever. No chills, night sweats, or weight loss. EYES: No blurred or double vision. ENT: No pain, hoarseness, sore throat, or dysphagia. CV: No chest pain, palpitations, syncope. RESPIRATORY: No shortness of breath, dyspnea on exertion, or cough. GI: No nausea, vomiting, diarrhea, constipation, or abdominal pain. : No dysuria or hematuria. MUSCULOSKELETAL: No joint or back pain. SKIN: No rash or pruritus. HEMATOLOGICAL: No bruising, bleeding or clotting. NEUROLOGICAL: Positive for weakness and right foot numbness. PHYSICAL EXAMINATION: VITAL SIGNS: Temperature 98, pulse is 72, respiratory rate 18, BP is 141/62. She is 97% on 2 L. GENERAL: Well-developed, well-nourished female in no acute distress. HEENT: Normocephalic, atraumatic. Pupils are equal and reactive to light. NECK: Supple. CV: Regular rate and rhythm. LUNGS: Clear. ABDOMEN: Soft and nontender. Bowel sounds are positive. EXTREMITIES: There is no clubbing, cyanosis, or edema. SKIN: No rash. HEMATOLOGICAL: No petechiae or purpura. NEUROLOGICAL: Nonfocal. PSYCH: The patient is alert, oriented, and appropriate. PERTINENT LABS AND X-RAYS: Current WBCs are 1.0, hemoglobin 9.0, hematocrit 27.1, platelet count is 26,000. She has 30% neutrophils, 18% bands, 42% lymphocytes. Sodium is 138, potassium 4.1, chloride 112, CO2 is 18, BUN is 16, creatinine 0.73, calcium 8.1. C difficile is antigen and toxin negative. Urine culture shows no growth at 24 hours. ASSESSMENT: 1. Extensive stage small cell lung cancer, status post chemotherapy with Neulasta. 2. Neutropenic fever. 3. Recent Clostridium difficile infection. DISCUSSION: The patient is tolerating antibiotics and IV fluids. She is feeling much better. Her white count is beginning to trend upward. She has some blood-tinged sputum from her nose. Her platelet count has dropped. We will give her one unit of platelets and continue antibiotics. She is scheduled for a MediPort placement on Sunday morning. If her white count is not improved significantly tomorrow, she will unlikely be able to have that placed on Sunday. We would discharge her home to follow up with the surgeon later in the week. If her white count has improved, we will discuss with Dr. Mccann whether to keep her overnight to have her MediPort placed and then discharge her on Sunday after the procedure. Thank you for the consult. Job ID: [id number]
[2018-06-09 04:26] LABS: Anion Gap 14 mmol/L (10-20); BUN (Urea Nitrogen) 8 mg/dL (9.8-20.1); Calc. Creatinine Clearance 92 mL/min (70-130); Calcium 8.3 mg/dL (7.8-10.44); Carbon Dioxide 19 mmol/L (23-31); Chloride 110 mmol/L (98-107); Estimated GFR-MDRD 90; Glucose 87 mg/dL (80-115); Potassium 3.7 mmol/L (3.5-5.1); Sodium 139 mmol/L (136-145)
[2018-06-09 05:35] LABS: Band 28 % (5-11); Hemoglobin 9.3 g/dL (12.0-16.0); Lymphocytes 16 % (21-51); MDiff Complete? YES; Mean Corpuscular HGB CONC 33.6 g/dL (32.0-36.0); Mean Corpuscular Hemoglobin 29.3 pg (27.0-31.0); Mean Corpuscular Volume 87.4 fL (78.0-98.0); Mean Platelet Volume 8.1 fL (7.4-10.4); Metamyelocyte 4 % (0-0); Monocytes 5 % (0-10); Myelocyte 4 % (0-0); Neutrophil 43 % (42-75); Platelet Count 54 thou/uL (130-400); Platelet Morphology Comment Appears Decreased; RBC Distribution Width 14.8 % (11.5-14.5); Red Blood Cell (RBC) Count 3.16 mill/uL (4.20-5.40); White Blood Cell (WBC) Count 2.8 thou/uL (4.8-10.8)
[2018-06-09] MEDS: Digoxin 0.125 MG TAB PO SCH (08:39)
[2018-06-09] MEDS: Famotidine 20 MG TAB PO SCH ×2 (08:39→20:05)
[2018-06-09] MEDS: Atenolol 50 MG TAB PO SCH ×2 (08:39→20:05)
[2018-06-09] MEDS: predniSONE 5 MG TAB PO SCH (08:39)
[2018-06-09] MEDS: Vancomycin HCl 25 MG/ML Oral PO SCH (08:45)
--- NOTE | 2018-06-09 11:56 | PRG ---
DATE OF SERVICE: 06/09/2018 SUBJECTIVE: The patient continues to do well. Appetite has improved. Fever has resolved. OBJECTIVE: VITAL SIGNS: Temp 98.2, pulse 85, respirations 16, pulse ox 98 on 2 L, and blood pressure 131/60. HEART: Regular rhythm. LUNGS: Clear. ABDOMEN: Soft. EXTREMITIES: With no edema. LABORATORY DATA: White count increased from 1.0 to 2.8, H and H are 9.3 and 27.6. Sodium 139, potassium 3.7, chloride 110, CO2 19, creatinine 0.66, and BUN 8. ASSESSMENT: 1. Neutropenic fever, resolving. All blood culture, urine culture, and stool clostridium difficile culture negative. 2. Pancytopenia, improving. 3. Metastatic small cell lung cancer. 4. Clostridium difficile. 5. Paroxysmal atrial fibrillation, stable. PLAN: 1. The patient's pancytopenia is improving slowly. 2. All cultures are negative. 3. The patient is in agreement to be n.p.o. tonight and have Dr. Crawford place the MediPort in the a.m. Job ID: [id number]
[2018-06-09] MEDS: Sodium Chloride 0.9% 1,000 ML IV SCH ×2 (12:15→19:24)
[2018-06-10] MEDS: Sodium Chloride 0.9% 1,000 ML IV SCH (05:10)
[2018-06-10 05:38] LABS: Anion Gap 13 mmol/L (10-20); BUN (Urea Nitrogen) 6 mg/dL (9.8-20.1); Calc. Creatinine Clearance 86 mL/min (70-130); Calcium 8.6 mg/dL (7.8-10.44); Carbon Dioxide 21 mmol/L (23-31); Chloride 111 mmol/L (98-107); Estimated GFR-MDRD 82; Glucose 95 mg/dL (80-115); Potassium 4.1 mmol/L (3.5-5.1); Sodium 141 mmol/L (136-145)
[2018-06-10 07:00] LABS: Anisocytosis SLIGHT = 6-15 cells (100X) (0-5/hpf); Band 20 % (5-11); Hemoglobin 10.2 g/dL (12.0-16.0); Lymphocytes 32 % (21-51); MDiff Complete? YES; Mean Corpuscular HGB CONC 32.5 g/dL (32.0-36.0); Mean Corpuscular Hemoglobin 28.7 pg (27.0-31.0); Mean Corpuscular Volume 88.3 fL (78.0-98.0); Mean Platelet Volume 8.6 fL (7.4-10.4); Metamyelocyte 1 % (0-0); Monocytes 3 % (0-10); Myelocyte 5 % (0-0); Neutrophil 39 % (42-75); Platelet Count 51 thou/uL (130-400); Platelet Morphology Comment Appears Decreased; RBC Distribution Width 14.9 % (11.5-14.5); Red Blood Cell (RBC) Count 3.55 mill/uL (4.20-5.40); White Blood Cell (WBC) Count 5.4 thou/uL (4.8-10.8)
[2018-06-10] MEDS: Atenolol 50 MG TAB PO SCH (07:45)
[2018-06-10 08:37] VITALS: TEMP 97.9
[2018-06-10] MEDS ORDERED: Bupivacaine HCl 0.5%/Epinephrine 1:200,000/PF 30 ml Vial ONE (08:43)
[2018-06-10] MEDS ORDERED: Lidocaine 2% PF 5 ML VIAL ONE (08:43)
--- NOTE | 2018-06-10 08:57 | PRG ---
DATE OF SERVICE: 06/10/2018 SUBJECTIVE: The patient is doing very well this morning. On her way now for a MediPort placement by Dr. Crawford. OBJECTIVE: VITAL SIGNS: Temperature 98.0, pulse 76, blood pressure 158/68, respirations 16, and pulse ox 97%. HEART: Regular rate and rhythm. LUNGS: Clear. ABDOMEN: Soft. EXTREMITIES: No edema. LABORATORY DATA: White count 5.4 and H and H of 10 and 31, they are all continuing to rise; and platelet is 51. ASSESSMENT: 1. Neutropenic fever, resolving. 2. Pancytopenia, improving. 3. Metastatic small cell lung cancer for Clostridium difficile. 4. Paroxysmal atrial fibrillation. PLAN: 1. MediPort placement this morning. 2. If all goes well, possibly can be discharged home this afternoon. Job ID: [id number]
[2018-06-10] MEDS ORDERED: Fentanyl 100 MCG/2 ML VIAL ONE (09:35)
[2018-06-10] MEDS ORDERED: Midazolam HCl 2 mg/2 ml Vial ONE (09:39)
[2018-06-10] MEDS ORDERED: traMADol HCl 50 MG TAB PO PRN ×2 (10:24)
[2018-06-10] MEDS ORDERED: Acetaminophen 500 MG TAB PO PRN (10:24)
--- NOTE | 2018-06-10 10:41 | OP ---
DATE OF PROCEDURE: 06/10/2018 PREOPERATIVE DIAGNOSIS: Metastatic lung cancer, stage IV in need of antineoplastic chemotherapy access. POSTOPERATIVE DIAGNOSIS: Metastatic lung cancer, stage IV in need of antineoplastic chemotherapy access. PROCEDURE PERFORMED: Left subclavian vein MediPort low-profile, fluoroscopy used. ANESTHESIA: TIVA, local of 0.5% Marcaine with epinephrine 30 mL mixed with 2% Xylocaine 10 mL. DESCRIPTION OF PROCEDURE: The patient was taken to the operating room, where under intravenous sedation, neck and chest were prepared with ChloraPrep and draped in routine fashion. Local anesthetic was infiltrated into the skin and subcutaneous tissue about the operative site. Left infraclavicular approach was used to cannulate the left subclavian vein, obtained good return of venous blood, J-wire threaded, trocar catheter was removed. Skin was incised and enlarged sharply to create a subcutaneous pocket with blunt and sharp dissection using cautery for hemostasis. Dilator and Peel-Away sheath were placed over the J-wire into the superior vena cava and dilator and J-wire were removed. Catheter was placed through the Peel-Away sheath and Peel-Away sheath was removed. Fluoroscopically, the catheter was placed in optimal position in the superior vena cava and catheter tailored to length and connected to the MediPort, placed in the subcutaneous pocket and secured with two interrupted sutures 3-0 Prolene. Subcutaneous tissue was approximated with 3-0 Monocryl, skin with subdermal 4-0 Monocryl, and [place] glue applied. MediPort was accessed with a [place] needle, aspirated blood, and flushed with heparinized saline solution. The patient tolerated the procedure well. Job ID: [id number]
--- NOTE | 2018-06-10 11:28 | RAD ---
CHEST 1 VIEW: INDICATION: PACU. COMPARISON: 05/15/2018. FINDINGS: Left-sided PICC line has been removed. There is a new left subclavian chest wall port. The tip of t he catheter projects in the region of the cavoatrial junction. Visualized lungs are clear. No pneum othorax is evident. Prominent soft tissue within the right paratracheal region is stable. IMPRESSION: 1. New left chest wall port. No pneumothorax. 2. Stable right paratracheal soft tissue prominence. POS: [facility]
[2018-06-10] MEDS: Digoxin 0.125 MG TAB PO SCH (11:38)
[2018-06-10] MEDS: Famotidine 20 MG TAB PO SCH (11:38)
[2018-06-10] MEDS: Vancomycin HCl 25 MG/ML Oral PO SCH (11:38)
[2018-06-10 11:39] VITALS: BP 145/66
[2018-06-10] MEDS: predniSONE 5 MG TAB PO SCH (12:03)
--- NOTE | 2018-06-10 13:23 | DIS ---
DATE OF ADMISSION: 06/07/2018 DATE OF DISCHARGE: 06/10/2018 DISCHARGE DIAGNOSES: 1. Neutropenic fever. 2. Pancytopenia. 3. Metastatic small cell lung cancer. 4. Paroxysmal atrial fibrillation. 5. Clostridium difficile gastroenteritis, resolved. PROCEDURE: MediPort placement by Dr. Crawford. DISCHARGE MEDICATIONS: 1. Atenolol 50 b.i.d. 2. Digoxin 0.125 daily. 3. Diltiazem CD 120 daily. 4. Prednisone 10 p.o. daily. 5. Zyrtec 10 at bedtime. 6. Protonix 40 daily. 7. Tylenol p.r.n. BRIEF HISTORY: This is a 68-year-old white female with metastatic small cell lung cancer to the spine and adrenal glands, who presented with neutropenic fever. The patient was hospitalized in late April following her initial chemo regimen. She recently completed her 2nd cycle of chemo, which included carboplatin, etoposide, acentric as well as receiving XRT x3 weeks. The patient again presented with fever to Dr. Samayoa's office. She was found to be neutropenic with a white count less than 1 as well as anemia and thrombocytopenia. HOSPITAL COURSE: The patient was admitted with a neutropenic fever. Blood cultures, urine cultures, and stool cultures were obtained, which were found to be unremarkable. Fever did resolve. The patient was started on IV Levaquin. She has done excellent. Her white count went from 0.6 to 1.0 and 2.8 to 5.4 today. H and H have risen to 10/31 and platelet of 51. She did receive 2 units of packed red blood cells and 1 unit of platelets while in the hospital. She had a MediPort placed today by Dr. Crawford. She is doing well. She will be discharged and will follow up with Dr. Samayoa. Job ID: [id number]
[2018-06-10] MEDS ORDERED: PROPOFOL 200 MG/20 ML VIAL ONE (15:24)
[2018-06-10] MEDS ORDERED: Lidocaine 1% PF 5 ML VIAL ONE (15:24)
--- NOTE | 2018-06-12 11:51 | PQF ---
MARCO ANTONIO MENDES DAVID R JR MD [id number] CLINICAL DOCUMENTATION CLARIFICATION FORM: POST DISCHARGE Please exercise your independent, professional judgment in responding to the clarification form. Clinical indicators are provided on the bottom of this form for your review Please check appropriate box(s): Pancytopenia/Neutropenic fever due to: [ ] Chemotherapy/antineoplastic drugs [ ] Metastatic Small Cell Lung Cancer [ ] Other diagnosis [ ] Unable to determine CLINICAL INDICATORS - SIGNS / SYMPTOMS / LABS: 06/10 DS- BRIEF HISTORY, "She recently completed her 2nd round of chemo" Decreased WBC 2/2 WBC 1.0 L Decreased RBC 2/2 RBC 3.05 L Decreased PLT 2/2 Plt count 26 L Fever 2/1 H&P, HPI, " Presents with neutropenic fever" RISK FACTORS: Chemotherapy 2/1 H&P Metastatic Small Cell Lung Cancer TREATMENT: Transfusions 2/1 TRANSFUSION PRBC 2/2 TRANSFUSION PLATELETS (This form is maintained as a part of the permanent medical record) 2014 [employer] All Rights Reserved Marilyn [email or web address] [phone] MTDD
--- NOTE | 2018-06-13 11:11 | CON ---
DATE OF CONSULTATION: HISTORY OF PRESENT ILLNESS: Irma Ramirez is a 68-year-old female, followed by Dr. Samayoa, undergoing chemotherapy for stage IV metastatic small cell carcinoma, T3 N2 M1 with bone, liver and adrenal mets. She has had radiation. She needs MediPort for IV antineoplastic chemotherapy access. PAST MEDICAL HISTORY: Hypertension; anxiety; depression; GERD; history of blood transfusion; tobacco abuse; stage IV lung cancer; history of tobacco abuse, cessation two years ago. PAST SURGICAL HISTORY: Cholecystectomy, umbilical hernia repair, hiatal hernia repair with Yvonne fundoplication, cervical mediastinal exploration and biopsy on 06/27/2017. ALLERGIES: ATIVAN AND LOSARTAN. MEDICATIONS: Atenolol, cefdinir 300 mg capsules a day, diltiazem 120 mg a day, Protonix 40 mg a day, prednisone 10 mg a day, sertraline 25 mg a day, vancomycin 125 mg capsules. REVIEW OF SYSTEMS: Noncontributory. PHYSICAL EXAMINATION: VITAL SIGNS: Weight 149 pounds, height 5 feet 3 inches, blood pressure 124/41, pulse 70, temperature 99 degrees. HEAD, EARS, EYES, NOSE AND THROAT: Unremarkable. LUNGS: Clear to auscultation. CARDIAC: Regular rate and rhythm without murmur or gallop. ABDOMEN: Soft and nontender. EXTREMITIES: Unremarkable. ASSESSMENT: Lung cancer, metastatic. PLAN: MediPort, low-profile. IV sedation, local, outpatient. She understands risks, benefits, and consents. Job ID: [id number]
== END 2018-06-10 14:27 | disposition home or self-care (01) | DRG 809 ==
LOC: ONC 13:19
PROVIDERS: ADMIT Family Medicine; ATTEND Family Medicine
PROC: 30233N1 Transfusion of Nonautologous Red Blood Cells into Peripheral Vein, Percutaneous Approach (ICD-10-PCS; principal; 2018-06-07)
PROC: 0JH63WZ Insertion of Totally Implantable Vascular Access Device into Chest Subcutaneous Tissue and Fascia, Percutaneous Approach (ICD-10-PCS; 2018-06-10)
PROC: 02HV33Z Insertion of Infusion Device into Superior Vena Cava, Percutaneous Approach (ICD-10-PCS; 2018-06-10)
DX: D61.818 Other pancytopenia (principal); A04.72 Enterocolitis due to Clostridium difficile, not specified as recurrent; C34.90 Malignant neoplasm of unspecified part of unspecified bronchus or lung; C78.1 Secondary malignant neoplasm of mediastinum; C78.7 Secondary malignant neoplasm of liver and intrahepatic bile duct; C79.70 Secondary malignant neoplasm of unspecified adrenal gland; C79.51 Secondary malignant neoplasm of bone; R50.81 Fever presenting with conditions classified elsewhere; I48.0 Paroxysmal atrial fibrillation; I10 Essential (primary) hypertension; E78.5 Hyperlipidemia, unspecified; Z87.891 Personal history of nicotine dependence; K21.9 Gastro-esophageal reflux disease without esophagitis; F41.8 Other specified anxiety disorders; Z79.2 Long term (current) use of antibiotics; Z79.52 Long term (current) use of systemic steroids; Z80.8 Family history of malignant neoplasm of other organs or systems; Z92.21 Personal history of antineoplastic chemotherapy; Z92.3 Personal history of irradiation
CPT/HCPCS: 36415; 36430; 71045; 80048; 80053; 81001; 82248; 83615; 84100; 84550; 85025; 86850; 86900; 86901; 87040; 87086; 87324; 87449; 99203; C1788; G0463; J0670; J1642; J1956; J2001; J2250; J2704; J3010; J7512; P9016; P9035

== ENCOUNTER 2018-06-17 08:29 | Outpatient (CLI) | payer MEDICARE ==
--- NOTE | 2018-06-17 11:34 | CT ---
CT CHEST WITH CONTRAST: CT ABDOMEN WITH CONTRAST: CT PELVIS WITH CONTRAST: HISTORY: Lung cancer. Radiation. Chemotherapy. COMPARISON: CT chest, high resolution, 04/25/2018. FINDINGS: The right perihilar mass has decreased in size. Using the same plane of reference, this measures 1.6 x 4 x 6.7 cm. This previously measured 7.2 x 8.1 cm. No coronal images were sent on the prior high -resolution CT to measure a craniocaudad length. The mediastinal invasion has decreased. Confluent right paratracheal lymphadenopathy, markedly decre ased in size, now measuring up to 7 mm in short axis. Aortic contour is normal. There is an embolism at the junction of the right and left main pulmonary arteries, extending to the segmental branch of the posterior segment, left upper lobe. This was call ed to Dr. Samayoa at 9:18 a.m. No pericardial effusion. Subtle hypodensity, left lobe of thyroid, measures less than 1 cm. There is a large bulla in the right upper lobe. Moderate background emphysema. No pericardial effus ion. No new pulmonary metastatic nodules. Innumerable hypodensities throughout the liver. Index lesion in hepatic segment 5, abutting the caps ule, on axial image 71, measures 1.8 cm. Index lesion in hepatic segment 2, on axial image 52, measu res up to 2.2 cm. Right adrenal gland mass has decreased in size, measuring up to 2.7 cm in AP dimension, previously 5. 3 cm. Left adrenal gland mass has decreased in size, measuring up to 2.4 cm, previously 3.1 cm. Large left renal cyst. Extensive atherosclerotic plaque. There are no dilated loops of large or small bowel. No retroperitoneal adenopathy. Old right anteri or 9th rib fracture. Subacute posterior left 5th rib fracture with sclerosis. T5 vertebra concernin g for osseous metastatic disease. There is abnormal sclerosis in the L3 and L4 vertebrae, concerning for osseous metastatic disease. There is a pathologic fracture through the right superior endplate of L5, which does not extend to th e inferior endplate. There is a lytic mass throughout the right sacrum, from S1-S4. There is extens ion of a soft tissue mass along the right S1, S2, and S3 nerve roots. The femurs are intact. IMPRESSION: 1. Marked interval size decrease of right paratracheal mass with decreased mediastinal invasion. 2. Marked size decrease of right paratracheal adenopathy. 3. Revisualization of hepatic metastatic disease. Size evaluation is limited, as the only compariso n I have for review is a CT of the chest without contrast. 4. Size decrease in bilateral adrenal metastatic disease. 5. Pulmonary embolism, as described. 6. Large lytic mass in the right sacrum with perineural invasion, as well as pathologic fracture. T his finding was called to Dr. Samayoa. 7. Lower lumbar spine metastatic disease. 8. Healing rib fractures. CODE CR POS: [facility]
[2018-06-17] MEDS ORDERED: ISOVUE-370 76%-LOCM 1 ML ONE (13:05)
== END 2018-06-17 08:30 | disposition home or self-care (01) ==
LOC: BICCT 08:29
PROVIDERS: ATTEND Internal Medicine Hematology & Oncology
DX: C34.91 Malignant neoplasm of unspecified part of right bronchus or lung (principal); S22.49XD Multiple fractures of ribs, unspecified side, subsequent encounter for fracture with routine healing; C79.51 Secondary malignant neoplasm of bone; I26.99 Other pulmonary embolism without acute cor pulmonale; C79.72 Secondary malignant neoplasm of left adrenal gland; C79.71 Secondary malignant neoplasm of right adrenal gland; C78.7 Secondary malignant neoplasm of liver and intrahepatic bile duct; R59.0 Localized enlarged lymph nodes; Z92.3 Personal history of irradiation
CPT/HCPCS: 71260; 74177; 80053; 82248; 83615; 84100; 84436; 84443; 84550; Q9966

== ENCOUNTER 2018-06-18 09:48 | Day surgery (SDC) | payer MEDICARE ==
[~2018-06-18 09:48] MED LIST: ATEZOLIZUMAB 1,200 MG in Sodium Chloride 0.9% 250 ML 250 ML IVPB SCH; CARBOPLATIN IVPB SCH; Dexamethasone 10 MG/ML VIAL SLOW IVP SCH; PALONOSETRON HCL 0.05 MG/ML 5 ML VIAL IVP SCH; SODIUM CHLORIDE 0.9% IVPB SCH
[2018-06-18] MEDS ORDERED: Sodium Chloride 0.9% 30 ML ONE (10:09)
[2018-06-18] MEDS ORDERED: Sodium Chloride 0.9% 40 ML ONE (10:27)
[2018-06-18 11:08] VITALS: BP 147/68; TEMP 97.7
== END 2018-06-18 13:09 | disposition home or self-care (01) ==
LOC: ONC/OP 09:48
PROVIDERS: ATTEND Internal Medicine Hematology & Oncology
DX: Z51.11 Encounter for antineoplastic chemotherapy (principal); C34.11 Malignant neoplasm of upper lobe, right bronchus or lung; F41.9 Anxiety disorder, unspecified; F32.9 Major depressive disorder, single episode, unspecified; K21.9 Gastro-esophageal reflux disease without esophagitis; I10 Essential (primary) hypertension; Z87.891 Personal history of nicotine dependence; Z88.8 Allergy status to other drugs, medicaments and biological substances
CPT/HCPCS: 96375; 96413; 96417; J1100; J1642; J2469; J7050; J9022; J9045; J9181

== ENCOUNTER 2018-06-19 01:08 | Day surgery (SDC) | payer MEDICARE ==
[2018-06-19] MEDS ORDERED: Dexamethasone 10 MG/ML VIAL SLOW IVP SCH (03:30)
[2018-06-19] MEDS ORDERED: Sodium Chloride 0.9% 20 ML ONE (08:31)
[2018-06-19 08:51] VITALS: BP 148/65; TEMP 97
== END 2018-06-19 11:49 | disposition home or self-care (01) ==
LOC: ONC/OP 01:08
PROVIDERS: ATTEND Internal Medicine Hematology & Oncology
DX: Z51.11 Encounter for antineoplastic chemotherapy (principal); C34.11 Malignant neoplasm of upper lobe, right bronchus or lung; Z88.8 Allergy status to other drugs, medicaments and biological substances; Z79.52 Long term (current) use of systemic steroids; Z79.899 Other long term (current) drug therapy
CPT/HCPCS: 96375; 96413; J1100; J1642; J7050; J9181

== ENCOUNTER 2018-06-20 01:10 | Day surgery (SDC) | payer MEDICARE ==
[2018-06-20] MEDS ORDERED: Sodium Chloride 0.9% 20 ML ONE (07:49)
[2018-06-20] MEDS ORDERED: Dexamethasone 10 MG/ML VIAL SLOW IVP SCH (08:30)
[2018-06-20 08:48] VITALS: BP 174/75; TEMP 97.8
== END 2018-06-20 15:56 | disposition home or self-care (01) ==
LOC: ONC/OP 01:10
PROVIDERS: ATTEND Internal Medicine Hematology & Oncology
DX: Z51.11 Encounter for antineoplastic chemotherapy (principal); C34.11 Malignant neoplasm of upper lobe, right bronchus or lung; Z88.8 Allergy status to other drugs, medicaments and biological substances
CPT/HCPCS: 96375; 96413; J1100; J1642; J7050; J9181

== ENCOUNTER 2018-06-21 00:05 | Day surgery (SDC) | payer MEDICARE ==
[2018-06-21] MEDS ORDERED: PEGFILGRASTIM-JMDB 6 MG/0.6 ML SYRINGE SQ SCH (06:15)
[2018-06-21 12:25] VITALS: BP 161/71; TEMP 98.1
== END 2018-06-21 12:27 | disposition home or self-care (01) ==
LOC: ONC/OP 00:05
PROVIDERS: ATTEND Internal Medicine Hematology & Oncology
DX: Z51.11 Encounter for antineoplastic chemotherapy (principal); C34.90 Malignant neoplasm of unspecified part of unspecified bronchus or lung; Z88.8 Allergy status to other drugs, medicaments and biological substances
CPT/HCPCS: 96372; Q5108

== ENCOUNTER 2018-06-28 00:20 | Inpatient (IN) | payer MEDICARE ==
[2018-06-28 01:34] LABS: Hemoglobin 6.8 g/dL (12.0-16.0); Mean Corpuscular HGB CONC 32.3 g/dL (32.0-36.0); Mean Corpuscular Hemoglobin 28.8 pg (27.0-31.0); Mean Corpuscular Volume 89.2 fL (78.0-98.0); Mean Platelet Volume 7.8 fL (7.4-10.4); Platelet Count 45 thou/uL (130-400); RBC Distribution Width 14.6 % (11.5-14.5); Red Blood Cell (RBC) Count 2.37 mill/uL (4.20-5.40); White Blood Cell (WBC) Count 0.5 thou/uL (4.8-10.8)
[2018-06-28 01:48] LABS: ALT (SGPT) 19 U/L (8-55); AST (SGOT) 11 U/L (5-34); Albumin 3.4 g/dL (3.4-4.8); Alkaline Phosphatase 113 U/L (40-150); Anion Gap 13 mmol/L (10-20); BUN (Urea Nitrogen) 15 mg/dL (9.8-20.1); Bilirubin, Total 0.5 mg/dL (0.2-1.2); Calc. Creatinine Clearance 0 mL/min (70-130); Calcium 8.6 mg/dL (7.8-10.44); Carbon Dioxide 21 mmol/L (23-31); Chloride 106 mmol/L (98-107); Estimated GFR-MDRD 58; Globulin 2.5 g/dL (2.4-3.5); Glucose 126 mg/dL (80-115); Potassium 4.1 mmol/L (3.5-5.1); Protein, Total 5.9 g/dL (6.0-8.3); Sodium 136 mmol/L (136-145)
[2018-06-28] MEDS ORDERED: Cefepime 2 GM in Sodium Chloride 0.9% 100 ML IVPB SCH ×2 (02:00→10:00)
[2018-06-28 03:16] LABS: Bilirubin Small (Negative); Blood, Urine Negative (Negative); Clarity CLOUDY (Clear); Glucose, Urine (Dipstick) Negative (Negative); Leukocyte Small (Negative); Nitrite Positive (Negative); Protein, Urine (Dipstick) 30 mg/dL (Neg-Trace); Specific Gravity, Urine 1.022 (1.002-1.036); Urobilinogen 0.2 mg/dL (0.2-1.0); pH, Urine 5.5 (5.0-9.0)
[2018-06-28 03:19] LABS: Bacteria/HPF 3+ HPF (None Seen); Pathc Cast-AUWi Flag 2.47 (0-2.49); RBC/HPF 0-3 HPF (0-3); Squamous Epithelial 0-3 HPF (0-3); WBC/HPF 21-50 HPF (0-3)
[2018-06-28 03:32] LABS: Hyaline Casts/LPF 0-3 HYALINE CAST LPF (0-3 Hyaline)
[2018-06-28 03:56] VITALS: BMI 27.1
[2018-06-28] MEDS ORDERED: Ondansetron ODT 4 MG TAB SL PRN ×2 (04:05→07:29)
[2018-06-28] MEDS ORDERED: Ondansetron PF 4 MG/2 ML Vial IVP PRN ×2 (04:05→07:29)
[2018-06-28] MEDS ORDERED: Acetaminophen 325 MG TAB PO PRN (04:05)
[2018-06-28 05:58] LABS: Lactic Acid 0.7 mmol/L (0.5-2.2)
[2018-06-28] MEDS ORDERED: Diabetic Tussin 200 MG/10 ML UDCUP PO PRN (07:29)
--- NOTE | 2018-06-28 07:59 | RAD ---
CHEST 2 VIEWS: COMPARISON: 06/10/2018. HISTORY: Fever. FINDINGS: Persistent opacification of the right peritracheal region. Atherosclerosis of the aorta is noted. H eart size is upper normal. There is atherosclerosis of the aortic knob. Pulmonary vessels and hilum are normal. Costophrenic angles are clear. No consolidation or mass. No pneumothorax or acute oss eous abnormalities. There is a moderate likely chronic compression fracture along the upper thoracic spine with associated kyphosis. IMPRESSION: No significant interval change. POS: [facility]
[2018-06-28] MEDS ORDERED: Prevnar 13-Val Conj/PF 0.5 ML SYRINGE IM ONE (09:00)
[2018-06-28] MEDS ORDERED: Digoxin 0.125 MG TAB PO SCH (09:00)
[2018-06-28] MEDS: Atenolol 50 MG TAB PO SCH ×2 (10:15→20:29)
[2018-06-28] MEDS: Milk Of Magnesia 30 ML UDCUP PO SCH (10:17)
[2018-06-28] MEDS: predniSONE 5 MG TAB PO SCH (10:18)
[2018-06-28] MEDS: Rivaroxaban 15 MG TAB PO SCH ×2 (12:50→16:30)
[2018-06-28] MEDS: Cefepime 2 GM in Sodium Chloride 0.9% 100 ML IVPB SCH (15:18)
--- NOTE | 2018-06-28 16:09 | HP ---
PRIMARY CARE PHYSICIAN: Dr. Castillo Mccann. CHIEF COMPLAINT: Fever. HISTORY OF PRESENT ILLNESS: The patient had contact with her niece and extended relatives, who had tested positive for strep throat and felt like she had a flu- like symptoms the following day and contacted the patient to let her know about this. She went in for testing in emergency department, had negative flu and negative strep testing. The patient was seen approximately [address] Castillo Mccann for post hospital discharge followup, also had neutropenic fever at that point in time, status post MediPort placement with Dr. Crawford, followed by Dr. Samayoa at that point in time with Hematology/Oncology, who has instructed to stop outpatient steroids at that visit d/cing prednisone 20 mg. the patient denies any gross upper respiratory symptoms. Once told of urinary findings, does say she has mild dysuria, but she states that it is somewhat baseline for her. Denies any flank pain, has some underlying chronic pain secondary to metastatic small cell lung disease. Denies any cough or sputum production at baseline, has been diagnosed with COPD given tobacco history, did quit two years ago. The patient's only major complaint is right lower extremity swelling and pain in her ankle. Denies any injury. Swellings resolved by lying flat, worse with walking on it, did report per patient, her last scan did show some metastatic disease in her pelvis. However, we will review the imaging report. Review of past medical, social, and surgical history includes; allergies of lisinopril; chronic obstructive pulmonary disease; hyperlipidemia; metastatic lung disease; paroxysmal atrial fibrillation; status post PE, on Xarelto; metastatic adenocarcinoma additionally reported; neutropenic fever; hypertension; tobacco abuse; history of thyroid nodule; prior herniated disc, followed by Dr. Navarrete in 2004; fracture of humerus, 2010; fracture of right hand following a fall, 2010; history of SVT, 2010, evolved into paroxysmal atrial fibrillation more recently with PE as above. Home medications include hydrocodone 7.5/325, cyclobenzaprine 10 mg t.i.d. p.r.n. for pain and muscle cramps, Proventil 90 mcg base two puffs p.r.n. q.4 hours, diltiazem 120 mg extended release daily, digoxin 125 mcg daily, pantoprazole 40 mg daily, Zoloft 25 mg daily for depressed mood secondary to general medical condition, atenolol 100 mg b.i.d. The patient with prior gallbladder removal, prior hernia repair at umbilical region, and prior port placement as above. The patient currently living alone. Ambulates with aid of walker. There is an echocardiogram from May of this year showing ejection fraction of 55% to 60%. Diastolic dysfunction suggested. [id number] tricuspid regurgitation. The patient has had prior code green this year while hospitalized following port placement for respiratory distress. Last CT abdomen , chest, and pelvis reviewed w/ decrease in right peritracheal mass with decreased mediastinal invasion, decreased right peritracheal adenopathy, continued hepatic metastatic disease visualized, decrease in bilateral adrenal metastatic disease. Pulmonary embolism present, stable. Lytic lesion to pelvis, large on right sacrum with pathologic fracture present. Lower lumbar spine metastatic disease present. Healing rib fractures present. LABORATORY DATA: White blood cell of 0.5. Neutrophil percentage, not reported. Hemoglobin of 6.8 and platelet count of 45. Sodium of 136, potassium of 4.1, CO2 of 21, creatinine of 0.96, glucose of 126, calcium of 8.6, AST of 11, ALT of 19, and lactic acid recheck of 0.7. Urinalysis with positive nitrites, positive leukocyte esterase, positive bacteria, and positive protein. Chest x-ray without any acute changes. No suggestion of pneumonia. Influenza negative. Acute strep swab, negative. PHYSICAL EXAMINATION: VITAL SIGNS: Review of current vital signs; temperature of 98.2, pulse of 81, blood pressure of 119/56, and the patient on 2 L nasal cannula at 100% oxygen. This is her baseline home oxygen requirement for her lung disease. GENERAL: The patient is alert and oriented, in no acute distress. HEENT: Head is normocephalic and atraumatic. Extraocular movements are intact. Nasal cannula is in place. Oral mucosa is moist. HEART: Regular without murmurs. LUNGS: Slightly diminished breath sounds, however, clear to auscultation bilaterally. No wheezes or rhonchi. ABDOMEN: Positive pain in left lower quadrant without rebound or guarding. EXTREMITIES: Lower extremities including right without cyanosis or edema. No pain with mobilization or palpation of right malleoli or connecting ligaments. The patient is alert and oriented x3. Speech is normal. No focal deficits. ASSESSMENT AND PLAN: Neutropenic fever; pancytopenia; urinary tract infection; small-cell lung disease with metastatic components throughout the body including pelvis, liver, adrenal glands, mediastinum; paroxysmal atrial fibrillation; pulmonary emboli, on anticoagulation with Xarelto; chronic obstructive pulmonary disease, on home oxygen in conjunction with the patient's metastatic lung disease; constipation; pancytopenia. We will consult Hematology/Oncology for continuing of care. We will continue cefepime from emergency department for known urinary tract infection. Follow up on culture. We will continue the patient's Xarelto at the time being. The patient without any signs or symptoms of bleeding. We will reassess the patient's anemia and pancytopenia with repeat blood work. We will consider transfusion if needed. The patient is currently stable on 2 L nasal cannula. Further respiratory decompensation would consider transfusion more strongly. We will restart the patient's home dose of prednisone prior listed at 5 mg. We will default to any further recommendations from Hematology/Oncology regarding steroid use. P.r.n. breathing treatments at this point in time regarding chronic obstructive pulmonary disease. No active wheezes. We will start the patient on milk of magnesia regarding constipation and trend bowel movements. The patient states she had a bowel movement within the last two days, which was soft , brown, and normal. We will continue patient's rate and rhythm control medications including digoxin and diltiazem. The patient is not currently a candidate for Lovenox given thrombocytopenia, would have a consideration for holding Xarelto if the platelets do not improve. We will continue to treat pulmonary embolism at this point in time since the patient is stable. We will continue proton pump inhibitor from home for her gastroesophageal reflux disease. Job ID: [id number] [facility]
--- NOTE | 2018-06-28 21:13 | CON ---
DATE OF CONSULTATION: REASON FOR CONSULT: Neutropenia. HISTORY OF PRESENT ILLNESS: Ms. Ramirez is a very pleasant 68-year-old female with extensive stage small cell carcinoma with bone, liver and adrenal METS. She had cycle 3 of dose reduced carboplatin, [employer]-16 and Tecentriq on June 18. She did receive Neulasta support after treatment. She presented this morning to the emergency room with complaints of fever. She is noted to have 3+ bacteria in her urine. Her white count was 0.5, hemoglobin was 6.8, and platelet count was 45,000. She was admitted for IV antibiotic therapy. She was started on cefepime. Blood culture and urine returned gram-negative rods. This is the patient's 2nd hospitalization after treatment despite the dose reduction of the carboplatin. She did have a recent CT scan, which showed marked interval decrease in the right paratracheal mass with decreased mediastinal invasion. There was decreased right peritracheal adenopathy. There was a saddle PE noted on CT scan and patient has been taking Xarelto. Currently, patient denies any chest pain, shortness of breath. No abdominal discomfort. No nausea, vomiting, diarrhea, or constipation. No rash. PAST MEDICAL HISTORY: 1. Extensive stage small cell carcinoma. 2. Recent pulmonary emboli. 3. Hypertension. 4. Anxiety and depression. 5. GERD. PAST SURGICAL HISTORY: 1. Cholecystectomy. 2. Cervical mediastinal exploration and biopsy. 3. Hiatal hernia repair. 4. Anti-reflux surgery for GERD. ALLERGIES: 1. ATIVAN. 2. LOSARTAN. HOME MEDICATIONS: 1. Atenolol 100 mg b.i.d. 2. Digoxin 125 mcg daily. 3. Diltiazem daily. 4. Protonix 40 mg daily. 5. Prednisone 5 mg daily. 6. Xarelto 20 mg daily. FAMILY HISTORY: Noncontributory. SOCIAL HISTORY: , lives with her sister, 40 pack-year history of smoking, recently discontinued last year. No alcohol or illicit drug use. REVIEW OF SYSTEMS: A 10-point review of systems is negative except for noted in HPI. PHYSICAL EXAMINATION: VITAL SIGNS: Temperature is 99.4, pulse is 78, respiratory rate 16, BP is 109/51. She is 99% on 2 L. GENERAL: Well-developed, well-nourished female, in no acute distress. HEENT: Normocephalic, atraumatic. Pupils equal and reactive to light. NECK: Supple. CARDIOVASCULAR: Regular rate and rhythm. LUNGS: Clear. ABDOMEN: Soft and nontender. Bowel sounds are positive. EXTREMITIES: No clubbing, cyanosis, or edema. SKIN: No rash. HEMATOLOGICAL: No petechiae or purpura. NEUROLOGICAL: Nonfocal. PSYCHIATRIC: The patient is alert, orientated and appropriate. PERTINENT LABS AND X-RAYS: Current WBCs are 0.5, hemoglobin 6.8, hematocrit 21.1, platelet count 45,000. Sodium is 136, potassium 4.1, chloride 106, CO2 is 21, BUN is 15, creatinine 0.96. Lactic acid is 0.7, calcium 8.6, total bilirubin is 0.5, AST is 11, ALT is 19, alkaline phosphatase is 113. Serum total protein is 5.9, albumin 3.4, globulin 2.5. Urine showed 3+ bacteria. Urine and blood culture positive for gram-negative davis, negative for strep and flu. ASSESSMENT: 1. Gram-negative davis bacteremia. 2. Neutropenia after chemotherapy. 3. Anemia. 4. Recent pulmonary embolus. 5. Extensive small cell lung cancer with recent improvement on CT scan. DISCUSSION: The patient has been started on cefepime and we will continue Levaquin. Plan to transfuse 1 unit of packed RBCs and check a CBC on a daily basis. She did receive Fulphila, this should begin to work within the next few days, so I expect her white count to improve. She has history of Clostridium difficile and so we will check her stool should she began to have diarrhea. Thank you for the consult. We will follow her hospital course closely. Job ID: [id number]
[2018-06-28] MEDS: Acetaminophen 500 MG TAB PO PRN (23:54)
[2018-06-29] MEDS: Cefepime 2 GM in Sodium Chloride 0.9% 100 ML IVPB SCH ×3 (03:17→18:18)
[2018-06-29] MEDS ORDERED: Sodium Chloride 0.9% 500 ML IVPB SCH (04:15)
[2018-06-29 04:45] LABS: Hemoglobin 7.2 g/dL (12.0-16.0); Mean Corpuscular HGB CONC 34.3 g/dL (32.0-36.0); Mean Corpuscular Hemoglobin 30.2 pg (27.0-31.0); Mean Platelet Volume 8.9 fL (7.4-10.4); Platelet Count 19 thou/uL (130-400); RBC Distribution Width 14.3 % (11.5-14.5); Red Blood Cell (RBC) Count 2.39 mill/uL (4.20-5.40)
[2018-06-29 04:57] LABS: Anion Gap 10 mmol/L (10-20); BUN (Urea Nitrogen) 13 mg/dL (9.8-20.1); Calc. Creatinine Clearance 71 mL/min (70-130); Calcium 8.3 mg/dL (7.8-10.44); Carbon Dioxide 24 mmol/L (23-31); Chloride 109 mmol/L (98-107); Estimated GFR-MDRD 67; Glucose 108 mg/dL (80-115); Potassium 3.6 mmol/L (3.5-5.1); Sodium 139 mmol/L (136-145)
[2018-06-29 05:20] LABS: Band 20 % (5-11); Lymphocytes 53 % (21-51); MDiff Complete? YES; Metamyelocyte 2 % (0-0); Monocytes 13 % (0-10); Neutrophil 11 % (42-75); Nucleated RBC 1 % (0); Platelet Morphology Comment Appears Decreased; RBC Morphology Normal; Reactive Lymphocytes 1 % (0-10)
[2018-06-29 07:35] LABS: Digoxin 0.74 ng/mL (0.8-2.0)
[2018-06-29] MEDS: Atenolol 50 MG TAB PO SCH ×2 (08:41→20:04)
[2018-06-29] MEDS: predniSONE 5 MG TAB PO SCH (08:42)
[2018-06-29] MEDS: Milk Of Magnesia 30 ML UDCUP PO SCH (08:42)
--- NOTE | 2018-06-29 16:27 | PRG ---
DATE OF SERVICE: 06/29/2018 HISTORY OF PRESENT ILLNESS: The patient still feels fatigued and constipated, somewhat more so than yesterday following ramp-up of antibiotic therapy. The patient verbalized understanding regarding Klebsiella being found and sensitive to current antibiotics. Nursing staff overnight had reported lower blood pressures. The patient normally runs in the one teens. The patient did not have any specific symptoms with that. She did undergo a bolus of 500 mL this a.m., status post 1 unit of PRBCs from yesterday for anemia. Platelet count has dropped overnight to 19. However, there are no reports of bleeding per nursing staff or patient. The patient has been on Xarelto for PE, that has happened in the last 6 months here, held morning dose until further evaluation, determination with cancer team can be taken to see if they will make any additional transfusions including platelets or continuation with Xarelto at platelets of 19 at this point in time. PHYSICAL EXAMINATION: VITAL SIGNS: Temperature of 98.2, pulse of 68, respiratory rate of 18, oxygen saturation 98% on 2 L nasal cannula, and blood pressure 105/51. GENERAL: The patient is alert and oriented. No acute distress. HEENT: Head is normocephalic and atraumatic. Extraocular movements are intact. Nasal cannula in place. Oral mucosa is moist. NECK: Supple. HEART: Regular rate and rhythm at the time of my exam. No murmurs auscultated. LUNGS: With slightly diminished breath sounds. No wheezes or rhonchi. ABDOMEN: Still somewhat tender to left lower quadrant. No rebound or guarding present. Positive bowel sounds throughout. EXTREMITIES: Lower extremities without cyanosis or edema. NEUROLOGIC: The patient is alert and oriented x3. No focal deficits. Speech is normal. ASSESSMENT AND PLAN: Neutropenic fever, pancytopenia, chronic obstructive pulmonary disease, constipation, urinary tract infection, small-cell lung cancer with metastatic disease, paroxysmal atrial fibrillation, pulmonary emboli, on anticoagulation. As above, holding anticoagulation temporarily, may recheck platelet count prior to giving at this p.m. or default to Hematology/Oncology recommendations going forward. The need for platelet transfusion would likely do so if it drops under 15. The patient has discontinued steroids approximately 4 to 6 weeks prior to admission. She is currently just on a low dose of 5 mg. Hemoglobin responded well to PRBC transfusion. The patient appears to be tolerating cefepime and Levaquin. However, marginal blood pressures at this point in time. I discussed with the patient may be lysis with inflammatory molecules being produced from antibiotic treatment, which will likely clear up in 1 to 2 days here. We will continue current antibiotic regimen. The patient continues to have p.r.n. DuoNeb titrating bowel regimen. We will follow up on p.m. platelet check. Job ID: [id number]
[2018-06-29] MEDS: Rivaroxaban 15 MG TAB PO SCH (18:06)
[2018-06-30] MEDS: Cefepime 2 GM in Sodium Chloride 0.9% 100 ML IVPB SCH ×2 (02:28→11:11)
[2018-06-30] MEDS: Acetaminophen 500 MG TAB PO PRN (02:29)
[2018-06-30 02:31] LABS: Hemoglobin 7.4 g/dL (12.0-16.0); Mean Corpuscular Hemoglobin 28.3 pg (27.0-31.0); Mean Corpuscular Volume 88.4 fL (78.0-98.0); Mean Platelet Volume 9.7 fL (7.4-10.4); Platelet Count 17 thou/uL (130-400); RBC Distribution Width 14.4 % (11.5-14.5); White Blood Cell (WBC) Count 2.5 thou/uL (4.8-10.8)
[2018-06-30 02:51] LABS: Band 8 % (5-11); Hypochromia SLIGHT = 6-15 cells (100X) (0-5/hpf); Lymphocytes 28 % (21-51); MDiff Complete? YES; Monocytes 8 % (0-10); Neutrophil 56 % (42-75); Nucleated RBC 1 % (0); Platelet Morphology Comment Appears Decreased
[2018-06-30 02:54] LABS: Anion Gap 13 mmol/L (10-20); BUN (Urea Nitrogen) 9 mg/dL (9.8-20.1); Calc. Creatinine Clearance 78 mL/min (70-130); Calcium 8.2 mg/dL (7.8-10.44); Carbon Dioxide 20 mmol/L (23-31); Chloride 111 mmol/L (98-107); Estimated GFR-MDRD 74; Glucose 105 mg/dL (80-115); Potassium 3.7 mmol/L (3.5-5.1); Sodium 140 mmol/L (136-145)
[2018-06-30 02:56] LABS: Troponin I Less than 0.010 ng/mL (< 0.028)
[2018-06-30] MEDS: Milk Of Magnesia 30 ML UDCUP PO SCH (08:31)
[2018-06-30] MEDS: Atenolol 50 MG TAB PO SCH ×2 (08:31→21:49)
[2018-06-30] MEDS: predniSONE 5 MG TAB PO SCH (08:31)
[2018-06-30] MEDS ORDERED: Bisacodyl 5 MG TAB PO PRN (10:01)
[2018-06-30] MEDS ORDERED: Calcium Carbonate 500 MG ChewTAB PO PRN (10:01)
[2018-06-30] MEDS ORDERED: Mag-Al 1200 mg/1200 mg/30 ML UDCUP PO PRN (10:01)
[2018-06-30] MEDS ORDERED: Bismuth Subs 17.5mg/mL Susp 120 ML BOT PO PRN (10:01)
--- NOTE | 2018-06-30 17:19 | PRG ---
DATE OF SERVICE: 06/30/2018 HISTORY OF PRESENT ILLNESS: The patient had some chest pain intermittently overnight, was found to be positional when lying flat, has struggled with GERD in the past. When she had head of bed up to 30 degrees, she was able to sleep without issues. EKG and troponin were performed and both were in normal, negative limits. The patient denies any change in breathing status, stable on the baseline nasal cannula oxygenation. Nursing staff reported blood streaked stools, given low platelets; however, no other signs or symptoms of bleeding are occurring. The patient had completed approximately 2 weeks of Xarelto prior to discontinuing yesterday secondary to declining platelet function. Per nursing staff speaking with Hematology-Oncology Team, the patient to be transfused with 1 unit PRBCs again today for a total of 2 units since admission. The patient has tolerated antibiotics well regarding Klebsiella pneumoniae on cultures. Temperature of 97.6, pulse of 70, respiratory rate of 18, oxygen saturation 97% on 2 L nasal cannula, and blood pressure of 112/56. LABORATORY DATA: White blood cell count improved to 2.5, hemoglobin to 7.4 prior to second unit of PRBCs today. Platelet count has slowly declined to 17. Creatinine remained stable at 0.78. Dig level at 0.74 yesterday. PHYSICAL EXAMINATION: GENERAL: The patient is alert and oriented, in no acute distress. HEENT: Head is normocephalic and atraumatic. Extraocular movements are intact. Sclerae are white. Nasal cannula in place. Oral mucosa is moist. NECK: Supple. HEART: Regular rate and rhythm. No murmurs are auscultated. LUNGS: With diminished breath sounds at bilateral bases. No wheezes or rhonchi. ABDOMEN: With positive bowel sounds throughout. Soft, nontender. EXTREMITIES: Lower extremities without cyanosis or edema. NEUROLOGIC: The patient is alert and oriented x3. No focal deficits. Speech is normal. ASSESSMENT AND PLAN: Include urinary tract infection; metastatic lung cancer; paroxysmal atrial fibrillation, currently in sinus rhythm; recent PE, on anticoagulation, which is currently being held secondary to thrombocytopenia, getting 1 unit PRBCs per Hematology-Oncology's recommendations; chronic obstructive pulmonary disease with continued p.r.n. breathing treatment, the patient is not significantly reporting any cough or wheeze, and reports no sputum production. The patient states she did have a bowel movement with aid of stool softeners and laxatives, but did have some gastroesophageal reflux disease as above. Giving additional support with p.r.n. such as Tums, Maalox, etc. The patient will continue to attempt to sleep with head of bed up at 30 degrees for the time being. We will move the patient to [facility] at this point in time. Once the patient's platelets have stabilized, we would recommend restart of anticoagulation. Job ID: [id number]
[2018-07-01 04:52] LABS: Hemoglobin 9.2 g/dL (12.0-16.0); Mean Corpuscular HGB CONC 34.4 g/dL (32.0-36.0); Mean Corpuscular Hemoglobin 30.5 pg (27.0-31.0); Mean Corpuscular Volume 88.6 fL (78.0-98.0); Mean Platelet Volume 10.8 fL (7.4-10.4); Platelet Count 16 thou/uL (130-400); RBC Distribution Width 14.4 % (11.5-14.5); Red Blood Cell (RBC) Count 3.03 mill/uL (4.20-5.40)
[2018-07-01 05:17] LABS: Band 22 % (5-11); Lymphocytes 26 % (21-51); MDiff Complete? YES; Metamyelocyte 2 % (0-0); Monocytes 14 % (0-10); Myelocyte 3 % (0-0); Neutrophil 33 % (42-75); Platelet Morphology Comment Appears Decreased
[2018-07-01] MEDS: Atenolol 50 MG TAB PO SCH ×2 (09:03→20:51)
[2018-07-01] MEDS: Milk Of Magnesia 30 ML UDCUP PO SCH (09:05)
--- NOTE | 2018-07-01 09:07 | PRG ---
DATE OF SERVICE: 07/01/2018 SUBJECTIVE: This is a 68-year-old white female with metastatic lung cancer, who was , somehow was exposed to multiple family members with upper respiratory infections. She presented again to the emergency room with neutropenic fever and was admitted for further evaluation. She was discovered to have Klebsiella bacteremia as well as Klebsiella urosepsis. She has been placed on Levaquin and cefepime. This morning, she is doing quite well. Her white count has improved. She did receive a unit of packed red blood cells. Her platelet is of concerning now. Her platelet count has gone from 17 to 16 in the past 24 hours. OBJECTIVE: VITAL SIGNS: Temperature 98.2, pulse 76, respirations 16, pulse ox 95% on 2 L, and blood pressure 117/56. HEART: Regular rate and rhythm. LUNGS: Clear. ABDOMEN: Soft. EXTREMITIES: No edema. LABORATORY DATA: White count has gone from 0.5 to 6.0, hemoglobin 9.2, hematocrit 26.8, platelet is gone from 45 to 19 to 17 to 16. Electrolytes have been normal. Creatinine 0.78. Blood culture and urine culture positive for Klebsiella. ASSESSMENT: 1. 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 2. Klebsiella urosepsis. 3. Pulmonary embolism, possibly originating from the right lower extremity. 4. Pancytopenia, resolving with thrombocytopenia still present. 5. History of atrial fibrillation on previous admission exacerbated by sepsis, presently in normal sinus rhythm. 6. Right sacral pathologic fracture secondary to lytic mass. 7. Healing rib fractures. PLAN: 1. Continue to monitor platelet count. Once this starts to rise, can consider discharge. 2. Continue to follow with Sheila Magaña. 3. Continue levofloxacin 500 q.a.m. Job ID: [id number]
[2018-07-01] MEDS: predniSONE 5 MG TAB PO SCH (09:23)
--- NOTE | 2018-07-01 14:12 | CON ---
DATE OF CONSULTATION: 07/01/2018 REASON FOR CONSULTATION: Neutropenia with fever and bacteremia. HISTORY OF PRESENT ILLNESS: A 68-year-old patient who has history of hypertension, who was noted to have chronic low back pain, eventually x-rays demonstrated metastatic disease. Chest x-ray showed a suprahilar mass invading the mediastinum. She had a mediastinoscopy with biopsy, which revealed a small cell cancer. The patient has received thus far 3 courses of chemotherapy and was admitted on with neutropenic fever. Previously, she had been admitted with Klebsiella sepsis from what presumably was a PICC line infection. During the May evaluation, she had also diagnosis of C difficile colitis. During the 2nd admission, she had a MediPort placed by Dr. Crawford. At this time, she presents after a 3rd course of chemotherapy a few days ago and developed flu-like symptoms. She denied any headaches. No visual symptoms, sore throat, odynophagia, or dysphagia. No vomiting. No respiratory symptoms. Continues with pain related to the metastatic lesions in the lower extremities and the back, which is a little bit better than before. The initial exam, where the temperature 98.2, pulse 81, blood pressure 119/56, and 100% O2 saturations on 2L nasal cannula. She was alert and oriented , in no distress. Exam showed slightly diminished breath sounds at the bases. There was some pain in the left lower quadrant without rebound or guarding. The patient was given initially cefepime and levofloxacin p.o. Currently, she is feeling better , but there is less dysuria and urinary frequency. REVIEW OF SYSTEMS: Other 10-point review of system items are as above. PAST MEDICAL HISTORY: 1. Hypertension. 2. Chronic smoking. 3. Recently diagnosed metastatic small-cell lung cancer with mediastinoscopy approach. 4. She had a PICC line infection in May. 5. Had a MediPort placed recently in the beginning of June. 6. History of paroxysmal atrial fibrillation, on Eliquis. 7. COPD. SURGICAL HISTORY: Also includes; 1. Cholecystectomy. 2. Hernia repair. 3. It looks like she had an operation, probably a Yvonne fundoplication, for GERD. SOCIAL HISTORY: Former smoker, quit a few years ago. No alcoholic beverage use. Retired. ALLERGY HISTORY: Lisinopril and Lorazepam. CURRENT MEDICATIONS: She is on a number of p.r.n. meds. She is also on diltiazem, magnesium, ondansetron, pantoprazole, Zoloft, and albuterol. PHYSICAL EXAMINATION: VITAL SIGNS: T-max 99.3 and she is currently 97.9, BP 120/60, pulse 72, respirations 18, O2 saturation 98%. SKIN: She has mild area of erythema in the gluteal region. Port is accessed without any inflammatory changes. She is voiding in toilet. NODES: No lymphadenopathy. HEENT: Ocular movements conjugate. Oral cavity normal. NECK: Supple. LUNGS: Symmetric. Clear breath sounds. HEART: S1 and S2. Regular rate without murmurs. No S3. ABDOMEN: Soft, not distended or tender. No ascites. : No bladder distention. She is voiding in toilet. MUSCULOSKELETAL: No joint inflammatory activity. She does have tenderness on range of motion of hips and on palpation of the lumbosacral spine area, probably from metastasis. She moves all extremities equally. Pulses are 1+ in dorsalis pedis. LABORATORY DATA: White cell count 6.0 and hemoglobin 9.2; and on admission, the WBC count was 0.5 and hemoglobin 6.8. The differential now indicates about 3000 neutrophils. Sodium 136 and creatinine 0.96 with normal liver profile. Albumin 3.4. Serum total protein 5.9. Urinalysis with 21 to 50 wbc's. Digoxin 0.74. Microbiology with Klebsiella pneumoniae, which was intermediate to nitrofurantoin, otherwise sensitive to all other antimicrobials. The previous Klebsiella that was isolated on 05/25 was intermediate to cefoxitin and grew only from blood cultures and did not grow from urine. IMAGING STUDIES: We have a CT abdomen and pelvis from 06/17, which was for staging purposes, and it demonstrated decrease in size of right paratracheal mass and decrease in size of adenopathy as well. Hepatic metastatic disease was noticed and there was a decrease in the size of adrenal metastatic disease. There was evidence of pulmonary embolism and a large lytic mass in the right sacrum and perineural invasion. ASSESSMENT: 1. Hypertension. 2. Paroxysmal atrial fibrillation. 3. Metastatic small-cell lung carcinoma, after a 3rd course of chemotherapy, with evidence of radiological response. 4. Pulmonary embolism as identified by the recent CT of chest. 5. Klebsiella pneumoniae bacteremia, which appears to be due to invasive urinary tract infection. The organism is very similar to the one isolated in May, but it appears to be just a different process altogether from the episode in May. At this time, it is more clear reason to believe that this is just an invasive urinary tract infection with pyelonephritis. She does not have evidence of obstruction, so I would agree with continuation of oral quinolone for 10-14 days. I see the patient is not on anticoagulation, but in view of the identified pulmonary embolism, it looks like she would have to be back on Eliquis or similar agent. In terms of discharge planning, I think very shortly should be able to go home on oral quinolone. Likelihood of colonization of the port is low at this point in time. Job ID: [id number] [facility]ITALJoseph
[2018-07-02 05:37] LABS: Hemoglobin 9.2 g/dL (12.0-16.0); Mean Corpuscular HGB CONC 33.9 g/dL (32.0-36.0); Mean Corpuscular Hemoglobin 29.8 pg (27.0-31.0); Mean Platelet Volume 11.2 fL (7.4-10.4); Platelet Count 19 thou/uL (130-400); RBC Distribution Width 14.6 % (11.5-14.5); Red Blood Cell (RBC) Count 3.08 mill/uL (4.20-5.40); White Blood Cell (WBC) Count 8.5 thou/uL (4.8-10.8)
[2018-07-02 05:56] LABS: Band 6 % (5-11); Hypochromia SLIGHT = 6-15 cells (100X) (0-5/hpf); Lymphocytes 15 % (21-51); MDiff Complete? YES; Monocytes 11 % (0-10); Neutrophil 68 % (42-75); Platelet Morphology Comment Appears Adequate
[2018-07-02] MEDS: Atenolol 50 MG TAB PO SCH ×2 (08:20→19:58)
[2018-07-02] MEDS: Milk Of Magnesia 30 ML UDCUP PO SCH (08:21)
--- NOTE | 2018-07-02 08:49 | PRG ---
DATE OF SERVICE: 07/02/2018 SUBJECTIVE: The patient is doing well. No complaints of chest pain, shortness of breath, nausea, or vomiting. Appetite is good. Presently weaning oxygen. OBJECTIVE: VITAL SIGNS: Temperature 98.2, pulse 76, respirations 16, blood pressure 132/62, and pulse ox 94 on 0.5 L nasal cannula. HEART: Regular rate and rhythm. LUNGS: Clear. ABDOMEN: Soft. EXTREMITIES: With no edema. LABORATORY DATA: White count 8.5, H and H of 9.2 and 27.1, and platelet of 19. ASSESSMENT: 1. Extensive metastatic small cell carcinoma with metastases to the bone, liver, and adrenal glands, status post 3 cycles of chemo and radiation. 2. Klebsiella urosepsis. 3. Pulmonary embolism, possibly originating from the right lower extremity. 4. Pancytopenia, resolving with platelet count rising up to 19. 5. History of atrial fibrillation, on previous admission, exacerbated by sepsis, triggered by sepsis. 6. Right sacral pathologic fracture secondary to lytic mass. 7. Healing rib fracture. PLAN: 1. Continue to monitor platelet count. 2. Appreciate Dr. Betancur. We will continue 14-day course of antibiotics for urosepsis. Does not feel the MediPort is an issue. 3. Continue to follow with Sheila Magaña and Dr. Samayoa. 4. Continue levofloxacin. 5. Start physical therapy. 6. Recheck CBC in a.m. 7. Discharge home soon. 8. Resume Xarelto once platelet reaches 50. Job ID: [id number]
--- NOTE | 2018-07-02 17:01 | PQF ---
MARCO ANTONIO MENDES DAVID R JR MD [id number] ONC-132 [id number] CLINICAL DOCUMENTATION IMPROVEMENT CLARIFICATION FORM: ICD-10 Updated PLEASE DO AN ADDENDUM TO THE PROGRESS NOTE WITH ANY DOCUMENTATION UPDATES OR ADDITIONS AND CARRY THROUGH TO DC SUMMARY. THANK YOU. DATE: 07/02/19`9 ATTN: DR. TUTTLE Please exercise your independent, professional judgment in responding to the clarification form. Clinical indicators are provided on the bottom of this form for your review Please check appropriate box(s): Pancytopenia due to: [ x] Chemotherapy/antineoplastic drugs [ ] Other drug-induced (please specify if known): [ ] Congenital [ ] Other diagnosis [ ] Unable to determine For continuity of documentation, please document condition throughout progress notes and discharge summary. Thank You. CLINICAL INDICATORS - SIGNS / SYMPTOMS / LABS Decreased WBC - 0.5 ON 06/28. Decreased RBC / decreased H/H - 6.8 ON 06/28. Decreased PLT - 45 ON 06/28. 19 ON 06/29. 17 ON 06/30. 16 ON 07/01. Fever - 100.3 NOTED IN ER. ER NOTE ALSO STATES PT REPORTED A FEVER OF 102 AT HOME. RISK FACTORS Cancer - SMALL CELL LUNG CANCER WITH METS TO BONE, LIVER, ADRENAL GLANDS. Chemotherapy - CYCLE 3 OF DOSE REDUCED CARBOPLATIN, SOLE STAINER-16 AND TECENTRIQ ON JUN 18. SIMILAR HOSPITALIZATION AFTER CYCLE 2 CHEMO. TREATMENT Transfusions - 1U PRBCs. GIVEN NEULASTA AFTER CYCLE 3. IV ABX - CEFEPIME AND LEVAQUIN. Thank you, Aliza (This form is maintained as a part of the permanent medical record) 2014 [employer]. All Rights Reserved Aliza Oneal RN, CDIS [email or web address] [phone] [facility]
[2018-07-02] MEDS: HYDROcodone/Acetaminophen 5/325 mg Tablet PO PRN (19:46)
[2018-07-03] MEDS: HYDROcodone/Acetaminophen 5/325 mg Tablet PO PRN (05:18)
[2018-07-03 05:37] LABS: Hemoglobin 9.3 g/dL (12.0-16.0); Mean Corpuscular HGB CONC 33.7 g/dL (32.0-36.0); Mean Corpuscular Hemoglobin 29.5 pg (27.0-31.0); Mean Corpuscular Volume 87.8 fL (78.0-98.0); Mean Platelet Volume 10.3 fL (7.4-10.4); Platelet Count 27 thou/uL (130-400); RBC Distribution Width 14.9 % (11.5-14.5); Red Blood Cell (RBC) Count 3.16 mill/uL (4.20-5.40); White Blood Cell (WBC) Count 9.7 thou/uL (4.8-10.8)
[2018-07-03 05:59] LABS: Band 22 % (5-11); Lymphocytes 26 % (21-51); MDiff Complete? YES; Metamyelocyte 6 % (0-0); Monocytes 16 % (0-10); Myelocyte 2 % (0-0); Neutrophil 28 % (42-75); Nucleated RBC 1 % (0); Platelet Morphology Comment Appears Decreased
[2018-07-03] MEDS: Atenolol 50 MG TAB PO SCH (09:09)
[2018-07-03] MEDS: Milk Of Magnesia 30 ML UDCUP PO SCH ×2 (09:10→09:12)
[2018-07-03 10:06] VITALS: BP 115/54; TEMP 98
--- NOTE | 2018-07-03 10:34 | DIS ---
DATE OF ADMISSION: 06/28/2018 DATE OF DISCHARGE: 07/03/2018 DISCHARGE DIAGNOSES: 1. Extensive metastatic small cell carcinoma with metastases to the bone, liver, and adrenal glands. 2. Status post 3 cycles of chemotherapy and radiation. 3. Klebsiella urosepsis. 4. Pulmonary embolism. 5. Pancytopenia, resolving. 6. History of atrial fibrillation. 7. Right sacral pathologic fracture secondary to lytic mass. 8. Healing rib back fracture. FOLLOWUP: Follow up Dr. Castillo Mccann and follow up Dr. Samayoa. DISCHARGE MEDICATIONS: 1. Levaquin 500 one p.o. daily #10. 2. Atenolol 100 p.o. b.i.d. 3. Diltiazem CD 120 p.o. daily. 4. Protonix 40 daily. 5. Sertraline 25 daily. 6. Acetaminophen p.r.n. 7. Zyrtec p.r.n. 8. Digoxin 0.125 daily. 9. Multivitamin daily. BRIEF HISTORY: This is a 68-year-old white female with metastatic small cell carcinoma of the lung, who presents with neutropenic fever. The patient has received 3 cycles of chemotherapy as well as radiation. She recently has completed her third cycle. She presented with fever and chills and was admitted for neutropenic fever. HOSPITAL COURSE: Urine and blood culture came back positive for Klebsiella. The patient was started on IV antibiotics followed by p.o. Levaquin. The patient's fever resolved. Her CBC was monitored daily. Her final white count was 9.7, H and H 9.3 and 27.7, and platelets fannie from 17 to 27. She has remained afebrile. She is doing well at this time. Her Xarelto was held due to her low platelet count. Plan is to resume the Xarelto once her platelet count reaches 50. She will continue to receive home health care. She will follow up Dr. Samayoa next week on Sunday for blood work and further decision making on whether to continue with chemotherapy. Job ID: [id number]
--- NOTE | 2018-07-05 16:29 | PQF ---
MARCO ANTONIO MENDES DAVID R JR MD [id number] ONC-132 [id number] CLINICAL DOCUMENTATION CLARIFICATION FORM: POST DISCHARGE Please exercise your independent, professional judgment in responding to the clarification form. Clinical indicators are provided on the bottom of this form for your review Please check appropriate box(es): [x ] Sepsis due to: (KLEBSIELLA UTI ) Due to: [ ] OTHER (please specify) ____ [ ] with organ dysfunction [ ] without organ dysfunction [ ] Localized infection without sepsis [ ] Other diagnosis [ ] Unable to determine CLINICAL INDICATORS - SIGNS / SYMPTOMS / LABS 07/02 PN ASSESSMENT, UROSEPSIS VS SEPSIS 06/28 ER VITAL SIGNS, TEMP 100.1 (ORAL) 06/28 LABS WBC count 0.5 L 06/28 LABS, POSITIVE URINE AND BLOOD CULTURE FOR KLEBSIELLA PNEUMONIAE RISK FACTORS Infection/Bacteremia UTI Cancer TREATMENTS: 06/28 Blood/sputum/wound cultures 07/01 ID Consult IV antibiotics - broad spectrum LEVOFLOXACIN IV Fuids (This form is maintained as a part of the permanent medical record) 2014 [employer] All Rights Reserved Marilyn [email or web address] [phone] [facility]
== END 2018-07-03 11:07 | disposition home or self-care (01) | DRG 871 ==
LOC: ERS 00:20 → ONC 03:33
PROVIDERS: ADMIT Family Medicine; ATTEND Family Medicine
PROC: 30233N1 Transfusion of Nonautologous Red Blood Cells into Peripheral Vein, Percutaneous Approach (ICD-10-PCS; principal; 2018-06-28)
DX: A41.59 Other Gram-negative sepsis (principal); I26.92 Saddle embolus of pulmonary artery without acute cor pulmonale; D61.810 Antineoplastic chemotherapy induced pancytopenia; N12 Tubulo-interstitial nephritis, not specified as acute or chronic; C34.91 Malignant neoplasm of unspecified part of right bronchus or lung; C78.1 Secondary malignant neoplasm of mediastinum; C78.7 Secondary malignant neoplasm of liver and intrahepatic bile duct; C79.51 Secondary malignant neoplasm of bone; C79.70 Secondary malignant neoplasm of unspecified adrenal gland; M84.58XA Pathological fracture in neoplastic disease, other specified site, initial encounter for fracture; B96.1 Klebsiella pneumoniae [K. pneumoniae] as the cause of diseases classified elsewhere; J44.9 Chronic obstructive pulmonary disease, unspecified; I48.0 Paroxysmal atrial fibrillation; K21.9 Gastro-esophageal reflux disease without esophagitis; K59.00 Constipation, unspecified; E78.5 Hyperlipidemia, unspecified; I10 Essential (primary) hypertension; Z87.891 Personal history of nicotine dependence; F41.8 Other specified anxiety disorders; Z99.81 Dependence on supplemental oxygen; Z79.01 Long term (current) use of anticoagulants; Z79.52 Long term (current) use of systemic steroids
CPT/HCPCS: 36415; 36430; 71046; 80048; 80053; 80162; 81003; 81015; 83605; 84484; 85025; 85060; 86850; 86900; 86901; 87040; 87077; 87081; 87086; 87149; 87186; 87430; 87804; 93005; 93010; 96365; J0692; J1642; J1956; J7050; J7512; P9016

== ENCOUNTER 2018-07-09 10:17 | Day surgery (SDC) | payer MEDICARE ==
[2018-07-09] MEDS ORDERED: Sodium Chloride 0.9% 20 ML ONE (10:55)
[2018-07-09] MEDS ORDERED: SODIUM CHLORIDE 0.9% IVPB SCH (11:00)
[2018-07-09] MEDS ORDERED: CARBOPLATIN IVPB SCH (11:00)
[2018-07-09 11:21] VITALS: BP 118/56; TEMP 97.6
== END 2018-07-09 15:22 | disposition home or self-care (01) ==
LOC: ONC/OP 10:17
PROVIDERS: ATTEND Internal Medicine Hematology & Oncology
DX: Z51.11 Encounter for antineoplastic chemotherapy (principal); C34.11 Malignant neoplasm of upper lobe, right bronchus or lung; C79.51 Secondary malignant neoplasm of bone; C78.7 Secondary malignant neoplasm of liver and intrahepatic bile duct; C79.70 Secondary malignant neoplasm of unspecified adrenal gland; I10 Essential (primary) hypertension; F41.9 Anxiety disorder, unspecified; F32.9 Major depressive disorder, single episode, unspecified; K21.9 Gastro-esophageal reflux disease without esophagitis; Z87.891 Personal history of nicotine dependence; Z88.8 Allergy status to other drugs, medicaments and biological substances
CPT/HCPCS: 96375; 96413; 96417; J1100; J1642; J2469; J7050; J9022; J9045; J9181

== ENCOUNTER 2018-07-10 13:39 | Day surgery (SDC) | payer MEDICARE ==
[~2018-07-10 13:39] MED LIST changes: -ATEZOLIZUMAB 1,200 MG in Sodium Chloride 0.9% 250 ML 250 ML IVPB SCH; -CARBOPLATIN IVPB SCH; -PALONOSETRON HCL 0.05 MG/ML 5 ML VIAL IVP SCH; -SODIUM CHLORIDE 0.9% IVPB SCH; +Sodium Chloride 0.9% 30 ML ONE
[2018-07-10 14:00] VITALS: BP 120/59; TEMP 98.2
== END 2018-07-10 15:26 | disposition home or self-care (01) ==
LOC: ONC/OP 13:39
PROVIDERS: ATTEND Internal Medicine Hematology & Oncology
DX: Z51.11 Encounter for antineoplastic chemotherapy (principal); C34.11 Malignant neoplasm of upper lobe, right bronchus or lung; Z88.8 Allergy status to other drugs, medicaments and biological substances
CPT/HCPCS: 96375; 96413; J1100; J1642; J7050; J9181

== ENCOUNTER 2018-07-11 07:32 | Day surgery (SDC) | payer MEDICARE ==
[2018-07-11] MEDS ORDERED: Dexamethasone 10 MG/ML VIAL SLOW IVP SCH (08:15)
[2018-07-11 09:07] VITALS: BP 114/56; TEMP 97.7
== END 2018-07-11 10:45 | disposition home or self-care (01) ==
LOC: ONC/OP 07:32
PROVIDERS: ATTEND Internal Medicine Hematology & Oncology
DX: Z51.11 Encounter for antineoplastic chemotherapy (principal); C34.11 Malignant neoplasm of upper lobe, right bronchus or lung; Z88.8 Allergy status to other drugs, medicaments and biological substances
CPT/HCPCS: 96375; 96413; J7050; J9181

== ENCOUNTER 2018-07-12 11:21 | Day surgery (SDC) | payer MEDICARE ==
[~2018-07-12 11:21] MED LIST changes: +Dexamethasone 10 MG in Sodium Chloride 0.9% 50 ML IVPB SCH; +PEGFILGRASTIM-JMDB 6 MG/0.6 ML SYRINGE SQ SCH; +Sodium Chloride 0.9% 20 ML ONE; -Sodium Chloride 0.9% 30 ML ONE
== END 2018-07-12 12:04 | disposition home or self-care (01) ==
LOC: ONC/OP 11:21
PROVIDERS: ATTEND Internal Medicine Hematology & Oncology
DX: Z51.11 Encounter for antineoplastic chemotherapy (principal); C34.11 Malignant neoplasm of upper lobe, right bronchus or lung; Z88.8 Allergy status to other drugs, medicaments and biological substances
CPT/HCPCS: 96372; J1100; J1642; Q5108

== ENCOUNTER 2018-07-16 21:55 | Inpatient (IN) | payer MEDICARE ==
[2018-07-16] MEDS ORDERED: Morphine 4 MG/ML VIAL ONE ×2 (22:12→22:46)
[2018-07-16] MEDS ORDERED: Ondansetron PF 4 MG/2 ML Vial ONE (22:12)
[2018-07-16 22:54] LABS: INR-International Normal Ratio 2.1; Prothrombin Time 23.8 SEC (12.0-14.7)
[2018-07-16 22:55] LABS: PTT 41.9 SEC (22.9-36.1)
[2018-07-16 22:57] LABS: Hemoglobin 7.4 g/dL (12.0-16.0); Mean Corpuscular HGB CONC 32.2 g/dL (32.0-36.0); Mean Corpuscular Hemoglobin 27.6 pg (27.0-31.0); Mean Corpuscular Volume 85.5 fL (78.0-98.0); Mean Platelet Volume 7.1 fL (7.4-10.4); Platelet Count 106 thou/uL (130-400); RBC Distribution Width 14.4 % (11.5-14.5); Red Blood Cell (RBC) Count 2.67 mill/uL (4.20-5.40); White Blood Cell (WBC) Count 0.6 thou/uL (4.8-10.8)
[2018-07-16 23:09] LABS: ALT (SGPT) 25 U/L (8-55); AST (SGOT) 19 U/L (5-34); Albumin 3.4 g/dL (3.4-4.8); Alkaline Phosphatase 107 U/L (40-150); Anion Gap 14 mmol/L (10-20); BUN (Urea Nitrogen) 16 mg/dL (9.8-20.1); Bilirubin, Total 1.3 mg/dL (0.2-1.2); Calc. Creatinine Clearance 0 mL/min (70-130); Calcium 8.3 mg/dL (7.8-10.44); Carbon Dioxide 24 mmol/L (23-31); Chloride 101 mmol/L (98-107); Estimated GFR-MDRD 68; Globulin 2.7 g/dL (2.4-3.5); Glucose 105 mg/dL (80-115); Potassium 3.7 mmol/L (3.5-5.1); Protein, Total 6.1 g/dL (6.0-8.3); Sodium 135 mmol/L (136-145)
[2018-07-16 23:19] LABS: Hypochromia SLIGHT = 6-15 cells (100X) (0-5/hpf); Lymphocytes 80 % (21-51); MDiff Complete? YES; Monocytes 5 % (0-10); Neutrophil 10 % (42-75); Platelet Morphology Comment Appears Decreased; Reactive Lymphocytes 5 % (0-10)
--- NOTE | 2018-07-16 23:49 | RAD ---
TWO VIEWS RIGHT HIP: 07/16/18 HISTORY: Trauma. Injury to right hip after fall. FINDINGS: There is a mildly comminuted intertrochanteric right hip fracture with lesser trochanter fracture fra gment slightly displaced medially. There is mild separation of fracture fragment without significant angulation. No dislocation is seen and there is no additional fracture. IMPRESSION: Intertrochanteric right hip fracture with mild displacement of fracture fragments as well as separati on of fracture fragments. POS: [facility]
--- NOTE | 2018-07-16 23:52 | RAD ---
TWO VIEWS RIGHT FEMUR: 07/16/18 HISTORY: Right hip pain post trauma/fall. FINDINGS: As noted on views of the right hip also obtained on this date, there is an intertrochanteric right hi p fracture with the lesser trochanteric fracture fragment slightly displaced medially and mild separa tion of fracture fragments. No additional fracture is appreciated involving the right femur and there is no dislocation. IMPRESSION: Mildly comminuted intertrochanteric right hip fracture. POS: [facility]
--- NOTE | 2018-07-16 23:54 | RAD ---
FOUR VIEWS RIGHT KNEE: 07/16/18 HISTORY: Injury to right knee after a fall. FINDINGS: A lateral view is not provided. However, this may be attributable to patient's intertrochanteric righ t hip fracture and difficulty in mobilizing the right knee for true lateral projection. There is othe rwise no fracture seen and no definitive dislocation is appreciated. No significant joint space narro wing is appreciated. Osteopenia is present. IMPRESSION: No acute fracture right knee. POS: [facility]
--- NOTE | 2018-07-16 23:57 | RAD ---
PORTABLE AP CHEST X-RAY 07/16/18 HISTORY: Right hip fracture after a fall. COMPARISON: 06/10/18. FINDINGS: A left subclavian Mediport catheter remains in place. Surgical clips overlie the mediastinum and epig astric region. Vascular calcifications seen in the thoracic aorta. The cardiac silhouette and pulmona ry vasculature are within normal limits. The lungs remain clear. There is osteopenia. There is symmet nery biapical pleural and parenchymal scarring present. IMPRESSION: No acute cardiopulmonary process. POS: [facility]
[2018-07-17] MEDS ORDERED: Morphine 4 MG/ML VIAL ONE ×2 (00:07→02:04)
--- NOTE | 2018-07-17 01:48 | HP ---
REFERRING PHYSICIAN: Dr. Rajan Villa. TRAUMA SURGEON: Dr. Abdoulaye Quezada. CONSULTING PHYSICIAN: Dr. Romaine Panchal, Orthopedic Surgery. HISTORY OF PRESENT ILLNESS: The patient is a 68-year-old female who reported a mechanical fall from standing on the rollator at home when her walker rolled away from her. She reported falling on her right side. Denies loss of consciousness, hitting her head or neck or back pain. She was brought to the emergency department by EMS complaining of right hip pain and was subsequently found to have a right intertrochanteric femur fracture. The patient is on Xarelto for PE and has stage IV small cell cancer with mets to lymph nodes, adrenal glands, liver, and L and S spine. She has just finished her last round of chemotherapy. At the time of my evaluation, her pain was well controlled. She denied nausea, vomiting, or diarrhea. REVIEW OF SYSTEMS: All additional review of systems negative except as indicated above. PAST MEDICAL HISTORY: Stage IV small cell cancer, COPD, GERD recent and recurring UTIs, hypertension, paroxysmal atrial fibrillation, SVT, pulmonary embolus diagnosed two weeks ago, on Xarelto. PAST SURGICAL HISTORY: Cholecystectomy, hiatal hernia repair, left-sided MediPort placement. SOCIAL HISTORY: Patient lives at home with another person, unsure if it is her partner, sister, or female friend. She does report a long history of tobacco use, but has quit two years ago. She denies alcohol and drug use. CURRENT MEDICATIONS: 1. Xarelto. 2. Atenolol. 3. Diltiazem. 4. Pantoprazole. 5. Sertraline. ALLERGIES: 1. LISINOPRIL. 2. ATIVAN. PHYSICAL EXAMINATION: VITAL SIGNS: Blood pressure 99/58, pulse 85, respirations 16, temperature 98.1, oxygen saturation 99% on room air. PRIMARY SURVEY: Airway intact. Adequate breath sounds bilaterally. 2+ pulses palpable in the radials, femorals, and DPs bilaterally. GCS is 15. Gross motor and sensation intact. Pupils equal, round, reactive to light bilaterally. No lacerations, bruising, or external bleeding. SECONDARY SURVEY: HEAD: Normocephalic and atraumatic. No gross palpable skull deformities or tenderness. EYES: Pupils 3 to 2, equal, round, reactive to light bilaterally. ENT: No hemotympanum. No epistaxis. No septal hematoma. Midface stable to manipulation. No blood in the oropharynx. Dentition is intact. No anterior neck injury/crepitus/tenderness. C-spine: No step-offs or deformities. No tenderness. C-collar not in place. CHEST: MediPort to left anterior chest wall. Chest is nontender. No crepitus. No abrasions or ecchymosis. Equal chest movement. ABDOMEN: Soft, nontender, nondistended. PELVIS: Stable to palpation. Nontender. No abrasions noted. Right lateral hip pain. RECTAL: Deferred. GENITOURINARY: Deferred. EXTREMITIES: No gross deformities, no abrasions or ecchymosis noted. 2+ pulses to the femorals, DP, PTs and radials bilaterally. BACK/SPINE: No step-offs, deformities or tenderness to palpation of the thoracic or lumbar spine. No abrasions or ecchymosis noted. NEUROLOGIC: 5/5 strength in the bilateral crossword puzzle maker, plantar flexion and dorsal flexion. Grossly normal sensation x4 extremities. LABORATORY FINDINGS: White count 0.6, hemoglobin 7.4, hematocrit 22.9, platelets 106, INR 2.1. Sodium 135, potassium 3.7, chloride 101, carbon dioxide 24, BUN 16, and creatinine 0.84. DIAGNOSTIC FINDINGS: 1. X-ray of the right femur demonstrates mild comminuted intertrochanteric right hip fracture. 2. X-ray of the right hip demonstrates intertrochanteric right hip fracture with mild displacement of the fracture fragments as well as separation of fracture fragments. 3. X-ray of the right knee demonstrates no acute fracture of the right knee. 4. X-ray of the chest demonstrates no acute cardiopulmonary process. ASSESSMENT: 1. Mechanical fall from standing, on Xarelto. 2. Right intertrochanteric femur fracture. 3. Leukopenia. 4. Chronic anemia. 5. Elevated INR. 6. History of stage IV small cell cancer with metastasis to the lymph nodes, adrenals, liver and L4-S1 spine. 7. Chronic obstructive pulmonary disease. 8. Gastroesophageal reflux disease. 9. Recurrent urinary tract infections. 10. Hypertension. 11. Supraventricular tachycardia. 12. Paroxysmal atrial fibrillation. 13. Right lower extremity neuropathy. 14. Pulmonary embolism. PLAN: The patient to be admitted to the trauma floor and will be n.p.o. for possible OR tomorrow with Orthopedic Surgery. We will hold Xarelto at this time. We will recheck blood work in the morning to determine if the patient needs FFP for correction of INR and blood products before going to the OR. She will be on normal saline at 120 an hour. We will hold home medications at this time including Xarelto. PT and OT to see the patient postoperatively. We will hold chemo-DVT prophylaxis as well. We will place the patient on IV and p.o. pain medications. The patient will be discussed with Dr. Quezada today after this dictation. Job ID: [id number]
[2018-07-17] MEDS ORDERED: Morphine 4 MG/ML VIAL SLOW IVP PRN (02:49)
[2018-07-17] MEDS ORDERED: Ondansetron PF 4 MG/2 ML Vial IVP PRN (03:15)
[2018-07-17] MEDS ORDERED: Dextrose 50% Abboject 50 ML SYRINGE SLOW IVP PRN (03:15)
[2018-07-17] MEDS ORDERED: Dextrose 5% in Water 1,000 ML IV PRN (03:15)
[2018-07-17] MEDS ORDERED: Promethazine HCl 25 MG/ML VIAL IM PRN (03:15)
[2018-07-17] MEDS ORDERED: hydrALAZINE 20 MG/ML VIAL SLOW IVP PRN (03:15)
[2018-07-17] MEDS: Sodium Chloride 0.9% 1,000 ML IV SCH ×3 (04:10→20:38)
[2018-07-17] MEDS: Morphine 4 MG/ML VIAL SLOW IVP PRN ×3 (04:15→14:36)
[2018-07-17] MEDS: Acetaminophen 1,000 MG in Premix Bag 1 BAG IVPB SCH ×4 (04:18→20:25)
[2018-07-17] MEDS: Cyclobenzaprine 10 MG TAB PO PRN (04:25)
[2018-07-17 04:59] VITALS: BMI 27.1
[2018-07-17 05:34] LABS: Hemoglobin 6.8 g/dL (12.0-16.0); INR-International Normal Ratio 1.8; Mean Corpuscular HGB CONC 33.7 g/dL (32.0-36.0); Mean Corpuscular Hemoglobin 28.8 pg (27.0-31.0); Mean Corpuscular Volume 85.6 fL (78.0-98.0); Mean Platelet Volume 7.2 fL (7.4-10.4); Platelet Count 91 thou/uL (130-400); Prothrombin Time 20.9 SEC (12.0-14.7); RBC Distribution Width 14.6 % (11.5-14.5); Red Blood Cell (RBC) Count 2.35 mill/uL (4.20-5.40); White Blood Cell (WBC) Count 0.8 thou/uL (4.8-10.8)
[2018-07-17 05:47] LABS: Anion Gap 14 mmol/L (10-20); BUN (Urea Nitrogen) 20 mg/dL (9.8-20.1); Calc. Creatinine Clearance 67 mL/min (70-130); Calcium 7.9 mg/dL (7.8-10.44); Carbon Dioxide 24 mmol/L (23-31); Chloride 102 mmol/L (98-107); Estimated GFR-MDRD 63; Glucose 98 mg/dL (80-115); Phosphorus 3.7 mg/dL (2.3-4.7); Potassium 3.6 mmol/L (3.5-5.1); Sodium 136 mmol/L (136-145)
[2018-07-17 05:53] LABS: Magnesium 0.8 mg/dL (1.6-2.6)
[2018-07-17 05:54] LABS: Hypochromia MODERATE=16-30 cells (100X) (0-5/hpf); Lymphocytes 100 % (21-51); MDiff Complete? YES; Platelet Morphology Comment Appears Decreased
[2018-07-17 06:24] LABS: Bilirubin Small (Negative); Blood, Urine Negative (Negative); Clarity CLOUDY (Clear); Glucose, Urine (Dipstick) 100 mg/dL (Negative); Leukocyte Small (Negative); Nitrite Negative (Negative); Protein, Urine (Dipstick) 30 mg/dL (Neg-Trace); Specific Gravity, Urine 1.023 (1.002-1.036); Urobilinogen 0.2 mg/dL (0.2-1.0); pH, Urine 5.5 (5.0-9.0)
[2018-07-17 06:27] LABS: Bacteria/HPF None Seen HPF (None Seen); Hyaline Casts/LPF 7-10 HYALINE CAST LPF (0-3 Hyaline); Pathc Cast-AUWi Flag 1.36 (0-2.49); Squamous Epithelial 0-3 HPF (0-3); Urine Culture Reflex No No
[2018-07-17] MEDS ORDERED: Magnesium Sulfate 4 GM in Sodium Chloride 0.9% 250 ML 250 ML IVPB SCH (07:00)
[2018-07-17] MEDS: Ascorbic Acid 500 mg Chewable Tablet PO SCH (08:41)
[2018-07-17] MEDS: Gabapentin 100 MG CAP PO SCH ×3 (08:41→20:24)
[2018-07-17] MEDS: Loratadine 10 MG TAB PO SCH (08:43)
[2018-07-17] MEDS: Multivit, Therapeutic 1 TAB PO SCH (08:43)
[2018-07-17] MEDS: Senokot S 8.6-50 MG TAB PO SCH ×2 (08:44→20:24)
[2018-07-17] MEDS: Polyethylene Glycol 3350 17 GM Packet PO SCH (08:46)
[2018-07-17] MEDS ORDERED: Prevnar 13-Val Conj/PF 0.5 ML SYRINGE IM ONE (09:00)
[2018-07-17] MEDS: traMADol HCl 50 MG TAB PO PRN ×2 (09:19→20:24)
--- NOTE | 2018-07-17 11:48 | CON ---
DATE OF CONSULTATION: REASON FOR CONSULTATION: Neutropenia. HISTORY OF PRESENT ILLNESS: Ms. 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 She completed cycle 4 of carboplatin, CHARACTER IMPERSONATOR-16, and Tecentriq on July 12. She did receive the Neulasta injection after treatment. She has struggled with neutropenia despite dose changes, dose reductions, and has required hospitalization after each cycle. The patient also has a history of saddle PE and currently takes Xarelto. She had a mechanical fall on July 17. She presented via EMS to this facility. X-rays showed a right intertrochanteric femur fracture. Her white count was 0.6, hemoglobin was 7.4, and platelet count was 106,000. She was admitted for treatment. She denies any fevers. No melena or hematochezia. PAST MEDICAL HISTORY: 1. Extensive stage small cell lung cancer, status post cycle 4 of chemo and immunotherapy. 2. Saddle PE. 3. History of Clostridium difficile infection. 4. Hypertension. 5. Anxiety and depression. 6. Reflux. 7. History of smoking. PAST SURGICAL HISTORY: 1. Cholecystectomy. 2. Umbilical hernia repair. 3. Hiatal hernia repair. 4. Acid reflux surgery for GERD. 5. Cervical mediastinal exploration and biopsy in April of 2018. ALLERGIES: ATIVAN AND LISINOPRIL. HOME MEDICATIONS: 1. Tenormin 50 mg b.i.d. 2. Xarelto 20 mg daily. 3. Cardizem CD 120 mg daily. 4. Protonix 40 mg daily. 5. Zoloft 25 mg daily. FAMILY HISTORY: Family history of non-small cell lung cancer in multiple family members, who were smokers. SOCIAL HISTORY: , lives with her sister, 40 pack-year history of smoking. No alcohol or illicit drug use. REVIEW OF SYSTEMS: A 10-point review of systems is positive for right hip pain only. PHYSICAL EXAMINATION: VITAL SIGNS: Temperature is 97.9, pulse 73, respiratory rate 20, blood pressure is 96/57. She is 92% on room air. GENERAL: Well-developed, well-nourished female, in no acute distress. HEENT: Normocephalic and atraumatic. Pupils are equal and reactive to light. NECK: Supple. CV: Regular rate and rhythm. LUNGS: Clear. ABDOMEN: Soft and nontender. Bowel sounds are positive. EXTREMITIES: She has 2+ edema in right lower extremity. SKIN: No rash. HEMATOLOGICAL: No petechiae or purpura. NEUROLOGICAL: Nonfocal. PSYCH: The patient is alert, oriented, and appropriate. PERTINENT LABS AND X-RAYS: Current WBCs 0.8, hemoglobin 6.8, hematocrit 20.1, and platelet count 91,000. PT is 20.9, INR is 1.8. Sodium is 136, potassium 3.6, chloride 102, CO2 is 24, BUN is 20, creatinine 0.9, calcium is 7.9, phosphorus 3.7, magnesium 0.8, total bilirubin is 1.3, AST is 19, ALT is 25, alkaline phosphatase is 107. Serum total protein 6.1, albumin 3.2, globulin 2.7. Urine was negative. ASSESSMENT: 1. Extensive stage small cell lung cancer, status post cycle 4 of treatment. 2. Neutropenia. 3. Anemia. 4. Right femur fracture. DISCUSSION: The patient's Xarelto has been held in anticipation of femur repair tomorrow. She did receive the colony-stimulating factor on Sunday, July 12, generally 7 to 10 days to improve the white cell count. Would continue neutropenic precautions. Agree with transfusion of packed RBCs. Surgery may need to be postponed until her counts recover. Thank you for the consult. We will follow her hospital course. Job ID: [id number] MTDD
--- NOTE | 2018-07-17 13:02 | CON ---
DATE OF CONSULTATION: HISTORY OF PRESENT ILLNESS: We were asked by Trauma in the ER to see patient. The patient was in her normal state of health yesterday when her walker got away from her and she fell landing on her right side. No other injuries from this fall except for right hip pain, in which she sustained an intertrochanteric and subtrochanteric fracture on the right. Denies any loss of consciousness or any other problems other than the right hip pain. The patient is on Xarelto for PE and has stage IV cancer with METS to multiple areas of the body. She finished a recent round of chemo. Currently, pain is well controlled on the current medication regime from trauma as long as she is inactive. If she moves, she does get some pain in the right lower extremity. Denies any numbness or tingling down the legs and no other current complaints. PAST MEDICAL HISTORY: Cancer, COPD, GERD, blood pressure, atrial fibrillation, SVT, PEs couple of weeks ago diagnosed and on Xarelto. PAST SURGICAL HISTORY: Cholecystectomy, hernia, MediPort. SOCIAL HISTORY: Lives at home with her sister. Quit smoking a few years ago. No alcohol or drug use. CURRENT MEDICATIONS: 1. Xarelto. 2. Atenolol. 3. Diltiazem. 4. Pantoprazole. 5. Sertraline. ALLERGIES: LISINOPRIL AND ATIVAN. FAMILY HISTORY: Noncontributory to this current visit or situation. REVIEW OF SYSTEMS: Right hip pain only. Denies any chest pain, shortness of breath, or any other symptoms of bowel or bladder problems. Rest of review of systems negative. PHYSICAL EXAMINATION: GENERAL: Well-nourished, well-developed female, alert, pleasant, no acute distress. Speech, clear. Affect, pleasant. Answer questions appropriately. Alert and oriented x3. HEENT: Normal exam. Face symmetric. Tongue midline. Eyes tracking well. NECK: Supple. Trachea midline. RESPIRATORY: No distress. EXTREMITIES: Upper extremities are equal in size, shape, and symmetry. Normal bulk and tone. Lower extremities, right lower extremity is bent, outward rolled, but the patient is comfortable in this position. DP and PT pulses are intact as are sensations. Tenderness to palpation over the right hip. ASSESSMENT: 1. Fall with ensuing right hip fracture. 2. Multiple health issues. PLAN: I had a long talk with the patient that due to the Xarelto we cannot perform surgery today. The patient understands this. We talked about the risk of doing surgery and not doing surgery and she understands these risks as they have been explained and the benefits of doing surgery as that has been explained. We talked about doing a long TFN nail. I explained the procedure, risks and benefits of surgery, and the patient is amenable to go forth with surgery. We also talked a bit about aftercare needing Case Management. Her sister works in [place], so she is alone many hours during the day. It may be prudent for her to go into a facility just to get her walking, but we will see how she does with therapy. We will keep her n.p.o. after midnight, get her set up for surgery tomorrow. The patient is a patient of Dr. Quijano and he is okay with the patient being added to his surgical schedule tomorrow. I reviewed x-rays and labs. The patient is getting a few units of blood today via trauma and we will see how her lab values are tomorrow and plan on doing surgery as discussed. Job ID: [id number] [facility]
--- NOTE | 2018-07-17 13:09 | PRG ---
DATE OF SERVICE: 07/17/2018 SUBJECTIVE: The patient was seen this morning on floor, lying in bed. Reports pain is well controlled. No acute overnight events. She was originally n.p.o. overnight for possible OR today with Orthopedic Surgery. However, because she is on Xarelto, they decided to wait until tomorrow before proceeding with surgery. As such she was given a regular diet. She is still on normal saline at 120 an hour. We will re-evaluate p.o. intake tomorrow. Denies nausea, vomiting, and diarrhea. OBJECTIVE: VITAL SIGNS: Temperature 97.8, respirations 14, oxygen saturation 92% on room air, blood pressure 102/59, pulse 73. GENERAL: Frail appearing elderly female, lying in bed with no signs of acute distress. PULMONARY: Equal chest rise and fall. Clear breath sounds bilaterally. No acute signs of pulmonary distress. CARDIAC: Regular rate and rhythm. No murmurs, gallops, or rubs. GI: Abdomen is soft, nontender, nondistended. EXTREMITIES: Tenderness to right hip. Otherwise, no signs of trauma to extremities. 2+ pulses in all extremities. Gross motor and sensation intact in all extremities. No significant swelling noted. LABORATORY FINDINGS: White count 0.8, hemoglobin 6.8, hematocrit 20.1, platelets 91. Sodium 136, potassium 3.6, chloride 102, carbon dioxide 24, BUN 20, creatinine 0.90, phos 3.8, magnesium 0.8. DIAGNOSTIC FINDINGS: There are no new diagnostic findings to report. ASSESSMENT: 1. Status post mechanical fall from standing. 2. Right intertrochanteric femur fracture. 3. Pancytopenia. 4. History of stage IV small cell carcinoma with metastasis. 5. Chronic obstructive pulmonary disease. 6. Gastroesophageal reflux disease. 7. Frequent urinary tract infections. 8. Hypertension. 9. Supraventricular tachycardia. 10. Paroxysmal atrial fibrillation. 11. Pulmonary embolism. PLAN: The patient will go to the OR tomorrow with Dr. Quijano. We are continuing to hold her Xarelto. We will consult Oncology today to see the patient due to pancytopenia. The patient also on precautions. She did receive this morning 2 units of packed red blood cells of one of FFP. Mag, potassium and phos were also replaced. She was also started on iron and vitamin C. We will continue a regular diet with normal saline at 120 an hour. She will be n.p.o. at midnight for OR tomorrow. We will start home medications as clinically indicated. The patient to work with physical and occupational therapy postoperatively. The patient was seen and examined by Dr. Varela and myself this morning during rounds. Job ID: [id number]
[2018-07-17] MEDS: Famotidine/PF 20 mg/2ml Vial SLOW IVP SCH ×2 (14:55→20:25)
[2018-07-17] MEDS: Potassium Phosphate 15 MMOL in Sodium Chloride 0.9% 250 ML 250 ML IVPB SCH ×2 (14:55→15:33)
[2018-07-18] MEDS: Acetaminophen 1,000 MG in Premix Bag 1 BAG IVPB SCH ×2 (03:06→10:40)
[2018-07-18] MEDS: Cyclobenzaprine 10 MG TAB PO PRN ×2 (03:07→17:51)
[2018-07-18] MEDS: traMADol HCl 50 MG TAB PO PRN ×4 (03:07→22:04)
[2018-07-18] MEDS: Sodium Chloride 0.9% 1,000 ML IV SCH ×2 (06:35→13:16)
[2018-07-18 07:28] LABS: INR-International Normal Ratio 1.2; Prothrombin Time 15.5 SEC (12.0-14.7)
[2018-07-18 07:31] LABS: Hemoglobin 7.6 g/dL (12.0-16.0); Mean Corpuscular HGB CONC 33.5 g/dL (32.0-36.0); Mean Corpuscular Hemoglobin 28.9 pg (27.0-31.0); Mean Corpuscular Volume 86.3 fL (78.0-98.0); Mean Platelet Volume 8.1 fL (7.4-10.4); Platelet Count 43 thou/uL (130-400); RBC Distribution Width 15.5 % (11.5-14.5); Red Blood Cell (RBC) Count 2.62 mill/uL (4.20-5.40); White Blood Cell (WBC) Count 0.3 thou/uL (4.8-10.8)
[2018-07-18 07:36] LABS: Anion Gap 10 mmol/L (10-20); BUN (Urea Nitrogen) 13 mg/dL (9.8-20.1); Calc. Creatinine Clearance 81 mL/min (70-130); Calcium 7.9 mg/dL (7.8-10.44); Carbon Dioxide 23 mmol/L (23-31); Chloride 109 mmol/L (98-107); Estimated GFR-MDRD 77; Glucose 92 mg/dL (80-115); Magnesium 1.8 mg/dL (1.6-2.6); Potassium 3.9 mmol/L (3.5-5.1); Sodium 138 mmol/L (136-145)
[2018-07-18 08:23] LABS: MDiff Complete? YES; Platelet Morphology Comment Appears Decreased; Polychromasia SLIGHT = 2-3 cells (100X) (0-2/hpf); Tear Drops SLIGHT = 2-5 cells (100X) (0-1/hpf)
[2018-07-18] MEDS ORDERED: Magnesium 2 GM/50 ML 2 GM in Premix Bag 1 BAG IVPB SCH (08:30)
[2018-07-18] MEDS: Senokot S 8.6-50 MG TAB PO SCH ×2 (09:06→21:46)
[2018-07-18] MEDS: Ascorbic Acid 500 mg Chewable Tablet PO SCH (09:06)
[2018-07-18] MEDS: Polyethylene Glycol 3350 17 GM Packet PO SCH (09:06)
[2018-07-18] MEDS: Gabapentin 100 MG CAP PO SCH ×3 (09:07→21:47)
[2018-07-18] MEDS: Multivit, Therapeutic 1 TAB PO SCH (09:07)
[2018-07-18] MEDS: Loratadine 10 MG TAB PO SCH (09:07)
[2018-07-18] MEDS: Famotidine/PF 20 mg/2ml Vial SLOW IVP SCH ×2 (09:08→21:47)
--- NOTE | 2018-07-18 13:30 | PRG ---
DATE OF SERVICE: 07/18/2018 SUBJECTIVE: The patient was seen and examined this morning. She was lying in bed. Originally, she was scheduled to go to the OR today, but because her white count is so significantly low and has not improved, Oncology is recommending to Orthopedic Surgery to hold off on intervention until her white count improves. We are continuing to hold Xarelto. She had been n.p.o. but has previously been tolerating regular diet. She is not working with Physical Therapy until she has her left femoral neck fracture fixed in the OR. She is denying nausea, vomiting, or diarrhea and pain is well controlled. OBJECTIVE: VITAL SIGNS: Temperature 98.4, pulse 85, respirations 18, oxygen saturation 92% on room air, and blood pressure 127/69. GENERAL: Frail-appearing elderly female, lying in bed with no signs of acute distress. PULMONARY: Equal chest rise and fall. Clear breath sounds bilaterally. No acute signs of pulmonary distress. CARDIAC: Regular rate and rhythm. No murmurs, gallops, or rubs. Gastrointestinal: Abdomen is soft, nontender, and nondistended. EXTREMITIES: Tenderness to right hip. Otherwise, no signs of trauma to extremities. 2+ pulses in all extremities. Gross motor and sensation intact in all extremities. No significant swelling noted. LABORATORY FINDINGS: White count 0.3, hemoglobin 7.6, hematocrit 22.6, and platelets 43. Sodium 138, potassium 3.9, chloride 109, carbon dioxide 23, BUN 13, creatinine 0.75, phosphorus 4.0, and magnesium 1.8. DIAGNOSTIC FINDINGS: There are no new diagnostic findings to report. ASSESSMENT: 1. Status post mechanical fall from standing. 2. Right intertrochanteric femur fracture. 3. Pancytopenia. 4. History of stage IV small cell carcinoma with metastasis. 5. Chronic obstructive pulmonary disease. 6. Gastroesophageal reflux disease. 7. Frequent urinary tract infections. 8. Hypertension. 9. Supraventricular tachycardia. 10. Paroxysmal atrial fibrillation. 11. Pulmonary embolism. PLAN: The patient was originally supposed to go to the OR today with Ortho to have her right intertrochanteric femur fracture fixed. However, her white count continues to be extremely low and Oncology is recommending that we hold off for now. She was giving a regular diet again today and normal saline was discontinued. She is to receive platelets in the OR if needed at the time of surgery. She did not need any additional blood products today. Magnesium and phosphorus were also replaced. Pain control is adequate and we will continue to treat her pain. We will also continue to hold her home Xarelto for PE. We will also continue SCDs bilaterally for DVT prophylaxis. Urine culture is negative after 24 hours. The patient was discussed this morning with Dr. Varela after rounds. Job ID: [id number]
[2018-07-19] MEDS ORDERED: Sodium Chloride 0.9% 1,000 ML IV SCH (00:01)
[2018-07-19] MEDS: Morphine 4 MG/ML VIAL SLOW IVP PRN ×2 (03:47→12:46)
[2018-07-19 04:38] LABS: INR-International Normal Ratio 1.1; Prothrombin Time 14.3 SEC (12.0-14.7)
[2018-07-19 04:47] LABS: Platelet Count 23 thou/uL (130-400); White Blood Cell (WBC) Count 0.8 thou/uL (4.8-10.8)
[2018-07-19 04:55] LABS: Anion Gap 11 mmol/L (10-20); BUN (Urea Nitrogen) 7 mg/dL (9.8-20.1); Calc. Creatinine Clearance 83 mL/min (70-130); Calcium 8.3 mg/dL (7.8-10.44); Carbon Dioxide 25 mmol/L (23-31); Chloride 103 mmol/L (98-107); Estimated GFR-MDRD 80; Glucose 84 mg/dL (80-115); Potassium 3.6 mmol/L (3.5-5.1); Sodium 135 mmol/L (136-145)
[2018-07-19 05:26] LABS: Hemoglobin 7.7 g/dL (12.0-16.0); Lymphocytes 88 % (21-51); MDiff Complete? YES; Mean Corpuscular HGB CONC 33.9 g/dL (32.0-36.0); Mean Corpuscular Hemoglobin 29.1 pg (27.0-31.0); Mean Platelet Volume 10.1 fL (7.4-10.4); Monocytes 8 % (0-10); Myelocyte 4 % (0-0); Platelet Morphology Comment Appears Decreased; RBC Distribution Width 15.2 % (11.5-14.5); Red Blood Cell (RBC) Count 2.64 mill/uL (4.20-5.40)
[2018-07-19] MEDS: traMADol HCl 50 MG TAB PO PRN ×2 (08:45→22:10)
[2018-07-19] MEDS: Ascorbic Acid 500 mg Chewable Tablet PO SCH (08:46)
[2018-07-19] MEDS: Gabapentin 100 MG CAP PO SCH ×3 (08:46→20:45)
[2018-07-19] MEDS: Famotidine/PF 20 mg/2ml Vial SLOW IVP SCH ×2 (08:46→20:45)
[2018-07-19] MEDS: Loratadine 10 MG TAB PO SCH (08:47)
[2018-07-19] MEDS: Multivit, Therapeutic 1 TAB PO SCH (08:47)
[2018-07-19] MEDS: Polyethylene Glycol 3350 17 GM Packet PO SCH (08:50)
[2018-07-19] MEDS: Senokot S 8.6-50 MG TAB PO SCH ×2 (08:50→20:44)
--- NOTE | 2018-07-19 13:15 | PRG ---
DATE OF SERVICE: 07/19/2018 SUBJECTIVE: This is a 68-year-old female with a history of stage IV small-cell carcinoma with metastases, who had a mechanical fall while on chronic anticoagulation, resulting in a right femur fracture. The patient has been pancytopenic, which has delayed intervention to her hip fracture. There were no acute overnight events. The patient states pain has been relatively well controlled. Dr. Quijano has spoken with her oncologist, who is hopeful for a bone marrow recovery and improve blood cell count over the weekend. Tentative plan for intervention on Sunday. Otherwise, upon her visit this morning. The patient vocalized no complaint. OBJECTIVE: VITAL SIGNS: Temperature 98.6, pulse 82, respirations 16, O2 saturation 98% on room air, and blood pressure 138/75. GENERAL: Elderly appearing female, in no acute distress, resting in bed. PULMONARY: Normal workup of breathing. Symmetric rise. CARDIOVASCULAR: Regular rate and rhythm. GI: Abdomen is soft, nontender, and nondistended. MUSCULOSKELETAL: Right lower extremity hip tenderness with limited range of motion secondary to pain. NEUROLOGIC: No focal deficit is noted. LABORATORY FINDINGS: WBC 0.8, hemoglobin 7.7, hematocrit 22.7, and platelet count 23. Sodium 135, potassium 3.6, chloride 103, carbon dioxide 25, BUN 7, creatinine 0.73, and glucose 84. Phosphorus 3.0. Magnesium 1.0. ASSESSMENT: 1. Status post mechanical fall. 2. Right femur fracture. 3. 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 4. Pancytopenia secondary to above. 5. History of chronic obstructive pulmonary disease. 6. History of gastroesophageal reflux disease. 7. History of frequent urinary tract infections. 8. Chronic anticoagulation, Xarelto currently being held. 9. Electrolyte abnormality. PLAN: Replete abnormal electrolytes. Continue to encourage incentive spirometry. Continue to hold Xarelto at this time. Pain control as ordered. The patient should be n.p.o. after midnight Sunday in anticipation of possible operative intervention to her hip on Sunday. Gentle IV fluid and hydration at that time. Plan of care was discussed with the patient at bedside and all questions were answered at the time of this dictation. The patient was seen and evaluated with Dr. Varela. Job ID: [id number] [facility]
[2018-07-19] MEDS ORDERED: Potassium Chloride 40 MEQ in Sodium Chloride 0.9% 250 ML 250 ML IVPB SCH (13:30)
[2018-07-19] MEDS ORDERED: Magnesium Sulfate 3 GM in Sodium Chloride 0.9% 100 ML IVPB SCH (13:30)
[2018-07-20] MEDS: Acetaminophen 500 MG TAB PO SCH ×4 (01:42→20:59)
[2018-07-20] MEDS: Piperacillin/Tazobactam 4.5 GM in Sodium Chloride 0.9% 100 ML IVPB SCH ×4 (01:46→20:59)
[2018-07-20 03:38] LABS: Bilirubin Negative (Negative); Blood, Urine Negative (Negative); Clarity CLOUDY (Clear); Glucose, Urine (Dipstick) Negative (Negative); Leukocyte Negative (Negative); Nitrite Positive (Negative); Protein, Urine (Dipstick) Trace mg/dL (Neg-Trace); Specific Gravity, Urine 1.015 (1.002-1.036)
[2018-07-20 03:40] LABS: Hyaline Casts/LPF 0-3 HYALINE CAST LPF (0-3 Hyaline); Pathc Cast-AUWi Flag 0.54 (0-2.49); Squamous Epithelial 0-3 HPF (0-3)
[2018-07-20 03:52] LABS: Bacteria/HPF 1+ HPF (None Seen); Renal Epithelial None Seen HPF (0-3); Transitional Epithelial 0-3 HPF (0-3)
[2018-07-20 03:53] LABS: Urine Culture Reflex Yes Yes
[2018-07-20 06:53] LABS: Anion Gap 13 mmol/L (10-20); BUN (Urea Nitrogen) 9 mg/dL (9.8-20.1); Calc. Creatinine Clearance 77 mL/min (70-130); Calcium 8.9 mg/dL (7.8-10.44); Carbon Dioxide 24 mmol/L (23-31); Chloride 104 mmol/L (98-107); Estimated GFR-MDRD 73; Glucose 104 mg/dL (80-115); Magnesium 1.5 mg/dL (1.6-2.6); Phosphorus 4.2 mg/dL (2.3-4.7); Potassium 3.9 mmol/L (3.5-5.1); Sodium 137 mmol/L (136-145)
[2018-07-20 07:57] LABS: Band 14 % (5-11); Hemoglobin 7.5 g/dL (12.0-16.0); Lymphocytes 71 % (21-51); MDiff Complete? YES; Mean Corpuscular HGB CONC 33.9 g/dL (32.0-36.0); Mean Corpuscular Hemoglobin 29.3 pg (27.0-31.0); Mean Corpuscular Volume 86.3 fL (78.0-98.0); Mean Platelet Volume 8.6 fL (7.4-10.4); Metamyelocyte 2 % (0-0); Monocytes 5 % (0-10); Neutrophil 8 % (42-75); Platelet Count 39 thou/uL (130-400); Platelet Morphology Comment Appears Decreased; Red Blood Cell (RBC) Count 2.56 mill/uL (4.20-5.40); Toxic Granulation SLIGHT; White Blood Cell (WBC) Count 1.1 thou/uL (4.8-10.8)
[2018-07-20] MEDS: Famotidine/PF 20 mg/2ml Vial SLOW IVP SCH ×2 (09:13→21:00)
[2018-07-20] MEDS: Polyethylene Glycol 3350 17 GM Packet PO SCH (09:13)
[2018-07-20] MEDS: Senokot S 8.6-50 MG TAB PO SCH ×2 (09:13→20:59)
[2018-07-20] MEDS: Loratadine 10 MG TAB PO SCH (09:13)
[2018-07-20] MEDS: Gabapentin 100 MG CAP PO SCH ×3 (09:14→20:59)
[2018-07-20] MEDS: Ascorbic Acid 500 mg Chewable Tablet PO SCH (09:14)
[2018-07-20] MEDS: Multivit, Therapeutic 1 TAB PO SCH (09:14)
--- NOTE | 2018-07-20 09:17 | RAD ---
CHEST ONE VIEW: History: Tachycardia. Comparison: 07-16-18 FINDINGS: Left subclavian catheter and injection port. Surgical clips overlying the right paratracheal region w ith some minimal fullness in this region, stable from recent studies and definitely improved from an older 05-15-18 exam. No confluent pneumonia or overt edema. IMPRESSION: Stable appearing chest. Stable nodular fullness in the right paratracheal region with associated surg ical clips. POS: CLAIR
[2018-07-20] MEDS: traMADol HCl 50 MG TAB PO PRN (09:40)
--- NOTE | 2018-07-20 12:02 | PRG ---
DATE OF SERVICE: 07/20/2018 SUBJECTIVE: This is a 68-year-old female with a history of stage IV small cell carcinoma and metastasis on chemotherapy, status post mechanical fall and chronic anticoagulation, resulting in a right femur fracture. The patient remains pancytopenic, which has delayed intervention to her hip fracture. She did receive platelets per Oncology recommendation yesterday. Overnight, she spiked a fever of greater than 101 degrees. She was jarrett cultured and empiric antibiotics were started. The patient remains asymptomatic. She denies chest pain, shortness of breath, sputum production, nausea, vomiting, diarrhea, dysuria. No obvious hematuria. The patient states pain is relatively well controlled with pain regimen as ordered and reduced mobility. OBJECTIVE: VITAL SIGNS: T-max 101, pulse 89, respirations 16, O2 saturation 94% on room air, blood pressure 107/67. GENERAL: Elderly appearing female in no acute distress, resting in bed. HEAD: Normocephalic, atraumatic. Eyes, pupils are PERRL. Extraocular movements are intact. PULMONARY: Normal for breathing, symmetric rise. Lungs are clear to auscultation bilaterally, 1600 to 1800 on incentive spirometry. CARDIOVASCULAR: Regular rate and rhythm. No obvious murmurs, rubs, or gallops. GASTROINTESTINAL: Abdomen is soft, nontender, nondistended. MUSCULOSKELETAL: Moves all extremities x4. Right lower extremity range of motion limited secondary to pain. She is neurovascularly intact distal to the site of her injury. LABORATORY FINDINGS: WBC 1.1, hemoglobin 7.5, hematocrit 22.1, platelet count 39. Sodium 137, potassium 3.9, chloride 104, carbon dioxide 24, BUN 9, creatinine 0.79, glucose 104, phosphorus 4.2, magnesium 1.5. ASSESSMENT: 1. Status post mechanical fall. 2. Right femur fracture. 3. 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 4. Pancytopenia secondary to above. 5. Neutropenic fever, unknown etiology. 6. History of chronic obstructive pulmonary disease. 7. History of gastroesophageal reflux disease. 8. History of frequent urinary tract infections. 9. Chronic anticoagulation, Xarelto, currently being held. 10. Electrolyte abnormality. PLAN: 1. Continue to follow culture data. 2. Continue empiric antibiotics. 3. Follow Oncology and Orthopedic surgery recommendations. 4. Pain control and regimen as ordered. 5. There was a long discussion with the patient regarding importance of incentive spirometry and prevention of pneumonia. 6. Suspect fever possibly secondary to blood product administration. However, we will continue to follow closely. 7. A.m. labs. 8. The patient should be n.p.o. after midnight in hopes for possible intervention to her hip tomorrow. 9. Gentle IV fluid hydration. 10. Replete abnormal electrolytes. Plan of care was discussed with patient, caregiver and nursing at bedside. All questions were answered prior to this dictation. Patient was discussed with Trauma attending. Job ID: [id number]
[2018-07-20] MEDS ORDERED: Potassium Chloride 40 MEQ in Sodium Chloride 0.9% 250 ML 250 ML IVPB SCH (13:30)
[2018-07-20] MEDS ORDERED: Magnesium Sulfate 3 GM in Sodium Chloride 0.9% 100 ML IVPB SCH (13:30)
--- NOTE | 2018-07-20 17:02 | EKG ---
Test Reason : STAT Blood Pressure : / mmHG Vent. Rate : 118 BPM Atrial Rate : 118 BPM P-R Int : 118 ms QRS Dur : 070 ms QT Int : 310 ms P-R-T Axes : 061 015 060 degrees QTc Int : 434 ms Sinus tachycardia Otherwise normal ECG When compared with ECG of 17-JUL-2018 00:29, (Unconfirmed) Premature atrial complexes are no longer Present Confirmed by DR. Lu ZHOU ([id number]) on 07/20/2018 5:02:05 PM Referred By: DRE Confirmed By:DR. Lu ZHOU
[2018-07-21] MEDS: Sodium Chloride 0.9% 1,000 ML IV SCH ×3 (00:20→19:15)
[2018-07-21] MEDS: traMADol HCl 50 MG TAB PO PRN (00:32)
[2018-07-21] MEDS: Acetaminophen 500 MG TAB PO SCH ×4 (02:51→21:00)
[2018-07-21] MEDS: Piperacillin/Tazobactam 4.5 GM in Sodium Chloride 0.9% 100 ML IVPB SCH ×4 (02:51→21:00)
[2018-07-21 05:11] LABS: Platelet Count 25 thou/uL (130-400)
[2018-07-21 05:24] LABS: Anion Gap 14 mmol/L (10-20); BUN (Urea Nitrogen) 11 mg/dL (9.8-20.1); Calc. Creatinine Clearance 69 mL/min (70-130); Calcium 8.5 mg/dL (7.8-10.44); Carbon Dioxide 22 mmol/L (23-31); Chloride 107 mmol/L (98-107); Estimated GFR-MDRD 64; Glucose 95 mg/dL (80-115); Potassium 3.9 mmol/L (3.5-5.1); Sodium 139 mmol/L (136-145)
[2018-07-21 05:42] LABS: Band 27 % (5-11); Eosinophils 1 % (0-10); Hemoglobin 7.6 g/dL (12.0-16.0); Lymphocytes 21 % (21-51); MDiff Complete? YES; Mean Corpuscular HGB CONC 33.2 g/dL (32.0-36.0); Mean Corpuscular Hemoglobin 28.7 pg (27.0-31.0); Mean Corpuscular Volume 86.4 fL (78.0-98.0); Mean Platelet Volume 10.5 fL (7.4-10.4); Metamyelocyte 3 % (0-0); Monocytes 10 % (0-10); Myelocyte 3 % (0-0); Neutrophil 35 % (42-75); Platelet Morphology Comment Appears Decreased; RBC Distribution Width 15.1 % (11.5-14.5); Red Blood Cell (RBC) Count 2.65 mill/uL (4.20-5.40); Toxic Granulation SLIGHT; White Blood Cell (WBC) Count 3.5 thou/uL (4.8-10.8)
[2018-07-21] MEDS: Morphine 4 MG/ML VIAL SLOW IVP PRN ×2 (05:55→10:11)
[2018-07-21] MEDS: Ascorbic Acid 500 mg Chewable Tablet PO SCH (08:28)
[2018-07-21] MEDS: Loratadine 10 MG TAB PO SCH (08:29)
[2018-07-21] MEDS: Multivit, Therapeutic 1 TAB PO SCH (08:29)
[2018-07-21] MEDS: Gabapentin 100 MG CAP PO SCH ×3 (08:29→21:05)
[2018-07-21] MEDS: Senokot S 8.6-50 MG TAB PO SCH ×3 (08:30→21:07)
[2018-07-21] MEDS: Polyethylene Glycol 3350 17 GM Packet PO SCH (08:30)
[2018-07-21] MEDS: Famotidine/PF 20 mg/2ml Vial SLOW IVP SCH ×2 (08:38→21:07)
[2018-07-21] MEDS ORDERED: Ondansetron ODT 4 MG TAB PO PRN (12:13)
[2018-07-21] MEDS ORDERED: Fentanyl 100 MCG/2 ML VIAL SLOW IVP PRN (12:13)
[2018-07-21] MEDS ORDERED: Acetaminophen 325 MG TAB PO PRN (12:13)
[2018-07-21] MEDS ORDERED: Fleet Enema 133 ML BOT PR PRN (12:13)
[2018-07-21] MEDS ORDERED: Milk Of Magnesia 30 ML UDCUP PO PRN (12:13)
[2018-07-21] MEDS ORDERED: Bisacodyl 10 MG SUPP PR PRN (12:13)
[2018-07-21] MEDS ORDERED: Cepastat Lozenges 1 LOZ PO PRN (12:13)
[2018-07-21] MEDS ORDERED: traMADol HCl 50 MG TAB PO PRN (12:13)
[2018-07-21] MEDS ORDERED: Ondansetron PF 4 MG/2 ML Vial IVP PRN (12:13)
--- NOTE | 2018-07-21 13:48 | PRG ---
DATE OF SERVICE: 07/21/2018 SUBJECTIVE: The patient is currently on the surgical floor. She is status post ground level fall when she sustained a right femur fracture. The patient has currently been n.p.o. and is awaiting to go to the operating room this morning with Dr. Sierra for her ORIF. The patient had no issues overnight. The previous night, the patient did have spiked a fever and she has been cultured up for that, none have come back yet positive, the ones that have resulted within 24 hours show no growth. This fever could be due to atelectasis, fat emboli syndrome or infection, but she has been afebrile all night. OBJECTIVE: VITAL SIGNS: Temperature is 98.3, heart rate 114, blood pressure 102/62, respirations 16, oxygen saturation 94% on room air. GENERAL: The patient is resting comfortably in bed. She appears in no distress. HEENT: Unremarkable. LUNGS: Clear to auscultation with moderate inspiratory and expiratory effort. HEART: Regular rate and rhythm. ABDOMEN: Soft, flat, nontender with hypoactive bowel sounds. EXTREMITIES: Neurovascularly intact x4. LABORATORY FINDINGS: White blood cell count 3.5, hemoglobin 7.6, hematocrit 22.9, platelets 25. Sodium 139, potassium 3.9, chloride 107, CO2 of 22, BUN 11, creatinine 0.88, glucose 95. DIAGNOSTIC STUDIES: There were no radiographs to review this morning. ASSESSMENT AND PLAN: 1. Status post mechanical fall. 2. Right femur fracture, awaiting surgical intervention. 3. 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 4. Pancytopenia secondary to #3. 5. Neutropenic fever, improved, possibly resolved. 6. History of chronic obstructive pulmonary disease. 7. History of gastroesophageal reflux disease. 8. History of frequent urinary tract infections. 9. History of anticoagulation therapy, Xarelto currently being held. Plan be to continue supportive care. Await surgical intervention. Postoperatively, we will have Physical and Occupational Therapy work with the patient. Continue pain control. The patient is to receive platelets this morning and possibly packed red blood cells. This discussion was being had with Orthopedics and Anesthesiology. Platelets were recommended by Oncology and the patient's hemoglobin has been stable even on admission at this level, though she will likely require blood products during her procedure. We will recheck her labs postoperatively. Job ID: [id number]
[2018-07-21] MEDS ORDERED: Fentanyl 100 MCG/2 ML VIAL ONE ×4 (13:54→16:01)
[2018-07-21] MEDS ORDERED: Midazolam HCl 2 mg/2 ml Vial ONE (13:54)
[2018-07-21] MEDS: CEFAZOLIN 2 GM in Premix Bag 1 BAG IVPB SCH ×2 (13:57→21:07)
[2018-07-21] MEDS ORDERED: Lidocaine 1% PF 5 ML VIAL ONE (14:18)
[2018-07-21] MEDS ORDERED: PHENYLEPHRINE-NS 100 MCG/ML 10 ML SYRINGE ONE (14:18)
[2018-07-21] MEDS ORDERED: Dexamethasone 20 MG/5 ML VIAL ONE (14:18)
[2018-07-21] MEDS ORDERED: Rocuronium Bromide 10 MG/ML (10ML VIAL) ONE (14:18)
[2018-07-21] MEDS ORDERED: PROPOFOL 200 MG/20 ML VIAL ONE (14:18)
[2018-07-21] MEDS ORDERED: Esmolol 100 MG/10 ML VIAL ONE (14:18)
[2018-07-21] MEDS ORDERED: Morphine 2 MG/ML SYRINGE ONE (16:15)
[2018-07-21] MEDS: Ferrous Gluconate 324 MG TAB PO SCH (21:05)
[2018-07-22] MEDS: Acetaminophen 500 MG TAB PO SCH ×4 (01:13→20:40)
[2018-07-22] MEDS: traMADol HCl 50 MG TAB PO PRN ×3 (01:13→20:44)
[2018-07-22] MEDS: Piperacillin/Tazobactam 4.5 GM in Sodium Chloride 0.9% 100 ML IVPB SCH ×2 (01:13→07:52)
[2018-07-22 07:21] LABS: Anion Gap 11 mmol/L (10-20); BUN (Urea Nitrogen) 9 mg/dL (9.8-20.1); Calc. Creatinine Clearance 74 mL/min (70-130); Calcium 8.3 mg/dL (7.8-10.44); Carbon Dioxide 24 mmol/L (23-31); Chloride 108 mmol/L (98-107); Estimated GFR-MDRD 70; Glucose 191 mg/dL (80-115); Potassium 3.8 mmol/L (3.5-5.1); Sodium 139 mmol/L (136-145)
[2018-07-22] MEDS: Loratadine 10 MG TAB PO SCH (07:52)
[2018-07-22] MEDS: Gabapentin 100 MG CAP PO SCH ×3 (07:52→20:40)
[2018-07-22] MEDS: Ferrous Gluconate 324 MG TAB PO SCH (07:53)
[2018-07-22] MEDS: Senokot S 8.6-50 MG TAB PO SCH ×4 (07:54→20:40)
[2018-07-22] MEDS: Ascorbic Acid 500 mg Chewable Tablet PO SCH (07:54)
[2018-07-22] MEDS: Polyethylene Glycol 3350 17 GM Packet PO SCH (07:55)
[2018-07-22] MEDS: Famotidine/PF 20 mg/2ml Vial SLOW IVP SCH (07:55)
[2018-07-22] MEDS ORDERED: Iopamidol 370 76% 100 ML VIAL ONE (08:03)
--- NOTE | 2018-07-22 08:32 | OP ---
DATE OF PROCEDURE: 07/21/2018 PREOPERATIVE DIAGNOSIS: Right intertrochanteric hip fracture. POSTOPERATIVE DIAGNOSIS: Right intertrochanteric hip fracture. PROCEDURE PERFORMED: Open reduction and internal fixation of right hip using a Synthes TFN, a short nail, 95 screw, 34 locking screw, 9 mm diameter. ANESTHESIA: General. BLOOD LOSS: Less than 100. SPECIMEN: None. DRAINS: None. COMPLICATIONS: None. PROCEDURE IN DETAIL: After informed consent was obtained in the preoperative holding area, the patient was taken to the operative suite and positioned appropriately on the fracture table. Spinal anesthetic was placed and the right hip was then prepped and draped in the usual sterile fashion. Prior to incision, a time-out was called and all members of surgical team agreed upon site, surgeon, and patient. Patient also received preoperative antibiotics prior to incision. Once this was confirmed, fluoroscopy was brought into the field and we evaluated the reduction. The fracture table was used with inline longitudinal traction and adduction to appropriately reduce the fracture. Once we were happy with near anatomic reduction, we then made a linear incision 2 fingerbreadths above the greater trochanter noted by palpation. The subcutaneous layers were opened sharply. I encountered the IT band. This was incised sharply and blunt dissection using a finger was then carried down to the trochanter which was noted by palpation. We used a guidepin to enter the posterior 2/3 of the greater trochanter. Guidepin was then used to enter the canal, over reamed with a 15 mm entry reamer. Once this was established, the prosthesis was then slid down into place and malleted gently to the adequate height and noted with fluoroscopy. The lateral entry outrigger was then placed and we used a 2-incision technique to establish the hip screw fixation point. A guidepin was then placed into the femoral head using the outrigger. The measurement was taken. The appropriate size was chosen. Lateral entry broaching reamer was then used using the outrigger and the final screw was then placed. The anti-rotational gate was then closed and the distal interlocking screw was placed for final construct, which appeared near anatomic on radiographs. Both incisions (2-incision technique) were copiously irrigated with normal saline. Primary closure was accomplished with #1 Vicryl at the IT band. Subcutaneous layer was closed with 2-0 Vicryl, and stainless steel elizabeth were used to reapproximate the skin. Final x-rays demonstrated near anatomic reduction, good hardware fixation. The procedure was terminated without any complications. The patient was taken to recovery room in stable condition. Job ID: [id number]
[2018-07-22] MEDS: Multivit, Therapeutic 1 TAB PO SCH (08:36)
--- NOTE | 2018-07-22 08:42 | RAD ---
INTRAOPERATIVE FLUOROSCOPY: HISTORY: Right hip fracture. COMPARISON: None. FINDINGS: Four intraoperative fluoroscopic images demonstrate internal fixation hardware associated with the ri ght intratrochanteric fracture. IMPRESSION: Fluoroscopy as above. POS: CLAIR
[2018-07-22] MEDS ORDERED: Multivitamin W/ Minerals 1 TAB PO SCH (09:00)
--- NOTE | 2018-07-22 09:54 | RAD ---
RIGHT FOOT THREE VIEWS: INDICATIONS: Pain and edema. COMPARISON: None. FINDINGS: No acute fracture or subluxation is evident. The toes are slightly held in flexion, limiting the exa m. There are accessory ossicles seen adjacent to the cuboid. Enthesopathic change is seen off the p lantar calcaneus. Lisfranc alignment is preserved. IMPRESSION: No definite acute osseous abnormality. POS: CET
[2018-07-22 10:58] LABS: Hemoglobin 8.3 g/dL (12.0-16.0); Mean Corpuscular HGB CONC 33.7 g/dL (32.0-36.0); Mean Corpuscular Hemoglobin 28.6 pg (27.0-31.0); Mean Platelet Volume 8.5 fL (7.4-10.4); Platelet Count 83 thou/uL (130-400); RBC Distribution Width 14.5 % (11.5-14.5)
[2018-07-22 10:59] LABS: Band 11 % (5-11); Lymphocytes 7 % (21-51); MDiff Complete? YES; Metamyelocyte 4 % (0-0); Monocytes 11 % (0-10); Myelocyte 2 % (0-0); Neutrophil 65 % (42-75); Platelet Morphology Comment Appears Decreased
--- NOTE | 2018-07-22 11:51 | PRG ---
DATE OF SERVICE: 07/22/2018 SUBJECTIVE: The patient is currently on the surgical floor. She is status post ground level fall when she sustained a right femur fracture. Yesterday, she underwent her operative procedure with Dr. Quijano, which she tolerated well. She had no issues overnight. She did receive 2 units of platelets yesterday preoperatively. OBJECTIVE: VITAL SIGNS: Temperature is 97.5, heart rate 85, blood pressure 135/65, respirations 16, oxygen saturation 94% on room air. GENERAL: The patient is awake, alert, and oriented x3. Appears in no distress. HEENT: Unremarkable. LUNGS: Clear to auscultation with good inspiratory and expiratory effort. HEART: Regular rate and rhythm. ABDOMEN: Soft, flat, nontender with active bowel sounds. EXTREMITIES: Neurovascularly intact x4. Postop dressing is clean, dry, intact. LABORATORY FINDINGS: White blood cell count 9.0, hemoglobin 8.3, hematocrit 24.6, platelets 83. Sodium 139, potassium 3.8, chloride 108, CO2 of 24, BUN 9, creatinine 0.82, glucose 191. There are no radiographs reviewed this morning. ASSESSMENT: 1. Status post mechanical fall. 2. Status post right femur fracture, status post open reduction and internal fixation of same. 3. 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 4. 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 5. Fever, resolved, all cultures negative. 6. History of chronic obstructive pulmonary disease. 7. History of gastroesophageal reflux disease. 8. History of frequent urinary tract infections. 9. History of anticoagulation therapy, Xarelto which will be resumed tomorrow. PLAN: Plan will be to continue supportive care. Start Physical and Occupational therapy and discuss placement plans most likely rehab. The patient was evaluated this morning with Dr. Varela during rounds. Job ID: [id number]
--- NOTE | 2018-07-22 15:29 | CT ---
CT CHEST WITH CONTRAST: CT ABDOMEN WITH CONTRAST: CT PELVIS WITH CONTRAST: HISTORY: Stage 4 lung cancer with metastases. COMPARISON: 06/17/2018 FINDINGS: CHEST: Heterogeneous thyroid gland. Interval decrease in size of right hilar and right mediastinal lymphadenopathy. Currently, the right mediastinal lymph node (paratracheal in location) measures 1.9 x 2.7 cm (previously measuring 3.6 x 3.4 cm). Right hilar lymphadenopathy currently measures 1.9 x 1.7 cm (previously measuring 3 x 3 cm) . Stable emphysematous and bullous changes of the lung parenchyma. Minimal dependent atelectatic changes. Heart size is normal. No significant pericardial fluid. The visualized aorta has a normal caliber. No periaortic fat stranding. ABDOMEN: Multiple ill-defined hypodensities throughout the liver, compatible with hepatic metastases . The overall size and distribution has not changed. There is a right hepatic lobe metastatic depos ition near the IVC, measuring 1.0 x 1.3 cm (previously measuring 1.1 x 1.4 cm). There is a deposit i n the right hepatic lobe, currently measuring 1.8 x 0.7 cm (previously measuring 1.2 x 1.5 cm). The spleen, pancreas, and right adrenal glands are unchanged. There is a stable nodule associated wi th the enlarged left adrenal gland, measuring 2.3 x 2.1 cm (previously measuring 2.6 x 2.1 cm). No gastrohepatic, retrocrural, or periportal lymphadenopathy. Stable surgical clips in the upper abd omen. Symmetric enhancement of the kidneys. Bilaterally, no obstructive uropathy. Stable Bosniak II cyst in the left kidney. No mesenteric mass, lymphadenopathy, free air, or free fluid. No evidence of bowel obstruction. The ileocecal junction is normal. Normal caliber appendix. Scatt ered fecal material in a nondistended, nondilated colon. PELVIS: There is a small amount of fluid in the pelvis, nonspecific. There is no pelvic mass, lymph adenopathy, or free air. The uterus and adnexal structures are unremarkable. A Mathews catheter decom presses the urinary bladder. There appears to be postoperative change involving the right hip. There is a fracture with associate d internal fixation hardware. There does appear to be metastatic involvement of the right aspect of the sacrum. There does appear to be an associated fracture, likely pathologic. Additional metastatic lesions are noted with sclero tic margins throughout the spine. Redemonstration of a sclerotic focus involving the T5 vertebral denzel dy. Old, healed rib fractures are noted. IMPRESSION: Redemonstration of multifocal metastatic disease. When compared to the previous examination, there i s a mixed response to therapy. The mediastinal and right hilar lymph nodes have decreased. The over all number of hepatic metastatic deposits has not changed. The metastatic deposit involving the left adrenal gland is essentially stable. POS: CLAIR
[2018-07-23] MEDS ORDERED: Nitrofurantoin Monohyd/M-Cryst 100 MG CAP PO SCH ×2 (02:00→09:00)
[2018-07-23] MEDS: Acetaminophen 500 MG TAB PO SCH ×2 (02:29→08:05)
[2018-07-23 06:22] LABS: Anion Gap 10 mmol/L (10-20); BUN (Urea Nitrogen) 9 mg/dL (9.8-20.1); Calc. Creatinine Clearance 80 mL/min (70-130); Calcium 8.2 mg/dL (7.8-10.44); Carbon Dioxide 26 mmol/L (23-31); Chloride 109 mmol/L (98-107); Estimated GFR-MDRD 76; Glucose 111 mg/dL (80-115); Potassium 3.4 mmol/L (3.5-5.1); Sodium 142 mmol/L (136-145)
[2018-07-23 07:08] LABS: Hemoglobin 7.9 g/dL (12.0-16.0); Mean Corpuscular HGB CONC 33.3 g/dL (32.0-36.0); Mean Platelet Volume 8.4 fL (7.4-10.4); Platelet Count 70 thou/uL (130-400); RBC Distribution Width 14.7 % (11.5-14.5); Red Blood Cell (RBC) Count 2.72 mill/uL (4.20-5.40)
[2018-07-23] MEDS ORDERED: Rivaroxaban 15 MG TAB PO SCH (08:00)
[2018-07-23] MEDS: Ascorbic Acid 500 mg Chewable Tablet PO SCH (08:05)
[2018-07-23] MEDS: Multivit, Therapeutic 1 TAB PO SCH (08:05)
[2018-07-23] MEDS: Loratadine 10 MG TAB PO SCH (08:05)
[2018-07-23] MEDS: Polyethylene Glycol 3350 17 GM Packet PO SCH (08:06)
[2018-07-23] MEDS: Gabapentin 100 MG CAP PO SCH (08:06)
[2018-07-23] MEDS: Senokot S 8.6-50 MG TAB PO SCH (08:07)
[2018-07-23] MEDS: traMADol HCl 50 MG TAB PO PRN ×2 (08:15→09:54)
[2018-07-23] MEDS ORDERED: Atenolol 25 MG TAB PO SCH (09:00)
[2018-07-23 09:40] LABS: Band 35 % (5-11); Lymphocytes 11 % (21-51); MDiff Complete? YES; Metamyelocyte 2 % (0-0); Monocytes 9 % (0-10); Myelocyte 5 % (0-0); Neutrophil 38 % (42-75); Platelet Morphology Comment Appears Decreased; Polychromasia SLIGHT = 2-3 cells (100X) (0-2/hpf)
[2018-07-23 11:37] VITALS: BP 132/72; TEMP 97.8
[2018-07-23] MEDS ORDERED: RIVAROXABAN 15 MG PO SCH (21:00)
[2018-07-23] MEDS ORDERED: Atenolol 50 MG TAB PO SCH (21:00)
--- NOTE | 2018-07-24 01:27 | DIS ---
DATE OF ADMISSION: 07/17/2018 DATE OF DISCHARGE: 07/23/2018 ADMITTING PHYSICIAN: Abdoulaye Quezada MD DISCHARGE PHYSICIAN: Dr. Varela. CONSULTS: 1. Romaine Panchal MD. 2. Oncology. PROCEDURES: 1. On 07/17/2018, x-ray of right femur demonstrates mild comminuted intertrochanteric right hip fracture. X-ray of right hip demonstrates intertrochanteric right hip fracture with mild displacement of the fracture fragments, as well as separation of the fracture fragments. X-ray of the right knee demonstrates no acute fracture of the right knee. X-ray chest demonstrates no acute cardiopulmonary process. 2. On 07/20/2018, chest x-ray, stable appearing chest. Stable nodule, fullness in the right paratracheal region with associated surgical clips. On 07/22/2018 foot x-ray, no definite acute osseous abnormality. 3. Chest, abdomen and pelvis CT requested by Oncology on 07/22/2018, demonstration of multifocal metastatic disease. When compared to previous examination, there is a mixed response to the therapy. The mediastinal and right hilar lymph nodes have decreased. The overall number of metastatic deposits has not changed. The metastatic deposit involving the left adrenal gland is essentially stable. 4. On 07/20/2018, EKG, premature atrial complexes no longer present. Sinus tachycardia with ventricular rate of 118 beats per minute. PRIMARY DIAGNOSIS: Mechanical fall from standing on Xarelto, right intertrochanteric femur fracture and UTI. SECONDARY DIAGNOSES: Leukopenia, chronic anemia, elevated INR, history of stage IV small cell cancer with metastasis to lymph nodes, adrenals, liver, and L4 through S1 spine. Chronic obstructive pulmonary disease, gastroesophageal reflux disease, recurrent with urinary tract infections, hypertension, history of supraventricular tachycardia, paroxysmal atrial fibrillation, right lower extremity neuropathy, pulmonary embolism. DISCHARGE MEDICATIONS: 1. Acetaminophen 1000 mg q.6 hours. 2. Vitamin C 500 mg p.o. daily. 3. Tenormin 50 mg p.o. b.i.d. 4. Dulcolax 10 mg suppository as needed. 5. Cepastat lozenges. 6. Cetirizine 10 mg p.o. daily. 7. Flexeril 5 mg p.o. 3 times a day as needed. 8. Cardizem CD 120 mg p.o. daily. 9. Ferrous sulfate 300 mg p.o. daily. 10. Gabapentin 100 mg p.o. 3 times a day. 11. DuoNeb as needed. 12. Milk of Mag 30 mL as needed. 13. Multivitamin one tablet p.o. daily. 14. Macrobid 100 mg cap p.o. b.i.d. x7 days. 15. Zofran ODT q.6 hours 4 mg p.o. 16. Protonix 40 mg p.o. daily. 17. MiraLAX 17 g p.o. daily. 18. Xarelto 15 mg tablet b.i.d. 19. Senokot two tabs as needed b.i.d. 20. Zoloft 25 mg p.o. daily. 21. Tramadol 50 mg p.o. q.6 hours as needed for pain. 22. Vitamin C 500 mg p.o. daily. 23. There are no discontinued medications. HISTORY OF PRESENT ILLNESS AND HOSPITAL COURSE: This is a 68-year-old female with a mechanical fall from standing, who sustained a right intertrochanteric femur fracture. The patient is postop day #2 open reduction and internal fixation, right femur. Initially, the patient with pancytopenia which delayed the patient going to the OR. The patient was restarted on Xarelto on the day of discharge. The patient was also started on Macrobid for hospital-acquired UTI. The patient was seen by her oncologist and chest, abdomen and pelvis was obtained. On the day of discharge , the patient was sitting up in the chair, in no distress. Reports that her pain was well controlled. The patient voices no complaints. On the day of discharge, the patient was seen by Dr. Varela and evaluated. The patient's vital signs were stable on the day of discharge and exam was unremarkable including cardiopulmonary and GI exam. The patient was deemed stable for discharge to inpatient rehab for continued physical and occupational therapy. DISPOSITION: Stable. DISCHARGE INSTRUCTIONS: 1. Inpatient rehab. 2. Diet: Regular diet with Ensure supplement. 3. Activity: Weightbearing as tolerated, hip precautions. 4. Followup: Follow up with Dr. Varela as needed. Follow up with Dr. Quijano in 10 days. Follow up with primary care physician as needed. Follow up with oncologist, Dr. Samayoa, as scheduled. This is just a summary of the patients visit. Job ID: [id number] MTDD
== END 2018-07-23 14:00 | DRG 481 ==
LOC: ERS 21:55 → SJJU 07-17 02:13 → SURG B 07-22 21:57
PROVIDERS: ADMIT Surgery; ATTEND Surgery
PROC: 30233N1 Transfusion of Nonautologous Red Blood Cells into Peripheral Vein, Percutaneous Approach (ICD-10-PCS; 2018-07-17)
PROC: 30233K1 Transfusion of Nonautologous Frozen Plasma into Peripheral Vein, Percutaneous Approach (ICD-10-PCS; 2018-07-17)
PROC: 30233R1 Transfusion of Nonautologous Platelets into Peripheral Vein, Percutaneous Approach (ICD-10-PCS; 2018-07-19)
PROC: 0QS604Z Reposition Right Upper Femur with Internal Fixation Device, Open Approach (ICD-10-PCS; principal; 2018-07-21)
DX: S72.141A Displaced intertrochanteric fracture of right femur, initial encounter for closed fracture (principal); N39.0 Urinary tract infection, site not specified; D61.818 Other pancytopenia; I47.1 Supraventricular tachycardia; W18.30XA Fall on same level, unspecified, initial encounter; J44.9 Chronic obstructive pulmonary disease, unspecified; K21.9 Gastro-esophageal reflux disease without esophagitis; I10 Essential (primary) hypertension; I48.0 Paroxysmal atrial fibrillation; D63.0 Anemia in neoplastic disease; D72.819 Decreased white blood cell count, unspecified; G62.9 Polyneuropathy, unspecified; Y95 Nosocomial condition; D70.9 Neutropenia, unspecified; Z85.89 Personal history of malignant neoplasm of other organs and systems; Z92.21 Personal history of antineoplastic chemotherapy; Z86.711 Personal history of pulmonary embolism; Z79.01 Long term (current) use of anticoagulants; Z87.891 Personal history of nicotine dependence; Z87.440 Personal history of urinary (tract) infections; Z88.8 Allergy status to other drugs, medicaments and biological substances
CPT/HCPCS: 36415; 36430; 71045; 71260; 74177; 76000; 80048; 80053; 81001; 83735; 84100; 85025; 85610; 85730; 86850; 86900; 86901; 87040; 87086; 87186; 93005; 93010; 96374; 96375; 96376; C1713; C1769; G0390; J0131; J1100; J1642; J2001; J2250; J2270; J2405; J2543; J2704; J3010; J3475; J3480; J7050; J7620; P9016; P9017; P9035; Q9967; S0028

== ENCOUNTER 2018-08-13 07:46 | Day surgery (SDC) | payer MEDICARE ==
[2018-08-12 11:32] VITALS: BMI 26.4
--- NOTE | 2018-08-13 13:19 | MRI ---
MRI Brain W WO Con History: [Small cell lung cancer, evaluate for metastases. CF 34.11] Comparison: MRI brain April 2018 Findings: Periventricular chronic microangiopathic changes are similar. No abnormal focal area of enh ancement to suggest intracranial metastatic disease. On the susceptibility weighted imaging sequence there are no abnormal areas of hemorrhage. The [place] flow voids are maintained. Mild mucosal thickening of the sphenoid sinus. No abn ormal calvarial enhancement. No significant vasogenic edema. Impression: No evidence for intracranial metastatic disease.
[2018-08-13] MEDS ORDERED: Gadobenate Dimeglumine 529 MG/1 ML (20ML VIAL) ONE (16:58)
== END 2018-08-13 14:18 | disposition home or self-care (01) ==
LOC: SDC/OP 07:46
PROVIDERS: ATTEND Radiology Diagnostic Radiology
PROC: B030ZZZ Magnetic Resonance Imaging (MRI) of Brain (ICD-10-PCS; principal; 2018-08-13)
DX: C34.11 Malignant neoplasm of upper lobe, right bronchus or lung (principal); I10 Essential (primary) hypertension; F32.9 Major depressive disorder, single episode, unspecified; F41.9 Anxiety disorder, unspecified; K21.9 Gastro-esophageal reflux disease without esophagitis; Z90.49 Acquired absence of other specified parts of digestive tract; Z88.8 Allergy status to other drugs, medicaments and biological substances; Z79.899 Other long term (current) drug therapy; Z98.890 Other specified postprocedural states
CPT/HCPCS: 36415; 70553; 82565

== ENCOUNTER 2018-08-14 08:31 | Day surgery (SDC) | payer MEDICARE ==
[~2018-08-14 08:31] MED LIST changes: +ATEZOLIZUMAB 1,200 MG in Sodium Chloride 0.9% 250 ML 250 ML IVPB SCH; -Dexamethasone 10 MG in Sodium Chloride 0.9% 50 ML IVPB SCH; -Dexamethasone 10 MG/ML VIAL SLOW IVP SCH; -PEGFILGRASTIM-JMDB 6 MG/0.6 ML SYRINGE SQ SCH; -Sodium Chloride 0.9% 20 ML ONE
[2018-08-14] MEDS ORDERED: Sodium Chloride 0.9% 20 ML ONE (08:38)
== END 2018-08-14 10:15 | disposition home or self-care (01) ==
LOC: ONC/OP 08:31
PROVIDERS: ATTEND Internal Medicine Hematology & Oncology
DX: Z51.11 Encounter for antineoplastic chemotherapy (principal); C34.11 Malignant neoplasm of upper lobe, right bronchus or lung; Z88.8 Allergy status to other drugs, medicaments and biological substances
CPT/HCPCS: 96413; J1642; J7050; J9022

== ENCOUNTER 2018-09-04 09:09 | Day surgery (SDC) | payer MEDICARE ==
[2018-09-04 09:40] VITALS: BP 135/62; TEMP 97.7
[2018-09-04] MEDS ORDERED: Sodium Chloride 0.9% 20 ML ONE (10:06)
== END 2018-09-04 11:16 | disposition home or self-care (01) ==
LOC: ONC/OP 09:09
PROVIDERS: ATTEND Internal Medicine Hematology & Oncology
DX: Z51.12 Encounter for antineoplastic immunotherapy (principal); C34.11 Malignant neoplasm of upper lobe, right bronchus or lung; Z88.8 Allergy status to other drugs, medicaments and biological substances
CPT/HCPCS: 96413; J1642; J7050; J9022

== ENCOUNTER 2018-09-25 09:37 | Day surgery (SDC) | payer MEDICARE ==
[2018-09-25] MEDS ORDERED: Sodium Chloride 0.9% 20 ML ONE (09:44)
[2018-09-25 10:09] VITALS: BP 104/54; TEMP 97.9
== END 2018-09-25 13:26 | disposition home or self-care (01) ==
LOC: ONC/OP 09:37
PROVIDERS: ATTEND Internal Medicine Hematology & Oncology
DX: Z51.12 Encounter for antineoplastic immunotherapy (principal); C34.11 Malignant neoplasm of upper lobe, right bronchus or lung; Z88.8 Allergy status to other drugs, medicaments and biological substances
CPT/HCPCS: 96413; J1642; J7050; J9022

== ENCOUNTER 2018-10-11 08:21 | Outpatient (CLI) | payer MEDICARE ==
--- NOTE | 2018-10-11 10:51 | CT ---
CT OF CHEST AND ABDOMEN AND PELVIS PERFORMED WITH CONTRAST ENHANCEMENT: HISTORY: Stage IV lung cancer. Followup evaluation. COMPARISON: A 07/22/2018 study. FINDINGS: Marked emphysematous lung changes are again demonstrated. Prominent bulla in the right upper lobe is stable. The pattern is suggestive of a centrilobular emphysema. There are new pulmonary nodules id entified. These nodules in general are in the 3-4 mm range seen in the right upper and lower lung fi elds. These are fairly numerous. In the left lung, a small 3 mm nodule is seen in the left upper lo be not definitely visualized on the prior exam. A slightly lobulated nodule is seen within the left lower lobe and also appears new as compared to the prior exam. Several other smaller nodules are see n in the region of the lingula and near the major fissure. None of these areas were definitively vis ualized on the prior exam. The right-sided mediastinal adenopathy which was located along the posterolateral margin of the trach ea has also increased. The best direct comparison is on the prior examination and this measured 1.9 x 2.7 cm now measuring 2.7 x 3.4 cm. The right azygous node is fairly similar in size measuring appr oximately 1.7 cm not felt to be significantly different. Slight interval increase in size of a right paratracheal node now measuring 9 mm as compared to approximately 6 mm on the prior study. Coronary artery calcifications are present. CT OF ABDOMEN PERFORMED WITH ONTRAST ENHANCEMENT: Interval increase in size of multiple liver lesions with very significant increase in size of numerou s masses with some of the lesions now measuring as much as 5 cm. The spleen is within normal limits. Pancreas region is unremarkable. Gallbladder has been removed. The right adrenal gland is normal. The left adrenal mass has increased in size from approximately 2. 2 cm to approximately 4.1 cm on the current study. Right and left kidneys are normal in appearance w ith the exception of the large left renal cyst. No significant periaortic or mesenteric adenopathy. CT OF PELVIS PERFORMED WITH CONTRAST ENHANCEMENT: Postoperative changes of the right hip are noted. No significant pelvic lymphadenopathy. The bony metastatic changes are felt to be fairly similar to the previous exam. IMPRESSION: Significant worsening of patient's metastatic disease now with multiple small pulmonary nodules. Int erval increase in size of the mediastinal adenopathy and significant increase in size of the hepatic metastatic lesions and left adrenal mass. POS: [facility]
== END 2018-10-11 08:22 | disposition home or self-care (01) ==
LOC: BICCT 08:21
PROVIDERS: ATTEND Internal Medicine Hematology & Oncology
DX: C34.11 Malignant neoplasm of upper lobe, right bronchus or lung (principal); E27.8 Other specified disorders of adrenal gland; K76.89 Other specified diseases of liver; R59.0 Localized enlarged lymph nodes; R91.8 Other nonspecific abnormal finding of lung field
CPT/HCPCS: 71260; 74177

== ENCOUNTER 2018-11-14 10:07 | Outpatient (CLI) | payer MEDICARE ==
--- NOTE | 2018-11-14 16:50 | NM ---
BONE SCAN: The patient was given 31 mCi Technetium labeled MDP IV. Whole body skeletal images. INDICATION: Secondary malignant neoplasm of bone. History of lung cancer. Recent right hip fracture 2 months ag o. COMPARISON: Correlation is made to CT chest, abdomen, and pelvis 10/11/2018. FINDINGS: Correlation is made to prior CT and there is abnormal sclerosis in the posterior left 4th rib and 5th rib with a pathologic fracture to the posterior left 5th rib and a focal soft tissue component. There is also focal activity at the costovertebral junction of the midthoracic vertebra on the left, probably 6th rib. There is intense activity in a lower thoracic vertebra, probably T12. Corresponding lesion on the re cent CT is not appreciated at this level. Activity in the mid lumbar spine to the right could be deg enerative. Activity is seen surrounding both SI joints, more prominent on the right. This corresponds to an are a of heterogeneity and lucency seen on recent CT suggesting metastatic disease to the right pelvis in volving the right sacrum and ileum. There is activity at the right hip. There has been prior internal fixation of a fracture at this loc ation and some of this activity may be postoperative at this location. There is focal activity in the mid shaft of the left femur which is concerning for metastatic deposit . IMPRESSION: 1. Evidence of bony metastatic disease seen in the upper posterior left ribs as described. 2. Evidence of metastatic disease involving the thoracic spine with intense activity in a lower thor acic vertebra, probably T12. 3. Abnormal activity surrounding the sacroiliac joints, more prominent on the right which correspond s to the area of heterogeneity seen on recent CT and indicates involvement of the right sacrum and il eum. 4. Abnormal activity at the right hip which may be postoperative in nature, although focal metastati c deposit at this location cannot be excluded. 5. Focal activity in the mid shaft of the left femur consistent with metastatic deposit. POS: CLAIR
== END 2018-11-14 10:08 | disposition home or self-care (01) ==
LOC: NM 10:07
PROVIDERS: ATTEND Internal Medicine Hematology & Oncology
DX: C34.11 Malignant neoplasm of upper lobe, right bronchus or lung (principal); C79.51 Secondary malignant neoplasm of bone
CPT/HCPCS: 78306; A9503

== ENCOUNTER 2018-12-02 10:06 | Day surgery (SDC) | payer MEDICARE ==
[2018-11-29 15:07] VITALS: BMI 26.5
[2018-12-02] MEDS ORDERED: Midazolam HCl 2 mg/2 ml Vial ONE (11:57)
--- NOTE | 2018-12-02 13:50 | MRI ---
MRI BRAIN WITH AND WITHOUT CONTRAST: Date: 12/02/18 HISTORY: 68-year-old female with headache and small cell lung cancer. Evaluate for metastasis. TECHNIQUE: Multiple sequences obtained in axial, sagittal, and coronal planes; pre and post IV injection of gado linium-based contrast agent. FINDINGS: The ventricles are normal in size and configuration. There is no restricted diffusion, abnormal intr aaxial enhancement, mass, midline shift or any other mass effect, recent intraaxial hemorrhage, or ex traaxial fluid collection. There is a mild-moderate degree of T2-hyperintensities in the cerebral whi te matter consistent with chronic ischemic white matter changes due to microvascular atherosclerosis. There is no evidence of intracranial metastatic disease. There is no interval change since 08/13/18. IMPRESSION: 1. Mild-moderate chronic ischemic white matter changes. 2. Otherwise negative. jn[] POS: LETICIA
--- NOTE | 2018-12-04 13:14 | EKG ---
Test Reason : PREOP MRI Blood Pressure : / mmHG Vent. Rate : 081 BPM Atrial Rate : 081 BPM P-R Int : 128 ms QRS Dur : 074 ms QT Int : 368 ms P-R-T Axes : 029 015 049 degrees QTc Int : 427 ms Normal sinus rhythm Normal ECG When compared with ECG of 20-JUL-2018 00:41, No significant change was found Confirmed by NANCY BROWN (2) on 12/04/2018 1:14:28 PM Referred By: KEVIN Confirmed By:NANCY BROWN
== END 2018-12-02 14:22 | disposition home or self-care (01) ==
LOC: SDC/OP 10:06
PROVIDERS: ATTEND Internal Medicine Hematology & Oncology
DX: C79.51 Secondary malignant neoplasm of bone (principal); C78.7 Secondary malignant neoplasm of liver and intrahepatic bile duct; C79.70 Secondary malignant neoplasm of unspecified adrenal gland; C34.90 Malignant neoplasm of unspecified part of unspecified bronchus or lung; I10 Essential (primary) hypertension; F41.9 Anxiety disorder, unspecified; F32.9 Major depressive disorder, single episode, unspecified; K21.9 Gastro-esophageal reflux disease without esophagitis; Z79.899 Other long term (current) drug therapy; Z87.891 Personal history of nicotine dependence; Z88.8 Allergy status to other drugs, medicaments and biological substances
CPT/HCPCS: 36415; 70553; 82565; 93005; 93010; J2250

== ENCOUNTER 2019-01-10 11:58 | Day surgery (SDC) | payer MEDICARE ==
[2019-01-10] MEDS ORDERED: Acetaminophen 500 MG TAB PO SCH (12:15)
[2019-01-10] MEDS ORDERED: diphenhydrAMINE 25 MG CAP PO SCH (12:15)
[2019-01-10] MEDS ORDERED: Sodium Chloride 0.9% 20 ML ONE (12:37)
[2019-01-10 15:10] VITALS: BP 130/62; TEMP 97.8
== END 2019-01-10 15:11 | disposition home or self-care (01) ==
LOC: ONC/OP 11:58
PROVIDERS: ATTEND Internal Medicine Hematology & Oncology
PROC: 30233R1 Transfusion of Nonautologous Platelets into Peripheral Vein, Percutaneous Approach (ICD-10-PCS; principal; 2019-01-10)
PROC: 30233N1 Transfusion of Nonautologous Red Blood Cells into Peripheral Vein, Percutaneous Approach (ICD-10-PCS; 2019-01-10)
DX: D64.9 Anemia, unspecified (principal); D69.6 Thrombocytopenia, unspecified; Z88.8 Allergy status to other drugs, medicaments and biological substances
CPT/HCPCS: 36430; 82565; 86850; 86900; 86901; J1642; P9016; Q0163

== ENCOUNTER 2019-03-24 10:11 | Day surgery (SDC) | payer MEDICARE ==
[~2019-03-24 10:11] MED LIST changes: -ATEZOLIZUMAB 1,200 MG in Sodium Chloride 0.9% 250 ML 250 ML IVPB SCH; +PROPOFOL 200 MG/20 ML VIAL ONE; +ePHEDrine/0.9% NaCl/PF SYRINGE 50 mg/10 ml ONE
[2019-03-24] MEDS ORDERED: Magnevist 469MG/ML 20 ML VIAL ONE (11:19)
[2019-03-24] MEDS ORDERED: Midazolam HCl 2 mg/2 ml Vial ONE (12:00)
[2019-03-24] MEDS ORDERED: Dexmedetomidine 200 MCG/2 ML VIAL ONE (12:00)
--- NOTE | 2019-03-24 14:57 | MRI ---
MRI BRAIN WITH AND WITHOUT CONTRAST: DATE: 03/24/2019 HISTORY: 68-year-old female with stage IV metastatic lung cancer. Evaluate for brain metastasis. TECHNIQUE: Multiplanar, multisequence MRI of the brain obtained pre and post IV injection of gadolinium based co ntrast agent. FINDINGS: There is no obstructive hydrocephalus. There is no midline shift or any other evidence of mass effect . There is no extra-axial fluid collection. There is a mild-moderate degree of T2-hyperintensities in the cerebral white matter consistent with chronic ischemic white matter changes due to microvascul ar atherosclerosis. There is no abnormal enhancement, mass, recent hemorrhage, or restricted diffusion. IMPRESSION: 1) mild-moderate chronic ischemic white matter changes. 2) otherwise negative (no evidence of intracranial metastatic disease).
== END 2019-03-24 14:24 | disposition home or self-care (01) ==
LOC: SDC/OP 10:11
PROVIDERS: ATTEND Internal Medicine Hematology & Oncology
DX: C34.11 Malignant neoplasm of upper lobe, right bronchus or lung (principal); C79.51 Secondary malignant neoplasm of bone; Z88.8 Allergy status to other drugs, medicaments and biological substances
CPT/HCPCS: 70553; 82565; A9579; J2250; J2704

== ENCOUNTER 2019-04-02 08:57 | Outpatient (CLI) | payer MEDICARE ==
--- NOTE | 2019-04-02 10:08 | CT ---
EXAM: CT chest, abdomen, and pelvis with IV contrast: HISTORY: Lung cancer with osseous metastatic disease. Stage IV small cell lung cancer. COMPARISON: 12/31/2018 FINDINGS: CT THORAX: Lungs: Emphysematous changes are again seen within the lungs bilaterally with large bulla in the righ t upper lobe similar to prior exam. The small bilobed nodular density in the left lower lobe is again seen and stable in size and appearance compared to the prior study and is also stable when comp ared to study on 10/11/2018. This measures approximately 7 mm x 6 mm. There is a stable approximate 4 mm pulmonary nodule seen in the posterior aspect of the right lower lobe as well as an additional sta ble 4 mm pulmonary nodule seen in the more inferior posterior right lung base. This is also stable compared to study on 10/11/2018. No additional discrete pulmonary nodules are seen within the lungs tracy aterally. Stable linear scarring at the right lung base is again seen with scattered linear atelectasis within the right lung. Pleura: No pleural effusion. Lymph nodes: No enlarged mediastinal, axillary, or hilar lymph nodes are seen. Mediastinum: A left subclavian Mediport catheter remains in place. Vascular calcifications are seen i n the coronary arteries as well as involving the thoracic aorta. Trace pericardial effusion is present. Thyroid gland: There are small subcentimeter hypodense nodules again seen in each lobe of the thyroid gland. Chest wall: Irregularity involving the left posterior fifth rib is seen with findings suggestive of a remote fracture are again present. The nonunion fracture involving the left posterior sixth rib is again seen which was shown to be site of metastatic lesion on prior study on 10/11/2018. No additional lytic or sclerotic lesions are seen involving the ribs. There is question of a incompletely imaged sclerotic density involving the anterior aspect of the right humeral head neck junction anteriorly wi th slight heterogeneity and sclerosis involving the superior aspect of the left humeral head, this could be on the basis of degenerative change. There are scattered sclerotic densities seen within mul tiple thoracic vertebral bodies which may related to metastatic lesions and possibly prior treated metastatic lesions as mentioned on prior report with areas of sclerosis seen in the T4, T10, and T12 vertebral bodies. There is stable compression fracture involving the T4 vertebral body as well as stable mild height loss involving the superior endplate of the T12 vertebral body. Slight irregular s clerosis is also seen involving the T2 and T3 vertebral bodies which was also present on the prior exam. CT ABDOMEN AND PELVIS: Liver: Scattered hypodense metastatic lesions are again seen throughout each lobe of the liver, but t he metastatic lesions have either decreased in size or resolved when compared to the prior study. Largest hypodense lesion in the posterior segment right hepatic lobe previously measured 2.6 cm and n ow measures 2 cm. Previously seen large lesion left hepatic lobe measured 2.5 cm and now measures approximately 1.7 cm in greatest dimensions. Gallbladder: Surgically absent.\ Pancreas: Within normal limits. Spleen: Within normal limits. Adrenal glands: Left adrenal nodule/mass previously measured 2.5 cm and measures 1.9 cm on today's ex am. The right adrenal gland has a normal CT appearance. Kidneys: Large left renal cyst is again present with desiccation seen at portions of the margins of t he cyst similar to prior study. Subcentimeter too small to characterize hypodense lesions are again seen in the right kidney. Urinary Bladder: Incompletely distended, and the urinary bladder arriaga are significantly thickened. P unctate focus of gas is present in the urinary bladder. Does appear to be mild perivesical inflammatory changes present. Cystitis in the correct clinical scenario is a possibility. These findi ngs could be attributable to chronic bladder outlet obstruction. Clinical correlation is suggested. Again this is similar to prior study. Reproductive organs: Uterus is small in size. Bowel: A few scattered colonic diverticula are seen. Loops of small bowel are normal in caliber. Adenopathy:No lymphadenopathy within the abdomen or pelvis. Peritoneum: No free fluid or fluid collection is seen. No free intraperitoneal gas is identified. Abdominal wall: No abnormalities seen. Osseous structures: There are is sclerosis involving the L4 vertebral body similar to the prior study with heterogeneity and sclerosis involving the sacrum similar to prior study and greater on the right. There is suggestion of large Tarlov cyst involving the sacrum similar to prior study. Postsurg ical changes right hip are again noted. IMPRESSION: 1. Continued interval improvement in hepatic hypodense metastatic lesions and interval decrease in si ze of left adrenal mass with stable bilateral pulmonary nodules. 2. Stable scattered sclerotic osseous lesions within lumbar vertebral bodies and right sacrum. 3. Persistent significant thickening of the arriaga of the urinary bladder with focus of gas in urinary bladder. Findings could be related to chronic bladder outlet obstruction or cystitis in the correct clinical scenario. Focus of gas in the urinary bladder may be related to recent catheterizati on. Clinical correlation suggested. 4. Stable hypodense nodules each lobe of the thyroid gland.
--- NOTE | 2019-04-02 13:52 | NM ---
WHOLE BODY BONE SCAN: INDICATION: Osseous metastatic disease. COMPARISON: Prior exam dated 12/31/2018. RADIOPHARMACEUTICAL: 33 mCi of Technetium labelled 99m MDP. FINDINGS: The areas of radiotracer accumulation within the ribs, thoracolumbar spine, right proximal femur, lef t mid shaft femur, and right shoulder are again seen. Linear uptake involving the tibia may reflect sequelae of a hyperostosis related to patient's lung cancer. There is a focal lesion within the dist al right tibia which is stable. There is urinary contamination within the peroneal region. IMPRESSION: Stable osseous metastatic disease. POS: [facility]
== END 2019-04-02 08:58 | disposition home or self-care (01) ==
LOC: CT 08:57
PROVIDERS: ATTEND Internal Medicine Hematology & Oncology
DX: C34.11 Malignant neoplasm of upper lobe, right bronchus or lung (principal); C79.51 Secondary malignant neoplasm of bone; E04.2 Nontoxic multinodular goiter; K76.9 Liver disease, unspecified
CPT/HCPCS: 71260; 74177; 78306; A9503

== ENCOUNTER 2019-07-03 09:56 | Outpatient (CLI) | payer MEDICARE ==
--- NOTE | 2019-07-03 11:49 | CT ---
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 Patient currently on chemotherapy. COMPARISON: 04/02/2019 FINDINGS: CT THORAX: Lungs: Again noted are emphysematous changes in the lungs bilaterally with large bullous emphysematou s changes in the right upper lobe. Minimal patchy density in the lingula is probably related to atelectasis. Bilobed pulmonary nodule left lung base is again seen. This nodule measures approximatel y 5 mm and previously measured 4 mm. Nodule at the right lung base in a subpleural location is again identified and measures approximately 4 mm in similar in size. No new pulmonary nodule or mass is seen bilaterally. Linear scarring is present at the posteromedial right lung base. Pleura: No pleural effusion. Lymph nodes: No lymphadenopathy. Mediastinum: Vascular calcifications are again seen in the thoracic aorta and coronary arteries with atherosclerotic plaque in the thoracic aorta. No enlarged mediastinal lymph nodes are seen. There is minimal pericardial effusion versus pericardial thickening seen anteriorly. A left subclavian Medi port catheter remains in place. Thyroid gland: Hypodense nodules are again seen in each lobe of the thyroid gland. Chest wall: No abnormalities Right fifth and sixth ribs. CT ABDOMEN AND PELVIS: Liver: Hypodense lesions are again scattered throughout each lobe of the liver worrisome for metastat ic disease. There is a larger heterogeneous hypodense lesion seen medial aspect of the liver adjacent to the hepatic IVC which measures 2.5 cm. Lesion on the prior study measured 0.8 cm. Hypoden se lesion in the posterior segment right hepatic lobe on the prior study measured 2.2 cm, and on today's examination measures 1.8 cm. There has been interval development of a new hypodense lesion me dial aspect right hepatic lobe just posterior and lateral to the IVC measuring 1.2 cm. The remaining hypodense lesions are overall similar in size and appearance. Gallbladder: Surgically absent. Pancreas: Within normal limits. Spleen: Within normal limits. Adrenal glands: Previously noted heterogeneous nodule left lobe of the thyroid gland is again seen an d similar in appearance and size and again measures approximately 1.6 cm in greatest axial dimension. Right adrenal gland has a normal CT appearance. Kidneys: Subcentimeter too small to characterize hypodense lesions are again seen in the right kidney . Large inferior pole left renal cyst is present with calcifications again present at the anterior inferior margin of the cyst. Urinary Bladder: Decompressed, the arriaga of the urinary bladder remain thickened with suggestion of m ild perivesicle inflammatory stranding also similar to prior study. Reproductive organs: Uterus is again seen and small in size. Bowel: Small amount of retained fecal material seen throughout the colon. A few scattered colonic div erticuli are seen. Loops of small bowel are normal in caliber. The appendix has a normal CT appearance. Adenopathy:No lymphadenopathy within the abdomen or pelvis. Peritoneum: No free fluid or fluid collection is seen. No free intraperitoneal gas is identified. Abdominal wall: No abnormalities seen. Osseous structures: Stable irregularity involving the left posterior fifth rib with stable nonunion f racture left posterior sixth rib is again seen. Vague subcentimeter sclerotic lesion is seen involving the right anterior fifth rib as well as sixth rib. The subtle sclerotic densities are diffi cult to further characterize. Scattered sclerotic densities are again seen in multiple thoracic vertebral bodies likely related to metastatic disease and possibly prior treated metastatic lesions. Stable compression fractures of the T5 (previously reported as T4) and T12 vertebral bodies are seen. Previously seen irregular sclerosis and lucency in the sacrum is similar to prior exam likely due to metastatic disease. 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 Postsurgical changes right proximal femur are visualized. There has been no significant interval kim ge in the sclerotic metastatic lesions noted on prior exam. IMPRESSION: 1. Interval development of new metastatic lesions in the right hepatic lobe adjacent to the IVC with persistence of additional hypodense lesions in each lobe the liver likely due to cystic metastatic disease. 2. Stable sclerotic lesion seen involving multiple vertebral bodies of thoracic and lumbar spine as w ell as the sacrum with subtle areas of sclerosis involving right anterior fifth and sixth ribs. 3. Stable left adrenal nodule likely due to metastatic lesion. 4. Stable decompression urinary bladder with thickening of the urinary bladder arriaga and adjacent per ivesical inflammatory stranding. This could be related to chronic bladder outlet obstruction or cystitis in the correct clinical scenario.
[2019-07-03] MEDS ORDERED: Iopamidol 370 76% 100 ML VIAL ONE (13:35)
--- NOTE | 2019-07-03 14:49 | NM ---
EXAM: NM Bone Scan STANDARD PROVIDED CLINICAL HISTORY: Lung cancer COMPARISON: 04/02/2019 bone scan 07/03/2019 CT chest abdomen and pelvis FINDINGS: 32.2 mCi technetium 99m labeled MDP given intravenously, with anterior and posterior whole-body plana r imaging performed after a three-hour delay. Focal areas of radiotracer uptake are again noted involving the posterior upper left ribs, thoracic a nd lumbar vertebral bodies, right hemisacrum, right femoral intertrochanteric region and left femoral diaphyseal region. There is a new focus of radiotracer uptake involving the anterior left third or fourth rib. Additiona l foci of rib uptake appears similar to prior. No evidence for a rib fracture in this region of radiotracer uptake on referenced CT examination. There is a new focus of increased radiotracer activity at the right superior pubic ramus region, chris esponding to a vague area of sclerosis on referenced CT. IMPRESSION: Osseous metastatic disease is redemonstrated, with new areas of radiotracer uptake suspicious for pro gression of disease.
== END 2019-07-03 09:57 | disposition home or self-care (01) ==
LOC: CT 09:56
PROVIDERS: ATTEND Internal Medicine Hematology & Oncology
DX: C34.11 Malignant neoplasm of upper lobe, right bronchus or lung (principal); C79.51 Secondary malignant neoplasm of bone; C78.7 Secondary malignant neoplasm of liver and intrahepatic bile duct; E27.8 Other specified disorders of adrenal gland; N32.89 Other specified disorders of bladder
CPT/HCPCS: 71260; 74177; 78306; A9503; Q9967

== ENCOUNTER 2019-07-17 11:54 | Day surgery (SDC) | payer MEDICARE ==
[2019-07-17] MEDS ORDERED: diphenhydrAMINE 25 MG CAP PO SCH (12:15)
[2019-07-17] MEDS ORDERED: Acetaminophen 500 MG TAB PO SCH (12:15)
[2019-07-17 16:15] VITALS: BP 101/52; TEMP 98.4
== END 2019-07-17 16:15 | disposition home or self-care (01) ==
LOC: ONC/OP 11:54
PROVIDERS: ATTEND Internal Medicine Hematology & Oncology
DX: D64.9 Anemia, unspecified (principal)
CPT/HCPCS: 36430; 86850; 86900; 86901; P9016; Q0163

== ENCOUNTER 2019-07-18 19:59 | Inpatient (IN) | payer MEDICARE ==
[~2019-07-18 19:59] MED LIST changes: +Iopamidol-370 76% 500 ML 1 ML ONE; -PROPOFOL 200 MG/20 ML VIAL ONE; -ePHEDrine/0.9% NaCl/PF SYRINGE 50 mg/10 ml ONE
[2019-07-18] MEDS ORDERED: Cefepime 2 GM VIAL ONE (20:32)
[2019-07-18 20:35] LABS: #Lymphocytes 0.4 thou/uL (1.20-3.40); #Neutrophils 2.3 thou/uL (1.40-6.50); %Eosinophils 0.1 % (0.0-10.0); %Lymphocytes 13.5 % (21.0-51.0); %Neutrophils 85.4 % (42.0-75.0); Hemoglobin 9.3 g/dL (12.0-16.0); Mean Corpuscular Hemoglobin 33.4 pg (27.0-31.0); Mean Corpuscular Volume 95.6 fL (78.0-98.0); Platelet Count 181 thou/uL (130-400); RBC Distribution Width 14.7 % (11.5-14.5); Red Blood Cell (RBC) Count 2.79 mill/uL (4.20-5.40); White Blood Cell (WBC) Count 2.7 thou/uL (4.8-10.8)
[2019-07-18] MEDS ORDERED: Acetaminophen 500 MG TAB ONE (20:43)
[2019-07-18] MEDS ORDERED: Vancomycin 1.5 GRAM/300 ML BAG 1.5 GM in Premix Bag 1 BAG IVPB SCH (20:45)
[2019-07-18 20:58] LABS: ALT (SGPT) 7 U/L (8-55); AST (SGOT) 19 U/L (5-34); Albumin 2.9 g/dL (3.4-4.8); Alkaline Phosphatase 80 U/L (40-110); Anion Gap 15 mmol/L (10-20); BUN (Urea Nitrogen) 9 mg/dL (9.8-20.1); Bilirubin, Total 0.5 mg/dL (0.2-1.2); Calc. Creatinine Clearance 0 mL/min (70-130); Calcium 6.1 mg/dL (7.8-10.44); Carbon Dioxide 16 mmol/L (23-31); Chloride 111 mmol/L (98-107); Estimated GFR-MDRD 55; Globulin 2.4 g/dL (2.4-3.5); Glucose 128 mg/dL (80-115); Protein, Total 5.3 g/dL (6.0-8.3); Sodium 139 mmol/L (136-145)
[2019-07-18 21:00] LABS: Magnesium 0.7 mg/dL (1.6-2.6); Potassium 2.8 mmol/L (3.5-5.1)
[2019-07-18] MEDS ORDERED: Magnesium 2 GM/50 ML BAG (IN WATER) ONE (21:06)
--- NOTE | 2019-07-18 21:17 | CT ---
CT angiogram chest: 07/18/2019 COMPARISON: None HISTORY: Lung cancer and shortness of breath TECHNIQUE: Axial CT imaging at 2.5 mm intervals from the lung bases through the lung apices with IV c ontrast using CT angiogram protocol with coronal and sagittal 3-D reformatted imaging FINDINGS: Imaged upper abdomen demonstrates cholecystectomy clips. There is a vague hypodensity withi n the right lobe of the liver measuring 1.7 cm on axial image 107, which may represent a metastatic lesion. There is also a left adrenal mass, incompletely imaged on this examination, measuring 1.7 cm, also suspicious for metastatic disease. Trace bilateral pleural effusions are noted. No significant mediastinal or pericardial effusion. No axillary lymphadenopathy. Enlarged hilar lymph nodes measure 1 cm short axis dimension on the left and up to 1.4 cm short axis dimension on the right. The thyroid gland is heterogeneous. There is multifocal atherosclerotic calcification of the imaged aorta and its branches. Coronary iraida rial calcification is noted. There is severe emphysematous change with a large pulmonary parenchymal cyst within the anterior aspe ct of the right lung measuring at least 11 cm in transverse dimension. There is no discrete/dominant pulmonary parenchymal mass lesion or nodule noted on this examination. Review of the pulmonary arterial vasculature demonstrates no evidence for acute pulmonary arterial em bolism. Review of the osseous structures demonstrates an anterior wedge compression fracture at the T5 level. There is patchy sclerotic change within the ventral aspect of the T4 vertebral body, which may signify metastatic disease. Areas of sclerosis are also noted within the T8 and T10 vertebral body. A ge-indeterminate superior endplate fracture of T12 noted. IMPRESSION: No evidence for acute pulmonary arterial embolism. Findings suspicious for metastatic dis ease include bilateral hilar lymphadenopathy, sclerotic lesions within the above described vertebral bodies, right hepatic lobe lesion, and left adrenal lesion.
[2019-07-18] MEDS ORDERED: Dexamethasone 10 MG/ML VIAL ONE (22:04)
[2019-07-18] MEDS ORDERED: Norepinephrine 4 MG/4 ML VIAL ONE (22:04)
--- NOTE | 2019-07-18 22:06 | RAD ---
Frontal radiograph chest: 07/18/2019 COMPARISON: 03/10/2019 HISTORY: Shortness of breath, fever FINDINGS: Stable left upper extremity Port-A-Cath. Coarse increased linear interstitial density noted within both lungs. Heart and mediastinal contours are stable. No lobar consolidation or alveolar edema. Recommend follow-up imaging if symptoms persist. IMPRESSION: Interstitial density with no focal consolidation or alveolar edema.
[2019-07-18] MEDS ORDERED: Dexamethasone 4 mg/ml Vial ONE (22:20)
[2019-07-18 23:32] LABS: Lactic Acid 0.6 mmol/L (0.5-2.2)
[2019-07-18] MEDS ORDERED: Potassium Chloride 40 MEQ in Sodium Chloride 0.9% 250 ML 250 ML IVPB SCH (23:45)
[2019-07-19] MEDS ORDERED: Bisacodyl 5 MG TAB PO PRN (00:28)
[2019-07-19] MEDS ORDERED: CCU Electrolyte Replacement 1 EACH IVPB ONE (00:28)
[2019-07-19] MEDS ORDERED: CCU ELECTROLYTE REPLACEMENT PROTOCOL FS PRN (00:34)
[2019-07-19] MEDS ORDERED: PHOS-NAK 1 PKT PACK PO PRN ×2 (00:34)
[2019-07-19] MEDS ORDERED: Potassium Chloride 40 MEQ in Premix Bag 1 BAG IVPB PRN (00:34)
[2019-07-19] MEDS ORDERED: Potassium Phosphate 9 MMOL in Sodium Chloride 0.9% 100 ML IVPB PRN (00:34)
[2019-07-19] MEDS ORDERED: Magnesium 2 GM/50 ML 2 GM in Premix Bag 1 BAG IVPB PRN (00:34)
[2019-07-19] MEDS ORDERED: Potassium Chloride 40 MEQ in Sodium Chloride 0.9% 250 ML 250 ML IVPB PRN (00:34)
[2019-07-19] MEDS ORDERED: Potassium Chloride 20 MEQ TAB PO PRN (00:34)
[2019-07-19] MEDS ORDERED: Potassium Phosphate 15 MMOL in Sodium Chloride 0.9% 250 ML 250 ML IV PRN (00:34)
[2019-07-19] MEDS ORDERED: Potassium Phosphate 12 MMOL in Sodium Chloride 0.9% 250 ML 250 ML IV PRN (00:34)
[2019-07-19] MEDS ORDERED: Magnesium Oxide 400 MG TAB PO PRN ×2 (00:34)
[2019-07-19] MEDS ORDERED: Norepinephrine 8 MG/0.9% NS 250 ML IVPB SCH (00:45)
[2019-07-19 01:25] LABS: Phosphorus 3.2 mg/dL (2.3-4.7)
--- NOTE | 2019-07-19 01:26 | HP ---
CHIEF COMPLAINT: Fever of 103.7. HISTORY OF PRESENT ILLNESS: The patient is a 69-year-old female with a history of history of small-cell carcinoma, [id number], who presents to the hospital with complaints of fever x1 day. The patient states that she recently started on topotecan. Her last day was today receiving it. She stated that when she went home, she had a fever of 103.7, so she called initially her oncologist who asked her to come into the hospital for further evaluation. She denies any chills at home. She states that she has been feeling very tired and she attributes this to her chemotherapy. She denies any cough. She has been having diarrhea; however this is not new. This has been going on for quite some time. She also has been having some dysuria, however, again she states that this is not new. She denies any sick contacts either. She did receive a unit of blood on Sunday for low hemoglobin. PAST MEDICAL HISTORY: She has a history of atrial fibrillation. She has a history of PE. She has a history of a small cell carcinoma. She also has a history of COPD and hypertension. PAST SURGICAL HISTORY: She has had a left-sided port. She has had a hernia repair. She also had a cholecystectomy. SOCIAL HISTORY: She was a former smoker, quit about 10 years ago. No alcohol use, drug use. She is a full code. FAMILY HISTORY: No history of heart disease or stroke. REVIEW OF SYSTEMS: All negative except for the ones mentioned above in the HPI. LABORATORY RESULTS: As of the following; her lactic acid was 0.6. Her initial lactic acid actually was 2.5. Her troponin was negative. She did have some electrolyte abnormalities. Her magnesium was 0.7. Her potassium was 2.8. Her BUN was 9, creatinine of 1.1. Her LFTs were normal. WBCs of 2.7, hemoglobin of 9.3, hematocrit of 26.6. Her platelets were 181. IMAGING: She initially had a chest x-ray, which indicated interstitial density and nonfocal consolidation. Her flu was negative. She underwent a CT angiogram, which indicated no evidence of acute PE, but she does have metastatic disease bilaterally. She does have a significant large emphysematous change and a large cyst in her right lung. Her EKG is still pending. PHYSICAL EXAMINATION: VITAL SIGNS: Temperature 99, 20, 122/57, 88, 94% on high-flow. GENERAL: She is awake, alert, and oriented x3. Does not appear in any distress. CV: S1, S2 present. No murmurs, rubs, or gallops. LUNGS: She has some mild rhonchi to her bilateral lower lung area, otherwise normal. ABDOMEN: Soft and nontender. Bowel sounds are present x2. EXTREMITIES: She does have some lower extremity pitting edema. Pedal pulses are present x2. NEUROVASCULAR: No focal deficits noted. SKIN: No cuts, lesions or bruises noted. She does have a port on her left chest wall area. ASSESSMENT AND PLAN: The patient is a very pleasant 69-year-old female, who presents to the hospital with fever. 1. Sepsis. We will start patient on broad-spectrum antibiotics, unclear etiology at this time. Upon evaluation, she was noted to be very short of breath and she was pretty hypoxic at that time. She was put on high-flow and was given a DuoNeb and she felt a lot better after that. Her urine was still pending from what ER had told me. I will start her on some broad-spectrum antibiotics including vancomycin, cefepime and we will start her on some DuoNeb also. She will be seen by Pulmonology. She is currently on high-flow. She normally has oxygen at home, but does not require it on a daily basis. Her CTA was negative for PE and we will trend her troponins. 2. Electrolyte abnormalities. I will replace her electrolytes and we will watch her closely. 3. Atrial fibrillation. We will continue her home medications including her anticoagulation. 4. Small-cell carcinoma. She is currently under treatment with topotecan. 5. Deep venous thrombosis prophylaxis. She is already on Xarelto. Job ID: [id number]
[2019-07-19 01:28] LABS: Anion Gap 18 mmol/L (10-20); BUN (Urea Nitrogen) 11 mg/dL (9.8-20.1); Calc. Creatinine Clearance 68 mL/min (70-130); Carbon Dioxide 12 mmol/L (23-31); Chloride 113 mmol/L (98-107); Estimated GFR-MDRD 60; Glucose 182 mg/dL (80-115); Magnesium 1.4 mg/dL (1.6-2.6); Potassium 3.5 mmol/L (3.5-5.1); Sodium 139 mmol/L (136-145)
[2019-07-19 01:33] LABS: Calcium 5.9 mg/dL (7.8-10.44)
[2019-07-19] MEDS ORDERED: Calcium Gluc 4.6 MEQ/10 ML (100 MG/ML) SLOW IVP SCH (01:37)
[2019-07-19] MEDS ORDERED: Magnesium 2 GM/50 ML 2 GM in Premix Bag 1 BAG IVPB SCH (01:45)
[2019-07-19] MEDS: Sodium Chloride 0.9% 1,000 ML IV SCH ×2 (02:10→20:43)
[2019-07-19 02:46] LABS: Bilirubin Negative (Negative); Blood, Urine Large (Negative); Glucose, Urine (Dipstick) Negative (Negative); Leukocyte Moderate (Negative); Nitrite Positive (Negative); Protein, Urine (Dipstick) 30 mg/dL (Neg-Trace); Urobilinogen 0.2 mg/dL (Less than 2)
[2019-07-19 02:47] LABS: Clarity Cloudy (Clear)
[2019-07-19 02:49] LABS: Squamous Epithelial 0-3 HPF (0-3); WBC/HPF Greater than 50 HPF (0-3)
[2019-07-19 02:50] LABS: Bacteria/HPF 1+ HPF (None Seen); Urine Culture Reflex Yes Yes
[2019-07-19] MEDS: Cefepime 2 GM in Sodium Chloride 0.9% 100 ML IVPB SCH ×2 (09:00→22:28)
[2019-07-19] MEDS: Ferrous Sulfate 325 MG TAB PO SCH (09:01)
[2019-07-19] MEDS: Saccharomyces boulardii 250 MG CAP PO SCH (09:02)
[2019-07-19] MEDS: Gabapentin 100 MG CAP PO SCH ×2 (09:02→16:34)
[2019-07-19] MEDS: Vancomycin 1 GM in Premix Bag 1 BAG IVPB SCH ×2 (09:07→20:43)
--- NOTE | 2019-07-19 15:32 | CON ---
DATE OF CONSULTATION: 07/19/2019 REASON FOR CONSULTATION: Probable sepsis in the setting of extensive small-cell carcinoma. HISTORY OF PRESENT ILLNESS: The patient is a 69-year-old woman with a known history of extensive small-cell carcinoma, initially diagnosed in late 2018. More recently, she was placed on single agent topotecan, subsequent to imaging that confirmed progressive disease. Her 1st cycle was on the week of admission. She called our office on the evening of admission, concerned about a fever to 103. She was directed to the emergency room, and evaluation there did show hypotension, fever without source. She is admitted for further evaluation. She has no specific symptoms to direct us to a source of infection. ALLERGIES: LOSARTAN. MEDICATIONS: At this time: 1. Albuterol neb. 2. Cefepime. 3. Diltiazem. 4. Gabapentin. 5. Protonix. 6. Potassium. 7. Levophed drip. MEDICAL ILLNESS: 1. History of hypertension. 2. Gastroesophageal reflux. SURGERIES: The patient has undergone: 1. Prior cholecystectomy. 2. Umbilical hernia repair. 3. Hiatal hernia repair. 4. Cervical mediastinal exploration and biopsy in 04/2018, which established the diagnosis. FAMILY HISTORY: There is a family history of [id number] lung cancer in multiple family members, all of whom were smokers. SOCIAL HISTORY: The patient lives with her sister. She is a former smoker and has a [id number] history of smoking. She discontinued tobacco in 05/2016. There is no history of illicit drug use. REVIEW OF SYSTEMS: Except as mentioned in history of present illness, she denies significant cardiopulmonary, GI, , musculoskeletal, or neurological complaints. PHYSICAL EXAMINATION: VITAL SIGNS: Temperature 97.5, blood pressure 106/54, pulse 76 and regular, respiratory rate 17, and O2 saturation 99 on supplemental O2. GENERAL: The patient is a well-developed and well-nourished woman who is chronically ill, but in no acute distress. She is sitting up in the ICU, watching television. She is alert, oriented, cooperative, and appropriate in conversation. HEENT: The extraocular movements are intact. The pupils are equal, round, and reactive to light. NECK: Supple. LUNGS: Clear. CARDIOVASCULAR: Regular rate and rhythm without murmur, rub, gallop, or click. ABDOMEN: No tenderness, organomegaly, masses, bruits, or ascites. EXTREMITIES: No clubbing, cyanosis, or edema. SKIN: Normal. LYMPH: No adenopathy. MUSCULOSKELETAL: No active arthritis. NEUROLOGICAL: No focal findings and the cranial nerves 2 through 12 are grossly intact. LABORATORY DATA: White blood cell count 2.7 with 85% neutrophils, hemoglobin 9.3, and platelet count 181,000. Sodium 139, potassium 3.5, chloride 113, and carbon dioxide 12. BUN is 11 and creatinine 0.93. Random blood sugar is 182. The calcium is 5.9 and albumin 2.9. IMAGING STUDIES: Chest x-ray shows some prominent interstitial findings without focal infiltrate. A CT angiogram of the chest shows no pulmonary emboli. There is evidence of mediastinal adenopathy, sclerotic lesions within the vertebral bodies, right hepatic lobe lesion, and left adrenal lesion, all known sites of metastasis. IMPRESSION: 1. Fever, hypotension, and acidosis, all worrisome for sepsis. 2. Extensive small-cell carcinoma of the lung, on salvage chemotherapy, consisting of topotecan. RECOMMENDATIONS: Continue antibiotics, fluids, oxygen, and supportive measures. We will follow with you. Job ID: [id number]
[2019-07-19] MEDS: Rivaroxaban 10 MG TAB PO SCH (16:34)
--- NOTE | 2019-07-19 17:35 | PDOC.HOSPP ---
- Subjective Encounter Date: 07/19/19 Encounter Time: 17:25 Subjective: f/u for neutropenic fever and sepsis likely due to recent chemotherapy with Topotecan. States new chemo agent on 1st cycle. Overall feeling better this pm after initially with resp distress and fever 103F. - Objective Vital Signs & Weight: Vital Signs (12 hours) Temp Pulse Resp BP Pulse Ox 07/19/19 17:07 97 07/19/19 16:51 97.5 F L 85 20 102/52 L 93 L 07/19/19 13:02 80 20 100 07/19/19 12:00 97.9 F 07/19/19 10:49 100 07/19/19 09:02 75 07/19/19 08:00 97.5 F L 100 07/19/19 06:46 75 18 100 Weight Admit Weight 161 lb 6.054 oz Weight 161 lb 6.054 oz Most Recent Monitor Data Heart Rate from ECG 87 NIBP 98/50 NIBP BP-Mean 66 Respiration from ECG 18 SpO2 100 I&O: 07/18/19 07/19/19 07/20/19 06:59 06:59 06:59 Intake Total 595.1 1132 Output Total 250 600 Balance 345.1 532 Result Diagrams: 07/18/19 20:15 07/19/19 00:57 Additional Labs: Microbiology 07/18/19 20:48 Nasopharyngeal swab Influenza Types A,B Direct EIA - Final 07/18/19 20:15 Venous blood - Right Hand Blood Culture - Preliminary Specimen has been received and culture in progress. No Growth to date. 07/18/19 20:15 Venous blood - Left Arm Blood Culture - Preliminary Specimen has been received and culture in progress. No Growth to date. Laboratory Tests 07/18/19 07/18/19 07/18/19 20:15 20:32 23:04 Potassium 2.8 L* Lactic Acid 2.5 H 0.6 Calcium 6.1 L Phosphorus Magnesium 0.7 L* 07/19/19 07/19/19 00:57 00:57 Potassium Lactic Acid Calcium Phosphorus 3.2 Magnesium 1.4 L Radiology Reviewed by me: Yes (CTA chest - no PE, bilat hilar adenopathy with metastatic process) Hospitalist ROS - Medication Medications: Active Medications Generic Name Dose Route Start Last Admin Trade Name Freq PRN Reason Stop Dose Admin Albuterol/Ipratropium 3 ml 07/19/19 01:00 07/19/19 13:02 Duoneb NEB 3 ml [id number] JACK Administration Diltiazem HCl 120 mg 07/19/19 09:00 07/19/19 09:02 Cardizem Cd PO 120 mg DAILY JACK Administration Ferrous Sulfate 324 mg 07/19/19 08:00 07/19/19 09:01 Feosol PO 324 mg QAM-WM JACK Administration Cefepime HCl 2 gm/ Sodium 100 mls @ 200 mls/hr 07/19/19 09:00 07/19/19 09:00 Chloride IVPB 100 mls Q12HR JACK Administration Vancomycin HCl 1 gm/ Device 200 mls @ 200 mls/hr 07/19/19 09:00 07/19/19 09: 07 IVPB 200 mls Q12HR JACK Administration Sodium Chloride 1,000 mls @ 50 mls/hr 07/19/19 02:00 07/19/19 02:10 Normal Saline 0.9% IV 1,000 mls .Q20H JACK Administration Pantoprazole Sodium 40 mg 07/19/19 09:00 07/19/19 09:02 Protonix PO 40 mg DAILY JACK Administration Rivaroxaban 20 mg 07/19/19 17:00 07/19/19 16:34 Xarelto PO 20 mg 1700 JACK Administration Saccharomyces Boulardii 250 mg 07/19/19 09:00 07/19/19 09:02 Florastor PO 250 mg DAILY JACK Administration Sertraline HCl 25 mg 07/19/19 09:00 07/19/19 09:02 Zoloft PO 25 mg DAILY JACK Administration - Exam General Appearance: NAD, awake alert Eye: PERRL, anicteric sclera ENT: normocephalic atraumatic, no oropharyngeal lesions Neck: supple, symmetric, no JVD, no thyromegaly Heart: RRR, no murmur, no gallops, no rubs, normal peripheral pulses Respiratory: CTAB, no wheezes, no rales, no ronchi, normal chest expansion Gastrointestinal: soft, non-tender, non-distended, normal bowel sounds, no palpable masses Extremities: no cyanosis, no clubbing, no edema Skin: normal turgor, no lesions Neurological: cranial nerve grossly intact, no new deficit Musculoskeletal: normal tone, normal strength, no muscle wasting Psychiatric: normal affect, A&O x 3 Hosp A/P (1) Neutropenic sepsis Code(s): A41.9 - SEPSIS, UNSPECIFIED ORGANISM; D70.9 - NEUTROPENIA, UNSPECIFIED Status: Acute Plan: Continue Vanc/Cefepime currently, initial blood cx negative (2) Anemia due to chemotherapy Code(s): D64.81 - ANEMIA DUE TO ANTINEOPLASTIC CHEMOTHERAPY; T45.1X5A - ADVERSE EFFECT OF ANTINEOPLASTIC AND IMMUNOSUP DRUGS, INIT Status: Acute Plan: Secondary to Topotecan, serial CBC monitoring (3) Hypokalemia Code(s): E87.6 - HYPOKALEMIA Status: Acute Plan: KCL supplementation, serial K+ monitoring (4) Hypomagnesemia Code(s): E83.42 - HYPOMAGNESEMIA Status: Acute Plan: Magnesium supplementation (5) Small cell lung cancer Code(s): C34.90 - MALIGNANT NEOPLASM OF UNSP PART OF UNSP BRONCHUS OR LUNG Status: Chronic Plan: Continue supportive mgmt, outpt Topotecan - Plan continue antibiotics, long term care social worker, respiratory therapy, DVT proph w/SCDs Stable currently Continue Vanc/Cefepime Pulmonary supportive mgmt Gabapentin 600mg TID OOB/ambulate Magnesium/KCL supplementation AM lab: BMP, Mg++, CBC
--- NOTE | 2019-07-19 18:41 | CON ---
DATE OF CONSULTATION: 07/19/2019 HISTORY OF PRESENT ILLNESS: Irma Ramirez is a very pleasant woman, who was recently unfortunately diagnosed with small-cell lung cancer. She is scheduled for an MRI as an outpatient on Sunday. I will go ahead and put the order in for that here while she is here. She was admitted with febrile illness, hypotension, but has weaned off her pressors and said she feels much better. She is now afebrile. She is empirically placed on antimicrobial therapy. PAST MEDICAL HISTORY: Remarkable for; 1. Small-cell cancer. She is currently being evaluated for brain metastasis. Dr. Dawn wanted to radiate her, which she is supposed to that. 2. History of hypertension. 3. History of cholecystectomy. 4. History of herniorrhaphy. 5. History of hiatal hernia repair. 6. History of mediastinoscopy in April 2018, which led to her diagnosis. FAMILY HISTORY: Negative for lung disease in early age. Positive for lung cancer. REVIEW OF SYSTEMS: Ten points otherwise negative. PHYSICAL EXAMINATION: GENERAL: She is pleasant, no distress. VITAL SIGNS: Blood pressures in the 100-110 range when I saw her, she is afebrile, heart rate is in 80s, respiratory rates in the teens. HEAD AND NECK: Unremarkable. She has alopecia as expected. LUNGS: Clear. HEART: Regular rhythm. S1, S2 are normal. ABDOMEN: Soft and nontender. EXTREMITIES: Without clubbing, cyanosis, or edema. NEURO: Grossly nonfocal. IMPRESSION: Febrile illness in the setting of small-cell lung cancer, receiving chemotherapy. She appears to be clinically improving. Probably should get her MRI of her brain prior to discharge to save her from the inconvenience for having to come back for that. All discussed with Dr. Small. TIME SPENT: This is a 70-minute consult, 50% of the time spent on the unit coordinating care. Job ID: [id number] [facility]
[2019-07-19] MEDS: Magnesium Oxide 400 MG TAB PO SCH (20:42)
[2019-07-19] MEDS: Atenolol 25 MG TAB PO SCH (20:42)
[2019-07-19] MEDS: Multivit, Therapeutic 1 TAB PO SCH (20:42)
[2019-07-19] MEDS: Gabapentin 300 MG CAP PO SCH (20:42)
[2019-07-20 06:19] LABS: Anion Gap 12 mmol/L (10-20); BUN (Urea Nitrogen) 17 mg/dL (9.8-20.1); Calc. Creatinine Clearance 115 mL/min (70-130); Calcium 6.5 mg/dL (7.8-10.44); Carbon Dioxide 15 mmol/L (23-31); Chloride 116 mmol/L (98-107); Estimated GFR-MDRD 63; Glucose 149 mg/dL (80-115); Magnesium 1.5 mg/dL (1.6-2.6); Potassium 3.7 mmol/L (3.5-5.1); Sodium 139 mmol/L (136-145)
[2019-07-20 06:53] LABS: White Blood Cell (WBC) Count 0.3 thou/uL (4.8-10.8)
[2019-07-20 06:55] LABS: Anisocytosis SLIGHT = 6-15 cells (100X) (0-5/hpf); Hemoglobin 7.7 g/dL (12.0-16.0); MDiff Complete? YES; Mean Corpuscular HGB CONC 33.8 g/dL (32.0-36.0); Mean Corpuscular Hemoglobin 32.7 pg (27.0-31.0); Mean Corpuscular Volume 96.7 fL (78.0-98.0); Mean Platelet Volume 7.1 fL (7.4-10.4); Platelet Count 116 thou/uL (130-400); Platelet Morphology Comment Appears Decreased; RBC Distribution Width 14.3 % (11.5-14.5); Red Blood Cell (RBC) Count 2.34 mill/uL (4.20-5.40)
[2019-07-20] MEDS: Cefepime 2 GM in Sodium Chloride 0.9% 100 ML IVPB SCH ×2 (09:00→19:58)
[2019-07-20] MEDS: Gabapentin 300 MG CAP PO SCH ×3 (10:00→19:58)
[2019-07-20] MEDS: Saccharomyces boulardii 250 MG CAP PO SCH (10:00)
[2019-07-20] MEDS: Magnesium Oxide 400 MG TAB PO SCH ×2 (10:00→19:58)
[2019-07-20] MEDS: Atenolol 25 MG TAB PO SCH ×2 (10:00→20:07)
[2019-07-20] MEDS: Vancomycin 1 GM in Premix Bag 1 BAG IVPB SCH ×2 (10:22→19:57)
[2019-07-20] MEDS: Ferrous Sulfate 325 MG TAB PO SCH (10:24)
--- NOTE | 2019-07-20 11:30 | PDOC.HOSPP ---
- Subjective Encounter Date: 07/20/19 Encounter Time: 11:20 Subjective: f/u for neutropenic sepsis on current Cefepime/Vancomycin with blood cx negative. Still feels weak and chilled. No fever documented in last 24h. - Objective Vital Signs & Weight: Vital Signs (12 hours) Temp Pulse Resp BP Pulse Ox 07/20/19 10:00 109 H 07/20/19 08:00 96 07/20/19 07:34 98.1 F 109 H 16 98/55 L 96 07/20/19 07:02 96 16 07/20/19 01:28 99 Weight Admit Weight 161 lb 6.054 oz Weight 262 lb 12.8 oz Most Recent Monitor Data Heart Rate from ECG 87 NIBP 98/50 NIBP BP-Mean 66 Respiration from ECG 18 SpO2 100 I&O: 07/19/19 07/20/19 07/21/19 06:59 06:59 06:59 Intake Total 595.1 1532 Output Total 250 600 Balance 345.1 932 Result Diagrams: 07/20/19 05:46 07/20/19 05:46 Additional Labs: Microbiology 07/18/19 20:48 Nasopharyngeal swab Influenza Types A,B Direct EIA - Final 07/18/19 20:15 Venous blood - Right Hand Blood Culture - Preliminary Specimen has been received and culture in progress. No Growth to date. 07/18/19 20:15 Venous blood - Left Arm Blood Culture - Preliminary Specimen has been received and culture in progress. No Growth to date. Laboratory Tests 07/18/19 07/18/19 07/18/19 20:15 20:32 23:04 Potassium 2.8 L* Lactic Acid 2.5 H 0.6 Calcium 6.1 L Phosphorus Magnesium 0.7 L* 07/19/19 07/19/19 00:57 00:57 Potassium Lactic Acid Calcium Phosphorus 3.2 Magnesium 1.4 L Hospitalist ROS - Medication Medications: Active Medications Generic Name Dose Route Start Last Admin Trade Name Freq PRN Reason Stop Dose Admin Albuterol/Ipratropium 3 ml 07/19/19 01:00 07/20/19 07:02 Duoneb NEB 3 ml [id number] JACK Administration Atenolol 25 mg 07/19/19 21:00 07/20/19 10:00 Tenormin PO 25 mg BID JACK Administration Diltiazem HCl 120 mg 07/19/19 09:00 07/20/19 10:00 Cardizem Cd PO 120 mg DAILY JACK Administration Ferrous Sulfate 324 mg 07/19/19 08:00 07/20/19 10:24 Feosol PO 324 mg QAM-WM JACK Administration Gabapentin 600 mg 07/19/19 21:00 07/20/19 10:00 Neurontin PO 600 mg TID JACK Administration Cefepime HCl 2 gm/ Sodium 100 mls @ 200 mls/hr 07/19/19 09:00 07/20/19 09:00 Chloride IVPB 100 mls Q12HR JACK Administration Vancomycin HCl 1 gm/ Device 200 mls @ 200 mls/hr 07/19/19 09:00 07/20/19 10: 22 IVPB 200 mls Q12HR JACK Administration Sodium Chloride 1,000 mls @ 50 mls/hr 07/19/19 02:00 07/19/19 20:43 Normal Saline 0.9% IV 1,000 mls .Q20H JACK Administration Magnesium Oxide 400 mg 07/19/19 21:00 07/20/19 10:00 Magnesium Oxide PO 400 mg BID JACK Administration Multivitamins 1 tab 07/19/19 21:00 07/19/19 20:42 Theragran PO 1 tab HS JACK Administration Pantoprazole Sodium 40 mg 07/19/19 09:00 07/20/19 10:00 Protonix PO 40 mg DAILY JACK Administration Rivaroxaban 20 mg 07/19/19 17:00 07/19/19 16:34 Xarelto PO 20 mg 1700 JACK Administration Saccharomyces Boulardii 250 mg 07/19/19 09:00 07/20/19 10:00 Florastor PO 250 mg DAILY JACK Administration Sertraline HCl 25 mg 07/19/19 09:00 07/20/19 10:00 Zoloft PO 25 mg DAILY JACK Administration - Exam General Appearance: NAD, awake alert Eye: PERRL, anicteric sclera ENT: normocephalic atraumatic, no oropharyngeal lesions Neck: supple, symmetric, no JVD, no thyromegaly Heart: RRR, no murmur, no gallops, no rubs, normal peripheral pulses Heart - other findings: S1, S2 Respiratory: CTAB, no rales, no ronchi, normal chest expansion Gastrointestinal: soft, non-tender, non-distended, normal bowel sounds, no palpable masses, no hepatomegaly Extremities: no cyanosis, no clubbing, no edema Skin: normal turgor, no lesions Neurological: cranial nerve grossly intact, no new deficit Musculoskeletal: normal tone, normal strength, no muscle wasting Psychiatric: normal affect, A&O x 3 Hosp A/P (1) Neutropenic sepsis Code(s): A41.9 - SEPSIS, UNSPECIFIED ORGANISM; D70.9 - NEUTROPENIA, UNSPECIFIED Status: Acute Plan: Continue Cefepime/Vancomycin, continue neutropenic precautions, serial CBC monitoring (2) Anemia due to chemotherapy Code(s): D64.81 - ANEMIA DUE TO ANTINEOPLASTIC CHEMOTHERAPY; T45.1X5A - ADVERSE EFFECT OF ANTINEOPLASTIC AND IMMUNOSUP DRUGS, INIT Status: Acute Plan: Serial monitoring, no evidence of active blood loss (3) Hypokalemia Code(s): E87.6 - HYPOKALEMIA Status: Acute Plan: Improved, continue KCL supplementation (4) Hypomagnesemia Code(s): E83.42 - HYPOMAGNESEMIA Status: Acute Plan: Improving slowly, continue Mg++ supplementation (5) Small cell lung cancer Code(s): C34.90 - MALIGNANT NEOPLASM OF UNSP PART OF UNSP BRONCHUS OR LUNG Status: Chronic Plan: Continue Topotecan as outpt - Plan continue antibiotics, PT/OT, neonatal social worker, respiratory therapy, out of bed/ ambulate, DVT proph w/SCDs Stable currently Continue Vanc/Cefepime Pulmonary supportive mgmt/Duonebs Gabapentin 600mg TID OOB/ambulate Magnesium/KCL supplementation AM lab: BMP, Mg++, CBC
[2019-07-20] MEDS: Rivaroxaban 10 MG TAB PO SCH (17:00)
[2019-07-20] MEDS: Sodium Chloride 0.9% 1,000 ML IV SCH (18:00)
[2019-07-20] MEDS: Multivit, Therapeutic 1 TAB PO SCH (19:58)
[2019-07-20 20:04] LABS: Hemoglobin 7.4 g/dL (12.0-16.0); Mean Corpuscular Hemoglobin 31.9 pg (27.0-31.0); Mean Corpuscular Volume 96.8 fL (78.0-98.0); Mean Platelet Volume 7.5 fL (7.4-10.4); Platelet Count 112 thou/uL (130-400); RBC Distribution Width 14.3 % (11.5-14.5); Red Blood Cell (RBC) Count 2.33 mill/uL (4.20-5.40); White Blood Cell (WBC) Count 0.2 thou/uL (4.8-10.8)
[2019-07-21 05:19] LABS: White Blood Cell (WBC) Count 0.2 thou/uL (4.8-10.8)
[2019-07-21 05:40] LABS: Anion Gap 10 mmol/L (10-20); BUN (Urea Nitrogen) 17 mg/dL (9.8-20.1); Calc. Creatinine Clearance 121 mL/min (70-130); Calcium 6.9 mg/dL (7.8-10.44); Carbon Dioxide 18 mmol/L (23-31); Chloride 117 mmol/L (98-107); Estimated GFR-MDRD 67; Glucose 99 mg/dL (80-115); Magnesium 1.4 mg/dL (1.6-2.6); Potassium 3.6 mmol/L (3.5-5.1); Sodium 141 mmol/L (136-145)
[2019-07-21 05:59] LABS: Hemoglobin 7.2 g/dL (12.0-16.0); Mean Corpuscular HGB CONC 33.2 g/dL (32.0-36.0); Mean Corpuscular Hemoglobin 32.1 pg (27.0-31.0); Mean Corpuscular Volume 96.7 fL (78.0-98.0); Mean Platelet Volume 7.1 fL (7.4-10.4); Platelet Count 94 thou/uL (130-400); Platelet Morphology Comment Appears Decreased; RBC Distribution Width 14.4 % (11.5-14.5); Red Blood Cell (RBC) Count 2.22 mill/uL (4.20-5.40)
[2019-07-21] MEDS: Ferrous Sulfate 325 MG TAB PO SCH ×2 (08:00→08:59)
[2019-07-21] MEDS: Cefepime 2 GM in Sodium Chloride 0.9% 100 ML IVPB SCH ×2 (08:57→20:37)
[2019-07-21] MEDS: Vancomycin 1 GM in Premix Bag 1 BAG IVPB SCH ×2 (08:57→22:30)
[2019-07-21] MEDS: Saccharomyces boulardii 250 MG CAP PO SCH (08:59)
[2019-07-21] MEDS: Magnesium Oxide 400 MG TAB PO SCH ×3 (08:59→20:42)
[2019-07-21] MEDS: Gabapentin 300 MG CAP PO SCH ×4 (08:59→20:42)
[2019-07-21] MEDS: Atenolol 25 MG TAB PO SCH ×2 (09:00→22:52)
[2019-07-21] MEDS ORDERED: Rocuronium Bromide 10 MG/ML (10ML VIAL) ONE (09:45)
[2019-07-21] MEDS ORDERED: PROPOFOL 200 MG/20 ML VIAL ONE (09:45)
[2019-07-21] MEDS ORDERED: Succinylcholine Chloride 20 MG/ML 10 ml SYRINGE FS ONE (09:45)
[2019-07-21] MEDS ORDERED: SUGAMMADEX SODIUM 200 MG/2 ML VIAL ONE (12:27)
--- NOTE | 2019-07-21 13:21 | MRI ---
MRI BRAIN WITH AND WITHOUT IV CONTRAST: HISTORY: Lung cancer. Malignant neoplasm of bone. Evaluate for brain metastases COMPARISON: 03/24/2019 CORRELATION: None FINDINGS: No restricted diffusion is seen. No evidence of infarct, hemorrhage, mass, midline shift or abnormal extra-axial fluid collections is noted. No abnormal postcontrast enhancement is seen. The ventricular size is appropriate and the basilar cisterns are patent. There are multiple foci of T2 prolongation in the periventricular white matter, consistent with chron ic small vessel ischemic disease. There is fluid in the sphenoid sinus. IMPRESSION: No evidence of acute intracranial process or mass/metastatic disease.
[2019-07-21] MEDS ORDERED: Magnevist 469MG/ML 20 ML VIAL ONE (13:48)
[2019-07-21] MEDS: Sodium Chloride 0.9% 1,000 ML IV SCH ×2 (14:00→20:38)
[2019-07-21] MEDS: Rivaroxaban 10 MG TAB PO SCH (17:36)
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
[2019-07-21] MEDS: Multivit, Therapeutic 1 TAB PO SCH (20:42)
[2019-07-21] MEDS ORDERED: Sodium Chloride 0.9% 500 ML IVPB SCH (21:30)
[2019-07-21] MEDS ORDERED: Sodium Chloride 0.9% 500 ML IV SCH (21:30)
[2019-07-22] MEDS ORDERED: Chloraseptic Spray 180 ml Bottle PO PRN (03:29)
[2019-07-22 06:48] LABS: Hemoglobin 6.9 g/dL (12.0-16.0); Mean Corpuscular HGB CONC 33.4 g/dL (32.0-36.0); Mean Corpuscular Hemoglobin 32.3 pg (27.0-31.0); Mean Corpuscular Volume 96.5 fL (78.0-98.0); Mean Platelet Volume 7.3 fL (7.4-10.4); Platelet Count 69 thou/uL (130-400); RBC Distribution Width 14.3 % (11.5-14.5); Red Blood Cell (RBC) Count 2.12 mill/uL (4.20-5.40); White Blood Cell (WBC) Count 0.3 thou/uL (4.8-10.8)
[2019-07-22 07:03] LABS: Anion Gap 12 mmol/L (10-20); BUN (Urea Nitrogen) 18 mg/dL (9.8-20.1); Calc. Creatinine Clearance 63 mL/min (70-130); Calcium 7.9 mg/dL (7.8-10.44); Carbon Dioxide 19 mmol/L (23-31); Chloride 112 mmol/L (98-107); Estimated GFR-MDRD 57; Glucose 95 mg/dL (80-115); Potassium 3.4 mmol/L (3.5-5.1); Sodium 140 mmol/L (136-145)
[2019-07-22 07:26] LABS: MDiff Complete? YES; Platelet Morphology Comment Appears Decreased; Polychromasia SLIGHT = 2-3 cells (100X) (0-2/hpf); Tear Drops SLIGHT = 2-5 cells (100X) (0-1/hpf)
--- NOTE | 2019-07-22 08:47 | PDOC.MOPN ---
Interval History: Pt feeling good today w/o complaints. She has been afebrile since admission. No N/V. States her SOB has improved. - Vital Signs Vital Signs: Vital Signs (12 hours) Temp Pulse Resp BP Pulse Ox 07/22/19 00:01 88 16 95 07/22/19 00:00 98.9 F 120 H 16 110/53 L 96 07/21/19 22:52 107 H 07/21/19 22:30 106 H 107/53 L Weight Admit Weight 161 lb 6.054 oz Weight 156 lb 4.8 oz Most Recent Monitor Data Heart Rate from ECG 87 NIBP 98/50 NIBP BP-Mean 66 Respiration from ECG 18 SpO2 100 - Physical Exam General: Alert, Oriented x3, Cooperative HEENT: Atraumatic, EOMI Lungs: Normal air movement Cardiovascular: Regular rate Extremities: No edema Neurological: Cranial nerves 3-12 NL Psych/Mental Status: Mood NL - Labs Result Diagrams: 07/22/19 06:30 07/22/19 06:30 Lab results: Laboratory Results - last 24 hr 07/22/19 06:30: WBC 0.3 L*, RBC 2.12 L, Hgb 6.9 L, Hct 20.5 L, MCV 96.5, MCH 32.3 H, MCHC 33.4, RDW 14.3, Plt Count 69 L, MPV 7.3 L, Neutrophils % (Manual) Not Reportable, Plt Morphology Comment Appears Decreased L, Polychromasia SLIGHT = 2-3 cells, Tear Drop Cells SLIGHT = 2-5 cells 07/22/19 06:30: Sodium 140, Potassium 3.4 L, Chloride 112 H, Carbon Dioxide 19 L , Anion Gap 12, BUN 18, Creatinine 0.97, Estimated GFR (MDRD) 57, Glucose 95, Calcium 7.9 07/19/19 00:57: Ionized Calcium 3.2 L A/P - Problem (1) Neutropenic sepsis Current Visit: Yes Code(s): A41.9 - SEPSIS, UNSPECIFIED ORGANISM; D70.9 - NEUTROPENIA, UNSPECIFIED Status: Acute (2) Small cell lung cancer Current Visit: Yes Code(s): C34.90 - MALIGNANT NEOPLASM OF UNSP PART OF UNSP BRONCHUS OR LUNG Status: Chronic - Plan Plan: Start Granxi SQ daily until ANC 1.0 D/C Vancomycin, cont cefepime until ANC 1.0 Titrate off O2 as tolerated
[2019-07-22] MEDS: Gabapentin 300 MG CAP PO SCH ×3 (08:54→21:09)
[2019-07-22] MEDS: Sodium Chloride 0.9% 1,000 ML IV SCH ×3 (08:56→19:33)
[2019-07-22] MEDS: Ferrous Sulfate 325 MG TAB PO SCH (08:57)
[2019-07-22] MEDS: Saccharomyces boulardii 250 MG CAP PO SCH (08:58)
[2019-07-22] MEDS: Magnesium Oxide 400 MG TAB PO SCH ×2 (08:59→21:08)
[2019-07-22] MEDS: Atenolol 25 MG TAB PO SCH ×2 (08:59→21:06)
[2019-07-22] MEDS: Cefepime 2 GM in Sodium Chloride 0.9% 100 ML IVPB SCH ×2 (09:14→21:08)
--- NOTE | 2019-07-22 11:11 | RAD ---
XR Chest 1 View Portable HISTORY: Tachycardia COMPARISON: 07/18/2019 FINDINGS: Left-sided Port-A-Cath remains in place. The heart size is stable. Chronic lung changes are again seen. No lobar consolidation, pneumothoraces or large effusions are identified.
[2019-07-22] MEDS ORDERED: Atenolol 25 MG TAB PO SCH (11:15)
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
[2019-07-22] MEDS ORDERED: Magnesium 2 GM/50 ML 2 GM in Premix Bag 1 BAG IVPB SCH ×2 (15:45→21:00)
[2019-07-22] MEDS: Diltiazem 125 MG in Sodium Chloride 0.9% 100 ML IVPB SCH (16:11)
[2019-07-22] MEDS ORDERED: Sodium Chloride 0.9% 500 ML IV SCH (20:00)
[2019-07-22] MEDS: Multivit, Therapeutic 1 TAB PO SCH (21:09)
--- NOTE | 2019-07-22 22:57 | EKG ---
Test Reason : Blood Pressure : / mmHG Vent. Rate : 156 BPM Atrial Rate : 170 BPM P-R Int : 000 ms QRS Dur : 070 ms QT Int : 282 ms P-R-T Axes : 000 014 047 degrees QTc Int : 454 ms Atrial fibrillation with rapid ventricular response Abnormal ECG When compared with ECG of 18-JUL-2019 23:55, (Unconfirmed) Atrial fibrillation has replaced Sinus rhythm Vent. rate has increased BY 67 BPM Confirmed by NORMA POTTS, SRuy ([id number]) on 07/22/2019 10:57:22 PM Referred By: JENISE Confirmed By:DR. Ambrosio GREEN MD
[2019-07-23] MEDS: Diltiazem 125 MG in Sodium Chloride 0.9% 100 ML IVPB SCH (03:11)
[2019-07-23] MEDS: Acetaminophen 325 MG TAB PO PRN ×2 (03:45→15:04)
[2019-07-23 05:01] LABS: White Blood Cell (WBC) Count 0.3 thou/uL (4.8-10.8)
[2019-07-23 05:06] LABS: Anion Gap 13 mmol/L (10-20); BUN (Urea Nitrogen) 15 mg/dL (9.8-20.1); Calc. Creatinine Clearance 81 mL/min (70-130); Carbon Dioxide 19 mmol/L (23-31); Chloride 109 mmol/L (98-107); Estimated GFR-MDRD 77; Glucose 107 mg/dL (80-115); Magnesium 1.4 mg/dL (1.6-2.6); Potassium 3.5 mmol/L (3.5-5.1); Sodium 137 mmol/L (136-145)
[2019-07-23 05:14] LABS: Hemoglobin 8.4 g/dL (12.0-16.0); Mean Corpuscular HGB CONC 35.1 g/dL (32.0-36.0); Mean Corpuscular Hemoglobin 33.2 pg (27.0-31.0); Mean Corpuscular Volume 94.5 fL (78.0-98.0); Mean Platelet Volume 8.7 fL (7.4-10.4); Platelet Count 45 thou/uL (130-400); Platelet Morphology Comment Appears Decreased; RBC Distribution Width 13.9 % (11.5-14.5); Red Blood Cell (RBC) Count 2.53 mill/uL (4.20-5.40)
[2019-07-23] MEDS: Sodium Chloride 0.9% 1,000 ML IV SCH ×2 (06:28→08:59)
--- NOTE | 2019-07-23 08:10 | PDOC.HOSPP ---
- Subjective Encounter Date: 07/23/19 Encounter Time: 08:10 Subjective: f/u for neutropenic sepsis on Cefepime and A-fib RVR tx with Cardizem gtt. Rate variable but overall improved. Tmax 101F this am. - Objective Vital Signs & Weight: Vital Signs (12 hours) Temp Pulse Resp BP BP Pulse Ox 07/23/19 07:59 92 L 07/23/19 07:55 102 H 20 92 L 07/23/19 07:15 98.7 F 101 H 18 107/53 L 93 L 07/23/19 04:00 101 F H 103 H 18 115/57 L 92 L 07/23/19 00:19 105 H 20 95 07/22/19 21:06 141 H 101/51 L Weight Admit Weight 161 lb 6.054 oz Weight 156 lb 3 oz Most Recent Monitor Data Heart Rate from ECG 87 NIBP 98/50 NIBP BP-Mean 66 Respiration from ECG 18 SpO2 100 I&O: 07/22/19 07/23/19 07/24/19 06:59 06:59 06:59 Intake Total 1234 Output Total 2300 Balance -2300 1234 Result Diagrams: 07/23/19 04:38 07/23/19 04:38 Additional Labs: Microbiology 07/19/19 02:59 Urine clean catch Urine Culture - Final NO GROWTH AT 48 HOURS 07/18/19 20:48 Nasopharyngeal swab Influenza Types A,B Direct EIA - Final 07/18/19 20:15 Venous blood - Right Hand Blood Culture - Preliminary Specimen has been received and culture in progress. No Growth to date. 07/18/19 20:15 Venous blood - Left Arm Blood Culture - Preliminary Specimen has been received and culture in progress. No Growth to date. Laboratory Tests 07/18/19 07/18/19 07/18/19 20:15 20:32 23:04 WBC Hgb Plt Count Potassium 2.8 L* Lactic Acid 2.5 H 0.6 Calcium 6.1 L Phosphorus Magnesium 0.7 L* TSH 3rd Generation 07/19/19 07/19/19 07/21/19 00:57 00:57 04:56 WBC Hgb Plt Count Potassium 3.6 Lactic Acid Calcium 6.9 L Phosphorus 3.2 Magnesium 1.4 L TSH 3rd Generation 03/16/20 03/18/20 03/18/20 04:56 04:38 04:38 WBC 0.2 L* Hgb 7.2 L Plt Count 94 L Potassium Lactic Acid Calcium Phosphorus Magnesium 1.4 L TSH 3rd Generation 0.5126 Radiology Reviewed by me: Yes (Echo - EF undetermined, moderate pericardial effusion, mod LAE) EKG Reviewed by me: Yes (Tele - A-fib in low-100's, intermittent sinus tachycardia) Hospitalist ROS - Medication Medications: Active Medications Generic Name Dose Route Start Last Admin Trade Name Freq PRN Reason Stop Dose Admin Acetaminophen 650 mg 07/23/19 03:43 07/23/19 03:45 Tylenol PO 650 mg Q6H PRN Administration Headache/Fever or Pain Albuterol/Ipratropium 3 ml 07/19/19 01:00 07/23/19 07:55 Duoneb NEB 3 ml [id number] JACK Administration Atenolol 25 mg 07/19/19 21:00 07/22/19 21:06 Tenormin PO Not Given BID JACK Diltiazem HCl 120 mg 07/19/19 09:00 07/22/19 08:57 Cardizem Cd PO 120 mg DAILY JACK Administration Ferrous Sulfate 324 mg 07/19/19 08:00 07/22/19 08:57 Feosol PO 324 mg QAM-WM JACK Administration Gabapentin 600 mg 07/19/19 21:00 07/22/19 21:09 Neurontin PO 600 mg TID JACK Administration Cefepime HCl 2 gm/ Sodium 100 mls @ 200 mls/hr 07/19/19 09:00 07/22/19 21:08 Chloride IVPB 100 mls Q12HR JACK Administration Sodium Chloride 1,000 mls @ 100 mls/hr 07/22/19 09:45 07/23/19 06:28 Normal Saline 0.9% IV 1,000 mls .Q10H JACK Administration Diltiazem HCl 125 mg/ Sodium 125 mls @ 10 mls/hr 07/22/19 15:14 07/23/19 03: 11 Chloride IVPB 125 mls INF JACK Administration Protocol 10 MG/HR Magnesium Oxide 400 mg 07/19/19 21:00 07/22/19 21:08 Magnesium Oxide PO 400 mg BID JACK Administration Multivitamins 1 tab 07/19/19 21:00 07/22/19 21:09 Theragran PO 1 tab HS JACK Administration Pantoprazole Sodium 40 mg 07/19/19 09:00 07/22/19 08:57 Protonix PO 40 mg DAILY JACK Administration Phenol 0 ml 07/22/19 03:29 07/22/19 04:02 Chloraseptic [place] 180 Ml Bot PO 2 spr PRN PRN Administration SORE THROAT Saccharomyces Boulardii 250 mg 07/19/19 09:00 07/22/19 08:58 Florastor PO 250 mg DAILY JACK Administration Sertraline HCl 25 mg 07/19/19 09:00 07/22/19 08:57 Zoloft PO 25 mg DAILY JACK Administration Tbo-Filgrastim 480 mcg 07/22/19 09:00 07/22/19 10:31 Granix SC 480 mcg DAILY JACK Administration - Exam General Appearance: NAD, awake alert Eye: PERRL, anicteric sclera ENT: normocephalic atraumatic, no oropharyngeal lesions Neck: supple, symmetric, no JVD, no thyromegaly Heart: no gallops, no rubs, normal peripheral pulses, irregular Heart - other findings: S1, S2 tachycardic Respiratory: no ronchi, normal chest expansion, tachypneic Respiratory - other findings: occasional wheeze Gastrointestinal: soft, non-tender, non-distended, normal bowel sounds, no palpable masses Extremities: no cyanosis, no clubbing, no edema Skin: normal turgor, no lesions Neurological: cranial nerve grossly intact, no new deficit Musculoskeletal: normal tone, generalized weakness Psychiatric: normal affect, A&O x 3 Hosp A/P (1) Atrial fibrillation with RVR Code(s): I48.91 - UNSPECIFIED ATRIAL FIBRILLATION Status: Acute Plan: Rate remains elevated on Cardizem gtt but overall improved, likely related to neutropenic sepsis, continue Cardizem gtt, consult Cardiology, Atenolol/ Cardizem po (2) Neutropenic sepsis Code(s): A41.9 - SEPSIS, UNSPECIFIED ORGANISM; D70.9 - NEUTROPENIA, UNSPECIFIED Status: Acute Plan: Continue Cefepime, blood/ucx negative to date (3) Anemia due to chemotherapy Code(s): D64.81 - ANEMIA DUE TO ANTINEOPLASTIC CHEMOTHERAPY; T45.1X5A - ADVERSE EFFECT OF ANTINEOPLASTIC AND IMMUNOSUP DRUGS, INIT Status: Acute Plan: Improved, s/p 1u PRBC's, serial H/H (4) Hypokalemia Code(s): E87.6 - HYPOKALEMIA Status: Acute Plan: Improved (5) Hypomagnesemia Code(s): E83.42 - HYPOMAGNESEMIA Status: Acute Plan: Persistently low, continue Mg++ supplementation (6) Small cell lung cancer Code(s): C34.90 - MALIGNANT NEOPLASM OF UNSP PART OF UNSP BRONCHUS OR LUNG Status: Chronic Plan: Chemotherapy per medical oncology service - Plan continue antibiotics, PT/OT, donor services technician, DVT proph w/SCDs Stable currently Continue Cefepime Pulmonary supportive mgmt/Duonebs Gabapentin 600mg TID Cardizem gtt 10mg/h Mag Oxide 400mg BID s/p 1u PRBC's OOB/ambulate Magnesium/KCL supplementation Outpt follow up for chemotherapy Consult Cardiology regarding A-fib RVR AM lab: BMP, CBC
[2019-07-23] MEDS: Ferrous Sulfate 325 MG TAB PO SCH (08:58)
[2019-07-23] MEDS: Cefepime 2 GM in Sodium Chloride 0.9% 100 ML IVPB SCH ×2 (09:08→20:30)
[2019-07-23] MEDS: Magnesium Oxide 400 MG TAB PO SCH ×2 (09:11→20:36)
[2019-07-23] MEDS: Gabapentin 300 MG CAP PO SCH ×3 (09:11→20:31)
[2019-07-23] MEDS: Saccharomyces boulardii 250 MG CAP PO SCH (09:11)
[2019-07-23] MEDS: Atenolol 25 MG TAB PO SCH ×2 (09:14→20:36)
--- NOTE | 2019-07-23 12:07 | PDOC.MOPN ---
Interval History: c/o sore throat, fatigue - Vital Signs Vital Signs: Vital Signs (12 hours) Temp Pulse Resp BP BP Pulse Ox 07/23/19 11:08 98.4 F 106 H 16 103/52 L 93 L 07/23/19 09:14 108 H 111/59 L 07/23/19 07:59 92 L 07/23/19 07:55 102 H 20 92 L 07/23/19 07:15 98.7 F 101 H 18 107/53 L 93 L 07/23/19 04:00 101 F H 103 H 18 115/57 L 92 L 07/23/19 00:19 105 H 20 95 Weight Admit Weight 161 lb 6.054 oz Weight 156 lb 3 oz Most Recent Monitor Data Heart Rate from ECG 87 NIBP 98/50 NIBP BP-Mean 66 Respiration from ECG 18 SpO2 100 - Physical Exam HEENT: Other (white spots on throat) Lungs: Clear to auscultation, Normal air movement Cardiovascular: Other (tachy) Abdomen: Normal bowel sounds, Soft, No tenderness, No hepatospenomegaly, No masses Extremities: No clubbing, No cyanosis, No edema, Normal pulses, No tenderness/ swelling Skin: No rashes, No breakdown, No significant lesion Neurological: Normal gait, Normal speech, Strength at 5/5 X4 ext, Normal tone, Sensation intact, Cranial nerves 3-12 NL, Reflexes 2+ Psych/Mental Status: Mental status NL, Mood NL - Labs Result Diagrams: 07/23/19 04:38 07/23/19 04:38 Lab results: Laboratory Results - last 24 hr 07/23/19 04:38: WBC 0.3 L*, RBC 2.53 L, Hgb 8.4 L, Hct 23.9 L, MCV 94.5, MCH 33.2 H, MCHC 35.1, RDW 13.9, Plt Count 45 L, MPV 8.7, Neutrophils % (Manual) Not Reportable, Plt Morphology Comment Appears Decreased L 07/23/19 04:38: TSH 3rd Generation 0.5126 07/23/19 04:38: Sodium 137, Potassium 3.5, Chloride 109 H, Carbon Dioxide 19 L, Anion Gap 13, BUN 15, Creatinine 0.75, Estimated GFR (MDRD) 77, Glucose 107, Calcium 8.0, Magnesium 1.4 L 07/22/19 14:35: Blood Type O POSITIVE, Antibody Screen NEGATIVE, Crossmatch See Detail Status: lab reviewed by me A/P - Problem (1) Atrial fibrillation with RVR Current Visit: Yes Code(s): I48.91 - UNSPECIFIED ATRIAL FIBRILLATION Status : Acute (2) Neutropenic sepsis Current Visit: Yes Code(s): A41.9 - SEPSIS, UNSPECIFIED ORGANISM; D70.9 - NEUTROPENIA, UNSPECIFIED Status: Acute (3) Small cell lung cancer Current Visit: Yes Code(s): C34.90 - MALIGNANT NEOPLASM OF UNSP PART OF UNSP BRONCHUS OR LUNG Status: Chronic - Plan Plan: Continue Granxi SQ daily until ANC 1.0 cont cefepime until ANC 1.0 Titrate off O2 as tolerated
[2019-07-23] MEDS ORDERED: Guaifenesin DM 100-10/5 ML UDCUP PO PRN (15:56)
--- NOTE | 2019-07-23 17:38 | CON ---
DATE OF CONSULTATION: 07/23/2019 REASON FOR CONSULTATION: Atrial fibrillation, tachycardia. PRIMARY BAKERY TEAM LEADER: Dr. Waldo Hoover. HISTORY OF PRESENT ILLNESS: Ms. Ramirez is a very pleasant 69-year-old woman. She has history of paroxysmal atrial fibrillation and atrial flutter. She also has metastatic non-small cell lung cancer. She was admitted to the hospital with febrile illness and hypotension. She was initially on pressors, but had been weaned off the pressors now, she is afebrile. PAST HISTORY: 1. Small-cell cancer. 2. Atrial arrhythmias. FAMILY HISTORY: Negative for lung disease, heart disease at a young age. REVIEW OF SYSTEMS: CONSTITUTIONAL: Positive for weakness and fatigue. VISION: No changes. HEARING: No changes. PULMONARY: She is not short of breath. CARDIAC: No chest pain. GASTROINTESTINAL: No nausea, vomiting, or diarrhea. PHYSICAL EXAMINATION: GENERAL: This is a pleasant elderly woman. VITAL SIGNS: Her blood pressure is 125/60, pulse 110 and it is irregular. LUNGS: Clear. CARDIAC: Irregularly irregular. ABDOMEN: Soft and nontender. EXTREMITIES: Warm and dry. No clubbing or cyanosis. There is no edema. MEDICATIONS: She is on atenolol and digoxin orally as well as intravenous digoxin. DIAGNOSTIC STUDIES: Rhythm strips show atrial fibrillation and atrial flutter. ASSESSMENT: 1. Atrial fibrillation intermittently with rapid rate. 2. Non-small cell lung cancer. 3. Severe neutropenia with a white blood cell count of 0.3. PLAN: 1. Continue Cardizem and beta blockers. 2. Dr. Hoover to resume care tomorrow. Job ID: [id number]
[2019-07-23] MEDS: Multivit, Therapeutic 1 TAB PO SCH (20:32)
[2019-07-24] MEDS: Diltiazem 125 MG in Sodium Chloride 0.9% 100 ML IVPB SCH (03:36)
[2019-07-24] MEDS: Sodium Chloride 0.9% 1,000 ML IV SCH (03:41)
[2019-07-24] MEDS: Acetaminophen 325 MG TAB PO PRN ×2 (04:03→22:55)
[2019-07-24 05:06] LABS: Anion Gap 11 mmol/L (10-20); BUN (Urea Nitrogen) 15 mg/dL (9.8-20.1); Calc. Creatinine Clearance 76 mL/min (70-130); Carbon Dioxide 20 mmol/L (23-31); Chloride 109 mmol/L (98-107); Estimated GFR-MDRD 72; Glucose 119 mg/dL (80-115); Potassium 3.4 mmol/L (3.5-5.1); Sodium 137 mmol/L (136-145)
[2019-07-24] MEDS ORDERED: Sodium Chloride 0.9% 250 ML IV SCH (08:30)
[2019-07-24 09:22] LABS: Hemoglobin 6.5 g/dL (12.0-16.0); Mean Corpuscular HGB CONC 33.9 g/dL (32.0-36.0); Mean Corpuscular Hemoglobin 32.4 pg (27.0-31.0); Mean Corpuscular Volume 95.7 fL (78.0-98.0); Mean Platelet Volume 10.2 fL (7.4-10.4); Platelet Count 15 thou/uL (130-400); RBC Distribution Width 13.7 % (11.5-14.5); Red Blood Cell (RBC) Count 1.99 mill/uL (4.20-5.40); White Blood Cell (WBC) Count 0.1 thou/uL (4.8-10.8)
[2019-07-24 10:05] LABS: MDiff Complete? YES; Ovalocytes SLIGHT = 2-5 cells (100X) (0-1/hpf); Platelet Morphology Comment Appears Decreased; Polychromasia SLIGHT = 2-3 cells (100X) (0-2/hpf)
[2019-07-24] MEDS ORDERED: Aluminum & Magnesium Hydroxide 60 ML, Lidocaine 2% Viscous Solution 30 ML, diphenhydrAM... SSW PRN (10:17)
--- NOTE | 2019-07-24 10:20 | PDOC.MOPN ---
Interval History: states IV disconnected last night and bled alot. Having mild nose bleeds. - Vital Signs Vital Signs: Vital Signs (12 hours) Temp Pulse Resp BP Pulse Ox 07/24/19 07:06 90 L 07/24/19 07:05 110 H 20 90 L 07/24/19 03:54 101.3 F H 113 H 20 112/54 L 93 L 07/24/19 00:17 104 H 24 H 92 L Weight Admit Weight 161 lb 6.054 oz Weight 155 lb Most Recent Monitor Data Heart Rate from ECG 87 NIBP 98/50 NIBP BP-Mean 66 Respiration from ECG 18 SpO2 100 - Physical Exam General: Alert, Oriented x3, No acute distress HEENT: Other (epistaxis) Lungs: Clear to auscultation, Normal air movement Cardiovascular: Regular rate, Normal S1, Normal S2, No murmurs, Gallops, Rubs Abdomen: Normal bowel sounds, Soft, No tenderness, No hepatospenomegaly, No masses Extremities: No clubbing, No cyanosis, No edema, Normal pulses, No tenderness/ swelling Neurological: Normal speech - Labs Result Diagrams: 07/24/19 09:00 07/24/19 04:32 Lab results: Laboratory Results - last 24 hr 07/24/19 09:00: WBC 0.1 L*, RBC 1.99 L, Hgb 6.5 L, Hct 19.0 L, MCV 95.7, MCH 32.4 H, MCHC 33.9, RDW 13.7, Plt Count 15 L*, MPV 10.2, Neutrophils % (Manual) Not Reportable, Lymphocytes # Not Reportable, Plt Morphology Comment Appears Decreased L, Polychromasia SLIGHT = 2-3 cells, Ovalocytes SLIGHT = 2-5 cells 07/24/19 04:32: Sodium 137, Potassium 3.4 L, Chloride 109 H, Carbon Dioxide 20 L , Anion Gap 11, BUN 15, Creatinine 0.80, Estimated GFR (MDRD) 72, Glucose 119 H , Calcium 8.0 07/22/19 14:35: Crossmatch See Detail Status: lab reviewed by me A/P - Problem (1) Atrial fibrillation with RVR Current Visit: Yes Code(s): I48.91 - UNSPECIFIED ATRIAL FIBRILLATION Status : Acute (2) Neutropenic sepsis Current Visit: Yes Code(s): A41.9 - SEPSIS, UNSPECIFIED ORGANISM; D70.9 - NEUTROPENIA, UNSPECIFIED Status: Acute (3) Small cell lung cancer Current Visit: Yes Code(s): C34.90 - MALIGNANT NEOPLASM OF UNSP PART OF UNSP BRONCHUS OR LUNG Status: Chronic - Plan Plan: 1. transfuse platelets and PRBC today 2. Magic mouthwash prn mouth ulcers 3. Continue Granix 4. Continue neutropenic precautions 5. Daily CBC
[2019-07-24] MEDS: Saccharomyces boulardii 250 MG CAP PO SCH (10:40)
[2019-07-24] MEDS: Ferrous Sulfate 325 MG TAB PO SCH (10:40)
[2019-07-24] MEDS: Gabapentin 300 MG CAP PO SCH ×3 (10:41→20:52)
[2019-07-24] MEDS: Magnesium Oxide 400 MG TAB PO SCH ×2 (10:41→20:52)
[2019-07-24] MEDS: Cefepime 2 GM in Sodium Chloride 0.9% 100 ML IVPB SCH ×2 (10:41→20:53)
[2019-07-24] MEDS: Atenolol 25 MG TAB PO SCH ×2 (10:51→20:51)
--- NOTE | 2019-07-24 11:17 | PDOC.CPN ---
- Subjective Date: 07/24/19 Time: 08:30 Interval history: The pt seen and examined. No overnight events. No cardiac complaints. Diltiazem drip is off since 07 for hypotensive; the pt is asymptomatic at this moment. - Objective Allergies/Adverse Reactions: Allergies Allergy/AdvReac Type Severity Reaction Status Date / Time lisinopril Allergy cough Verified 07/19/19 01:00 lorazepam [From Ativan] Allergy Verified 07/19/19 01:00 Visit Medications: Current Medications Acetaminophen (Tylenol) 650 mg PO Q4H PRN PRN Reason: Headache/Fever or Pain Last Admin: 07/24/19 04:03 Dose: 650 mg Albuterol/Ipratropium (Duoneb) 3 ml NEB [id number] [facility] Last Admin: 07/24/19 07:05 Dose: 3 ml Albuterol/Ipratropium (Duoneb) 3 ml NEB Q6H PRN PRN Reason: SOB &/or Wheezing Atenolol (Tenormin) 25 mg PO BID [facility] Last Admin: 07/24/19 10:51 Dose: Not Given Bisacodyl (Dulcolax) 10 mg PO DAILYPRN PRN PRN Reason: Constipation Al Hydroxide/Mg Hydroxide 60 ml/ Lidocaine HCl 30 ml/Diphenhydramine HCl 75 mg 0 ml SSW PRN PRN PRN Reason: Mouth Irritation Diltiazem HCl (Cardizem Cd) 120 mg PO DAILY [facility] Last Admin: 07/24/19 10:40 Dose: 120 mg Ferrous Sulfate (Feosol) 324 mg PO QAM-WM [facility] Last Admin: 07/24/19 10:40 Dose: 324 mg Gabapentin (Neurontin) 600 mg PO TID [facility] Last Admin: 07/24/19 10:41 Dose: 600 mg Guaifenesin/Dextromethorphan (Robitussin Dm) 10 ml PO Q4H PRN PRN Reason: Cough Last Admin: 07/23/19 16:26 Dose: 10 ml Cefepime HCl 2 gm/ Sodium (Chloride) 100 mls @ 200 mls/hr IVPB Q12HR JACK Last Admin: 07/24/19 10:41 Dose: 100 mls Diltiazem HCl 125 mg/ Sodium (Chloride) 125 mls @ 10 mls/hr IVPB INF JACK; Protocol Last Admin: 07/24/19 03:36 Dose: 125 mls Sodium Chloride (Normal Saline 0.9%) 1,000 mls @ 50 mls/hr IV .Q20H [facility] Last Admin: 07/24/19 03:41 Dose: 1,000 mls Magnesium Oxide (Magnesium Oxide) 400 mg PO BID [facility] Last Admin: 07/24/19 10:41 Dose: 400 mg Multivitamins (Theragran) 1 tab PO HS [facility] Last Admin: 07/23/19 20:32 Dose: 1 tab Pantoprazole Sodium (Protonix) 40 mg PO DAILY [facility] Last Admin: 07/24/19 10:40 Dose: 40 mg Phenol (Chloraseptic [place] 180 Ml Bot) 0 ml PO PRN PRN PRN Reason: SORE THROAT Last Admin: 07/22/19 04:02 Dose: 2 spr Saccharomyces Boulardii (Florastor) 250 mg PO DAILY [facility] Last Admin: 07/24/19 10:40 Dose: 250 mg Sertraline HCl (Zoloft) 25 mg PO DAILY [facility] Last Admin: 07/24/19 10:41 Dose: 25 mg Sodium Chloride (Flush - Normal Saline) 10 ml IVF Q12HR [facility] Last Admin: 07/24/19 10:42 Dose: Not Given Sodium Chloride (Flush - Normal Saline) 10 ml IVF PRN PRN PRN Reason: Saline Flush Tbo-Filgrastim (Granix) 480 mcg SC DAILY [facility] Last Admin: 07/23/19 09:17 Dose: 480 mcg Vital Signs & Weight: Vital Signs Temp Pulse Resp BP Pulse Ox 07/24/19 10:51 110 H 07/24/19 07:06 90 L 07/24/19 07:05 110 H 20 90 L 07/24/19 03:54 101.3 F H 113 H 20 112/54 L 93 L 07/24/19 00:17 104 H 24 H 92 L Admit Weight 161 lb 6.054 oz Weight 155 lb - Physical Exam General: alert & oriented x3 HEENT: mucus membranes moist Neck: supple neck Cardiac: irregularly regular Lungs: decreased breath sounds - Labs Result Diagrams: 07/24/19 09:00 07/24/19 04:32 Troponin/CKMB Troponin I 0.017 ng/mL (< 0.028) 07/18/19 20:15 - Telemetry Supraventricular conduction: atrial fibrillation - Assessment/Plan Assessment/Plan: 1. AFib with RVR - Diltiazem drip is off now due to hypotensive; May start Digoxin 2. Neutropenic sepsis 3. Anemia with s/p 1u PRBC tx - 4. Hypomagnesemia 5. Hypokalemia 6. metastatic small cell lung cancer SAUL reviewed Pt. seen and eval. by me. When I visited with the pt. she appeared to be in a regular rhythm and the monitor indicated sinus tachycardia. This is likely due to sepsis and anemia, pancytopenia. Otherwise I agree with the A/P by the COMMERCIAL ATTORNEY. The pt. appears very ill. Obviously not a candidate for anticoagulation. She will hopefully remain in sinus if not then rate control will be the plan. apryl
--- NOTE | 2019-07-24 11:46 | PDOC.HOSPP ---
- Subjective Encounter Date: 07/24/19 Encounter Time: 11:40 Subjective: f/u for neutropenic sepsis on Cefepime/Vancomycin with persistent fever spikes. Remains in A-fib with variable rate control on previous Diltiazem gtt. and po Cardizem/Atenolol. Nursing notes decreasing hemoglobin/platelets. - Objective Vital Signs & Weight: Vital Signs (12 hours) Temp Pulse Resp BP Pulse Ox 07/24/19 10:51 110 H 07/24/19 07:06 90 L 07/24/19 07:05 110 H 20 90 L 07/24/19 03:54 101.3 F H 113 H 20 112/54 L 93 L 07/24/19 00:17 104 H 24 H 92 L Weight Admit Weight 161 lb 6.054 oz Weight 155 lb Most Recent Monitor Data Heart Rate from ECG 87 NIBP 98/50 NIBP BP-Mean 66 Respiration from ECG 18 SpO2 100 I&O: 07/23/19 07/24/19 07/25/19 06:59 06:59 06:59 Intake Total 1234 300 Balance 1234 300 Result Diagrams: 07/24/19 09:00 07/24/19 04:32 Additional Labs: Microbiology 07/19/19 02:59 Urine clean catch Urine Culture - Final NO GROWTH AT 48 HOURS 07/18/19 20:48 Nasopharyngeal swab Influenza Types A,B Direct EIA - Final 07/18/19 20:15 Venous blood - Right Hand Blood Culture - Preliminary Specimen has been received and culture in progress. No Growth to date. 07/18/19 20:15 Venous blood - Left Arm Blood Culture - Preliminary Specimen has been received and culture in progress. No Growth to date. Laboratory Tests 07/18/19 07/18/19 07/18/19 20:15 20:32 23:04 WBC Hgb Plt Count Potassium 2.8 L* Lactic Acid 2.5 H 0.6 Calcium 6.1 L Phosphorus Magnesium 0.7 L* TSH 3rd Generation 07/19/19 07/19/19 07/21/19 00:57 00:57 04:56 WBC Hgb Plt Count Potassium 3.6 Lactic Acid Calcium 6.9 L Phosphorus 3.2 Magnesium 1.4 L TSH 3rd Generation 07/21/19 07/23/19 07/23/19 04:56 04:38 04:38 WBC 0.2 L* Hgb 7.2 L Plt Count 94 L Potassium Lactic Acid Calcium Phosphorus Magnesium 1.4 L TSH 3rd Generation 0.5126 07/23/19 04:38 WBC 0.3 L* Hgb 8.4 L Plt Count 45 L Potassium Lactic Acid Calcium Phosphorus Magnesium TSH 3rd Generation EKG Reviewed by me: Yes (Tele - A-fib in 110's) Hospitalist ROS - Medication Medications: Active Medications Generic Name Dose Route Start Last Admin Trade Name Freq PRN Reason Stop Dose Admin Acetaminophen 650 mg 07/23/19 19:13 07/24/19 04:03 Tylenol PO 650 mg Q4H PRN Administration Headache/Fever or Pain Albuterol/Ipratropium 3 ml 07/19/19 01:00 07/24/19 07:05 Duoneb NEB 3 ml [id number] JACK Administration Atenolol 25 mg 07/19/19 21:00 07/24/19 10:51 Tenormin PO Not Given BID JACK Diltiazem HCl 120 mg 07/19/19 09:00 07/24/19 10:40 Cardizem Cd PO 120 mg DAILY JACK Administration Ferrous Sulfate 324 mg 07/19/19 08:00 07/24/19 10:40 Feosol PO 324 mg QAM-WM JACK Administration Gabapentin 600 mg 07/19/19 21:00 07/24/19 10:41 Neurontin PO 600 mg TID JACK Administration Guaifenesin/Dextromethorphan 10 ml 07/23/19 15:56 07/23/19 16:26 Robitussin Dm PO 10 ml Q4H PRN Administration Cough Cefepime HCl 2 gm/ Sodium 100 mls @ 200 mls/hr 07/19/19 09:00 07/24/19 10:41 Chloride IVPB 100 mls Q12HR JACK Administration Diltiazem HCl 125 mg/ Sodium 125 mls @ 10 mls/hr 07/22/19 15:14 07/24/19 03: 36 Chloride IVPB 125 mls INF JACK Administration Protocol 10 MG/HR Sodium Chloride 1,000 mls @ 50 mls/hr 07/23/19 08:42 07/24/19 03:41 Normal Saline 0.9% IV 1,000 mls .Q20H JACK Administration Magnesium Oxide 400 mg 07/19/19 21:00 07/24/19 10:41 Magnesium Oxide PO 400 mg BID JACK Administration Multivitamins 1 tab 07/19/19 21:00 07/23/19 20:32 Theragran PO 1 tab HS JACK Administration Pantoprazole Sodium 40 mg 07/19/19 09:00 07/24/19 10:40 Protonix PO 40 mg DAILY JACK Administration Phenol 0 ml 07/22/19 03:29 07/22/19 04:02 Chloraseptic [place] 180 Ml Bot PO 2 spr PRN PRN Administration SORE THROAT Saccharomyces Boulardii 250 mg 07/19/19 09:00 07/24/19 10:40 Florastor PO 250 mg DAILY JACK Administration Sertraline HCl 25 mg 07/19/19 09:00 07/24/19 10:41 Zoloft PO 25 mg DAILY JACK Administration Sodium Chloride 10 ml 07/23/19 09:00 07/24/19 10:42 Flush - Normal Saline IVF Not Given Q12HR JACK Tbo-Filgrastim 480 mcg 07/22/19 09:00 07/24/19 11:26 Granix SC 480 mcg DAILY JACK Administration - Exam General Appearance: awake alert, ill appearing General - other findings: responsive Eye: PERRL, anicteric sclera ENT: normocephalic atraumatic, no oropharyngeal lesions Neck: supple, symmetric, no JVD, no thyromegaly Heart: no gallops, no rubs, normal peripheral pulses, irregular Heart - other findings: S1, S2 tachycardic Respiratory: no wheezes, tachypneic Respiratory - other findings: Scattered coarse sounds, bibasilar crackles Gastrointestinal: soft, non-tender, non-distended, normal bowel sounds, no palpable masses Extremities: no cyanosis, no clubbing, no edema Skin: normal turgor Neurological: cranial nerve grossly intact, no new deficit Musculoskeletal: normal tone, generalized weakness Psychiatric: normal affect, A&O x 3 Hosp A/P (1) Atrial fibrillation with RVR Code(s): I48.91 - UNSPECIFIED ATRIAL FIBRILLATION Status: Acute Plan: Persistent related to neutropenic sepsis and fever, continue Cardizem po given hypotension with gtt, hold anticoagulation due to severe anemia and neutropenia. (2) Neutropenic sepsis Code(s): A41.9 - SEPSIS, UNSPECIFIED ORGANISM; D70.9 - NEUTROPENIA, UNSPECIFIED Status: Acute Plan: Continue Cefepime/Vancomycin, isolation precautions (3) Anemia due to chemotherapy Code(s): D64.81 - ANEMIA DUE TO ANTINEOPLASTIC CHEMOTHERAPY; T45.1X5A - ADVERSE EFFECT OF ANTINEOPLASTIC AND IMMUNOSUP DRUGS, INIT Status: Acute Plan: Transfuse PRBC's today, serial H/H, hold anticoagulation (4) Hypokalemia Code(s): E87.6 - HYPOKALEMIA Status: Acute (5) Hypomagnesemia Code(s): E83.42 - HYPOMAGNESEMIA Status: Acute Plan: Mag supplementation (6) Small cell lung cancer Code(s): C34.90 - MALIGNANT NEOPLASM OF UNSP PART OF UNSP BRONCHUS OR LUNG Status: Chronic Plan: Chemo as outpt per medical oncology - Plan continue antibiotics, PT/OT, social professionals, respiratory therapy, DVT proph w/ SCDs Stable currently Continue Cefepime/Vancomycin Pulmonary supportive mgmt/Duonebs Gabapentin 600mg TID Cardizem gtt held due to hypotension Mag Oxide 400mg BID Transfuse 2u PRBC's today Lasix IV between PRBC's OOB/ambulate Magnesium/KCL supplementation Outpt follow up for chemotherapy PCXR today AM lab: BMP, CBC
--- NOTE | 2019-07-24 12:52 | RAD ---
EXAM: Single view of the chest HISTORY: Tachycardia/atrial fibrillation; shortness of breath COMPARISON: 07/22/2019 FINDINGS: Single view of the chest shows an enlarged but stable cardiomediastinal silhouette. The Me diport is unchanged in position. Increased interstitial lung markings are present. Scarring versus atelectasis is seen in the right lung base. There is no evidence of consolidation, mass, or pleural effusion. The bones are unremarkable. IMPRESSION: No evidence of acute cardiopulmonary disease
[2019-07-24] MEDS ORDERED: Vancomycin HCl 1 GM in Sodium Chloride 0.9% 250 ML 250 ML IVPB SCH (13:00)
[2019-07-24] MEDS: Vancomycin 1 GM in Premix Bag 1 BAG IVPB SCH (16:26)
[2019-07-24] MEDS: Multivit, Therapeutic 1 TAB PO SCH (20:52)
[2019-07-24] MEDS ORDERED: Amiodarone 150 MG, Admixture Fee 1 EACH in Dextrose 5% in Water 100 ML IVPB SCH (22:45)
[2019-07-24] MEDS: Amiodarone 450 MG, Admixture Fee 1 EACH in Dextrose 5% in Water 250 ML IVPB SCH (23:35)
[2019-07-25] MEDS: Vancomycin 1 GM in Premix Bag 1 BAG IVPB SCH ×2 (02:01→13:58)
[2019-07-25] MEDS: Sodium Chloride 0.9% 1,000 ML IV SCH (02:02)
[2019-07-25 06:17] LABS: Hemoglobin 8.6 g/dL (12.0-16.0); Mean Corpuscular HGB CONC 33.9 g/dL (32.0-36.0); Mean Corpuscular Hemoglobin 31.8 pg (27.0-31.0); Mean Corpuscular Volume 93.9 fL (78.0-98.0); Mean Platelet Volume 9.3 fL (7.4-10.4); Platelet Count 33 thou/uL (130-400); RBC Distribution Width 14.1 % (11.5-14.5); Red Blood Cell (RBC) Count 2.71 mill/uL (4.20-5.40); White Blood Cell (WBC) Count 0.3 thou/uL (4.8-10.8)
[2019-07-25 06:34] LABS: Anion Gap 10 mmol/L (10-20); BUN (Urea Nitrogen) 14 mg/dL (9.8-20.1); Calc. Creatinine Clearance 76 mL/min (70-130); Calcium 7.9 mg/dL (7.8-10.44); Carbon Dioxide 22 mmol/L (23-31); Chloride 108 mmol/L (98-107); Estimated GFR-MDRD 73; Glucose 108 mg/dL (80-115); Potassium 3.1 mmol/L (3.5-5.1); Sodium 137 mmol/L (136-145)
[2019-07-25 06:35] LABS: Hypochromia SLIGHT = 6-15 cells (100X) (0-5/hpf); MDiff Complete? YES; Platelet Morphology Comment Appears Decreased
[2019-07-25] MEDS: Cefepime 2 GM in Sodium Chloride 0.9% 100 ML IVPB SCH ×2 (09:20→20:00)
[2019-07-25] MEDS: Amiodarone 450 MG, Admixture Fee 1 EACH in Dextrose 5% in Water 250 ML IVPB SCH (09:24)
[2019-07-25] MEDS: Atenolol 25 MG TAB PO SCH ×2 (11:18→19:59)
[2019-07-25] MEDS: Magnesium Oxide 400 MG TAB PO SCH ×2 (11:18→19:59)
[2019-07-25] MEDS: Saccharomyces boulardii 250 MG CAP PO SCH (11:19)
[2019-07-25] MEDS: Gabapentin 300 MG CAP PO SCH ×3 (11:19→19:59)
[2019-07-25] MEDS: Ferrous Sulfate 325 MG TAB PO SCH (11:20)
--- NOTE | 2019-07-25 12:23 | PDOC.CPN ---
- Subjective Date: 07/25/19 Time: 12:23 Interval history: The pt seen and examined. No overnight events. No cardiac complaints. She cannot swallow well due to soreness in her mouth. - Objective Allergies/Adverse Reactions: Allergies Allergy/AdvReac Type Severity Reaction Status Date / Time lisinopril Allergy cough Verified 07/19/19 01:00 lorazepam [From Ativan] Allergy Verified 07/19/19 01:00 Visit Medications: Current Medications Acetaminophen (Tylenol) 650 mg PO Q4H PRN PRN Reason: Headache/Fever or Pain Last Admin: 07/24/19 22:55 Dose: 650 mg Albuterol/Ipratropium (Duoneb) 3 ml NEB I1PR-TC JACK Last Admin: 07/25/19 07:31 Dose: 3 ml Albuterol/Ipratropium (Duoneb) 3 ml NEB Q6H PRN PRN Reason: SOB &/or Wheezing Atenolol (Tenormin) 25 mg PO BID [facility] Last Admin: 07/25/19 11:18 Dose: 25 mg Bisacodyl (Dulcolax) 10 mg PO DAILYPRN PRN PRN Reason: Constipation Al Hydroxide/Mg Hydroxide 60 ml/ Lidocaine HCl 30 ml/Diphenhydramine HCl 75 mg 0 ml SSW QIDPRN PRN PRN Reason: Mouth Irritation Last Admin: 07/25/19 11:13 Dose: 10 ml Diltiazem HCl (Cardizem Cd) 120 mg PO DAILY [facility] Last Admin: 07/25/19 11:19 Dose: 120 mg Ferrous Sulfate (Feosol) 324 mg PO QAM-WM [facility] Last Admin: 07/25/19 11:20 Dose: 324 mg Gabapentin (Neurontin) 600 mg PO TID [facility] Last Admin: 07/25/19 11:19 Dose: 600 mg Guaifenesin/Dextromethorphan (Robitussin Dm) 10 ml PO Q4H PRN PRN Reason: Cough Last Admin: 07/23/19 16:26 Dose: 10 ml Cefepime HCl 2 gm/ Sodium (Chloride) 100 mls @ 200 mls/hr IVPB Q12HR JACK Last Admin: 07/25/19 09:20 Dose: 100 mls Diltiazem HCl 125 mg/ Sodium (Chloride) 125 mls @ 10 mls/hr IVPB INF JACK; Protocol Last Admin: 07/24/19 03:36 Dose: 125 mls Sodium Chloride (Normal Saline 0.9%) 1,000 mls @ 50 mls/hr IV .Q20H JACK Last Admin: 07/25/19 02:02 Dose: 1,000 mls Vancomycin HCl 1 gm/ Device 200 mls @ 200 mls/hr IVPB 0100,1300 JACK Last Admin: 07/25/19 02:01 Dose: 200 mls Amiodarone HCl 450 mg/Miscellaneous Medication 1 each/ Dextrose/Water 259 mls @ 0 mls/hr IVPB INF JACK; Protocol Last Admin: 07/25/19 09:24 Dose: 259 mls Potassium Chloride 40 meq/ (Device) 100 mls @ 25 mls/hr IVPB ONE JACK Magnesium Oxide (Magnesium Oxide) 400 mg PO BID [facility] Last Admin: 07/25/19 11:18 Dose: 400 mg Multivitamins (Theragran) 1 tab PO HS [facility] Last Admin: 07/24/19 20:52 Dose: 1 tab Pantoprazole Sodium (Protonix) 40 mg PO DAILY [facility] Last Admin: 07/25/19 11:20 Dose: 40 mg Phenol (Chloraseptic [place] 180 Ml Bot) 0 ml PO PRN PRN PRN Reason: SORE THROAT Last Admin: 07/22/19 04:02 Dose: 2 spr Saccharomyces Boulardii (Florastor) 250 mg PO DAILY [facility] Last Admin: 07/25/19 11:19 Dose: 250 mg Sertraline HCl (Zoloft) 25 mg PO DAILY [facility] Last Admin: 07/25/19 11:19 Dose: 25 mg Sodium Chloride (Flush - Normal Saline) 10 ml IVF Q12HR JACK Last Admin: 07/25/19 09:45 Dose: 10 ml Sodium Chloride (Flush - Normal Saline) 10 ml IVF PRN PRN PRN Reason: Saline Flush Tbo-Filgrastim (Granix) 480 mcg SC DAILY [facility] Last Admin: 07/25/19 09:41 Dose: 480 mcg Vital Signs & Weight: Vital Signs Temp Pulse Pulse Resp BP BP BP 07/25/19 11:19 99 07/25/19 11:18 99 07/25/19 08:14 98.1 F 100 22 H 119/60 07/25/19 07:31 90 18 07/25/19 03:46 97.9 F 90 18 109/53 L 07/25/19 01:20 98.8 F 132 H 20 107/58 L Pulse Ox 07/25/19 11:19 07/25/19 11:18 07/25/19 08:14 100 07/25/19 07:31 100 07/25/19 03:46 99 07/25/19 01:20 97 Admit Weight 161 lb 6.054 oz Weight 152 lb 14.4 oz - Physical Exam General: alert & oriented x3 HEENT: mucus membranes moist Neck: supple neck Cardiac: regular rate and rhythm, S1/S2 Lungs: decreased breath sounds - Labs Result Diagrams: 07/25/19 06:00 07/25/19 06:00 Troponin/CKMB Troponin I 0.017 ng/mL (< 0.028) 07/18/19 20:15 - Telemetry Sinus rhythms and dysrhythmias: sinus rhythm - Assessment/Plan Assessment/Plan: 1. AFib with RVR most likely due to sepsis and anemia, pancytopenia. - She had converted to NSR,sinus tachycardia and early this AM converted to atrial flutter. At this time she has converted back to NSR and remains in SR with Amiodarone drip; Diltiazem drip is off now due to hypotensive;not on OAC 2/2 severe Anemia and Pancytopenia 2. Neutropenic sepsis 3. Anemia with s/p 1u PRBC tx - 4. Hypomagnesemia 5. Hypokalemia - 40mEq Kcl x 1 today 6. metastatic small cell lung cancer MAR reviewed Pt. seen and eval. by me. I agree with the A/P by the [employer]. Chest; coarse rales, RRR, switch to po amiodarone tomorrow. gjm
[2019-07-25] MEDS ORDERED: Potassium Chloride 40 MEQ in Premix Bag 1 BAG IVPB SCH (12:45)
--- NOTE | 2019-07-25 12:58 | PDOC.HOSPP ---
- Subjective Encounter Date: 07/25/19 Encounter Time: 12:50 Subjective: f/u for neutropenic sepsi on Cefepime/Vancomycin. Receiving Amiodarone gtt for A -fib RVR now in sinus tachycardia. Feels very weak, tired and coughing. - Objective Vital Signs & Weight: Vital Signs (12 hours) Temp Pulse Pulse Resp BP BP BP 07/25/19 12:32 101 H 22 H 07/25/19 11:50 98.9 F 102 H 24 H 144/66 H 07/25/19 11:19 99 07/25/19 11:18 99 07/25/19 08:14 98.1 F 100 22 H 119/60 07/25/19 07:31 90 18 07/25/19 03:46 97.9 F 90 18 109/53 L 07/25/19 01:20 98.8 F 132 H 20 107/58 L Pulse Ox 07/25/19 12:32 98 07/25/19 11:50 96 07/25/19 11:19 07/25/19 11:18 07/25/19 08:14 100 07/25/19 07:31 100 07/25/19 03:46 99 07/25/19 01:20 97 Weight Admit Weight 161 lb 6.054 oz Weight 152 lb 14.4 oz Most Recent Monitor Data Heart Rate from ECG 87 NIBP 98/50 NIBP BP-Mean 66 Respiration from ECG 18 SpO2 100 I&O: 07/24/19 07/25/19 07/26/19 06:59 06:59 06:59 Intake Total 300 1000 220 Balance 300 1000 220 Result Diagrams: 07/25/19 06:00 07/25/19 06:00 Additional Labs: Microbiology 07/19/19 02:59 Urine clean catch Urine Culture - Final NO GROWTH AT 48 HOURS 07/18/19 20:48 Nasopharyngeal swab Influenza Types A,B Direct EIA - Final 07/18/19 20:15 Venous blood - Right Hand Blood Culture - Preliminary Specimen has been received and culture in progress. No Growth to date. 07/18/19 20:15 Venous blood - Left Arm Blood Culture - Preliminary Specimen has been received and culture in progress. No Growth to date. Laboratory Tests 07/18/19 07/18/19 07/18/19 20:15 20:32 23:04 WBC Hgb Plt Count Potassium 2.8 L* Lactic Acid 2.5 H 0.6 Calcium 6.1 L Phosphorus Magnesium 0.7 L* TSH 3rd Generation 07/19/19 07/19/19 07/21/19 00:57 00:57 04:56 WBC Hgb Plt Count Potassium 3.6 Lactic Acid Calcium 6.9 L Phosphorus 3.2 Magnesium 1.4 L TSH 3rd Generation 07/21/19 07/23/19 07/23/19 04:56 04:38 04:38 WBC 0.2 L* Hgb 7.2 L Plt Count 94 L Potassium Lactic Acid Calcium Phosphorus Magnesium 1.4 L TSH 3rd Generation 0.5126 07/23/19 07/24/19 04:38 09:00 WBC 0.1 L* Hgb 6.5 L Plt Count 45 L 15 L* Potassium Lactic Acid Calcium Phosphorus Magnesium TSH 3rd Generation Radiology Reviewed by me: Yes (PCXR - no acute infiltrates noted) EKG Reviewed by me: Yes (Tele - Sinus tachycardia) Hospitalist ROS - Medication Medications: Active Medications Generic Name Dose Route Start Last Admin Trade Name Freq PRN Reason Stop Dose Admin Acetaminophen 650 mg 07/23/19 19:13 07/24/19 22:55 Tylenol PO 650 mg Q4H PRN Administration Headache/Fever or Pain Albuterol/Ipratropium 3 ml 07/19/19 01:00 07/25/19 12:32 Duoneb NEB 3 ml [id number] JACK Administration Atenolol 25 mg 07/19/19 21:00 07/25/19 11:18 Tenormin PO 25 mg BID JACK Administration Al Hydroxide/Mg Hydroxide 60 0 ml 07/24/19 10:17 07/25/19 11:13 ml/ Lidocaine HCl 30 ml/ SSW 10 ml Diphenhydramine HCl 75 mg QIDPRN PRN Administration Mouth Irritation Diltiazem HCl 120 mg 07/19/19 09:00 07/25/19 11:19 Cardizem Cd PO 120 mg DAILY JACK Administration Ferrous Sulfate 324 mg 07/19/19 08:00 07/25/19 11:20 Feosol PO 324 mg QAM-WM JACK Administration Gabapentin 600 mg 07/19/19 21:00 07/25/19 11:19 Neurontin PO 600 mg TID JACK Administration Guaifenesin/Dextromethorphan 10 ml 07/23/19 15:56 07/23/19 16:26 Robitussin Dm PO 10 ml Q4H PRN Administration Cough Cefepime HCl 2 gm/ Sodium 100 mls @ 200 mls/hr 07/19/19 09:00 07/25/19 09:20 Chloride IVPB 100 mls Q12HR JACK Administration Diltiazem HCl 125 mg/ Sodium 125 mls @ 10 mls/hr 07/22/19 15:14 07/24/19 03: 36 Chloride IVPB 125 mls INF JACK Administration Protocol 10 MG/HR Sodium Chloride 1,000 mls @ 50 mls/hr 07/23/19 08:42 07/25/19 02:02 Normal Saline 0.9% IV 1,000 mls .Q20H JACK Administration Vancomycin HCl 1 gm/ Device 200 mls @ 200 mls/hr 07/24/19 13:00 07/25/19 02: 01 IVPB 200 mls 0100,1300 JACK Administration Amiodarone HCl 450 mg/ 259 mls @ 0 mls/hr 07/24/19 22:45 07/25/19 09:24 Miscellaneous Medication 1 IVPB 259 mls each/ Dextrose/Water INF JACK Administration Protocol As Directed Magnesium Oxide 400 mg 07/19/19 21:00 07/25/19 11:18 Magnesium Oxide PO 400 mg BID JACK Administration Multivitamins 1 tab 07/19/19 21:00 07/24/19 20:52 Theragran PO 1 tab HS JACK Administration Pantoprazole Sodium 40 mg 07/19/19 09:00 07/25/19 11:20 Protonix PO 40 mg DAILY JACK Administration Phenol 0 ml 07/22/19 03:29 07/22/19 04:02 Chloraseptic [place] 180 Ml Bot PO 2 spr PRN PRN Administration SORE THROAT Saccharomyces Boulardii 250 mg 07/19/19 09:00 07/25/19 11:19 Florastor PO 250 mg DAILY JACK Administration Sertraline HCl 25 mg 07/19/19 09:00 07/25/19 11:19 Zoloft PO 25 mg DAILY JACK Administration Sodium Chloride 10 ml 07/23/19 09:00 07/25/19 09:45 Flush - Normal Saline IVF 10 ml Q12HR JACK Administration Tbo-Filgrastim 480 mcg 07/22/19 09:00 07/25/19 09:41 Granix SC 480 mcg DAILY JACK Administration - Exam General Appearance: awake alert, ill appearing Eye: PERRL, anicteric sclera ENT: normocephalic atraumatic, no oropharyngeal lesions Neck: supple, symmetric, no JVD, no thyromegaly Heart: no gallops, no rubs, normal peripheral pulses Heart - other findings: S1, S2 tachycardic Respiratory: tachypneic Respiratory - other findings: scattered coarse sounds in upper airways Gastrointestinal: soft, non-tender, non-distended, normal bowel sounds, no palpable masses Extremities: no cyanosis, no clubbing, no edema Skin: normal turgor Neurological: cranial nerve grossly intact, no new deficit Musculoskeletal: normal tone, generalized weakness Psychiatric: A&O x 3 Hosp A/P (1) Atrial fibrillation with RVR Code(s): I48.91 - UNSPECIFIED ATRIAL FIBRILLATION Status: Acute Plan: Currently sinus tachycardia on Amiodarone gtt, Cardizem po (2) Neutropenic sepsis Code(s): A41.9 - SEPSIS, UNSPECIFIED ORGANISM; D70.9 - NEUTROPENIA, UNSPECIFIED Status: Acute Plan: Continue Cefepime/Vancomycin, neutropenic precautions (3) Anemia due to chemotherapy Code(s): D64.81 - ANEMIA DUE TO ANTINEOPLASTIC CHEMOTHERAPY; T45.1X5A - ADVERSE EFFECT OF ANTINEOPLASTIC AND IMMUNOSUP DRUGS, INIT Status: Acute Plan: s/p 3u PRBC's, serial H/H monitoring (4) Hypokalemia Code(s): E87.6 - HYPOKALEMIA Status: Acute Plan: KCL supplementation (5) Hypomagnesemia Code(s): E83.42 - HYPOMAGNESEMIA Status: Acute Plan: Continue Magnesium 400mg BID (6) Small cell lung cancer Code(s): C34.90 - MALIGNANT NEOPLASM OF UNSP PART OF UNSP BRONCHUS OR LUNG Status: Chronic - Plan continue antibiotics, PT/OT, 7th grade social studies teacher, speech therapy, respiratory therapy, DVT proph w/SCDs Stable currently Continue Cefepime/Vancomycin Pulmonary supportive mgmt/Duonebs Gabapentin 600mg TID Cardizem gtt held due to hypotension Mag Oxide 400mg BID OOB/ambulate Magnesium/KCL supplementation Outpt follow up for chemotherapy Continue Amiodarone gtt AM lab: BMP, CBC
--- NOTE | 2019-07-25 15:03 | PDOC.MOPN ---
Interval History: SOB with frequent cough today - Vital Signs Vital Signs: Vital Signs (12 hours) Temp Pulse Resp BP BP Pulse Ox 07/25/19 12:32 101 H 22 H 98 07/25/19 11:50 98.9 F 102 H 24 H 144/66 H 96 07/25/19 11:19 99 07/25/19 11:18 99 07/25/19 08:14 98.1 F 100 22 H 119/60 100 07/25/19 07:31 90 18 100 07/25/19 03:46 97.9 F 90 18 109/53 L 99 Weight Admit Weight 161 lb 6.054 oz Weight 152 lb 14.4 oz Most Recent Monitor Data Heart Rate from ECG 87 NIBP 98/50 NIBP BP-Mean 66 Respiration from ECG 18 SpO2 100 - Physical Exam General: Alert, Oriented x3, No acute distress HEENT: Atraumatic, PERRLA, EOMI, Mucous membr. moist/pink Lungs: Other (rhonchi) Cardiovascular: Regular rate, Normal S1, Normal S2, No murmurs, Gallops, Rubs Abdomen: Normal bowel sounds, Soft, No tenderness, No hepatospenomegaly, No masses Extremities: No clubbing, No cyanosis, No edema, Normal pulses, No tenderness/ swelling Neurological: Normal gait, Normal speech, Strength at 5/5 X4 ext, Normal tone, Sensation intact, Cranial nerves 3-12 NL, Reflexes 2+ Psych/Mental Status: Mental status NL, Mood NL - Labs Result Diagrams: 07/25/19 06:00 07/25/19 06:00 Lab results: Laboratory Results - last 24 hr 07/25/19 06:00: WBC 0.3 L*, RBC 2.71 L, Hgb 8.6 L, Hct 25.4 L, MCV 93.9, MCH 31.8 H, MCHC 33.9, RDW 14.1, Plt Count 33 L, MPV 9.3, Neutrophils % (Manual) Not Reportable, Lymphocytes # Not Reportable, Hypochromia SLIGHT = 6-15 cells, Plt Morphology Comment Appears Decreased L 07/25/19 06:00: Sodium 137, Potassium 3.1 L, Chloride 108 H, Carbon Dioxide 22 L , Anion Gap 10, BUN 14, Creatinine 0.79, Estimated GFR (MDRD) 73, Glucose 108, Calcium 7.9 07/22/19 14:35: Blood Type O POSITIVE, Antibody Screen NEGATIVE, Crossmatch See Detail Status: lab reviewed by me A/P - Problem (1) Atrial fibrillation with RVR Current Visit: Yes Code(s): I48.91 - UNSPECIFIED ATRIAL FIBRILLATION Status : Acute (2) Neutropenic sepsis Current Visit: Yes Code(s): A41.9 - SEPSIS, UNSPECIFIED ORGANISM; D70.9 - NEUTROPENIA, UNSPECIFIED Status: Acute (3) Small cell lung cancer Current Visit: Yes Code(s): C34.90 - MALIGNANT NEOPLASM OF UNSP PART OF UNSP BRONCHUS OR LUNG Status: Chronic - Plan Plan: 1. continue granix 2. O2, abx 3. monitor CBC and transfuse prn 4. neutropenic precautions
[2019-07-25] MEDS: Multivit, Therapeutic 1 TAB PO SCH (19:59)
[2019-07-25] MEDS: Acetaminophen 325 MG TAB PO PRN (20:02)
[2019-07-26] MEDS: Sodium Chloride 0.9% 1,000 ML IV SCH ×2 (00:52→20:26)
[2019-07-26] MEDS: Vancomycin 1 GM in Premix Bag 1 BAG IVPB SCH ×2 (01:18→12:08)
[2019-07-26 05:40] LABS: Hemoglobin 8.3 g/dL (12.0-16.0); Mean Corpuscular HGB CONC 33.8 g/dL (32.0-36.0); Mean Corpuscular Hemoglobin 31.9 pg (27.0-31.0); Mean Corpuscular Volume 94.4 fL (78.0-98.0); Mean Platelet Volume 12.1 fL (7.4-10.4); Platelet Count 18 thou/uL (130-400); Red Blood Cell (RBC) Count 2.61 mill/uL (4.20-5.40); White Blood Cell (WBC) Count 0.2 thou/uL (4.8-10.8)
[2019-07-26 05:46] LABS: Elliptocytes SLIGHT = 2-5 cells (100X) (0-1/hpf); MDiff Complete? YES; Platelet Morphology Comment Appears Decreased
[2019-07-26 05:49] LABS: Anion Gap 12 mmol/L (10-20); BUN (Urea Nitrogen) 14 mg/dL (9.8-20.1); Calc. Creatinine Clearance 76 mL/min (70-130); Carbon Dioxide 19 mmol/L (23-31); Chloride 109 mmol/L (98-107); Estimated GFR-MDRD 73; Glucose 110 mg/dL (80-115); Sodium 137 mmol/L (136-145)
[2019-07-26] MEDS: Atenolol 25 MG TAB PO SCH ×2 (11:54→20:24)
[2019-07-26] MEDS: Ferrous Sulfate 325 MG TAB PO SCH (11:54)
[2019-07-26] MEDS: Cefepime 2 GM in Sodium Chloride 0.9% 100 ML IVPB SCH ×2 (11:55→20:25)
[2019-07-26] MEDS: Magnesium Oxide 400 MG TAB PO SCH ×2 (11:56→20:25)
[2019-07-26] MEDS: Gabapentin 300 MG CAP PO SCH ×3 (11:56→20:25)
[2019-07-26] MEDS: Saccharomyces boulardii 250 MG CAP PO SCH (11:56)
--- NOTE | 2019-07-26 12:45 | PDOC.MOPN ---
Interval History: she is still having diarrhea, she has some hemoptysis. she cannot swallow. only pureed foods. she is weak and tired. low grade fevers still she says - Vital Signs Vital Signs: Vital Signs (12 hours) Temp Pulse Resp BP BP Pulse Ox 07/26/19 07:24 99 16 07/26/19 07:00 99.3 F 99 18 125/61 92 L 07/26/19 03:54 99 F 94 20 114/55 L 94 L 07/26/19 00:54 20 Weight Admit Weight 161 lb 6.054 oz Weight 152 lb 4.8 oz Most Recent Monitor Data Heart Rate from ECG 87 NIBP 98/50 NIBP BP-Mean 66 Respiration from ECG 18 SpO2 100 - Physical Exam General: Other (chronically ill appearing) HEENT: Atraumatic Lungs: Other (rhonchi appreciated) Cardiovascular: Regular rate Abdomen: Normal bowel sounds, No tenderness Extremities: No edema, Other (+ ecchymoses) Skin: No rashes Neurological: Normal speech Psych/Mental Status: Mental status NL - Labs Result Diagrams: 07/26/19 05:05 07/26/19 05:05 Lab results: Laboratory Results - last 24 hr 07/26/19 05:05: WBC 0.2 L*, RBC 2.61 L, Hgb 8.3 L, Hct 24.6 L, MCV 94.4, MCH 31.9 H, MCHC 33.8, RDW 14.0, Plt Count 18 L*, MPV 12.1 H, Neutrophils % (Manual ) Not Reportable, Plt Morphology Comment Appears Decreased L, Elliptocytes SLIGHT = 2-5 cells 07/26/19 05:05: Sodium 137, Potassium 3.0 L, Chloride 109 H, Carbon Dioxide 19 L , Anion Gap 12, BUN 14, Creatinine 0.79, Estimated GFR (MDRD) 73, Glucose 110, Calcium 8.0 A/P - Problem (1) Hemoptysis Current Visit: Yes Code(s): R04.2 - HEMOPTYSIS Status: Acute (2) Diarrhea due to drug Current Visit: Yes Code(s): K52.1 - TOXIC GASTROENTERITIS AND COLITIS Status : Acute (3) Atrial fibrillation with RVR Current Visit: Yes Code(s): I48.91 - UNSPECIFIED ATRIAL FIBRILLATION Status : Acute (4) Neutropenic sepsis Current Visit: Yes Code(s): A41.9 - SEPSIS, UNSPECIFIED ORGANISM; D70.9 - NEUTROPENIA, UNSPECIFIED Status: Acute (5) Small cell lung cancer Current Visit: Yes Code(s): C34.90 - MALIGNANT NEOPLASM OF UNSP PART OF UNSP BRONCHUS OR LUNG Status: Chronic - Plan Plan: 1. hold xarelto until platelets consistently >40 2. platelet transfusion if platelets <15 and she has continued hemoptysis 3. add imodium 4. continue granix 5. neutropenic precautions
[2019-07-26] MEDS ORDERED: Amiodarone 150 MG, Admixture Fee 1 EACH in Dextrose 5% in Water 100 ML IVPB SCH (15:15)
--- NOTE | 2019-07-26 15:23 | PDOC.HOSPP ---
- Subjective Encounter Date: 07/26/19 Encounter Time: 15:21 Subjective: Ms. Ramirez was seen today in follow-up of Neutropenic fever, and dysphagia. she has a very raspy voice, and notes pain when trying to swallow, even minimal amounts of food. - Objective Vital Signs & Weight: Vital Signs (12 hours) Temp Pulse Resp BP BP Pulse Ox 07/26/19 13:55 104 H 16 07/26/19 11:50 100.1 F H 103 H 18 118/54 L 91 L 07/26/19 07:24 99 16 07/26/19 07:00 99.3 F 99 18 125/61 92 L 07/26/19 03:54 99 F 94 20 114/55 L 94 L Weight Admit Weight 161 lb 6.054 oz Weight 152 lb 4.8 oz Most Recent Monitor Data Heart Rate from ECG 87 NIBP 98/50 NIBP BP-Mean 66 Respiration from ECG 18 SpO2 100 I&O: 07/25/19 07/26/19 07/27/19 06:59 06:59 06:59 Intake Total 1000 1601 Balance 1000 1601 Result Diagrams: 07/26/19 05:05 07/26/19 05:05 Hospitalist ROS - Medication Medications: Active Medications Generic Name Dose Route Start Last Admin Trade Name Freq PRN Reason Stop Dose Admin Acetaminophen 650 mg 07/23/19 19:13 07/25/19 20:02 Tylenol PO 650 mg Q4H PRN Administration Headache/Fever or Pain Albuterol/Ipratropium 3 ml 07/19/19 01:00 07/26/19 13:55 Duoneb NEB 3 ml [id number] JACK Administration Atenolol 25 mg 07/19/19 21:00 07/26/19 11:54 Tenormin PO Not Given BID JACK Al Hydroxide/Mg Hydroxide 60 0 ml 07/24/19 10:17 07/25/19 11:13 ml/ Lidocaine HCl 30 ml/ SSW 10 ml Diphenhydramine HCl 75 mg QIDPRN PRN Administration Mouth Irritation Diltiazem HCl 120 mg 07/19/19 09:00 07/26/19 11:55 Cardizem Cd PO Not Given DAILY JACK Ferrous Sulfate 324 mg 07/19/19 08:00 07/26/19 11:54 Feosol PO Not Given QAM-WM JACK Gabapentin 600 mg 07/19/19 21:00 07/26/19 11:56 Neurontin PO Not Given TID JACK Guaifenesin/Dextromethorphan 10 ml 07/23/19 15:56 07/23/19 16:26 Robitussin Dm PO 10 ml Q4H PRN Administration Cough Cefepime HCl 2 gm/ Sodium 100 mls @ 200 mls/hr 07/19/19 09:00 07/26/19 11:55 Chloride IVPB Not Given Q12HR JACK Sodium Chloride 1,000 mls @ 50 mls/hr 07/23/19 08:42 07/26/19 00:52 Normal Saline 0.9% IV Not Given .Q20H JACK Vancomycin HCl 1 gm/ Device 200 mls @ 200 mls/hr 07/24/19 13:00 07/26/19 12: 08 IVPB 200 mls 0100,1300 JACK Administration Amiodarone HCl 450 mg/ 259 mls @ 0 mls/hr 07/24/19 22:45 07/25/19 09:24 Miscellaneous Medication 1 IVPB 259 mls each/ Dextrose/Water INF JACK Administration Protocol As Directed Magnesium Oxide 400 mg 07/19/19 21:00 07/26/19 11:56 Magnesium Oxide PO Not Given BID [facility] Multivitamins 1 tab 07/19/19 21:00 07/25/19 19:59 Theragran PO 1 tab HS JACK Administration Pantoprazole Sodium 40 mg 07/19/19 09:00 07/26/19 11:56 Protonix PO Not Given DAILY [facility] Phenol 0 ml 07/22/19 03:29 07/22/19 04:02 Chloraseptic [place] 180 Ml Bot PO 2 spr PRN PRN Administration SORE THROAT Saccharomyces Boulardii 250 mg 07/19/19 09:00 07/26/19 11:56 Florastor PO Not Given DAILY [facility] Sertraline HCl 25 mg 07/19/19 09:00 07/26/19 11:56 Zoloft PO Not Given DAILY [facility] Sodium Chloride 10 ml 07/23/19 09:00 07/26/19 11:57 Flush - Normal Saline IVF Not Given Q12HR [facility] Tbo-Filgrastim 480 mcg 07/22/19 09:00 07/26/19 12:09 Granix SC 480 mcg DAILY JACK Administration - Exam Eye: PERRL Eye - other findings: Alopecia Heart: RRR, no murmur, no gallops, no rubs, normal peripheral pulses Respiratory: CTAB (except some rhonchi and rales sta the bases) Gastrointestinal: soft, non-tender, non-distended, normal bowel sounds, no palpable masses, no hepatomegaly Extremities: no cyanosis, 1+ LE edema Hosp A/P (1) Dysphagia Code(s): R13.10 - DYSPHAGIA, UNSPECIFIED Status: Acute (2) Neutropenic fever Code(s): D70.9 - NEUTROPENIA, UNSPECIFIED; R50.81 - FEVER PRESENTING WITH CONDITIONS CLASSIFIED ELSEWHERE Status: Acute (3) Pancytopenia Code(s): D61.818 - OTHER PANCYTOPENIA Status: Acute (4) Atrial fibrillation with RVR Code(s): I48.91 - UNSPECIFIED ATRIAL FIBRILLATION Status: Acute (5) Small cell lung cancer Code(s): C34.90 - MALIGNANT NEOPLASM OF UNSP PART OF UNSP BRONCHUS OR LUNG Status: Chronic - Plan * Dysphagia and Odynophagia- will start her on PPN - discussed with Dr. Edmond * Neutropenic fever- Continue Vancomycin and Cefepime and Filgrastim * Atrial fibrillation- she has been on Amiodarone drip- will defer to Cardiology * Pancytopenia- due to chemotherapy- continue supportive care and transfuse as needed.
[2019-07-26] MEDS: Acetaminophen 325 MG TAB PO PRN (16:12)
[2019-07-26] MEDS: D5W-AA 4.25% with LYTES 1,000 ML BAG IV SCH (17:36)
[2019-07-26] MEDS: Multivit, Therapeutic 1 TAB PO SCH (20:25)
[2019-07-26] MEDS ORDERED: Digoxin 0.5 MG/2 ML AMP SLOW IVP SCH (21:30)
[2019-07-26] MEDS ORDERED: Digoxin 0.5 MG/2 ML AMP SLOW IVP PRN (23:30)
[2019-07-27] MEDS: Vancomycin 1 GM in Premix Bag 1 BAG IVPB SCH ×2 (03:18→12:58)
[2019-07-27 05:22] LABS: Anion Gap 10 mmol/L (10-20); BUN (Urea Nitrogen) 15 mg/dL (9.8-20.1); Calc. Creatinine Clearance 75 mL/min (70-130); Calcium 7.7 mg/dL (7.8-10.44); Carbon Dioxide 21 mmol/L (23-31); Chloride 106 mmol/L (98-107); Estimated GFR-MDRD 70; Glucose 142 mg/dL (80-115); Sodium 134 mmol/L (136-145)
[2019-07-27 05:29] LABS: Potassium 2.7 mmol/L (3.5-5.1)
[2019-07-27] MEDS ORDERED: Potassium Chloride 40 MEQ in Sodium Chloride 0.9% 250 ML 250 ML IVPB SCH (06:30)
[2019-07-27] MEDS: Amiodarone 450 MG, Admixture Fee 1 EACH in Dextrose 5% in Water 250 ML IVPB SCH (07:45)
[2019-07-27] MEDS: Ferrous Sulfate 325 MG TAB PO SCH (08:17)
[2019-07-27] MEDS: Atenolol 25 MG TAB PO SCH ×2 (08:17→20:16)
[2019-07-27] MEDS: Gabapentin 300 MG CAP PO SCH ×3 (08:18→20:17)
[2019-07-27] MEDS: Saccharomyces boulardii 250 MG CAP PO SCH (08:18)
[2019-07-27] MEDS: Cefepime 2 GM in Sodium Chloride 0.9% 100 ML IVPB SCH ×2 (08:18→20:15)
[2019-07-27] MEDS: Magnesium Oxide 400 MG TAB PO SCH ×2 (08:18→20:17)
[2019-07-27 10:09] LABS: Hemoglobin 7.9 g/dL (12.0-16.0); Mean Corpuscular HGB CONC 35.1 g/dL (32.0-36.0); Mean Corpuscular Hemoglobin 32.8 pg (27.0-31.0); Mean Corpuscular Volume 93.5 fL (78.0-98.0); RBC Distribution Width 13.8 % (11.5-14.5); Red Blood Cell (RBC) Count 2.42 mill/uL (4.20-5.40)
[2019-07-27 10:49] LABS: Mean Platelet Volume 13.8 fL (7.4-10.4); Platelet Count 10 thou/uL (130-400); Platelet Morphology Comment Appears Decreased; White Blood Cell (WBC) Count 0.2 thou/uL (4.8-10.8)
--- NOTE | 2019-07-27 12:53 | PDOC.HOSPP ---
- Subjective Encounter Date: 07/27/19 Encounter Time: 12:51 Subjective: Ms. Ramirez was seen today in follow-up of neutropenic fever. She says she feels very weak. She has not noted any gum bleeding, or new bruising. - Objective Vital Signs & Weight: Vital Signs (12 hours) Temp Pulse Resp BP Pulse Ox 07/27/19 11:20 98.7 F 89 20 161/58 H 92 L 07/27/19 08:01 98.5 F 87 22 H 106/54 L 94 L 07/27/19 06:48 95 07/27/19 06:47 84 20 07/27/19 03:51 101.3 F H 99 24 H 124/59 L 94 L 07/27/19 00:53 97 16 94 L Weight Admit Weight 161 lb 6.054 oz Weight 156 lb 14.4 oz Most Recent Monitor Data Heart Rate from ECG 87 NIBP 98/50 NIBP BP-Mean 66 Respiration from ECG 18 SpO2 100 I&O: 07/26/19 07/27/19 07/28/19 06:59 06:59 06:59 Intake Total 1601 1720 Balance 1601 1720 Result Diagrams: 07/27/19 09:56 07/27/19 04:55 Hospitalist ROS - Medication Medications: Active Medications Generic Name Dose Route Start Last Admin Trade Name Freq PRN Reason Stop Dose Admin Acetaminophen 650 mg 07/23/19 19:13 07/26/19 16:12 Tylenol PO 650 mg Q4H PRN Administration Headache/Fever or Pain Albuterol/Ipratropium 3 ml 07/19/19 01:00 07/27/19 06:47 Duoneb NEB 3 ml [id number] JACK Administration Amino Acids/Electrolytes/Dextrose 1,000 ml 07/26/19 15:45 07/26/19 17:36 Clinimix E 4.25/5 IV 1,000 ml INF JACK Administration Atenolol 25 mg 07/19/19 21:00 07/27/19 08:17 Tenormin PO 25 mg BID JACK Administration Al Hydroxide/Mg Hydroxide 60 0 ml 07/24/19 10:17 07/25/19 11:13 ml/ Lidocaine HCl 30 ml/ SSW 10 ml Diphenhydramine HCl 75 mg QIDPRN PRN Administration Mouth Irritation Ferrous Sulfate 324 mg 07/19/19 08:00 07/27/19 08:17 Feosol PO 324 mg QAM-WM JACK Administration Gabapentin 600 mg 07/19/19 21:00 07/27/19 08:18 Neurontin PO 600 mg TID JACK Administration Guaifenesin/Dextromethorphan 10 ml 07/23/19 15:56 07/23/19 16:26 Robitussin Dm PO 10 ml Q4H PRN Administration Cough Cefepime HCl 2 gm/ Sodium 100 mls @ 200 mls/hr 07/19/19 09:00 07/27/19 08:18 Chloride IVPB 100 mls Q12HR JACK Administration Sodium Chloride 1,000 mls @ 50 mls/hr 07/23/19 08:42 07/26/19 20:26 Normal Saline 0.9% IV 1,000 mls .Q20H JACK Administration Vancomycin HCl 1 gm/ Device 200 mls @ 200 mls/hr 07/24/19 13:00 07/27/19 03: 18 IVPB 200 mls 0100,1300 JACK Administration Amiodarone HCl 450 mg/ 259 mls @ 0 mls/hr 07/24/19 22:45 07/27/19 07:45 Miscellaneous Medication 1 IVPB 259 mls each/ Dextrose/Water INF JACK Administration Protocol As Directed Magnesium Oxide 400 mg 07/19/19 21:00 07/27/19 08:18 Magnesium Oxide PO 400 mg BID JACK Administration Multivitamins 1 tab 07/19/19 21:00 07/26/19 20:25 Theragran PO 1 tab HS JACK Administration Pantoprazole Sodium 40 mg 07/19/19 09:00 07/27/19 08:18 Protonix PO 40 mg DAILY JACK Administration Phenol 0 ml 07/22/19 03:29 07/22/19 04:02 Chloraseptic [place] 180 Ml Bot PO 2 spr PRN PRN Administration SORE THROAT Saccharomyces Boulardii 250 mg 07/19/19 09:00 07/27/19 08:18 Florastor PO 250 mg DAILY JACK Administration Sertraline HCl 25 mg 07/19/19 09:00 07/27/19 08:19 Zoloft PO 25 mg DAILY JACK Administration Sodium Chloride 10 ml 07/23/19 09:00 07/27/19 08:19 Flush - Normal Saline IVF 10 ml Q12HR JACK Administration Tbo-Filgrastim 480 mcg 07/22/19 09:00 07/27/19 10:04 Granix SC 480 mcg DAILY JACK Administration - Exam Eye: PERRL Heart: RRR, no murmur, no gallops, no rubs, normal peripheral pulses Respiratory: CTAB, no wheezes, no rales, no ronchi, normal chest expansion, no tachypnea, normal percussion Gastrointestinal: soft, non-tender, non-distended, normal bowel sounds, no palpable masses Extremities: no cyanosis, 1+ LE edema Hosp A/P (1) Dysphagia Code(s): R13.10 - DYSPHAGIA, UNSPECIFIED Status: Acute (2) Neutropenic fever Code(s): D70.9 - NEUTROPENIA, UNSPECIFIED; R50.81 - FEVER PRESENTING WITH CONDITIONS CLASSIFIED ELSEWHERE Status: Acute (3) Pancytopenia Code(s): D61.818 - OTHER PANCYTOPENIA Status: Acute (4) Atrial fibrillation with RVR Code(s): I48.91 - UNSPECIFIED ATRIAL FIBRILLATION Status: Acute (5) Small cell lung cancer Code(s): C34.90 - MALIGNANT NEOPLASM OF UNSP PART OF UNSP BRONCHUS OR LUNG Status: Chronic - Plan * Dysphagia and Odynophagia following chemotherapy-continue PPN until her symptoms improve * Neutropenic fever- Continue Vancomycin and Cefepime and Filgrastim * Atrial fibrillation- she has been on Amiodarone drip- will defer to Cardiology * Pancytopenia- due to chemotherapy- continue supportive care and transfuse as needed. * Her platelet count has dropped- will transfuse
[2019-07-27] MEDS: D5W-AA 4.25% with LYTES 1,000 ML BAG IV SCH (12:58)
[2019-07-27] MEDS: Acetaminophen 325 MG TAB PO PRN (15:00)
[2019-07-27] MEDS: Sodium Chloride 0.9% 1,000 ML IV SCH (15:01)
[2019-07-27] MEDS: Multivit, Therapeutic 1 TAB PO SCH (20:17)
[2019-07-27] MEDS: Loperamide HCl 2 MG CAP PO PRN (22:07)
[2019-07-28] MEDS: Amiodarone 450 MG, Admixture Fee 1 EACH in Dextrose 5% in Water 250 ML IVPB SCH ×2 (00:02→14:55)
[2019-07-28] MEDS: Vancomycin 1 GM in Premix Bag 1 BAG IVPB SCH ×2 (00:08→13:54)
[2019-07-28] MEDS: Acetaminophen 325 MG TAB PO PRN ×2 (03:46→20:27)
[2019-07-28 04:24] LABS: Hemoglobin 7.4 g/dL (12.0-16.0); Mean Corpuscular HGB CONC 33.3 g/dL (32.0-36.0); Mean Corpuscular Hemoglobin 31.3 pg (27.0-31.0); Mean Corpuscular Volume 93.9 fL (78.0-98.0); Mean Platelet Volume 10.4 fL (7.4-10.4); Platelet Count 29 thou/uL (130-400); RBC Distribution Width 13.6 % (11.5-14.5); Red Blood Cell (RBC) Count 2.36 mill/uL (4.20-5.40); White Blood Cell (WBC) Count 0.2 thou/uL (4.8-10.8)
[2019-07-28 04:25] LABS: Platelet Morphology Comment Appears Decreased; RBC Morphology Normal
[2019-07-28 04:43] LABS: Anion Gap 11 mmol/L (10-20); BUN (Urea Nitrogen) 18 mg/dL (9.8-20.1); Calc. Creatinine Clearance 87 mL/min (70-130); Calcium 7.8 mg/dL (7.8-10.44); Carbon Dioxide 22 mmol/L (23-31); Chloride 105 mmol/L (98-107); Estimated GFR-MDRD 85; Glucose 119 mg/dL (80-115); Sodium 135 mmol/L (136-145)
[2019-07-28 04:46] LABS: Potassium 2.8 mmol/L (3.5-5.1)
[2019-07-28] MEDS: D5W-AA 4.25% with LYTES 1,000 ML BAG IV SCH (05:19)
[2019-07-28] MEDS ORDERED: Potassium Chloride 40 MEQ in Sodium Chloride 0.9% 250 ML 250 ML IVPB SCH (05:45)
[2019-07-28] MEDS: Cefepime 2 GM in Sodium Chloride 0.9% 100 ML IVPB SCH ×2 (09:59→20:26)
[2019-07-28] MEDS: Saccharomyces boulardii 250 MG CAP PO SCH (09:59)
[2019-07-28] MEDS: Magnesium Oxide 400 MG TAB PO SCH ×2 (09:59→20:27)
[2019-07-28] MEDS: Ferrous Sulfate 325 MG TAB PO SCH (09:59)
[2019-07-28] MEDS: Gabapentin 300 MG CAP PO SCH ×3 (10:03→20:26)
[2019-07-28] MEDS: Atenolol 25 MG TAB PO SCH ×2 (10:03→20:27)
[2019-07-28] MEDS: Sodium Chloride 0.9% 1,000 ML IV SCH (10:39)
--- NOTE | 2019-07-28 10:44 | PDOC.CPN ---
- Subjective Date: 07/28/19 Time: 08:00 Interval history: The pt seen and examined. No overnight events. No cardiac complaints, except feeling of fatigue - Objective Allergies/Adverse Reactions: Allergies Allergy/AdvReac Type Severity Reaction Status Date / Time lisinopril Allergy cough Verified 07/26/19 17:16 lorazepam [From Ativan] Allergy Verified 07/26/19 17:16 Visit Medications: Current Medications Acetaminophen (Tylenol) 650 mg PO Q4H PRN PRN Reason: Headache/Fever or Pain Last Admin: 07/28/19 03:46 Dose: 650 mg Albuterol/Ipratropium (Duoneb) 3 ml NEB [id number] JACK Last Admin: 07/28/19 08:04 Dose: 3 ml Albuterol/Ipratropium (Duoneb) 3 ml NEB Q6H PRN PRN Reason: SOB &/or Wheezing Amino Acids/Electrolytes/Dextrose (Clinimix E 4.25/5) 1,000 ml IV INF [facility] Last Admin: 07/28/19 05:19 Dose: 1,000 ml Atenolol (Tenormin) 25 mg PO BID [facility] Last Admin: 07/28/19 10:03 Dose: 25 mg Bisacodyl (Dulcolax) 10 mg PO DAILYPRN PRN PRN Reason: Constipation Al Hydroxide/Mg Hydroxide 60 ml/ Lidocaine HCl 30 ml/Diphenhydramine HCl 75 mg 0 ml SSW QIDPRN PRN PRN Reason: Mouth Irritation Last Admin: 07/25/19 11:13 Dose: 10 ml Ferrous Sulfate (Feosol) 324 mg PO QAM-WM [facility] Last Admin: 07/28/19 09:59 Dose: 324 mg Gabapentin (Neurontin) 600 mg PO TID [facility] Last Admin: 07/28/19 10:03 Dose: 600 mg Guaifenesin/Dextromethorphan (Robitussin Dm) 10 ml PO Q4H PRN PRN Reason: Cough Last Admin: 07/23/19 16:26 Dose: 10 ml Cefepime HCl 2 gm/ Sodium (Chloride) 100 mls @ 200 mls/hr IVPB Q12HR [facility] Last Admin: 07/28/19 09:59 Dose: 100 mls Sodium Chloride (Normal Saline 0.9%) 1,000 mls @ 50 mls/hr IV .Q20H JACK Last Admin: 07/28/19 10:39 Dose: Not Given Vancomycin HCl 1 gm/ Device 200 mls @ 200 mls/hr IVPB 0100,1300 [facility] Last Admin: 07/28/19 00:08 Dose: 200 mls Amiodarone HCl 450 mg/Miscellaneous Medication 1 each/ Dextrose/Water 259 mls @ 0 mls/hr IVPB INF [facility]; Protocol Last Admin: 07/28/19 00:02 Dose: 259 mls Loperamide HCl (Imodium) 2 mg PO Q2H PRN PRN Reason: Diarrhea/Loose Stools Last Admin: 07/27/19 22:07 Dose: 2 mg Magnesium Oxide (Magnesium Oxide) 400 mg PO BID [facility] Last Admin: 07/28/19 09:59 Dose: 400 mg Multivitamins (Theragran) 1 tab PO HS [facility] Last Admin: 07/27/19 20:17 Dose: 1 tab Pantoprazole Sodium (Protonix) 40 mg PO DAILY [facility] Last Admin: 07/28/19 09:59 Dose: 40 mg Phenol (Chloraseptic [place] 180 Ml Bot) 0 ml PO PRN PRN PRN Reason: SORE THROAT Last Admin: 07/22/19 04:02 Dose: 2 spr Saccharomyces Boulardii (Florastor) 250 mg PO DAILY [facility] Last Admin: 07/28/19 09:59 Dose: 250 mg Sertraline HCl (Zoloft) 25 mg PO DAILY [facility] Last Admin: 07/28/19 09:59 Dose: 25 mg Sodium Chloride (Flush - Normal Saline) 10 ml IVF Q12HR [facility] Last Admin: 07/28/19 10:06 Dose: Not Given Sodium Chloride (Flush - Normal Saline) 10 ml IVF PRN PRN PRN Reason: Saline Flush Tbo-Filgrastim (Granix) 480 mcg SC DAILY [facility] Last Admin: 07/28/19 09:59 Dose: 480 mcg Vital Signs & Weight: Vital Signs Temp Pulse Resp BP BP Pulse Ox 07/28/19 10:03 86 129/61 07/28/19 08:04 84 20 99 07/28/19 03:30 100.1 F H 122 H 20 121/63 94 L 07/27/19 23:00 114 H 20 125/67 95 Admit Weight 161 lb 6.054 oz Weight 152 lb 11.2 oz - Physical Exam General: alert & oriented x3 HEENT: mucus membranes moist Neck: supple neck Cardiac: regular rate and rhythm, irregularly regular - Labs Result Diagrams: 07/28/19 04:00 07/28/19 04:00 Troponin/CKMB Troponin I 0.017 ng/mL (< 0.028) 07/18/19 20:15 - Telemetry Sinus rhythms and dysrhythmias: other (intermittent Aflutter/SR) - Assessment/Plan Assessment/Plan: 1. AFib with RVR most likely due to sepsis and anemia, pancytopenia. - Intermittent Aflutter-SR; cont. Amiodarone drip since she cannot swallow well; not on OAC 2/2 severe Anemia and Pancytopenia 2. Neutropenic sepsis - neutropenic precautions 3. Anemia with s/p multiple PRBC tx - 4. Hypomagnesemia 5. Hypokalemia - 40mEq Kcl x 1 today 6. metastatic small cell lung cancer 7. Dysphagia and Odynophagia following chemotherapy-continue PPN until her symptoms improve MAR reviewed Pt. seen and eval. by me . I agree with the a/P by the SHOE TRIMMER. She continues to have intermittent atrial flutter. Chest; diffuse rhonchi. Mild dyspnea. No edema. No change in therapy at this time.apryl
--- NOTE | 2019-07-28 11:07 | PDOC.HOSPP ---
- Subjective Encounter Date: 07/28/19 Encounter Time: 11:04 Subjective: Ms. Ramirez was seen today in follow-up of neutropenic fever, and atrial fibrillation. She says she continues to feel very weak. She notes continued trouble swallowing, and pain in her mouth and throat. - Objective Vital Signs & Weight: Vital Signs (12 hours) Temp Pulse Resp BP BP Pulse Ox 07/28/19 10:03 86 129/61 07/28/19 08:04 84 20 99 07/28/19 03:30 100.1 F H 122 H 20 121/63 94 L Weight Admit Weight 161 lb 6.054 oz Weight 152 lb 11.2 oz Most Recent Monitor Data Heart Rate from ECG 87 NIBP 98/50 NIBP BP-Mean 66 Respiration from ECG 18 SpO2 100 I&O: 07/27/19 07/28/19 07/29/19 06:59 06:59 06:59 Intake Total 1720 3761 Output Total 1000 Balance 1720 2761 Result Diagrams: 07/28/19 04:00 07/28/19 04:00 Hospitalist ROS - Medication Medications: Active Medications Generic Name Dose Route Start Last Admin Trade Name Freq PRN Reason Stop Dose Admin Acetaminophen 650 mg 07/23/19 19:13 07/28/19 03:46 Tylenol PO 650 mg Q4H PRN Administration Headache/Fever or Pain Albuterol/Ipratropium 3 ml 07/19/19 01:00 07/28/19 08:04 Duoneb NEB 3 ml [id number] JACK Administration Amino Acids/Electrolytes/Dextrose 1,000 ml 07/26/19 15:45 07/28/19 05:19 Clinimix E 4.25/5 IV 1,000 ml INF JACK Administration Atenolol 25 mg 07/19/19 21:00 07/28/19 10:03 Tenormin PO 25 mg BID JACK Administration Al Hydroxide/Mg Hydroxide 60 0 ml 07/24/19 10:17 07/25/19 11:13 ml/ Lidocaine HCl 30 ml/ SSW 10 ml Diphenhydramine HCl 75 mg QIDPRN PRN Administration Mouth Irritation Ferrous Sulfate 324 mg 07/19/19 08:00 07/28/19 09:59 Feosol PO 324 mg QAM-WM JACK Administration Gabapentin 600 mg 07/19/19 21:00 07/28/19 10:03 Neurontin PO 600 mg TID JACK Administration Guaifenesin/Dextromethorphan 10 ml 07/23/19 15:56 07/23/19 16:26 Robitussin Dm PO 10 ml Q4H PRN Administration Cough Cefepime HCl 2 gm/ Sodium 100 mls @ 200 mls/hr 07/19/19 09:00 07/28/19 09:59 Chloride IVPB 100 mls Q12HR JACK Administration Sodium Chloride 1,000 mls @ 50 mls/hr 07/23/19 08:42 07/28/19 10:39 Normal Saline 0.9% IV Not Given .Q20H JACK Vancomycin HCl 1 gm/ Device 200 mls @ 200 mls/hr 07/24/19 13:00 07/28/19 00: 08 IVPB 200 mls 0100,1300 JACK Administration Amiodarone HCl 450 mg/ 259 mls @ 0 mls/hr 07/24/19 22:45 07/28/19 00:02 Miscellaneous Medication 1 IVPB 259 mls each/ Dextrose/Water INF JACK Administration Protocol As Directed Loperamide HCl 2 mg 07/26/19 12:47 07/27/19 22:07 Imodium PO 2 mg Q2H PRN Administration Diarrhea/Loose Stools Magnesium Oxide 400 mg 07/19/19 21:00 07/28/19 09:59 Magnesium Oxide PO 400 mg BID JACK Administration Multivitamins 1 tab 07/19/19 21:00 07/27/19 20:17 Theragran PO 1 tab HS JACK Administration Pantoprazole Sodium 40 mg 07/19/19 09:00 07/28/19 09:59 Protonix PO 40 mg DAILY JACK Administration Phenol 0 ml 07/22/19 03:29 07/22/19 04:02 Chloraseptic [place] 180 Ml Bot PO 2 spr PRN PRN Administration SORE THROAT Saccharomyces Boulardii 250 mg 07/19/19 09:00 07/28/19 09:59 Florastor PO 250 mg DAILY JACK Administration Sertraline HCl 25 mg 07/19/19 09:00 07/28/19 09:59 Zoloft PO 25 mg DAILY JACK Administration Sodium Chloride 10 ml 07/23/19 09:00 07/28/19 10:06 Flush - Normal Saline IVF Not Given Q12HR JACK Tbo-Filgrastim 480 mcg 07/22/19 09:00 07/28/19 09:59 Granix SC 480 mcg DAILY JACK Administration - Exam Eye: PERRL, anicteric sclera Heart: RRR, no murmur, no gallops Respiratory: CTAB (+ occasional rhonchi), no wheezes, no rales, normal chest expansion Gastrointestinal: soft, non-tender, non-distended, normal bowel sounds, no palpable masses, no hepatomegaly Extremities: no cyanosis, 1+ LE edema Hosp A/P (1) Dysphagia Code(s): R13.10 - DYSPHAGIA, UNSPECIFIED Status: Acute (2) Neutropenic fever Code(s): D70.9 - NEUTROPENIA, UNSPECIFIED; R50.81 - FEVER PRESENTING WITH CONDITIONS CLASSIFIED ELSEWHERE Status: Acute (3) Pancytopenia Code(s): D61.818 - OTHER PANCYTOPENIA Status: Acute (4) Atrial fibrillation with RVR Code(s): I48.91 - UNSPECIFIED ATRIAL FIBRILLATION Status: Acute (5) Small cell lung cancer Code(s): C34.90 - MALIGNANT NEOPLASM OF UNSP PART OF UNSP BRONCHUS OR LUNG Status: Chronic (6) Hypertension Code(s): I10 - ESSENTIAL (PRIMARY) HYPERTENSION Status: Chronic - Plan * Dysphagia and Odynophagia following chemotherapy-continue PPN - her symptoms have not improved much. Will discuss with Dr. Samayoa if a DHT is feasible * Neutropenic fever- Continue Vancomycin and Cefepime and Filgrastim * Atrial fibrillation- sheis now in sinus- consider stopping the Amiodarone drip * Pancytopenia- due to chemotherapy- continue supportive care and transfuse as needed- she continues to have profound neutropenia
[2019-07-28 12:54] LABS: Vancomycin, Trough 25.4 ug/mL
--- NOTE | 2019-07-28 13:17 | PDOC.MOPN ---
Interval History: c/o dysphagia, weakness - Vital Signs Vital Signs: Vital Signs (12 hours) Temp Pulse Resp BP BP BP Pulse Ox 07/28/19 12:20 98.0 F 87 17 134/60 93 L 07/28/19 10:03 86 129/61 07/28/19 08:04 84 20 99 07/28/19 08:00 97.6 F 88 20 126/61 97 07/28/19 03:30 100.1 F H 122 H 20 121/63 94 L Weight Admit Weight 161 lb 6.054 oz Weight 152 lb 11.2 oz Most Recent Monitor Data Heart Rate from ECG 87 NIBP 98/50 NIBP BP-Mean 66 Respiration from ECG 18 SpO2 100 - Physical Exam General: Alert, Oriented x3, No acute distress HEENT: Atraumatic, PERRLA, EOMI, Mucous membr. moist/pink, Other (ulcers in throat) Lungs: Other (crackles) Cardiovascular: Regular rate, Normal S1, Normal S2, No murmurs, Gallops, Rubs Abdomen: Normal bowel sounds, Soft, No tenderness, No hepatospenomegaly, No masses Extremities: No clubbing, No cyanosis, No edema, Normal pulses, No tenderness/ swelling Skin: No rashes, No breakdown, No significant lesion Neurological: Normal speech Psych/Mental Status: Mental status NL - Labs Result Diagrams: 07/28/19 04:00 07/28/19 04:00 Lab results: Laboratory Results - last 24 hr 07/28/19 12:19: Vancomycin Trough 25.4 07/28/19 04:00: WBC 0.2 L*, RBC 2.36 L, Hgb 7.4 L, Hct 22.2 L, MCV 93.9, MCH 31.3 H, MCHC 33.3, RDW 13.6, Plt Count 29 L*, MPV 10.4, Neutrophils % (Manual) Not Reportable, Plt Morphology Comment Appears Decreased L, RBC Morph Comment Normal 07/28/19 04:00: Sodium 135 L, Potassium 2.8 L*, Chloride 105, Carbon Dioxide 22 L, Anion Gap 11, BUN 18, Creatinine 0.69, Estimated GFR (MDRD) 85, Glucose 119 H , Calcium 7.8 Status: lab reviewed by me A/P - Problem (1) Atrial fibrillation with RVR Current Visit: Yes Code(s): I48.91 - UNSPECIFIED ATRIAL FIBRILLATION Status : Acute (2) Neutropenic sepsis Current Visit: Yes Code(s): A41.9 - SEPSIS, UNSPECIFIED ORGANISM; D70.9 - NEUTROPENIA, UNSPECIFIED Status: Acute (3) Small cell lung cancer Current Visit: Yes Code(s): C34.90 - MALIGNANT NEOPLASM OF UNSP PART OF UNSP BRONCHUS OR LUNG Status: Chronic - Plan Plan: 1. hold xarelto until platelets consistently >40 2. platelet transfusion if platelets <15 and she has continued hemoptysis 3. continue imodium 4. continue granix 5. neutropenic precautions 6. Continue PPN, expect patient to recover. Dysphagia/odynophagia likely secondary to neutropenia.
[2019-07-28] MEDS: Vancomycin HCl 750 MG in Sodium Chloride 0.9% 250 ML 250 ML IVPB SCH (14:47)
--- NOTE | 2019-07-28 20:23 | PDOC.EVN ---
Event Note - Event Note Event Note: Patient heart rate now sustained in 120-130s on amiodarone. No symptoms at this time. Will give a small loading dose of Digoxin and start low daily IV dose.
[2019-07-28] MEDS: Loperamide HCl 2 MG CAP PO PRN (20:27)
[2019-07-28] MEDS: Multivit, Therapeutic 1 TAB PO SCH (20:27)
[2019-07-28] MEDS ORDERED: Digoxin 0.5 MG/2 ML AMP SLOW IVP SCH (20:30)
[2019-07-28 21:07] LABS: Anion Gap 12 mmol/L (10-20); BUN (Urea Nitrogen) 20 mg/dL (9.8-20.1); Calc. Creatinine Clearance 87 mL/min (70-130); Calcium 7.8 mg/dL (7.8-10.44); Carbon Dioxide 20 mmol/L (23-31); Chloride 107 mmol/L (98-107); Estimated GFR-MDRD 85; Glucose 120 mg/dL (80-115); Magnesium 1.3 mg/dL (1.6-2.6); Sodium 136 mmol/L (136-145)
[2019-07-29] MEDS: Vancomycin HCl 750 MG in Sodium Chloride 0.9% 250 ML 250 ML IVPB SCH ×2 (01:30→16:09)
[2019-07-29] MEDS ORDERED: Digoxin 0.5 MG/2 ML AMP SLOW IVP SCH ×2 (02:00→08:00)
[2019-07-29] MEDS: Sodium Chloride 0.9% 1,000 ML IV SCH (04:15)
[2019-07-29 06:50] LABS: Hemoglobin 6.8 g/dL (12.0-16.0); Mean Corpuscular HGB CONC 33.9 g/dL (32.0-36.0); Mean Corpuscular Volume 94.3 fL (78.0-98.0); Mean Platelet Volume 11.8 fL (7.4-10.4); Platelet Count 11 thou/uL (130-400); RBC Distribution Width 13.4 % (11.5-14.5); Red Blood Cell (RBC) Count 2.11 mill/uL (4.20-5.40); White Blood Cell (WBC) Count 0.2 thou/uL (4.8-10.8)
[2019-07-29 07:08] LABS: MDiff Complete? YES; Platelet Morphology Comment Appears Decreased; Polychromasia SLIGHT = 2-3 cells (100X) (0-2/hpf)
[2019-07-29] MEDS: Amiodarone 450 MG, Admixture Fee 1 EACH in Dextrose 5% in Water 250 ML IVPB SCH (07:10)
[2019-07-29 07:11] LABS: Anion Gap 10 mmol/L (10-20); BUN (Urea Nitrogen) 21 mg/dL (9.8-20.1); Calc. Creatinine Clearance 96 mL/min (70-130); Calcium 7.5 mg/dL (7.8-10.44); Carbon Dioxide 21 mmol/L (23-31); Chloride 109 mmol/L (98-107); Estimated GFR-MDRD Greater than 90; Glucose 121 mg/dL (80-115); Potassium 3.2 mmol/L (3.5-5.1); Sodium 137 mmol/L (136-145)
[2019-07-29] MEDS ORDERED: Magnesium 2 GM/50 ML 2 GM in Premix Bag 1 BAG IVPB SCH (07:30)
[2019-07-29] MEDS ORDERED: Potassium Chloride 40 MEQ in Premix Bag 1 BAG IVPB SCH (07:30)
[2019-07-29] MEDS: Digoxin 0.5 MG/2 ML AMP SLOW IVP SCH (08:41)
[2019-07-29] MEDS: Cefepime 2 GM in Sodium Chloride 0.9% 100 ML IVPB SCH (09:06)
[2019-07-29] MEDS: Ferrous Sulfate 325 MG TAB PO SCH (09:14)
[2019-07-29] MEDS: Gabapentin 300 MG CAP PO SCH ×3 (09:15→20:32)
[2019-07-29] MEDS: Atenolol 25 MG TAB PO SCH ×2 (09:15→20:31)
[2019-07-29] MEDS: Saccharomyces boulardii 250 MG CAP PO SCH (09:15)
[2019-07-29] MEDS: Magnesium Oxide 400 MG TAB PO SCH ×2 (09:15→20:32)
--- NOTE | 2019-07-29 09:22 | PDOC.CPN ---
- Subjective Date: 07/29/19 Time: 08:00 Interval history: The pt seen and examined. No overnight events. No cardiac complaints. - Objective Allergies/Adverse Reactions: Allergies Allergy/AdvReac Type Severity Reaction Status Date / Time lisinopril Allergy cough Verified 07/26/19 17:16 lorazepam [From Ativan] Allergy Verified 07/26/19 17:16 Visit Medications: Current Medications Acetaminophen (Tylenol) 650 mg PO Q4H PRN PRN Reason: Headache/Fever or Pain Last Admin: 07/28/19 20:27 Dose: 650 mg Albuterol/Ipratropium (Duoneb) 3 ml NEB [id number] JACK Last Admin: 07/29/19 07:41 Dose: 3 ml Albuterol/Ipratropium (Duoneb) 3 ml NEB Q6H PRN PRN Reason: SOB &/or Wheezing Amino Acids/Electrolytes/Dextrose (Clinimix E 4.25/5) 1,000 ml IV INF [facility] Last Admin: 07/28/19 05:19 Dose: 1,000 ml Atenolol (Tenormin) 25 mg PO BID [facility] Last Admin: 07/29/19 09:15 Dose: 25 mg Bisacodyl (Dulcolax) 10 mg PO DAILYPRN PRN PRN Reason: Constipation Al Hydroxide/Mg Hydroxide 60 ml/ Lidocaine HCl 30 ml/Diphenhydramine HCl 75 mg 0 ml SSW QIDPRN PRN PRN Reason: Mouth Irritation Last Admin: 07/25/19 11:13 Dose: 10 ml Digoxin (Lanoxin) 0.125 mg SLOW IVP DAILY [facility] Last Admin: 07/29/19 08:41 Dose: 0.125 mg Ferrous Sulfate (Feosol) 324 mg PO QAM-WM [facility] Last Admin: 07/29/19 09:14 Dose: 324 mg Gabapentin (Neurontin) 600 mg PO TID [facility] Last Admin: 07/29/19 09:15 Dose: 600 mg Guaifenesin/Dextromethorphan (Robitussin Dm) 10 ml PO Q4H PRN PRN Reason: Cough Last Admin: 07/23/19 16:26 Dose: 10 ml Cefepime HCl 2 gm/ Sodium (Chloride) 100 mls @ 200 mls/hr IVPB Q12HR [facility] Last Admin: 07/29/19 09:06 Dose: 100 mls Sodium Chloride (Normal Saline 0.9%) 1,000 mls @ 50 mls/hr IV .Q20H [facility] Last Admin: 07/29/19 04:15 Dose: 1,000 mls Amiodarone HCl 450 mg/Miscellaneous Medication 1 each/ Dextrose/Water 259 mls @ 0 mls/hr IVPB INF JACK; Protocol Last Admin: 07/29/19 07:10 Dose: 259 mls Vancomycin HCl 750 mg/ Sodium (Chloride) 250 mls @ 250 mls/hr IVPB 0100,1300 [facility] Last Admin: 07/29/19 01:30 Dose: 250 mls Magnesium Sulfate 2 gm/ Device 50 mls @ 50 mls/hr IVPB NOW [facility] Stop: 07/29/19 10:00 Last Admin: 07/29/19 09:01 Dose: 50 mls Potassium Chloride 20 meq/ (Device) 100 mls @ 50 mls/hr IVPB Q2H [facility] Stop: 07/29/19 11:59 Loperamide HCl (Imodium) 2 mg PO Q2H PRN PRN Reason: Diarrhea/Loose Stools Last Admin: 07/28/19 20:27 Dose: 2 mg Magnesium Oxide (Magnesium Oxide) 400 mg PO BID [facility] Last Admin: 07/29/19 09:15 Dose: 400 mg Multivitamins (Theragran) 1 tab PO HS [facility] Last Admin: 07/28/19 20:27 Dose: 1 tab Pantoprazole Sodium (Protonix) 40 mg PO DAILY [facility] Last Admin: 07/29/19 09:15 Dose: 40 mg Phenol (Chloraseptic [place] 180 Ml Bot) 0 ml PO PRN PRN PRN Reason: SORE THROAT Last Admin: 07/22/19 04:02 Dose: 2 spr Saccharomyces Boulardii (Florastor) 250 mg PO DAILY [facility] Last Admin: 07/29/19 09:15 Dose: 250 mg Sertraline HCl (Zoloft) 25 mg PO DAILY [facility] Last Admin: 07/29/19 09:15 Dose: 25 mg Sodium Chloride (Flush - Normal Saline) 10 ml IVF Q12HR [facility] Last Admin: 07/29/19 09:17 Dose: Not Given Sodium Chloride (Flush - Normal Saline) 10 ml IVF PRN PRN PRN Reason: Saline Flush Tbo-Filgrastim (Granix) 480 mcg SC DAILY JACK Last Admin: 07/28/19 09:59 Dose: 480 mcg Vital Signs & Weight: Vital Signs Temp Pulse Resp BP BP Pulse Ox 07/29/19 07:41 87 18 07/29/19 07:19 97.9 F 88 21 H 163/72 H 96 07/29/19 03:43 97.5 F L 88 22 H 137/64 93 L 07/28/19 23:39 98.5 F 07/28/19 23:20 100 20 Admit Weight 161 lb 6.054 oz Weight 156 lb 9.6 oz - Physical Exam General: alert & oriented x3 HEENT: mucus membranes moist Cardiac: regular rate and rhythm, S1/S2 Lungs: decreased breath sounds - Labs Result Diagrams: 07/29/19 06:30 07/29/19 06:30 Troponin/CKMB Troponin I 0.017 ng/mL (< 0.028) 07/18/19 20:15 - Telemetry Sinus rhythms and dysrhythmias: sinus rhythm - Assessment/Plan Assessment/Plan: 1. AFib with RVR most likely due to sepsis and anemia, pancytopenia. - HR was up to 140s last night; Digoxin IV x1 dose was given; remains in SR for now; Intermittent Aflutter-SR; cont. Amiodarone drip since she cannot swallow well; not on OAC 2/2 severe Anemia and Pancytopenia 2. Neutropenic sepsis - neutropenic precautions 3. Anemia with s/p multiple PRBC tx - 4. Hypomagnesemia - On PO Mag; Mag IV x1 this AM 5. Hypokalemia - 40mEq Kcl IV x 1 today 6. metastatic small cell lung cancer 7. Dysphagia and Odynophagia following chemotherapy-continue PPN until her symptoms improve MAR reviewed Pt. seen and eval. by me. I agree with the a/P by the RETURNS CLERK except the pt. did c/o SOB. She has been moved to [facility] and lasix IV was given with good diuresis. The O2 sats are >90% but she still has the BiPaP mask on. She is breathing comfortably as could be expected with the mask. At this time she is also maintaining NSR . her IV meds otherwise were held. She may go back into atrial fibrillation and then I would suggest IV amiodarone again. We may need to double strenth the concentration to avoid unnecessary volume. Chest clear anteriorly at this time. RRR. Poor prognosis. nicolm
[2019-07-29] MEDS ORDERED: Furosemide 40 MG/4 ML VIAL ONE (09:58)
[2019-07-29] MEDS ORDERED: Lorazepam 2 MG/ML VIAL ONE (10:05)
--- NOTE | 2019-07-29 10:24 | PDOC.HOSPP ---
- Subjective Encounter Date: 07/29/19 Encounter Time: 10:22 Subjective: Called to evaluate patient as she is acutely short of breath. She says she can' t breath. - Objective Vital Signs & Weight: Vital Signs (12 hours) Temp Pulse Resp BP BP Pulse Ox 07/29/19 07:41 87 18 07/29/19 07:19 97.9 F 88 21 H 163/72 H 96 07/29/19 03:43 97.5 F L 88 22 H 137/64 93 L 07/28/19 23:39 98.5 F 07/28/19 23:20 100 20 Weight Admit Weight 161 lb 6.054 oz Weight 156 lb 9.6 oz Most Recent Monitor Data Heart Rate from ECG 87 NIBP 98/50 NIBP BP-Mean 66 Respiration from ECG 18 SpO2 100 I&O: 07/28/19 07/29/19 07/30/19 06:59 06:59 06:59 Intake Total 3761 2280 Output Total 1000 Balance 2761 2280 Result Diagrams: 07/29/19 06:30 07/29/19 06:30 Additional Labs: Accuchecks 07/29/19 10:01 POC Glucose 133 H Hospitalist ROS - Medication Medications: Active Medications Generic Name Dose Route Start Last Admin Trade Name Freq PRN Reason Stop Dose Admin Acetaminophen 650 mg 07/23/19 19:13 07/28/19 20:27 Tylenol PO 650 mg Q4H PRN Administration Headache/Fever or Pain Albuterol/Ipratropium 3 ml 07/19/19 01:00 07/29/19 07:41 Duoneb NEB 3 ml [id number] JACK Administration Atenolol 25 mg 07/19/19 21:00 07/29/19 09:15 Tenormin PO 25 mg BID JACK Administration Al Hydroxide/Mg Hydroxide 60 0 ml 07/24/19 10:17 07/25/19 11:13 ml/ Lidocaine HCl 30 ml/ SSW 10 ml Diphenhydramine HCl 75 mg QIDPRN PRN Administration Mouth Irritation Digoxin 0.125 mg 07/29/19 09:00 07/29/19 08:41 Lanoxin SLOW IVP 0.125 mg DAILY JACK Administration Ferrous Sulfate 324 mg 07/19/19 08:00 07/29/19 09:14 Feosol PO 324 mg QAM-WM JACK Administration Gabapentin 600 mg 07/19/19 21:00 07/29/19 09:15 Neurontin PO 600 mg TID JACK Administration Guaifenesin/Dextromethorphan 10 ml 07/23/19 15:56 07/23/19 16:26 Robitussin Dm PO 10 ml Q4H PRN Administration Cough Cefepime HCl 2 gm/ Sodium 100 mls @ 200 mls/hr 07/19/19 09:00 07/29/19 09:06 Chloride IVPB 100 mls Q12HR JACK Administration Sodium Chloride 1,000 mls @ 50 mls/hr 07/23/19 08:42 07/29/19 04:15 Normal Saline 0.9% IV 1,000 mls .Q20H JACK Administration Amiodarone HCl 450 mg/ 259 mls @ 0 mls/hr 07/24/19 22:45 07/29/19 07:10 Miscellaneous Medication 1 IVPB 259 mls each/ Dextrose/Water INF JACK Administration Protocol As Directed Vancomycin HCl 750 mg/ Sodium 250 mls @ 250 mls/hr 07/28/19 13:00 07/29/19 01 :30 Chloride IVPB 250 mls 0100,1300 JACK Administration Loperamide HCl 2 mg 07/26/19 12:47 07/28/19 20:27 Imodium PO 2 mg Q2H PRN Administration Diarrhea/Loose Stools Magnesium Oxide 400 mg 07/19/19 21:00 07/29/19 09:15 Magnesium Oxide PO 400 mg BID JACK Administration Multivitamins 1 tab 07/19/19 21:00 07/28/19 20:27 Theragran PO 1 tab HS JACK Administration Pantoprazole Sodium 40 mg 07/19/19 09:00 07/29/19 09:15 Protonix PO 40 mg DAILY JACK Administration Phenol 0 ml 07/22/19 03:29 07/22/19 04:02 Chloraseptic [place] 180 Ml Bot PO 2 spr PRN PRN Administration SORE THROAT Saccharomyces Boulardii 250 mg 07/19/19 09:00 07/29/19 09:15 Florastor PO 250 mg DAILY JACK Administration Sertraline HCl 25 mg 07/19/19 09:00 07/29/19 09:15 Zoloft PO 25 mg DAILY JACK Administration Sodium Chloride 10 ml 07/23/19 09:00 07/29/19 09:17 Flush - Normal Saline IVF Not Given Q12HR JACK Tbo-Filgrastim 480 mcg 07/22/19 09:00 07/28/19 09:59 Granix SC 480 mcg DAILY JACK Administration - Exam Eye: PERRL Heart: RRR (tachycardic) Respiratory: rales (+ decreased breath sounds at the bases + stridor) Gastrointestinal: soft, non-tender, non-distended, normal bowel sounds, no palpable masses, no hepatomegaly Extremities: no cyanosis, no clubbing, 1+ LE edema Hosp A/P (1) Dysphagia Code(s): R13.10 - DYSPHAGIA, UNSPECIFIED Status: Acute (2) Neutropenic fever Code(s): D70.9 - NEUTROPENIA, UNSPECIFIED; R50.81 - FEVER PRESENTING WITH CONDITIONS CLASSIFIED ELSEWHERE Status: Acute (3) Pancytopenia Code(s): D61.818 - OTHER PANCYTOPENIA Status: Acute (4) Atrial fibrillation with RVR Code(s): I48.91 - UNSPECIFIED ATRIAL FIBRILLATION Status: Acute (5) Small cell lung cancer Code(s): C34.90 - MALIGNANT NEOPLASM OF UNSP PART OF UNSP BRONCHUS OR LUNG Status: Chronic (6) Hypertension Code(s): I10 - ESSENTIAL (PRIMARY) HYPERTENSION Status: Chronic - Plan * Acute respiratory failure- likely due to volume overload- will give a dose of IV Lasix now, and again this afternoon * Move to the IMCU and place on BiPAP * Will discontinue PPN , IV fluids, and Amiodarone drip for now * Thrombocytopenia- will transfuse a unit of platelets * Dysphagia and Odynophagia following chemotherapy-NPO for now- discussed with Dr. Samayoa yesterday- will hold off on DHT or using TPN at this time * Neutropenic fever- Continue Vancomycin and Cefepime and Filgrastim * Atrial fibrillation she has been in sinus- will discontinue the Amiodarone drip * Pancytopenia- due to chemotherapy- transfusing platelets today
--- NOTE | 2019-07-29 11:58 | RAD ---
EXAM: CHEST ONE VIEW HISTORY: Shortness of breath COMPARISON: 07/24/2019 FINDINGS: Left subclavian Mediport catheter is again noted in place and unchanged in position. Cardiac silhouet te is magnified by projection. There is increased interstitial opacity seen in the left perihilar region and in the right midlung zone and right infrahilar region which was not appreciated on prior s tudy. Findings may be related to either asymmetric pulmonary edema versus infectious process. Multiple site monitor leads overlie the chest. No other interval change. IMPRESSION: Interval development of asymmetric perihilar interstitial densities greater on the left which may be related to either asymmetric pulmonary edema versus infectious process. Follow-up to resolution is recommended.
[2019-07-29] MEDS: Potassium Chloride 20 MEQ in Premix Bag 1 BAG IVPB SCH ×2 (12:44→14:50)
--- NOTE | 2019-07-29 13:28 | PDOC.PALCO ---
Palliative Care Consult - Consult Details Requesting Physician: Dr Samson Reason for Consult: goals of care, advance directives assistance, assistance with communication prognosis/disease - Pertinent HPI 69 year old female who has a known history of small cell carcinoma that called her oncologist with report of fever of 103.7 and was directed to the emergency room for further evaluation. Received topotecan 07/18/2019. Confirmed diarrhea but this is recurrent and. Nothing mitigated the fever at home. Emergency room evaluation identified sepsis, altered electrolyte, atrial fib,. During the course of her stay she has experienced progressing shortness of breath, and was transferred to [facility] secondary to suspected fluid overload and respiratory distress, placed on Bipap and being diuresed. - Pertinent PMH Atrial Fib, Small Cell Carcinoma, COPD, HTN - Social History Smoking Status: Former smoker Smoking: cigarettes Alcohol Use: none Drug Use History: none Living Situation: independent - Medications MAR Reviewed: Yes - Allergies Allergies/Adverse Reactions: Allergies Allergy/AdvReac Type Severity Reaction Status Date / Time lisinopril Allergy cough Verified 07/26/19 17:16 lorazepam [From Ativan] Allergy Verified 07/26/19 17:16 - Subjective On bipap, labored respirations with accessory muscle use. Difficult for patient to fully communicate ROS secondary to respiratory compromise. - ROS Constitutional: alert, weakness Respiratory: shortness of breath with extertion Cardiology: edema - Objective Vital Signs: Vital Signs - Most Recent Temp Pulse Resp BP Pulse Ox 99.6 F 94 26 H 115/63 96 07/29/19 13:11 07/29/19 13:11 07/29/19 13:11 07/29/19 13:11 07/29/19 13:11 Palliative Performance Scale: 30 - Physical Exam Constitutional: ill appearing, mild distress HEENT: EOMI, moist MMs, sclera anicteric Respiratory: accessory muscle use, diminished lung sound, labored respirations, tachypnea Cardiovascular: RRR Gastrointestinal: soft, non-tender, positive bowel sounds Genitourinary: keller catheter Musculoskeletal: pulses present, edema present Neurology: moves all 4 limbs, no focal deficits Skin: bruising, fragile Deviation from normal: Pallor Psychiatric: A&O x 3 Deviation from normal: anxious - Problem List (1) Palliative care encounter Code(s): Z51.5 - ENCOUNTER FOR PALLIATIVE CARE Current Visit: Yes Status: Acute (2) Diarrhea due to drug Code(s): K52.1 - TOXIC GASTROENTERITIS AND COLITIS Current Visit: Yes Status : Acute (3) Dysphagia Code(s): R13.10 - DYSPHAGIA, UNSPECIFIED Current Visit: Yes Status: Acute (4) Neutropenic sepsis Code(s): A41.9 - SEPSIS, UNSPECIFIED ORGANISM; D70.9 - NEUTROPENIA, UNSPECIFIED Current Visit: Yes Status: Acute (5) Pancytopenia Code(s): D61.818 - OTHER PANCYTOPENIA Current Visit: Yes Status: Acute (6) Small cell lung cancer Code(s): C34.90 - MALIGNANT NEOPLASM OF UNSP PART OF UNSP BRONCHUS OR LUNG Current Visit: Yes Status: Chronic - Plan/Recommendations Plan: Introduced Palliative Care and role in assisting in Goal of Care. Patient sister on her way. Will request sergo batista board for communication Consideration for either ativan or low dose morphine for respiratory distress, however diastolic hypotension Palliative Care will continue to follow and assist with conversations in relation to GOC [40] minutes spent on this encounter with >50% of the time in counseling and coordination of care. Thank you for this very appropriate consult.
--- NOTE | 2019-07-29 14:45 | PDOC.MOPN ---
Interval History: events noted. on bpap. - Vital Signs Vital Signs: Vital Signs (12 hours) Temp Pulse Pulse Resp BP BP BP 07/29/19 13:11 99.6 F 94 26 H 115/63 07/29/19 10:20 97.8 F 102 H 30 H 07/29/19 10:10 102 H 30 H 07/29/19 07:41 87 18 07/29/19 07:19 97.9 F 88 21 H 163/72 H 07/29/19 03:43 97.5 F L 88 22 H 137/64 Pulse Ox 07/29/19 13:11 96 07/29/19 10:20 95 07/29/19 10:10 98 07/29/19 07:41 07/29/19 07:19 96 07/29/19 03:43 93 L Weight Admit Weight 161 lb 6.054 oz Weight 156 lb 9.6 oz Most Recent Monitor Data Heart Rate from ECG 92 NIBP 111/68 NIBP BP-Mean 82 Respiration from ECG 28 SpO2 100 - Physical Exam General: Alert, Oriented x3, No acute distress HEENT: Other Lungs: Other (diminished) Cardiovascular: Regular rate, Normal S1, Normal S2, No murmurs, Gallops, Rubs Abdomen: Normal bowel sounds, Soft, No tenderness, No hepatospenomegaly, No masses Extremities: No clubbing, No cyanosis, No edema, Normal pulses, No tenderness/ swelling Neurological: Normal speech Psych/Mental Status: Mental status NL - Labs Result Diagrams: 07/29/19 06:30 07/29/19 06:30 Lab results: Laboratory Results - last 24 hr 07/29/19 10:01: POC Glucose 133 H 07/29/19 06:30: WBC 0.2 L*, RBC 2.11 L, Hgb 6.8 L, Hct 19.9 L, MCV 94.3, MCH 32.0 H, MCHC 33.9, RDW 13.4, Plt Count 11 L*, MPV 11.8 H, Neutrophils % (Manual ) Not Reportable, Lymphocytes # Not Reportable, Plt Morphology Comment Appears Decreased L, Polychromasia SLIGHT = 2-3 cells 07/29/19 06:30: Sodium 137, Potassium 3.2 L, Chloride 109 H, Carbon Dioxide 21 L , Anion Gap 10, BUN 21 H, Creatinine 0.64, Estimated GFR (MDRD) Greater than 90 , Glucose 121 H, Calcium 7.5 L 07/28/19 20:38: Sodium 136, Potassium 3.0 L, Chloride 107, Carbon Dioxide 20 L, Anion Gap 12, BUN 20, Creatinine 0.69, Estimated GFR (MDRD) 85, Glucose 120 H, Calcium 7.8, Magnesium 1.3 L 07/27/19 10:42: Blood Type O POSITIVE, Antibody Screen NEGATIVE Status: lab reviewed by me A/P - Problem (1) Atrial fibrillation with RVR Current Visit: Yes Code(s): I48.91 - UNSPECIFIED ATRIAL FIBRILLATION Status : Acute (2) Neutropenic sepsis Current Visit: Yes Code(s): A41.9 - SEPSIS, UNSPECIFIED ORGANISM; D70.9 - NEUTROPENIA, UNSPECIFIED Status: Acute (3) Small cell lung cancer Current Visit: Yes Code(s): C34.90 - MALIGNANT NEOPLASM OF UNSP PART OF UNSP BRONCHUS OR LUNG Status: Chronic - Plan Plan: 1. continue bpap. 2. continue granix 3. transfuse today. 4. ppn
[2019-07-29] MEDS ORDERED: PROPOFOL 200 MG/20 ML VIAL ONE (15:30)
[2019-07-29] MEDS ORDERED: Guaifenesin DM 100-10/5 ML UDCUP PO PRN (19:48)
[2019-07-29] MEDS: Multivit, Therapeutic 1 TAB PO SCH (20:32)
[2019-07-29 21:39] LABS: Base Excess (BEa) -5.1 mEq/L (-2.0 to +3.0); CO2 Tension 59.4 mmHg (35.0-45.0); Calcium, Ionized 1.19 mmol/L (1.12-1.30); Carboxyhemoglobin (COHb) 0.6 gm% (0.0-3.0); Hemoglobin (Hb) 8.8 g/dL (12.0-16.0); Potassium - ABG Lab 4.01 mmol/L (3.70-5.30)
[2019-07-29 21:41] LABS: pH, Arterial 7.21 (7.35-7.45)
[2019-07-29 21:42] LABS: O2 Tension (PaO2) 59.4 mmHg (> 80.0)
[2019-07-29 21:44] LABS: Puncture Site RR
[2019-07-29] MEDS ORDERED: Propofol 1,000 MG/100 ML VIAL IV ONE (22:27)
[2019-07-29] MEDS ORDERED: Ventilator Sedation Protocol 1 EACH FS ONE (22:35)
--- NOTE | 2019-07-29 22:48 | PRG ---
DATE OF SERVICE: 07/29/2019 SUBJECTIVE: Ms. Ramirez is an unfortunate 69-year-old female with small-cell lung cancer that I am well acquainted with. She apparently has taken a clinical turn for the worse, today was transferred to the intermediate care unit. I was consulted this evening because of a respiratory acidosis. She was transferred to the critical care unit for intubation. OBJECTIVE: GENERAL: When I arrived, she was unresponsive. She appeared chronically ill with temporal muscle wasting. VITAL SIGNS: She had a systolic blood pressure 120, heart rate was 130, respiratory rate was shallow in 30. HEENT: She had alopecia. LUNGS: Remarkable for rhonchi bilaterally. HEART: Regular rhythm. ABDOMEN: Soft. EXTREMITIES: Without asymmetry. NEURO: Could not be assessed. LABORATORY DATA: White count is 200, hemoglobin 6.8, platelets 11,000. The pH 7.21, CO2 of 59, and PO2 of 59. Hemoglobin was 8.8. Electrolytes; sodium 137, potassium 3.2, chloride 109, bicarb 21, BUN 21, creatinine 0.69. Chest x-ray done earlier today appears to show an early new left lung alveolar infiltrate. IMPRESSION: Hospital-acquired pneumonia with respiratory failure on top of small-cell lung cancer. PLAN: Intubation, ventilatory support, broad antimicrobial therapy, steroids, nebulizer treatments. Critical care 35 min excluding procedure. Job ID: [id number] MTDD
[2019-07-29] MEDS ORDERED: DISCONTINUE PREVIOUS NARCOTIC PAIN MEDICATIONS AND BENZODIAZEPINES FS SCH (23:00)
[2019-07-29] MEDS ORDERED: Propofol BOLUS 1,000 MG/100 ML VIAL IV PRN (23:00)
[2019-07-29] MEDS ORDERED: Sodium Chloride 0.9% 1,000 ML IV SCH (23:00)
[2019-07-29] MEDS ORDERED: Morphine 2 MG/ML SYRINGE SLOW IVP PRN (23:00)
[2019-07-29] MEDS ORDERED: Fentanyl BOLUS 250 ML IVPB PRN (23:00)
[2019-07-30] MEDS ORDERED: Norepinephrine 8 MG/0.9% NS 250 ML IVPB SCH (00:37)
[2019-07-30] MEDS ORDERED: Norepinephrine 8 MG/0.9% NS 250 ML ONE (00:37)
[2019-07-30 00:42] LABS: Vancomycin, Trough 25.3 ug/mL
[2019-07-30 03:58] LABS: Mean Corpuscular HGB CONC 34.1 g/dL (32.0-36.0); Mean Corpuscular Hemoglobin 32.2 pg (27.0-31.0); Mean Corpuscular Volume 94.3 fL (78.0-98.0); Mean Platelet Volume 9.4 fL (7.4-10.4); Platelet Count 32 thou/uL (130-400); RBC Distribution Width 13.7 % (11.5-14.5); Red Blood Cell (RBC) Count 2.18 mill/uL (4.20-5.40); White Blood Cell (WBC) Count 0.8 thou/uL (4.8-10.8)
[2019-07-30 04:09] LABS: Anion Gap 14 mmol/L (10-20); BUN (Urea Nitrogen) 25 mg/dL (9.8-20.1); Calc. Creatinine Clearance 75 mL/min (70-130); Calcium 7.5 mg/dL (7.8-10.44); Carbon Dioxide 20 mmol/L (23-31); Chloride 109 mmol/L (98-107); Estimated GFR-MDRD 76; Glucose 130 mg/dL (80-115); Magnesium 1.6 mg/dL (1.6-2.6); Potassium 3.6 mmol/L (3.5-5.1); Sodium 139 mmol/L (136-145)
[2019-07-30 04:11] LABS: Band 16 % (5-11); Lymphocytes 40 % (21-51); MDiff Complete? YES; Monocytes 12 % (0-10); Neutrophil 32 % (42-75); Platelet Morphology Comment Appears Decreased
[2019-07-30] MEDS: Furosemide 20 MG/2 ML VIAL SLOW IVP SCH ×2 (05:37→15:53)
[2019-07-30] MEDS: Propofol 1,000 MG/100 ML VIAL IV PRN ×3 (05:50→23:26)
--- NOTE | 2019-07-30 08:48 | OP ---
DATE OF PROCEDURE: 07/29/2019 PROCEDURE: Fiberoptic intubation. DESCRIPTION OF PROCEDURE: A bite block was placed in Ms. Ramirez's mouth. She was unresponsive. Her vocal cords were surprisingly abducted, so I was able to get a bronchoscope through her vocal cords and she was intubated. The tube was secured above the talisha. Copious amounts of clear mixed with purulent secretions were suctioned from the trachea. These will be sent for Gram stain and culture. She tolerated the intubation well. We will check a blood gas in the morning. Job ID: [id number]
[2019-07-30] MEDS: Atenolol 25 MG TAB PO SCH ×2 (08:51→19:26)
[2019-07-30] MEDS: Magnesium Oxide 400 MG TAB PO SCH ×2 (08:51→20:40)
[2019-07-30] MEDS: Saccharomyces boulardii 250 MG CAP PO SCH (08:52)
[2019-07-30] MEDS: Gabapentin 300 MG CAP PO SCH ×3 (08:54→20:40)
[2019-07-30] MEDS: Ferrous Sulfate 325 MG TAB PO SCH (08:55)
[2019-07-30] MEDS: methylPREDNISolone Sod Succ/PF 125 MG/2 ML VIAL IVP SCH (08:56)
[2019-07-30] MEDS: Digoxin 0.5 MG/2 ML AMP SLOW IVP SCH (08:56)
[2019-07-30] MEDS: Meropenem 2 GM, Admixture Fee 1 EACH in Sodium Chloride 0.9% 100 ML IVPB SCH ×3 (08:57→23:00)
--- NOTE | 2019-07-30 09:18 | RAD ---
SINGLE VIEW CHEST: Date: 07/30/2019 COMPARISON: 07/29/2019. HISTORY: Ventilated patient with respiratory failure. FINDINGS: Single view of the chest shows normal sized cardiomediastinal silhouette. The MediPort is unchanged i n position. There is an endotracheal tube with its tip at the lower border of the clavicles. A NG tub e is seen with its tip coursing off the inferior aspect of the film. Increased interstitial lung rohan ings are present. Bibasilar atelectasis is seen. IMPRESSION: 1. Appropriate position of lines and tubes. 2. Bibasilar atelectasis. POS: [facility]
--- NOTE | 2019-07-30 09:32 | PDOC.HOSPP ---
- Subjective Encounter Date: 07/30/19 Encounter Time: 09:30 Subjective: Ms. Ramirez was seen today in follow-up of neutropenia with Pneumonia with respiratory failure. She is now intubated. She is awake and alert and follows commands. - Objective Vital Signs & Weight: Vital Signs (12 hours) Temp Pulse Resp BP Pulse Ox 07/30/19 07:56 22 H 07/30/19 07:30 84 84/48 L 07/30/19 06:00 24 H 07/30/19 04:00 98.1 F 24 H 07/30/19 02:42 83 20 100 07/30/19 02:00 27 H 07/30/19 00:00 26 H 07/29/19 23:00 99.1 F 120 H 27 H 91 L 07/29/19 22:30 92 L 07/29/19 22:25 25 H Weight Admit Weight 161 lb 6.054 oz Weight 146 lb 9.718 oz Most Recent Monitor Data Heart Rate from ECG 87 NIBP 107/50 NIBP BP-Mean 69 Respiration from ECG 26 SpO2 100 I&O: 07/29/19 07/30/19 07/31/19 06:59 06:59 06:59 Intake Total 2280 2379.4 Output Total 2798 Balance 2280 -418.6 Result Diagrams: 07/30/19 03:35 07/30/19 03:35 Additional Labs: Accuchecks 07/29/19 10:01 POC Glucose 133 H Hospitalist ROS - Medication Medications: Active Medications Generic Name Dose Route Start Last Admin Trade Name Freq PRN Reason Stop Dose Admin Acetaminophen 650 mg 07/23/19 19:13 07/28/19 20:27 Tylenol PO 650 mg Q4H PRN Administration Headache/Fever or Pain Albuterol/Ipratropium 3 ml 07/19/19 00:28 07/29/19 10:20 Duoneb NEB 3 ml Q6H PRN Administration SOB &/or Wheezing Albuterol/Ipratropium 3 ml 07/30/19 02:30 07/30/19 07:05 Duoneb NEB 3 ml [id number] JACK Administration Atenolol 25 mg 07/19/19 21:00 07/29/19 20:31 Tenormin PO 25 mg BID JACK Administration Al Hydroxide/Mg Hydroxide 60 0 ml 07/24/19 10:17 07/25/19 11:13 ml/ Lidocaine HCl 30 ml/ SSW 10 ml Diphenhydramine HCl 75 mg QIDPRN PRN Administration Mouth Irritation Digoxin 0.125 mg 07/29/19 09:00 07/29/19 08:41 Lanoxin SLOW IVP 0.125 mg DAILY JACK Administration Furosemide 20 mg 07/30/19 06:00 07/30/19 05:37 Lasix SLOW IVP Not Given 0600,1400 JACK Gabapentin 600 mg 07/19/19 21:00 07/29/19 20:32 Neurontin PO 600 mg TID JACK Administration Amiodarone HCl 450 mg/ 259 mls @ 0 mls/hr 07/24/19 22:45 07/29/19 07:10 Miscellaneous Medication 1 IVPB 259 mls each/ Dextrose/Water INF JACK Administration Protocol As Directed Loperamide HCl 2 mg 07/26/19 12:47 07/28/19 20:27 Imodium PO 2 mg Q2H PRN Administration Diarrhea/Loose Stools Magnesium Oxide 400 mg 07/19/19 21:00 07/29/19 20:32 Magnesium Oxide PO Not Given BID [facility] Multivitamins 1 tab 07/19/19 21:00 07/29/19 20:32 Theragran PO Not Given HS [facility] Phenol 0 ml 07/22/19 03:29 07/22/19 04:02 Chloraseptic [place] 180 Ml Bot PO 2 spr PRN PRN Administration SORE THROAT Propofol 1,000 mg 07/29/19 23:00 07/30/19 05:50 Diprivan IV 08/28/19 23:00 1,000 mg INF PRN Administration TO ACHIEVE GOAL RASS Protocol Saccharomyces Boulardii 250 mg 07/19/19 09:00 07/29/19 09:15 Florastor PO 250 mg DAILY JACK Administration Sertraline HCl 25 mg 07/19/19 09:00 07/29/19 09:15 Zoloft PO 25 mg DAILY JACK Administration Sodium Chloride 10 ml 07/23/19 09:00 07/29/19 20:31 Flush - Normal Saline IVF 10 ml Q12HR JACK Administration Tbo-Filgrastim 480 mcg 07/22/19 09:00 07/29/19 12:40 Granix SC 480 mcg DAILY JACK Administration - Exam Eye: PERRL Heart: RRR, no murmur, no gallops, no rubs, normal peripheral pulses Respiratory: CTAB, no wheezes, no rales, no ronchi, normal chest expansion Gastrointestinal: soft, non-tender, non-distended, normal bowel sounds, no palpable masses, no hepatomegaly Extremities: 1+ LE edema Hosp A/P (1) Dysphagia Code(s): R13.10 - DYSPHAGIA, UNSPECIFIED Status: Acute (2) Neutropenic fever Code(s): D70.9 - NEUTROPENIA, UNSPECIFIED; R50.81 - FEVER PRESENTING WITH CONDITIONS CLASSIFIED ELSEWHERE Status: Acute (3) Pancytopenia Code(s): D61.818 - OTHER PANCYTOPENIA Status: Acute (4) Atrial fibrillation with RVR Code(s): I48.91 - UNSPECIFIED ATRIAL FIBRILLATION Status: Acute (5) Small cell lung cancer Code(s): C34.90 - MALIGNANT NEOPLASM OF UNSP PART OF UNSP BRONCHUS OR LUNG Status: Chronic (6) Hypertension Code(s): I10 - ESSENTIAL (PRIMARY) HYPERTENSION Status: Chronic - Plan * Acute respiratory failure- She was found to have a new infiltrate- She had further decompensation last night, and has now been placed on the ventilator. and moved to the ICU. * The antibiotics have been broadened to include Meropenem * Since she is Neutropenic, and has been in the hospital a few days will consult ID to aid in her management * Thrombocytopenia- better after transfusion * Neutrpenia- improved slightly * She has an OG tube in place- therfore can begin tube feeding- will consult [employer] * Atrial fibrillation she continues in sinus
[2019-07-30] MEDS: fentaNYL Citrate/PF 2,000 MCG in Sodium Chloride 0.9% 60 ML IV SCH (10:29)
--- NOTE | 2019-07-30 10:44 | PDOC.MOPN ---
Interval History: events noted, patient on vent and sedated. - Vital Signs Vital Signs: Vital Signs (12 hours) Temp Pulse Resp BP Pulse Ox 07/30/19 08:56 84 07/30/19 08:51 84 07/30/19 07:56 22 H 07/30/19 07:30 84 84/48 L 07/30/19 07:00 99.3 F 07/30/19 06:00 24 H 07/30/19 04:00 98.1 F 24 H 07/30/19 02:42 83 20 100 07/30/19 02:00 27 H 07/30/19 00:00 26 H 07/29/19 23:00 99.1 F 120 H 27 H 91 L Weight Admit Weight 161 lb 6.054 oz Weight 146 lb 9.718 oz Most Recent Monitor Data Heart Rate from ECG 87 NIBP 107/50 NIBP BP-Mean 69 Respiration from ECG 26 SpO2 100 - Physical Exam General: No acute distress HEENT: Atraumatic, PERRLA, EOMI, Mucous membr. moist/pink Lungs: Clear to auscultation, Normal air movement Cardiovascular: Regular rate, Normal S1, Normal S2, No murmurs, Gallops, Rubs Abdomen: Normal bowel sounds, Soft, No tenderness, No hepatospenomegaly, No masses Extremities: No clubbing, No cyanosis, Normal pulses, No tenderness/swelling, Other (ble edema) Neurological: Other Psych/Mental Status: Other (sedated) - Labs Result Diagrams: 07/30/19 03:35 07/30/19 03:35 Lab results: Laboratory Results - last 24 hr 07/30/19 03:35: WBC 0.8 L*, RBC 2.18 L, Hgb 7.0 L, Hct 20.6 L, MCV 94.3, MCH 32.2 H, MCHC 34.1, RDW 13.7, Plt Count 32 L, MPV 9.4, Neutrophils % (Manual) 32 L, Band Neuts % (Manual) 16 H, Lymphocytes % (Manual) 40, Monocytes % (Manual) 12 H, Plt Morphology Comment Appears Decreased L 07/30/19 03:35: Sodium 139, Potassium 3.6, Chloride 109 H, Carbon Dioxide 20 L, Anion Gap 14, BUN 25 H, Creatinine 0.76, Estimated GFR (MDRD) 76, Glucose 130 H , Calcium 7.5 L, Magnesium 1.6 07/30/19 00:12: Vancomycin Trough 25.3 07/29/19 21:31: Specimen Type ARTERIAL, Puncture Site RR, Bicarbonate Actual 23.0, ABG pH 7.21 L*, ABG pCO2 59.4 H, ABG pO2 59.4 L*, ABG O2 Sat Calc/Donna 84.1 L*, ABG O2 Content 10.4 L, ABG Base Excess -5.1 L, ABG Hematocrit 26.0 L, ABG Hemoglobin 8.8 L, ABG Oxyhemoglobin 83.3 L, ABG Carboxyhemoglobin 0.6, ABG Methemoglobin 0.30, ABG Deoxyhemoglobin 15.8 H, Tristan Test POSITIVE, A-a O2 Gradient 222.850 H, Sodium 138, Potassium 4.01, Chloride 106, Ionized Calcium 1.19, Mode of Support BIPAP 14/6, Inspired O2 50 07/27/19 10:42: Blood Type O POSITIVE, Antibody Screen NEGATIVE Status: lab reviewed by me A/P - Problem (1) Atrial fibrillation with RVR Current Visit: Yes Code(s): I48.91 - UNSPECIFIED ATRIAL FIBRILLATION Status : Acute (2) Neutropenic sepsis Current Visit: Yes Code(s): A41.9 - SEPSIS, UNSPECIFIED ORGANISM; D70.9 - NEUTROPENIA, UNSPECIFIED Status: Acute (3) Small cell lung cancer Current Visit: Yes Code(s): C34.90 - MALIGNANT NEOPLASM OF UNSP PART OF UNSP BRONCHUS OR LUNG Status: Chronic - Plan Plan: Patient now intubated for resp failure WBC slightly improved, continue granix Recommend TF while intubated Will follow
[2019-07-30 12:49] LABS: Vancomycin, Random 17.9 ug/mL (See Comment)
--- NOTE | 2019-07-30 12:59 | PDOC.CPN ---
- Subjective Date: 07/30/19 Time: 08:30 Interval history: The pt seen and examined. No overnight events. She is on Vent with vent sedation - Objective Allergies/Adverse Reactions: Allergies Allergy/AdvReac Type Severity Reaction Status Date / Time lisinopril Allergy cough Verified 07/26/19 17:16 lorazepam [From Ativan] Allergy Verified 07/26/19 17:16 Visit Medications: Current Medications Acetaminophen (Tylenol) 650 mg PO Q4H PRN PRN Reason: Headache/Fever or Pain Last Admin: 07/28/19 20:27 Dose: 650 mg Albuterol/Ipratropium (Duoneb) 3 ml NEB Q6H PRN PRN Reason: SOB &/or Wheezing Last Admin: 07/29/19 10:20 Dose: 3 ml Albuterol/Ipratropium (Duoneb) 3 ml NEB [id number] JACK Last Admin: 07/30/19 07:05 Dose: 3 ml Atenolol (Tenormin) 25 mg PO BID JACK Last Admin: 07/30/19 08:51 Dose: Not Given Bisacodyl (Dulcolax) 10 mg PO DAILYPRN PRN PRN Reason: Constipation Al Hydroxide/Mg Hydroxide 60 ml/ Lidocaine HCl 30 ml/Diphenhydramine HCl 75 mg 0 ml SSW QIDPRN PRN PRN Reason: Mouth Irritation Last Admin: 07/25/19 11:13 Dose: 10 ml Digoxin (Lanoxin) 0.125 mg SLOW IVP DAILY JACK Last Admin: 07/30/19 08:56 Dose: 0.125 mg Ferrous Sulfate (Ferrous Sulfate) 300 mg PO QAM-WM JACK Furosemide (Lasix) 20 mg SLOW IVP 0600,1400 [facility] Last Admin: 07/30/19 05:37 Dose: Not Given Gabapentin (Neurontin) 600 mg PO TID JACK Last Admin: 07/30/19 08:54 Dose: 600 mg Guaifenesin/Dextromethorphan (Robitussin Dm) 15 ml PO Q4H PRN PRN Reason: Cough Amiodarone HCl 450 mg/Miscellaneous Medication 1 each/ Dextrose/Water 259 mls @ 0 mls/hr IVPB INF JACK; Protocol Last Admin: 07/29/19 07:10 Dose: 259 mls Meropenem 2 gm/ Miscellaneous Medication 1 each/ Sodium Chloride 100 mls @ 200 mls/hr IVPB 0800,1600,2359 [facility] Last Admin: 07/30/19 08:57 Dose: 100 mls Fentanyl Citrate 2,000 mcg/ (Sodium Chloride) 100 mls @ 0 mls/hr IV INF [facility]; Protocol Stop: 08/28/19 23:00 Last Admin: 07/30/19 10:29 Dose: 100 mls Fentanyl Citrate (Fentanyl Bolus) 250 mls @ 0 mls/hr IVPB PRN PRN PRN Reason: Breakthrough pain/agitation Stop: 08/28/19 23:00 Norepinephrine Bitartrate (Levophed) 250 mls @ 0 mls/hr IVPB INF [facility]; Protocol Vancomycin HCl 750 mg/ Sodium (Chloride) 250 mls @ 250 mls/hr IVPB 0100,1300 [facility] Loperamide HCl (Imodium) 2 mg PO Q2H PRN PRN Reason: Diarrhea/Loose Stools Last Admin: 07/28/19 20:27 Dose: 2 mg Magnesium Oxide (Magnesium Oxide) 400 mg PO BID [facility] Last Admin: 07/30/19 08:51 Dose: 400 mg Methylprednisolone Sodium Succinate (Solu-Medrol) 80 mg IVP DAILY [facility] Last Admin: 07/30/19 08:56 Dose: 80 mg Morphine Sulfate (Morphine) 2 mg SLOW IVP Q1H PRN PRN Reason: BREAKTHROUGH PAIN/Agitation Stop: 08/28/19 23:00 Multivitamins (Theragran) 1 tab PO [facility] Last Admin: 07/29/19 20:32 Dose: Not Given Pantoprazole Sodium (Protonix) 40 mg PO DAILY [facility] Phenol (Chloraseptic [place] 180 Ml Bot) 0 ml PO PRN PRN PRN Reason: SORE THROAT Last Admin: 07/22/19 04:02 Dose: 2 spr Propofol (Diprivan) 1,000 mg IV INF PRN; Protocol PRN Reason: TO ACHIEVE GOAL RASS Stop: 08/28/19 23:00 Last Admin: 07/30/19 05:50 Dose: 1,000 mg Propofol (Diprivan Bolus) 20 mg IV Q5MIN PRN PRN Reason: BREAKTHROUGH AGITATION Stop: 08/28/19 23:00 Saccharomyces Boulardii (Florastor) 250 mg PO DAILY [facility] Last Admin: 07/30/19 08:52 Dose: 250 mg Sertraline HCl (Zoloft) 25 mg PO DAILY [facility] Last Admin: 07/30/19 08:52 Dose: 25 mg Sodium Chloride (Flush - Normal Saline) 10 ml IVF Q12HR [facility] Last Admin: 07/30/19 10:26 Dose: Not Given Sodium Chloride (Flush - Normal Saline) 10 ml IVF PRN PRN PRN Reason: Saline Flush Sodium Chloride (Flush - Normal Saline) 10 ml IVF PRN PRN PRN Reason: Saline Flush Tbo-Filgrastim (Granix) 480 mcg SC DAILY [facility] Last Admin: 07/30/19 10:29 Dose: 480 mcg Vital Signs & Weight: Vital Signs Temp Pulse Resp BP Pulse Ox 07/30/19 12:00 99.1 F 20 07/30/19 08:56 84 07/30/19 08:51 84 07/30/19 07:56 22 H 07/30/19 07:30 84 84/48 L 07/30/19 07:00 99.3 F 07/30/19 06:00 24 H 07/30/19 04:00 98.1 F 24 H 07/30/19 02:42 83 20 100 07/30/19 02:00 27 H Admit Weight 161 lb 6.054 oz Weight 146 lb 9.718 oz - Physical Exam Lungs: decreased breath sounds Extremities: no edema - Labs Result Diagrams: 07/30/19 03:35 07/30/19 03:35 Troponin/CKMB Troponin I 0.017 ng/mL (< 0.028) 07/18/19 20:15 - Telemetry Sinus rhythms and dysrhythmias: sinus rhythm - Assessment/Plan Assessment/Plan: 1. AFib with RVR most likely due to sepsis and anemia, pancytopenia. - well controlled HR and remains in SR; On Digoxin 0.125mg IV push daily; cont. Amiodarone drip since she cannot swallow well; not on OAC 2/2 severe Anemia and Pancytopenia 2. Neutropenic sepsis - neutropenic precautions 3. Anemia with s/p multiple PRBC tx - 4. Hypomagnesemia - On PO Mag; Mag IV x1 this AM 5. Hypokalemia - 40mEq Kcl IV x 1 today 6. metastatic small cell lung cancer 7. Dysphagia and Odynophagia following chemotherapy-continue PPN until her symptoms improve MAR reviewed I agree with the A/P by the HEALTH TECHNICAL WRITER. We will continue to follow. no further cardiac changes at this time. apryl
[2019-07-30] MEDS: Vancomycin HCl 500 MG in Sodium Chloride 0.9% 100 ML IVPB SCH (14:18)
--- NOTE | 2019-07-30 14:45 | PRG ---
DATE OF SERVICE: 07/30/2019 SUBJECTIVE: Ms. Ramirez has been stable overnight. She is sedated for ventilation. OBJECTIVE: VITAL SIGNS: heart rate is 84, blood pressure 103/49, respiratory rate 12, FiO2 is 50%. LUNGS: Remarkable for rhonchi bilaterally. HEART: Regular rhythm. ABDOMEN: Soft. EXTREMITIES: Without edema. NEUROLOGIC: Grossly nonfocal. I do not see a preliminary report on the bronchoscopy washings that were caught last night in a trap for culture. LABORATORY DATA: White count is 800, hemoglobin 7.0, platelets 32,000. Sodium 139, potassium 3.6, chloride 109, bicarb 20, BUN 25, creatinine 0.76. Blood gas; pH 7.31, CO2 of 59, PO2 of 59 yesterday. Blood gas does not appear to have been resulted this morning. IMPRESSION: Respiratory failure associated with nosocomial pneumonia in an immunocompromised host. We will continue with supportive care. CRITICAL CARE TIME: 30 minutes. Job ID: [id number]
--- NOTE | 2019-07-30 18:18 | CON ---
DATE OF CONSULTATION: 07/30/2019 REASON FOR CONSULTATION: Neutropenic fever. HISTORY OF PRESENT ILLNESS: A 69-year-old, who is familiar to me from prior visit in June 2018, when she presented with a history of hypertension and metastatic small cell lung cancer diagnosed through biopsy after mediastinoscopy. Previous admissions included episodes of neutropenic fever, Klebsiella sepsis, PICC line infection, and C. difficile colitis. In July 2018, she had Klebsiella pneumoniae bacteremia, which appeared to be an invasive UTI. In july of the same year, she developed a comminuted intertrochanteric right hip fracture, and the patient had open reduction internal fixation and did well after discharge. On July 03, she had a bone scan, which showed osseous metastatic disease with newer areas of radiotracer uptake suspicious for progression of disease. She was apparently switched to a different chemotherapy agent and has gotten 1 course and presented to the emergency room on July 17, because of fever up to 102.9, which began the day of admission. There was some dysuria, but she has dysuria frequently. The initial findings included pulse 103, BP 120/65, temperature 102.5. She was tachycardic. The lungs were clear to auscultation and percussion. Abdomen was soft. Heart examination was otherwise normal. Other findings on admission included white cell count 2.7, hemoglobin 9.3, platelets 181,000 with 85% neutrophils. Initial chemistry with a potassium 2.8, creatinine 1.0, albumin 2.9. Urinalysis on admission with greater than 50 wbc's. Microbiology with negative urine culture from the day following admission, it was a clean-catch. Influenza A and B were negative. The patient was given cefepime and vancomycin. On July 20, the patient appeared weak, but felt improved. There was some blood in the urine, and Xarelto was held. On the , the patient was found tachycardic with atrial fibrillation and RVR, some cough. The white cell count has dropped to 0.3 as well as hemoglobin down to 6.9 and platelets down to 69. The creatinine was 0.97, and on July 22, she had a fever of 101. On July 23, she continued with temperature elevation on July 24. She was described as very tired and coughing intermittently on July 25, had complaint of pain upon swallowing. On July 26, she reported weakness. She was transfused platelets because of further decrease in platelet count. July 27, is about the same. It is a little bit of trouble swallowing on July 28. She was markedly dyspneic. Temperature had normalized. It was felt that this was due to volume overload. She was given IV Lasix and moved to the [facility] for BiPAP treatment. All drips were withheld. Pulmonary consult was obtained. Dr. Thacker evaluated the patient and felt that she had hospital-acquired pneumonia with respiratory failure. The patient is intubated, and now, she is in A06. Right now, the patient is on vancomycin and meropenem. She appears chronically ill. She opens her eyes intermittently and grimaces when touched in the face. She has not had any diarrhea according to the nurse. She has only early stage pressure damage to the skin in the presacral region. A port is accessed in the left subclavian location, and she has peripheral IV accesses otherwise. Mathews catheter is since inserted. PAST MEDICAL HISTORY: Includes hypertension; metastatic small cell lung cancer; PICC line infection in May, MediPort placement in June; paroxysmal atrial fibrillation, on Eliquis; COPD; and episodes of UTI, recurrent. PAST SURGICAL HISTORY: Cholecystectomy, hernia repair, and the operations above, possibly Yvonne's fundoplication. SOCIAL HISTORY: Former smoker. No alcoholic beverage was used. ALLERGIES: 1. LISINOPRIL. 2. LORAZEPAM. CURRENT MEDICATIONS: Meropenem, vancomycin, methylprednisolone, DuoNeb, amiodarone, atenolol, Dulcolax, Lanoxin, fentanyl, furosemide, guaifenesin, and Zoloft. FAMILY HISTORY: Noncontributory. PHYSICAL EXAMINATION: VITAL SIGNS: T-max is 102 on the , and she has been started on Medrol, so we cannot gauge her temperature response at this moment because of corticosteroids. SKIN: With the port with no inflammatory changes. Peripheral IV access in left upper extremity. Mathews catheter. LYMPHATICS: No lymphadenopathy. HEENT: Alopecia. Ocular movements are conjugate. Sclerae are white. Pupils are constricted. Oral tracheal intubation. NECK: No jugular venous distention. LUNGS: With coarse breath sounds. HEART: S1 and S2. Regular rate. ABDOMEN: Soft. Not distended. MUSCULOSKELETAL: No joint inflammatory activity noted. No edema. I cannot test her movements because of sedation. LABORATORY DATA: Her white cell count is still at 0.3, hemoglobin 8.4, platelets 45,000. Sodium 139, creatinine 0.93, albumin 2.9. Liver profile normal. Chest x-ray from today with bibasilar atelectasis. ASSESSMENT: Metastatic small cell lung cancer with failure of previous chemotherapeutic regimen, now on topotecan, admitted with fever, neutropenia, and possible pneumonia, the patient has remained with intermittent temperature elevation up to 10 days after admission. DISCUSSION: The differential diagnosis includes bacterial pneumonia versus fungal pneumonitis. Aspergillus is a concern in view of the duration of neutropenia and the persistence of fever. Since now she is going to be on corticosteroid, we are not going to be able to gauge the temperature response, and we will have to add antifungal therapy and assess her for Aspergillus infection with measurement of galactomannan antigen. Continue meropenem and vancomycin. CT of chest might be of help to further identify the possibility of invasive aspergillosis. Other possibilities including Cytomegalovirus will be assessed as well with CMV PCR. Job ID: [id number]
[2019-07-30] MEDS: Micafungin 100 MG in Sodium Chloride 0.9% 100 ML IVPB SCH (18:32)
[2019-07-30] MEDS: Multivit, Therapeutic 1 TAB PO SCH (20:40)
--- NOTE | 2019-07-30 22:44 | EKG ---
Test Reason : CODE GREEN Blood Pressure : / mmHG Vent. Rate : 101 BPM Atrial Rate : 101 BPM P-R Int : 126 ms QRS Dur : 084 ms QT Int : 362 ms P-R-T Axes : 057 020 058 degrees QTc Int : 469 ms Sinus tachycardia Low voltage QRS Borderline ECG When compared with ECG of 22-JUL-2019 11:25, Sinus rhythm has replaced Atrial fibrillation Vent. rate has decreased BY 55 BPM Confirmed by Jesse ARANDA ([id number]) on 07/30/2019 10:43:55 PM Referred By: ALLISON Confirmed By:Jesse ARANDA
--- NOTE | 2019-07-30 22:46 | EKG ---
Test Reason : Blood Pressure : / mmHG Vent. Rate : 141 BPM Atrial Rate : 141 BPM P-R Int : 000 ms QRS Dur : 186 ms QT Int : 330 ms P-R-T Axes : -81 -16 -63 degrees QTc Int : 505 ms Non-specific intra-ventricular conduction block . Atrial flutter with 2:1 block. Abnormal ECG When compared with ECG of 29-JUL-2019 10:23, (Unconfirmed) atrial flutter has replaced Sinus rhythm Questionable change in QRS duration Confirmed by Jesse ARANDA ([id number]) on 07/30/2019 10:45:31 PM Referred By: ALLISON Confirmed By:Jesse ARANDA
[2019-07-31] MEDS: Vancomycin HCl 500 MG in Sodium Chloride 0.9% 100 ML IVPB SCH ×2 (00:39→13:04)
[2019-07-31 04:25] LABS: White Blood Cell (WBC) Count 0.8 thou/uL (4.8-10.8)
[2019-07-31 04:26] LABS: Platelet Count 22 thou/uL (130-400)
[2019-07-31 04:41] LABS: Anion Gap 16 mmol/L (10-20); BUN (Urea Nitrogen) 29 mg/dL (9.8-20.1); Calc. Creatinine Clearance 82 mL/min (70-130); Calcium 6.8 mg/dL (7.8-10.44); Carbon Dioxide 16 mmol/L (23-31); Chloride 113 mmol/L (98-107); Estimated GFR-MDRD 83; Glucose 142 mg/dL (80-115); Sodium 142 mmol/L (136-145)
[2019-07-31 04:43] LABS: Potassium 2.9 mmol/L (3.5-5.1)
[2019-07-31 05:01] LABS: Band 8 % (5-11); Hemoglobin 8.7 g/dL (12.0-16.0); Hypochromia SLIGHT = 6-15 cells (100X) (0-5/hpf); Lymphocytes 40 % (21-51); MDiff Complete? YES; Mean Corpuscular HGB CONC 34.3 g/dL (32.0-36.0); Mean Corpuscular Hemoglobin 31.5 pg (27.0-31.0); Mean Corpuscular Volume 91.8 fL (78.0-98.0); Mean Platelet Volume 11.9 fL (7.4-10.4); Neutrophil 52 % (42-75); Platelet Morphology Comment Appears Decreased; RBC Distribution Width 14.2 % (11.5-14.5); Red Blood Cell (RBC) Count 2.77 mill/uL (4.20-5.40)
[2019-07-31] MEDS ORDERED: CCU Electrolyte Replacement 1 EACH FS ONE (05:15)
[2019-07-31] MEDS ORDERED: PHOS-NAK 1 PKT PACK PO PRN ×2 (05:18)
[2019-07-31] MEDS ORDERED: Potassium Chloride 20 MEQ TAB PO PRN (05:18)
[2019-07-31] MEDS ORDERED: Magnesium Oxide 400 MG TAB PO PRN ×2 (05:18)
[2019-07-31] MEDS ORDERED: Potassium Phosphate 9 MMOL in Sodium Chloride 0.9% 100 ML IVPB PRN (05:18)
[2019-07-31] MEDS ORDERED: Potassium Phosphate 15 MMOL in Sodium Chloride 0.9% 250 ML 250 ML IV PRN (05:18)
[2019-07-31] MEDS ORDERED: CCU ELECTROLYTE REPLACEMENT PROTOCOL FS PRN (05:18)
[2019-07-31] MEDS ORDERED: Potassium Chloride 40 MEQ in Sodium Chloride 0.9% 250 ML 250 ML IVPB PRN (05:18)
[2019-07-31] MEDS ORDERED: Potassium Chloride 40 MEQ in Premix Bag 1 BAG IVPB PRN (05:18)
[2019-07-31] MEDS ORDERED: Potassium Phosphate 12 MMOL in Sodium Chloride 0.9% 250 ML 250 ML IV PRN (05:18)
[2019-07-31] MEDS ORDERED: Magnesium 2 GM/50 ML 2 GM in Premix Bag 1 BAG IVPB PRN (05:18)
[2019-07-31] MEDS: Furosemide 20 MG/2 ML VIAL SLOW IVP SCH (05:29)
[2019-07-31] MEDS ORDERED: Pancrelipase DR 12000 1 CAP FS PRN (06:10)
[2019-07-31] MEDS ORDERED: Sodium Bicarbonate Tab 325 MG TAB PER TUBE PRN (06:10)
[2019-07-31 06:45] LABS: Actual Bicarbonate (HCO3a) 20.3 mEq/L (22-28); Base Excess (BEa) -3.8 mEq/L (-2.0 to +3.0); CO2 Tension 33.3 mmHg (35.0-45.0); Carboxyhemoglobin (COHb) 0.6 gm% (0.0-3.0); Hemoglobin (Hb) 11.1 g/dL (12.0-16.0); O2 Tension (PaO2) 83.2 mmHg (> 80.0); Potassium - ABG Lab 3.29 mmol/L (3.70-5.30)
[2019-07-31 06:47] LABS: Puncture Site RRA
[2019-07-31 06:48] LABS: ALV-art Gradient 196.025 (0-20)
--- NOTE | 2019-07-31 07:58 | RAD ---
ONE VIEW CHEST: HISTORY: On ventilator. Followup evaluation. COMPARISON: 07/30/2019. FINDINGS: The patient is rotated to the right. Endotracheal tube, nasogastric tube, and left subclavian MediPo rt catheter remain place. Increase in perihilar interstitial densities is again present which could be related to an element of pulmonary edema or infectious process. Hazy increased density at the lef t lung base likely related to a small left pleural effusion. Atelectasis is present at the right mony g base. No significant interval change from prior study. IMPRESSION: Stable chest. POS: LARYC
--- NOTE | 2019-07-31 08:41 | PDOC.HOSPP ---
- Subjective Encounter Date: 07/31/19 Encounter Time: 08:39 Subjective: Ms. Ramirez was seen today in follow-up of neutropenia and Pneumonia. She is intubated, she is awake and follows commands. She indicates she is breathing comfortably on the ventilator. - Objective Vital Signs & Weight: Vital Signs (12 hours) Temp Pulse Resp Pulse Ox 07/31/19 06:34 93 17 100 07/31/19 06:00 15 07/31/19 04:00 97.7 F 18 07/31/19 02:39 72 14 100 07/31/19 02:00 15 07/31/19 00:00 97.5 F L 22 H 07/30/19 22:42 73 15 100 07/30/19 22:00 24 H Weight Admit Weight 161 lb 6.054 oz Weight 152 lb 1.903 oz Most Recent Monitor Data Heart Rate from ECG 77 NIBP 112/52 NIBP BP-Mean 72 Respiration from ECG 16 SpO2 100 I&O: 07/30/19 07/31/19 08/01/19 06:59 06:59 06:59 Intake Total 2379.4 1277.2 Output Total 2798 1715 Balance -418.6 -437.8 Result Diagrams: 07/31/19 04:00 07/31/19 04:00 Hospitalist ROS - Medication Medications: Active Medications Generic Name Dose Route Start Last Admin Trade Name Freq PRN Reason Stop Dose Admin Acetaminophen 650 mg 07/23/19 19:13 07/28/19 20:27 Tylenol PO 650 mg Q4H PRN Administration Headache/Fever or Pain Albuterol/Ipratropium 3 ml 07/19/19 00:28 07/29/19 10:20 Duoneb NEB 3 ml Q6H PRN Administration SOB &/or Wheezing Albuterol/Ipratropium 3 ml 07/30/19 02:30 07/31/19 06:34 Duoneb NEB 3 ml [id number] JACK Administration Lipase/Protease/Amylase 1 cap 07/31/19 06:10 07/31/19 06:19 Sandrine Jesus [id number] FS 1 cap .PER PROTOCOL PRN Administration TUBE OCCLUSION PROTOCOL Atenolol 25 mg 07/19/19 21:00 07/30/19 19:26 Tenormin PO Not Given BID JACK Al Hydroxide/Mg Hydroxide 60 0 ml 07/24/19 10:17 07/25/19 11:13 ml/ Lidocaine HCl 30 ml/ SSW 10 ml Diphenhydramine HCl 75 mg QIDPRN PRN Administration Mouth Irritation Digoxin 0.125 mg 07/29/19 09:00 07/30/19 08:56 Lanoxin SLOW IVP 0.125 mg DAILY JACK Administration Furosemide 20 mg 07/30/19 06:00 07/31/19 05:29 Lasix SLOW IVP 20 mg 0600,1400 JACK Administration Gabapentin 600 mg 07/19/19 21:00 07/30/19 20:40 Neurontin PO 600 mg TID JACK Administration Amiodarone HCl 450 mg/ 259 mls @ 0 mls/hr 07/24/19 22:45 07/29/19 07:10 Miscellaneous Medication 1 IVPB 259 mls each/ Dextrose/Water INF JACK Administration Protocol As Directed Meropenem 2 gm/ Miscellaneous 100 mls @ 200 mls/hr 07/30/19 08:00 07/30/19 23 :00 Medication 1 each/ Sodium IVPB 100 mls Chloride 0800,1600,2359 JACK Administration Fentanyl Citrate 2,000 mcg/ 100 mls @ 0 mls/hr 07/29/19 23:00 07/30/19 10:29 Sodium Chloride IV 08/28/19 23:00 100 mls INF JACK Administration Protocol Per Protocol Vancomycin HCl 500 mg/ Sodium 100 mls @ 100 mls/hr 07/30/19 13:00 07/31/19 00 :39 Chloride IVPB 100 mls 0100,1300 JACK Administration Micafungin Sodium 100 mg/ 100 mls @ 100 mls/hr 07/30/19 18:00 07/30/19 18:32 Sodium Chloride IVPB 100 mls Q24HR JACK Administration Loperamide HCl 2 mg 07/26/19 12:47 07/28/19 20:27 Imodium PO 2 mg Q2H PRN Administration Diarrhea/Loose Stools Magnesium Oxide 400 mg 07/19/19 21:00 07/30/19 20:40 Magnesium Oxide PO 400 mg BID JACK Administration Methylprednisolone Sodium Succinate 80 mg 07/30/19 09:00 07/30/19 08:56 Solu-Medrol IVP 80 mg DAILY JACK Administration Multivitamins 1 tab 07/19/19 21:00 07/30/19 20:40 Theragran PO 1 tab HS JACK Administration Phenol 0 ml 07/22/19 03:29 07/22/19 04:02 Chloraseptic [place] 180 Ml Bot PO 2 spr PRN PRN Administration SORE THROAT Potassium Chloride 40 meq 07/31/19 05:18 07/31/19 05:29 K-Dur PO 40 meq ASDIR PRN Administration FOR SERUM K+ 2.5 - 3.5 Propofol 1,000 mg 07/29/19 23:00 07/30/19 23:26 Diprivan IV 08/28/19 23:00 1,000 mg INF PRN Administration TO ACHIEVE GOAL RASS Protocol Saccharomyces Boulardii 250 mg 07/19/19 09:00 07/30/19 08:52 Florastor PO 250 mg DAILY JACK Administration Sertraline HCl 25 mg 07/19/19 09:00 07/30/19 08:52 Zoloft PO 25 mg DAILY JACK Administration Sodium Bicarbonate 650 mg 07/31/19 06:10 07/31/19 06:19 Bicarbonate, Sodium PER TUBE 650 mg .PER PROTOCOL PRN Administration ENTERAL TUBE OCCLUSION Sodium Chloride 10 ml 07/23/19 09:00 07/30/19 20:41 Flush - Normal Saline IVF 10 ml Q12HR JACK Administration Tbo-Filgrastim 480 mcg 07/22/19 09:00 07/30/19 10:29 Granix SC 480 mcg DAILY JACK Administration - Exam Eye: PERRL Heart: RRR, no murmur, no gallops, no rubs, normal peripheral pulses Respiratory: CTAB (coarse breath sounds, and mild rare wheeze), rales, wheezes Gastrointestinal: soft, non-tender, non-distended, normal bowel sounds, no palpable masses, no hepatomegaly Extremities: no cyanosis, no edema Hosp A/P (1) HAP (hospital-acquired pneumonia) Code(s): J18.9 - PNEUMONIA, UNSPECIFIED ORGANISM; Y95 - NOSOCOMIAL CONDITION Status: Acute (2) Acute respiratory failure with hypoxemia Code(s): J96.01 - ACUTE RESPIRATORY FAILURE WITH HYPOXIA Status: Acute (3) Dysphagia Code(s): R13.10 - DYSPHAGIA, UNSPECIFIED Status: Acute (4) Neutropenic fever Code(s): D70.9 - NEUTROPENIA, UNSPECIFIED; R50.81 - FEVER PRESENTING WITH CONDITIONS CLASSIFIED ELSEWHERE Status: Acute (5) Pancytopenia Code(s): D61.818 - OTHER PANCYTOPENIA Status: Acute (6) Atrial fibrillation with RVR Code(s): I48.91 - UNSPECIFIED ATRIAL FIBRILLATION Status: Acute (7) Small cell lung cancer Code(s): C34.90 - MALIGNANT NEOPLASM OF UNSP PART OF UNSP BRONCHUS OR LUNG Status: Chronic (8) Hypertension Code(s): I10 - ESSENTIAL (PRIMARY) HYPERTENSION Status: Chronic - Plan * Acute respiratory failure due to Pneumonia- Will continue Meropenem and Vancomycin, * ID input appreciated, and Micafungin has been added * Hypotension- Levophed has been started to support her blood pressure * Neutropenia- Her wbc count has been stable * Start tube feeds when possible * Atrial fibrillation - she has occasional episodes of AFIB- - she has been off Amiodarone drip- will defer to Cardiology * Replace electrolytes * Prognosis is guarded
[2019-07-31] MEDS: Meropenem 2 GM, Admixture Fee 1 EACH in Sodium Chloride 0.9% 100 ML IVPB SCH ×3 (08:54→23:54)
[2019-07-31] MEDS: Atenolol 25 MG TAB PO SCH ×3 (08:56→21:30)
[2019-07-31] MEDS: Magnesium Oxide 400 MG TAB PO SCH ×2 (08:57→21:48)
[2019-07-31] MEDS: Saccharomyces boulardii 250 MG CAP PO SCH (08:57)
[2019-07-31] MEDS: Gabapentin 300 MG CAP PO SCH ×3 (08:57→21:48)
[2019-07-31] MEDS: Pantoprazole 40 MG GRANULES PACKET PO SCH (08:57)
[2019-07-31] MEDS: methylPREDNISolone Sod Succ/PF 125 MG/2 ML VIAL IVP SCH (08:58)
[2019-07-31 10:31] LABS: Potassium 3.3 mmol/L (3.5-5.1)
[2019-07-31 10:32] LABS: Digoxin 0.59 ng/mL (0.8-2.0)
--- NOTE | 2019-07-31 11:02 | PDOC.MOPN ---
Interval History: awakes to stimulation. - Vital Signs Vital Signs: Vital Signs (12 hours) Temp Pulse Resp BP Pulse Ox 07/31/19 10:19 117 H 90/42 L 07/31/19 10:18 84 14 100 07/31/19 09:45 112 H 103/45 L 07/31/19 08:56 76 103/52 L 07/31/19 08:00 97.8 F 07/31/19 06:34 93 17 100 07/31/19 06:00 15 07/31/19 04:00 97.7 F 18 07/31/19 02:39 72 14 100 07/31/19 02:00 15 07/31/19 00:00 97.5 F L 22 H Weight Admit Weight 161 lb 6.054 oz Weight 152 lb 1.903 oz Most Recent Monitor Data Heart Rate from ECG 80 NIBP 111/54 NIBP BP-Mean 73 Respiration from ECG 16 SpO2 100 - Physical Exam General: No acute distress HEENT: Atraumatic, PERRLA, EOMI, Mucous membr. moist/pink Lungs: Other (rhonchi) Cardiovascular: Other (intermittent afib) Extremities: Other Neurological: Other (intubated) - Labs Result Diagrams: 07/31/19 04:00 07/31/19 10:06 Lab results: Laboratory Results - last 24 hr 07/31/19 10:06: Digoxin 0.59 L 07/31/19 10:06: Potassium 3.3 L 07/31/19 06:45: Specimen Type ARTERIAL, Puncture Site RRA, Bicarbonate Actual 20.3 L, ABG pH 7.40, ABG pCO2 33.3 L, ABG pO2 83.2 H, ABG O2 Sat Calc/Donna 96.1 , ABG O2 Content 14.9 L, ABG Base Excess -3.8 L, ABG Hematocrit 33.0 L, ABG Hemoglobin 11.1 L, ABG Oxyhemoglobin 95.2, ABG Carboxyhemoglobin 0.6, ABG Methemoglobin 0.30, ABG Deoxyhemoglobin 3.9 H, Tristan Test POSITIVE, A-a O2 Gradient 196.025 H, Ionized Calcium 1.10 L, Mode of Support SIMV, Mechanical Rate 14, Inspired O2 45, Tidal Volume 450, Pressure Support 10, PEEP or CPAP 5.0 , Sodium 139, Potassium 3.29 L, Chloride 110 H 07/31/19 04:00: Magnesium 1.5 L 07/31/19 04:00: Sodium 142, Potassium 2.9 L*, Chloride 113 H, Carbon Dioxide 16 L, Anion Gap 16, BUN 29 H, Creatinine 0.70, Estimated GFR (MDRD) 83, Glucose 142 H, Calcium 6.8 L 07/31/19 04:00: WBC 0.8 L*, RBC 2.77 L, Hgb 8.7 L, Hct 25.4 L, MCV 91.8, MCH 31.5 H, MCHC 34.3, RDW 14.2, Plt Count 22 L*, MPV 11.9 H, Neutrophils % (Manual ) 52, Band Neuts % (Manual) 8, Lymphocytes % (Manual) 40, Lymphocytes # Not Reportable, Hypochromia SLIGHT = 6-15 cells, Plt Morphology Comment Appears Decreased L 07/30/19 12:23: Random Vancomycin 17.9 07/30/19 11:20: Blood Type O POSITIVE, Antibody Screen NEGATIVE, Crossmatch See Detail Status: lab reviewed by me A/P - Problem (1) Atrial fibrillation with RVR Current Visit: Yes Code(s): I48.91 - UNSPECIFIED ATRIAL FIBRILLATION Status : Acute (2) Neutropenic sepsis Current Visit: Yes Code(s): A41.9 - SEPSIS, UNSPECIFIED ORGANISM; D70.9 - NEUTROPENIA, UNSPECIFIED Status: Acute (3) Small cell lung cancer Current Visit: Yes Code(s): C34.90 - MALIGNANT NEOPLASM OF UNSP PART OF UNSP BRONCHUS OR LUNG Status: Chronic (4) Acute respiratory failure with hypoxemia Current Visit: Yes Code(s): J96.01 - ACUTE RESPIRATORY FAILURE WITH HYPOXIA Status: Acute - Plan Plan: 1. remains intubated. Appears comfortable and opens eyes to command. 2. Remains on levophed 3. Afib last night, plan amiodarone 4. continue TF
[2019-07-31] MEDS: Propofol 1,000 MG/100 ML VIAL IV PRN ×2 (11:11→22:08)
[2019-07-31] MEDS: Digoxin 0.5 MG/2 ML AMP SLOW IVP SCH (13:05)
[2019-07-31] MEDS: fentaNYL Citrate/PF 2,000 MCG in Sodium Chloride 0.9% 60 ML IV SCH (14:41)
--- NOTE | 2019-07-31 15:32 | PDOC.CPN ---
- Subjective Date: 07/31/19 Time: 08:30 Interval history: The pt seen and examined. She opened her eyes during the assessment today. She denied any cardiac complaints - Objective Allergies/Adverse Reactions: Allergies Allergy/AdvReac Type Severity Reaction Status Date / Time lisinopril Allergy cough Verified 07/26/19 17:16 lorazepam [From Ativan] Allergy Verified 07/26/19 17:16 Visit Medications: Current Medications Acetaminophen (Tylenol) 650 mg PO Q4H PRN PRN Reason: Headache/Fever or Pain Last Admin: 07/28/19 20:27 Dose: 650 mg Albuterol/Ipratropium (Duoneb) 3 ml NEB Q6H PRN PRN Reason: SOB &/or Wheezing Last Admin: 07/29/19 10:20 Dose: 3 ml Albuterol/Ipratropium (Duoneb) 3 ml NEB [id number] JACK Last Admin: 07/31/19 14:53 Dose: 3 ml Lipase/Protease/Amylase ([place] [id number]) 1 cap FS .PER PROTOCOL PRN PRN Reason: TUBE OCCLUSION PROTOCOL Last Admin: 07/31/19 06:19 Dose: 1 cap Atenolol (Tenormin) 25 mg PO BID [facility] Last Admin: 07/31/19 09:45 Dose: Not Given Bisacodyl (Dulcolax) 10 mg PO DAILYPRN PRN PRN Reason: Constipation Al Hydroxide/Mg Hydroxide 60 ml/ Lidocaine HCl 30 ml/Diphenhydramine HCl 75 mg 0 ml SSW QIDPRN PRN PRN Reason: Mouth Irritation Last Admin: 07/25/19 11:13 Dose: 10 ml Digoxin (Lanoxin) 0.125 mg SLOW IVP DAILY [facility] Last Admin: 07/31/19 13:05 Dose: 0.125 mg Ferrous Sulfate (Ferrous Sulfate) 300 mg PO QAM-WM [facility] Last Admin: 07/31/19 09:44 Dose: 300 mg Gabapentin (Neurontin) 600 mg PO TID [facility] Last Admin: 07/31/19 14:49 Dose: 600 mg Guaifenesin/Dextromethorphan (Robitussin Dm) 15 ml PO Q4H PRN PRN Reason: Cough Meropenem 2 gm/ Miscellaneous Medication 1 each/ Sodium Chloride 100 mls @ 200 mls/hr IVPB 0800,1600,2359 [facility] Last Admin: 07/31/19 08:54 Dose: 100 mls Fentanyl Citrate 2,000 mcg/ (Sodium Chloride) 100 mls @ 0 mls/hr IV INF [facility]; Protocol Stop: 08/28/19 23:00 Last Admin: 07/31/19 14:41 Dose: 100 mls Fentanyl Citrate (Fentanyl Bolus) 250 mls @ 0 mls/hr IVPB PRN PRN PRN Reason: Breakthrough pain/agitation Stop: 08/28/19 23:00 Norepinephrine Bitartrate (Levophed) 250 mls @ 0 mls/hr IVPB INF [facility]; Protocol Vancomycin HCl 500 mg/ Sodium (Chloride) 100 mls @ 100 mls/hr IVPB 0100,1300 [facility] Last Admin: 07/31/19 13:04 Dose: 100 mls Micafungin Sodium 100 mg/ (Sodium Chloride) 100 mls @ 100 mls/hr IVPB Q24HR [facility] Last Admin: 07/30/19 18:32 Dose: 100 mls Potassium Chloride 40 meq/ (Sodium Chloride) 270 mls @ 135 mls/hr IVPB ASDIR PRN PRN Reason: FOR SERUM K+ 2.5 - 3.5 Potassium Chloride 40 meq/ (Device) 100 mls @ 50 mls/hr IVPB ASDIR PRN PRN Reason: FOR SERUM K+ 2.5 - 3.5 Magnesium Sulfate 1 gm/ Sodium (Chloride) 102 mls @ 102 mls/hr IV PRN PRN PRN Reason: MAG LEVEL 1.4 - 2.0 Magnesium Sulfate 2 gm/ Device 50 mls @ 50 mls/hr IVPB ASDIR PRN PRN Reason: MAGNESIUM < 1.4 Potassium Phosphate 9 mmol/ (Sodium Chloride) 103 mls @ 25.75 mls/hr IVPB ASDIR PRN PRN Reason: Phosphate 1.0-1.8 Potassium Phosphate 12 mmol/ (Sodium Chloride) 254 mls @ 63.5 mls/hr IV ASDIR PRN PRN Reason: Serum phosphate 0.5-0.9 Potassium Phosphate 15 mmol/ (Sodium Chloride) 255 mls @ 63.75 mls/hr IV ASDIR PRN PRN Reason: Serum Phos < 0.5 Amiodarone HCl 450 mg/ (Dextrose/Water) 259 mls @ 17.26 mls/hr IVPB INF JACK Loperamide HCl (Imodium) 2 mg PO Q2H PRN PRN Reason: Diarrhea/Loose Stools Last Admin: 07/28/19 20:27 Dose: 2 mg Magnesium Oxide (Magnesium Oxide) 400 mg PO BID [facility] Last Admin: 07/31/19 08:57 Dose: 400 mg Magnesium Oxide (Magnesium Oxide) 400 mg PO BIDPRN PRN PRN Reason: FOR SERUM MAG 1.4 - 2.0 Magnesium Oxide (Magnesium Oxide) 800 mg PO PRN PRN PRN Reason: FOR SERUM MAG < 1.4 Methylprednisolone Sodium Succinate (Solu-Medrol) 80 mg IVP DAILY [facility] Last Admin: 07/31/19 08:58 Dose: 80 mg Miscellaneous Medication (Phos-Nak) 1 pkt PO TIDPRN PRN PRN Reason: FOR PHOS LEVEL 1.0 - 1.8 Miscellaneous Medication (Phos-Nak) 2 pkt PO TIDPRN PRN PRN Reason: FOR PHOS LEVEL 0.5 - 1.0 Morphine Sulfate (Morphine) 2 mg SLOW IVP Q1H PRN PRN Reason: BREAKTHROUGH PAIN/Agitation Stop: 08/28/19 23:00 Multivitamins (Theragran) 1 tab PO HS [facility] Last Admin: 07/30/19 20:40 Dose: 1 tab Ccu Electrolyte (Replacement Protocol) 0 each FS PRN PRN PRN Reason: FOR ELECTROLYTE REPLACEMENT Pantoprazole Sodium (Protonix) 40 mg PO DAILY [facility] Last Admin: 07/31/19 08:57 Dose: 40 mg Phenol (Chloraseptic [place] 180 Ml Bot) 0 ml PO PRN PRN PRN Reason: SORE THROAT Last Admin: 07/22/19 04:02 Dose: 2 spr Potassium Chloride (K-Dur) 40 meq PO ASDIR PRN PRN Reason: FOR SERUM K+ 2.5 - 3.5 Last Admin: 07/31/19 05:29 Dose: 40 meq Potassium Chloride (Klor-Con) 40 meq PER TUBE ASDIR PRN PRN Reason: FOR SERUM K+ 2.5-3.5 Last Admin: 07/31/19 13:03 Dose: 40 meq Propofol (Diprivan) 1,000 mg IV INF PRN; Protocol PRN Reason: TO ACHIEVE GOAL RASS Stop: 08/28/19 23:00 Last Admin: 07/31/19 11:11 Dose: 1,000 mg Propofol (Diprivan Bolus) 20 mg IV Q5MIN PRN PRN Reason: BREAKTHROUGH AGITATION Stop: 08/28/19 23:00 Saccharomyces Boulardii (Florastor) 250 mg PO DAILY [facility] Last Admin: 07/31/19 08:57 Dose: 250 mg Sertraline HCl (Zoloft) 25 mg PO DAILY [facility] Last Admin: 07/31/19 08:57 Dose: 25 mg Sodium Bicarbonate (Bicarbonate, Sodium) 650 mg PER TUBE .PER PROTOCOL PRN PRN Reason: ENTERAL TUBE OCCLUSION Last Admin: 07/31/19 06:19 Dose: 650 mg Sodium Chloride (Flush - Normal Saline) 10 ml IVF Q12HR [facility] Last Admin: 07/31/19 08:59 Dose: Not Given Sodium Chloride (Flush - Normal Saline) 10 ml IVF PRN PRN PRN Reason: Saline Flush Sodium Chloride (Flush - Normal Saline) 10 ml IVF PRN PRN PRN Reason: Saline Flush Tbo-Filgrastim (Granix) 480 mcg SC DAILY [facility] Last Admin: 07/31/19 10:12 Dose: 480 mcg Vital Signs & Weight: Vital Signs Temp Pulse Resp BP Pulse Ox 07/31/19 13:05 117 H 07/31/19 12:00 98.3 F 14 07/31/19 10:19 117 H 90/42 L 07/31/19 10:18 84 14 100 07/31/19 10:00 13 07/31/19 09:45 112 H 103/45 L 07/31/19 08:56 76 103/52 L 07/31/19 08:00 97.8 F 21 H 100 07/31/19 06:34 93 17 100 07/31/19 06:00 15 07/31/19 04:00 97.7 F 18 Admit Weight 161 lb 6.054 oz Weight 152 lb 1.903 oz - Labs Result Diagrams: 07/31/19 04:00 07/31/19 10:06 Troponin/CKMB Troponin I 0.017 ng/mL (< 0.028) 07/18/19 20:15 - Telemetry Sinus rhythms and dysrhythmias: sinus rhythm - Assessment/Plan Assessment/Plan: 1. AFib with RVR most likely due to sepsis and anemia, pancytopenia. - one episode of afib with RVR at night on 07/30/2019; well controlled HR and remains in SR; On Digoxin 0.125mg IV push daily; will resume Amiodarone drip since she cannot swallow well; not on OAC 2/2 severe Anemia and Pancytopenia 2. Neutropenic sepsis - neutropenic precautions 3. Anemia with s/p multiple PRBC tx - 4. Hypomagnesemia - On electrolyte protocol 5. Hypokalemia - On electrolyte protocol 6. metastatic small cell lung cancer 7. Dysphagia and Odynophagia following chemotherapy-continue PPN until her symptoms improve MAR reviewed Pt. seen and eval. by me. She remains intubated. I agree with the A/P by the ENGINEERING DOCUMENTATION SPECIALIST. She continues to have intermittent atrial fibrillation. Continue IV amiodarone for now. Follow K and Mg closely. RRR at this time. Chest clear anteriorly.
[2019-07-31] MEDS: Micafungin 100 MG in Sodium Chloride 0.9% 100 ML IVPB SCH (18:29)
[2019-07-31] MEDS: Multivit, Therapeutic 1 TAB PO SCH (21:48)
[2019-07-31] MEDS: Amiodarone 450 MG in Dextrose 5% in Water 250 ML IVPB SCH (22:08)
[2019-08-01 00:52] LABS: Vancomycin, Trough 18.5 ug/mL
[2019-08-01] MEDS: Vancomycin HCl 500 MG in Sodium Chloride 0.9% 100 ML IVPB SCH ×2 (01:23→12:49)
[2019-08-01 03:49] LABS: Anion Gap 15 mmol/L (10-20); BUN (Urea Nitrogen) 30 mg/dL (9.8-20.1); Calc. Creatinine Clearance 85 mL/min (70-130); Calcium 7.4 mg/dL (7.8-10.44); Carbon Dioxide 22 mmol/L (23-31); Chloride 113 mmol/L (98-107); Estimated GFR-MDRD 83; Glucose 163 mg/dL (80-115); Potassium 3.2 mmol/L (3.5-5.1); Sodium 147 mmol/L (136-145)
[2019-08-01 03:55] LABS: Hemoglobin 7.8 g/dL (12.0-16.0); Mean Corpuscular HGB CONC 33.5 g/dL (32.0-36.0); Mean Corpuscular Hemoglobin 30.9 pg (27.0-31.0); Mean Corpuscular Volume 92.4 fL (78.0-98.0); Mean Platelet Volume 11.7 fL (7.4-10.4); Platelet Count 19 thou/uL (130-400); RBC Distribution Width 14.2 % (11.5-14.5); Red Blood Cell (RBC) Count 2.52 mill/uL (4.20-5.40); White Blood Cell (WBC) Count 1.8 thou/uL (4.8-10.8)
[2019-08-01 04:43] LABS: Band 28 % (5-11); Dohle Bodies SLIGHT; Lymphocytes 15 % (21-51); MDiff Complete? YES; Monocytes 6 % (0-10); Neutrophil 51 % (42-75); Nucleated RBC 1 % (0); Platelet Morphology Comment Appears Decreased; Toxic Granulation SLIGHT
[2019-08-01 06:44] LABS: Actual Bicarbonate (HCO3a) 22.8 mEq/L (22-28); Base Excess (BEa) -2.1 mEq/L (-2.0 to +3.0); CO2 Tension 39.1 mmHg (35.0-45.0); Calcium, Ionized 1.09 mmol/L (1.12-1.30); Carboxyhemoglobin (COHb) 0.9 gm% (0.0-3.0); Hemoglobin (Hb) 8.4 g/dL (12.0-16.0); O2 Tension (PaO2) 73.1 mmHg (> 80.0); Potassium - ABG Lab 3.79 mmol/L (3.70-5.30); pH, Arterial 7.38 (7.35-7.45)
[2019-08-01 06:46] LABS: ALV-art Gradient 163.225 (0-20); Puncture Site RRA
--- NOTE | 2019-08-01 06:59 | PRG ---
DATE OF SERVICE: 07/31/2019 SUBJECTIVE: Ms. Ramirez awakened. She moved all of her extremities. She does not remember being intubated. She nods that she does understand that she had a bad bronchitis and probable pneumonia. OBJECTIVE: VITAL SIGNS: Blood pressure 120/62, heart rate 117, and respiratory rate in the teens. LUNGS: Remarkable for improved rhonchi compared to the day she was intubated. HEART: Regular rhythm. S1 and S2 normal. ABDOMEN: Soft. She had moderate gram-negative rods on the Gram stain. 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 Blood gas today shows a pH of 7.4, pCO2 of 33, and pO2 of 83. Electrolytes are normal except for potassium of 3.29. She has developed hyperchloremic acidosis likely from volume infusion. She remains on amiodarone. We have decreased her ventilatory support today. We may consider spontaneous breathing trial tomorrow. Dr. Betancur is managing her antimicrobial therapy. She is still neutropenic with white count of today. Her anemia is stable with hemoglobin of 8.7, platelets are still low at 22,000. CRITICAL CARE TIME: 30 minutes. Job ID: [id number]
--- NOTE | 2019-08-01 07:41 | RAD ---
PORTABLE CHEST 1 VIEW: DATE: 08/01/2019. TIME: 5:14 AM. HISTORY: Respiratory failure. COMPARISON: Previous day. FINDINGS/IMPRESSION: There is mild improvement in aeration of the left lung base compared to the previous study. The fadumo agnes of the exam is otherwise stable. POS: SUZANNE
[2019-08-01] MEDS: Atenolol 25 MG TAB PO SCH ×2 (09:00→20:21)
[2019-08-01] MEDS: Digoxin 0.5 MG/2 ML AMP SLOW IVP SCH (09:00)
[2019-08-01] MEDS: Pantoprazole 40 MG GRANULES PACKET PO SCH (09:00)
[2019-08-01] MEDS: Magnesium Oxide 400 MG TAB PO SCH ×2 (09:00→20:21)
[2019-08-01] MEDS: Gabapentin 300 MG CAP PO SCH ×3 (09:00→20:21)
[2019-08-01] MEDS: Saccharomyces boulardii 250 MG CAP PO SCH (09:00)
[2019-08-01] MEDS ORDERED: methylPREDNISolone Sod Succ 40 MG VIAL IVP SCH (11:00)
--- NOTE | 2019-08-01 11:05 | PDOC.CPN ---
- Subjective Date: 08/01/19 Time: 11:07 Interval history: The pt seen and examined. Another Afib with RVR episode around 0300 this AM. On Vent with vent sedation - Objective Allergies/Adverse Reactions: Allergies Allergy/AdvReac Type Severity Reaction Status Date / Time lisinopril Allergy cough Verified 07/26/19 17:16 lorazepam [From Ativan] Allergy Verified 07/26/19 17:16 Visit Medications: Current Medications Acetaminophen (Tylenol) 650 mg PO Q4H PRN PRN Reason: Headache/Fever or Pain Last Admin: 07/28/19 20:27 Dose: 650 mg Albuterol/Ipratropium (Duoneb) 3 ml NEB Q6H PRN PRN Reason: SOB &/or Wheezing Last Admin: 07/29/19 10:20 Dose: 3 ml Albuterol/Ipratropium (Duoneb) 3 ml NEB [id number] JACK Last Admin: 08/01/19 10:41 Dose: 3 ml Lipase/Protease/Amylase ([place] [id number]) 1 cap FS .PER PROTOCOL PRN PRN Reason: TUBE OCCLUSION PROTOCOL Last Admin: 07/31/19 06:19 Dose: 1 cap Atenolol (Tenormin) 25 mg PO BID [facility] Last Admin: 07/31/19 21:30 Dose: Not Given Bisacodyl (Dulcolax) 10 mg PO DAILYPRN PRN PRN Reason: Constipation Al Hydroxide/Mg Hydroxide 60 ml/ Lidocaine HCl 30 ml/Diphenhydramine HCl 75 mg 0 ml SSW QIDPRN PRN PRN Reason: Mouth Irritation Last Admin: 07/25/19 11:13 Dose: 10 ml Digoxin (Lanoxin) 0.125 mg SLOW IVP DAILY [facility] Last Admin: 07/31/19 13:05 Dose: 0.125 mg Ferrous Sulfate (Ferrous Sulfate) 300 mg PO QAM-WM [facility] Last Admin: 07/31/19 09:44 Dose: 300 mg Gabapentin (Neurontin) 600 mg PO TID [facility] Last Admin: 07/31/19 21:48 Dose: 600 mg Guaifenesin/Dextromethorphan (Robitussin Dm) 15 ml PO Q4H PRN PRN Reason: Cough Meropenem 2 gm/ Miscellaneous Medication 1 each/ Sodium Chloride 100 mls @ 200 mls/hr IVPB 0800,1600,2359 [facility] Last Admin: 07/31/19 23:54 Dose: 100 mls Vancomycin HCl 500 mg/ Sodium (Chloride) 100 mls @ 100 mls/hr IVPB 0100,1300 [facility] Last Admin: 08/01/19 01:23 Dose: 100 mls Micafungin Sodium 100 mg/ (Sodium Chloride) 100 mls @ 100 mls/hr IVPB Q24HR [facility] Last Admin: 07/31/19 18:29 Dose: 100 mls Potassium Chloride 40 meq/ (Sodium Chloride) 270 mls @ 135 mls/hr IVPB ASDIR PRN PRN Reason: FOR SERUM K+ 2.5 - 3.5 Potassium Chloride 40 meq/ (Device) 100 mls @ 50 mls/hr IVPB ASDIR PRN PRN Reason: FOR SERUM K+ 2.5 - 3.5 Magnesium Sulfate 1 gm/ Sodium (Chloride) 102 mls @ 102 mls/hr IV PRN PRN PRN Reason: MAG LEVEL 1.4 - 2.0 Magnesium Sulfate 2 gm/ Device 50 mls @ 50 mls/hr IVPB ASDIR PRN PRN Reason: MAGNESIUM < 1.4 Potassium Phosphate 9 mmol/ (Sodium Chloride) 103 mls @ 25.75 mls/hr IVPB ASDIR PRN PRN Reason: Phosphate 1.0-1.8 Potassium Phosphate 12 mmol/ (Sodium Chloride) 254 mls @ 63.5 mls/hr IV ASDIR PRN PRN Reason: Serum phosphate 0.5-0.9 Potassium Phosphate 15 mmol/ (Sodium Chloride) 255 mls @ 63.75 mls/hr IV ASDIR PRN PRN Reason: Serum Phos < 0.5 Amiodarone HCl 450 mg/ (Dextrose/Water) 259 mls @ 17.26 mls/hr IVPB INF [facility] Last Admin: 07/31/19 22:08 Dose: 259 mls Loperamide HCl (Imodium) 2 mg PO Q2H PRN PRN Reason: Diarrhea/Loose Stools Last Admin: 07/28/19 20:27 Dose: 2 mg Magnesium Oxide (Magnesium Oxide) 400 mg PO BID [facility] Last Admin: 07/31/19 21:48 Dose: 400 mg Magnesium Oxide (Magnesium Oxide) 400 mg PO BIDPRN PRN PRN Reason: FOR SERUM MAG 1.4 - 2.0 Magnesium Oxide (Magnesium Oxide) 800 mg PO PRN PRN PRN Reason: FOR SERUM MAG < 1.4 Methylprednisolone Sodium Succinate (Solu-Medrol) 40 mg IVP DAILY [facility] Methylprednisolone Sodium Succinate (Solu-Medrol) 40 mg IVP NOW [facility] Stop: 08/01/19 13:00 Miscellaneous Medication (Phos-Nak) 1 pkt PO TIDPRN PRN PRN Reason: FOR PHOS LEVEL 1.0 - 1.8 Miscellaneous Medication (Phos-Nak) 2 pkt PO TIDPRN PRN PRN Reason: FOR PHOS LEVEL 0.5 - 1.0 Morphine Sulfate (Morphine) 2 mg SLOW IVP Q1H PRN PRN Reason: BREAKTHROUGH PAIN/Agitation Stop: 08/28/19 23:00 Multivitamins (Theragran) 1 tab PO HS [facility] Last Admin: 07/31/19 21:48 Dose: 1 tab Ccu Electrolyte (Replacement Protocol) 0 each FS PRN PRN PRN Reason: FOR ELECTROLYTE REPLACEMENT Pantoprazole Sodium (Protonix) 40 mg PO DAILY [facility] Last Admin: 07/31/19 08:57 Dose: 40 mg Phenol (Chloraseptic [place] 180 Ml Bot) 0 ml PO PRN PRN PRN Reason: SORE THROAT Last Admin: 07/22/19 04:02 Dose: 2 spr Potassium Chloride (K-Dur) 40 meq PO ASDIR PRN PRN Reason: FOR SERUM K+ 2.5 - 3.5 Last Admin: 07/31/19 05:29 Dose: 40 meq Potassium Chloride (Klor-Con) 40 meq PER TUBE ASDIR PRN PRN Reason: FOR SERUM K+ 2.5-3.5 Last Admin: 08/01/19 04:17 Dose: 40 meq Propofol (Diprivan) 1,000 mg IV INF PRN; Protocol PRN Reason: TO ACHIEVE GOAL RASS Stop: 08/28/19 23:00 Last Admin: 07/31/19 22:08 Dose: 1,000 mg Saccharomyces Boulardii (Florastor) 250 mg PO DAILY [facility] Last Admin: 07/31/19 08:57 Dose: 250 mg Sertraline HCl (Zoloft) 25 mg PO DAILY [facility] Last Admin: 07/31/19 08:57 Dose: 25 mg Sodium Bicarbonate (Bicarbonate, Sodium) 650 mg PER TUBE .PER PROTOCOL PRN PRN Reason: ENTERAL TUBE OCCLUSION Last Admin: 07/31/19 06:19 Dose: 650 mg Sodium Chloride (Flush - Normal Saline) 10 ml IVF Q12HR [facility] Last Admin: 07/31/19 21:49 Dose: 10 ml Sodium Chloride (Flush - Normal Saline) 10 ml IVF PRN PRN PRN Reason: Saline Flush Sodium Chloride (Flush - Normal Saline) 10 ml IVF PRN PRN PRN Reason: Saline Flush Tbo-Filgrastim (Granix) 480 mcg SC DAILY [facility] Last Admin: 07/31/19 10:12 Dose: 480 mcg Vital Signs & Weight: Vital Signs Temp Pulse Resp BP 08/01/19 10:41 88 127/58 L 08/01/19 07:18 71 103/49 L 08/01/19 06:00 12 08/01/19 04:00 97.8 F 14 08/01/19 02:12 75 104/45 L 08/01/19 02:00 16 08/01/19 00:00 97.5 F L 15 Admit Weight 161 lb 6.054 oz Weight 151 lb 3.794 oz - Physical Exam Cardiac: regular rate and rhythm, S1/S2 Lungs: decreased breath sounds Extremities: no edema - Labs Result Diagrams: 08/01/19 03:00 08/01/19 03:00 Troponin/CKMB Troponin I 0.017 ng/mL (< 0.028) 07/18/19 20:15 - Telemetry Sinus rhythms and dysrhythmias: sinus rhythm - Assessment/Plan Assessment/Plan: 1. AFib with RVR most likely due to sepsis and anemia, pancytopenia. - cont. short period of intermittent Afib with RVR since she was in 2N; well controlled HR when she is in SR; On Digoxin 0.125mg IV push daily and Amiodarone drip since she cannot swallow well (however, once she can tolerate PO, would like to change to PO JOE due to Amiodarone IV shortage); not on OAC 2/2 severe Anemia and Pancytopenia 2. Neutropenic sepsis - neutropenic precautions 3. Anemia with s/p multiple PRBC tx - 4. Hypomagnesemia - On electrolyte protocol 5. Hypokalemia - On electrolyte protocol 6. metastatic small cell lung cancer 7. Dysphagia and Odynophagia following chemotherapy-continue PPN until her symptoms improve MAR reviewed pt. seen and eval. by me. At this time she has been extubated and is doing well off the vent. i agree with the remainder of the A/P by the AUTO DESIGN CHECKER. RRR, occasional scattered wheeze. No coarse rhonchi. gjm
--- NOTE | 2019-08-01 11:12 | PRG ---
DATE OF SERVICE: 08/01/2019 SUBJECTIVE: Ms. Ramirez had her ventilator turned down at 06:30 this morning. She has done well on basically pressure support, 7/5 of PEEP. Her minute volume is 6 to 7 L a minute. She denies any air hunger. OBJECTIVE: LUNGS: Clear. HEART: Regular rhythm. ABDOMEN: Soft. She is growing gram-negative rods out on her bronchial washings. It has not been speciated, but I suspect this is a pathogen. LABORATORY DATA: White count is up to 1.8, hemoglobin 7.8, platelets are 19,000. She has 28% bands today, which I suspect is in part her bone marrow responding after chemo. IMPRESSION: 1. Bronchopneumonia. 2. Respiratory failure secondary to bronchopneumonia and chronic obstructive pulmonary disease. 3. Deconditioning. 4. Lung cancer. 5. Pancytopenia secondary to treatment. If she passes a leak test, she will be extubated. CRITICAL CARE TIME: 30 minutes. Job ID: [id number]
--- NOTE | 2019-08-01 11:47 | PDOC.HOSPP ---
- Subjective Encounter Date: 08/01/19 Encounter Time: 11:44 Subjective: Ms. Ramirez was seen today in follow-up of respiratory failure. She has just been extubated. She is sitting up on bed and appears comfortable. - Objective Vital Signs & Weight: Vital Signs (12 hours) Temp Pulse Resp BP Pulse Ox 08/01/19 11:30 19 99 08/01/19 10:41 88 127/58 L 08/01/19 10:00 14 08/01/19 09:00 88 127/58 L 08/01/19 08:00 13 08/01/19 07:18 71 103/49 L 08/01/19 06:00 12 08/01/19 04:00 97.8 F 14 08/01/19 02:12 75 104/45 L 08/01/19 02:00 16 08/01/19 00:00 97.5 F L 15 Weight Admit Weight 161 lb 6.054 oz Weight 151 lb 3.794 oz Most Recent Monitor Data Heart Rate from ECG 77 NIBP 125/51 NIBP BP-Mean 75 Respiration from ECG 12 SpO2 100 I&O: 07/31/19 08/01/19 08/02/19 06:59 06:59 06:59 Intake Total 1277.2 1943.2 Output Total 1715 2010 125 Balance -437.8 -66.8 -125 Result Diagrams: 08/01/19 03:00 08/01/19 03:00 Hospitalist ROS - Medication Medications: Active Medications Generic Name Dose Route Start Last Admin Trade Name Freq PRN Reason Stop Dose Admin Acetaminophen 650 mg 07/23/19 19:13 07/28/19 20:27 Tylenol PO 650 mg Q4H PRN Administration Headache/Fever or Pain Albuterol/Ipratropium 3 ml 07/19/19 00:28 07/29/19 10:20 Duoneb NEB 3 ml Q6H PRN Administration SOB &/or Wheezing Albuterol/Ipratropium 3 ml 07/30/19 02:30 08/01/19 10:41 Duoneb NEB 3 ml [id number] JACK Administration Lipase/Protease/Amylase 1 cap 07/31/19 06:10 07/31/19 06:19 Sandrine Jesus [id number] FS 1 cap .PER PROTOCOL PRN Administration TUBE OCCLUSION PROTOCOL Atenolol 25 mg 07/31/19 09:00 08/01/19 09:00 Tenormin PO Not Given BID JACK Al Hydroxide/Mg Hydroxide 60 0 ml 07/24/19 10:17 07/25/19 11:13 ml/ Lidocaine HCl 30 ml/ SSW 10 ml Diphenhydramine HCl 75 mg QIDPRN PRN Administration Mouth Irritation Digoxin 0.125 mg 07/29/19 09:00 07/31/19 13:05 Lanoxin SLOW IVP 0.125 mg DAILY JACK Administration Ferrous Sulfate 300 mg 07/31/19 08:00 08/01/19 08:00 Ferrous Sulfate PO 300 mg QAM-WM JACK Administration Gabapentin 600 mg 07/19/19 21:00 07/31/19 21:48 Neurontin PO 600 mg TID JACK Administration Meropenem 2 gm/ Miscellaneous 100 mls @ 200 mls/hr 07/30/19 08:00 07/31/19 23 :54 Medication 1 each/ Sodium IVPB 100 mls Chloride 0800,1600,2359 JACK Administration Vancomycin HCl 500 mg/ Sodium 100 mls @ 100 mls/hr 07/30/19 13:00 08/01/19 01 :23 Chloride IVPB 100 mls 0100,1300 JACK Administration Micafungin Sodium 100 mg/ 100 mls @ 100 mls/hr 07/30/19 18:00 07/31/19 18:29 Sodium Chloride IVPB 100 mls Q24HR JACK Administration Amiodarone HCl 450 mg/ 259 mls @ 17.26 mls/hr 07/31/19 10:15 07/31/19 22:08 Dextrose/Water IVPB 259 mls INF JACK Administration 0.5 MG/MIN Loperamide HCl 2 mg 07/26/19 12:47 07/28/19 20:27 Imodium PO 2 mg Q2H PRN Administration Diarrhea/Loose Stools Magnesium Oxide 400 mg 07/19/19 21:00 07/31/19 21:48 Magnesium Oxide PO 400 mg BID JACK Administration Multivitamins 1 tab 07/19/19 21:00 07/31/19 21:48 Theragran PO 1 tab HS JACK Administration Pantoprazole Sodium 40 mg 07/31/19 09:00 07/31/19 08:57 Protonix PO 40 mg DAILY JACK Administration Phenol 0 ml 07/22/19 03:29 07/22/19 04:02 Chloraseptic [place] 180 Ml Bot PO 2 spr PRN PRN Administration SORE THROAT Potassium Chloride 40 meq 07/31/19 05:18 07/31/19 05:29 K-Dur PO 40 meq ASDIR PRN Administration FOR SERUM K+ 2.5 - 3.5 Potassium Chloride 40 meq 07/31/19 05:18 08/01/19 04:17 Klor-Con PER TUBE 40 meq ASDIR PRN Administration FOR SERUM K+ 2.5-3.5 Propofol 1,000 mg 07/29/19 23:00 07/31/19 22:08 Diprivan IV 08/28/19 23:00 1,000 mg INF PRN Administration TO ACHIEVE GOAL RASS Protocol Saccharomyces Boulardii 250 mg 07/19/19 09:00 07/31/19 08:57 Florastor PO 250 mg DAILY JACK Administration Sertraline HCl 25 mg 07/19/19 09:00 07/31/19 08:57 Zoloft PO 25 mg DAILY JACK Administration Sodium Bicarbonate 650 mg 07/31/19 06:10 07/31/19 06:19 Bicarbonate, Sodium PER TUBE 650 mg .PER PROTOCOL PRN Administration ENTERAL TUBE OCCLUSION Sodium Chloride 10 ml 07/23/19 09:00 07/31/19 21:49 Flush - Normal Saline IVF 10 ml Q12HR JACK Administration Tbo-Filgrastim 480 mcg 07/22/19 09:00 07/31/19 10:12 Granix SC 480 mcg DAILY JACK Administration - Exam Eye: PERRL Heart: RRR, no murmur, no gallops, no rubs Respiratory: CTAB, no wheezes, no rales, no ronchi, normal chest expansion, no tachypnea, normal percussion Gastrointestinal: soft, non-tender, non-distended, normal bowel sounds Extremities: no cyanosis, no edema Hosp A/P (1) HAP (hospital-acquired pneumonia) Code(s): J18.9 - PNEUMONIA, UNSPECIFIED ORGANISM; Y95 - NOSOCOMIAL CONDITION Status: Acute (2) Acute respiratory failure with hypoxemia Code(s): J96.01 - ACUTE RESPIRATORY FAILURE WITH HYPOXIA Status: Acute (3) Dysphagia Code(s): R13.10 - DYSPHAGIA, UNSPECIFIED Status: Acute (4) Neutropenic fever Code(s): D70.9 - NEUTROPENIA, UNSPECIFIED; R50.81 - FEVER PRESENTING WITH CONDITIONS CLASSIFIED ELSEWHERE Status: Acute (5) Pancytopenia Code(s): D61.818 - OTHER PANCYTOPENIA Status: Acute (6) Atrial fibrillation with RVR Code(s): I48.91 - UNSPECIFIED ATRIAL FIBRILLATION Status: Acute (7) Small cell lung cancer Code(s): C34.90 - MALIGNANT NEOPLASM OF UNSP PART OF UNSP BRONCHUS OR LUNG Status: Chronic (8) Hypertension Code(s): I10 - ESSENTIAL (PRIMARY) HYPERTENSION Status: Chronic - Plan * Acute respiratory failure due to Pneumonia- Will continue Meropenem and Vancomycin, and Micafungin * Hypotension- Levophed has been started to support her blood pressure * Neutropenia- Total WBC is up to 1.8 * she had high residual with tube feeding- she may have to go on pleasure feeds - will monitor through the day * Atrial fibrillation - she has occasional episodes of AFIB- -she is back on Amiodarone drip * Replace electrolytes - potassium is a bit low * Prognosis is guarded- discussed with the patient's sister.
--- NOTE | 2019-08-01 11:54 | PDOC.FMACP ---
Advance Care Planning - Problem (1) HAP (hospital-acquired pneumonia) Status: Acute Code(s): J18.9 - PNEUMONIA, UNSPECIFIED ORGANISM; Y95 - NOSOCOMIAL CONDITION (2) Acute respiratory failure with hypoxemia Status: Acute Code(s): J96.01 - ACUTE RESPIRATORY FAILURE WITH HYPOXIA (3) Dysphagia Status: Acute Code(s): R13.10 - DYSPHAGIA, UNSPECIFIED (4) Neutropenic fever Status: Acute Code(s): D70.9 - NEUTROPENIA, UNSPECIFIED; R50.81 - FEVER PRESENTING WITH CONDITIONS CLASSIFIED ELSEWHERE (5) Pancytopenia Status: Acute Code(s): D61.818 - OTHER PANCYTOPENIA (6) Atrial fibrillation with RVR Status: Acute Code(s): I48.91 - UNSPECIFIED ATRIAL FIBRILLATION (7) Small cell lung cancer Status: Chronic Code(s): C34.90 - MALIGNANT NEOPLASM OF UNSP PART OF UNSP BRONCHUS OR LUNG (8) Hypertension Status: Chronic Code(s): I10 - ESSENTIAL (PRIMARY) HYPERTENSION - Note Summary: Advanced Care Planning was discussed. The diagnosis, prognosis and goals of care were discussed. Appropriate forms and documentation to accomplish the goals of care were discussed. All questions were answered. The Palliative Care Team will be engaged to assist with completion of any outstanding forms that are needed. I called to update the patient's sister, and MPOA on the patient's condition. She has been extubated. I explained the advance nature of the patient's cancer , and her response to chemotherapy. She has had severe reactions to chemotherapy this time, and everytie in the past. The patient is aware. Her sister tells me that the patient would want to live at all costs. She wants to be re-intubated, and wants aggressive care. She says that when and if her care becomes futile, and she is on a ventilator and can not communicate, then her sister and MPOA would make the decision on withdrawing care. Time Spent (mins): 20
[2019-08-01] MEDS: Meropenem 2 GM, Admixture Fee 1 EACH in Sodium Chloride 0.9% 100 ML IVPB SCH ×3 (12:03→23:04)
--- NOTE | 2019-08-01 14:15 | PDOC.MOPN ---
Interval History: Pt extubated this AM. Says she feels much better, but very hoarse. She wants to eat but is high risk for aspiration, with large residuals during OG-tube feedings. She is satting 94-97% on 3L NC. Her BP is normal however remains on Levophed at this time. Pt and MPOA Ebony Ford have stated pt wants to remain full code and wants to be intubated if needed. - Vital Signs Vital Signs: Vital Signs (12 hours) Temp Pulse Resp BP Pulse Ox 08/01/19 11:30 19 99 08/01/19 10:41 88 127/58 L 08/01/19 10:00 14 08/01/19 09:00 88 127/58 L 08/01/19 08:00 13 08/01/19 07:18 71 103/49 L 08/01/19 06:00 12 08/01/19 04:00 97.8 F 14 08/01/19 02:12 75 104/45 L Weight Admit Weight 161 lb 6.054 oz Weight 151 lb 3.794 oz Most Recent Monitor Data Heart Rate from ECG 135 NIBP 99/54 NIBP BP-Mean 69 Respiration from ECG 19 SpO2 95 - Physical Exam General: Alert, Oriented x3, Cooperative HEENT: EOMI Lungs: Normal air movement Cardiovascular: Regular rate, Normal S1, Normal S2 Abdomen: Soft, No tenderness Extremities: No edema - Labs Result Diagrams: 08/01/19 03:00 08/01/19 03:00 Lab results: Laboratory Results - last 24 hr 08/01/19 06:34: Specimen Type ARTERIAL, Puncture Site RRA, Bicarbonate Actual 22.8, ABG pH 7.38, ABG pCO2 39.1, ABG pO2 73.1, ABG O2 Sat Calc/Donna 94.4, ABG O2 Content 11.1 L, ABG Base Excess -2.1 L, ABG Hematocrit 25.0 L, ABG Hemoglobin 8.4 L, ABG Oxyhemoglobin 93.3 L, ABG Carboxyhemoglobin 0.9, ABG Methemoglobin 0.30, ABG Deoxyhemoglobin 5.5 H, Tristan Test POSITIVE, A-a O2 Gradient 163.225 H, Ionized Calcium 1.09 L, Mode of Support SIMV/PS, Mechanical Rate 8, Spontaneous Rate 10, Inspired O2 40, Tidal Volume 450, Spontaneous Tidal Vol 698, Pressure Support 10, PEEP or CPAP 5.0, Sodium 144, Potassium 3.79 , Chloride 112 H 08/01/19 03:00: WBC 1.8 L, RBC 2.52 L, Hgb 7.8 L, Hct 23.3 L, MCV 92.4, MCH 30.9 , MCHC 33.5, RDW 14.2, Plt Count 19 L*, MPV 11.7 H, Neutrophils % (Manual) 51, Band Neuts % (Manual) 28 H, Lymphocytes % (Manual) 15 L, Monocytes % (Manual) 6 , Nucleated RBCs # (Man) 1 H, Toxic Granulation SLIGHT, Dohle Bodies SLIGHT, Plt Morphology Comment Appears Decreased L 08/01/19 03:00: Sodium 147 H, Potassium 3.2 L, Chloride 113 H, Carbon Dioxide 22 L, Anion Gap 15, BUN 30 H, Creatinine 0.70, Estimated GFR (MDRD) 83, Glucose 163 H, Calcium 7.4 L 08/01/19 00:00: Vancomycin Trough 18.5 A/P - Problem (1) Neutropenic sepsis Current Visit: Yes Code(s): A41.9 - SEPSIS, UNSPECIFIED ORGANISM; D70.9 - NEUTROPENIA, UNSPECIFIED Status: Acute (2) Small cell lung cancer Current Visit: Yes Code(s): C34.90 - MALIGNANT NEOPLASM OF UNSP PART OF UNSP BRONCHUS OR LUNG Status: Chronic - Plan Plan: Cont antibiotics, antifungal May DC neutropenic precautions as ANC > 1.0 If ANC increases again tomorrow then may discontinue granix Transfuse prn Hb < 7 or Plt < 10
[2019-08-01] MEDS: Amiodarone 450 MG in Dextrose 5% in Water 250 ML IVPB SCH (16:45)
[2019-08-01] MEDS: Micafungin 100 MG in Sodium Chloride 0.9% 100 ML IVPB SCH (18:16)
[2019-08-01] MEDS ORDERED: Norepinephrine 8 MG/0.9% NS 250 ML IVPB SCH (20:02)
[2019-08-01] MEDS: Multivit, Therapeutic 1 TAB PO SCH (20:21)
[2019-08-02] MEDS: Vancomycin HCl 500 MG in Sodium Chloride 0.9% 100 ML IVPB SCH ×2 (00:07→13:37)
[2019-08-02 04:24] LABS: Platelet Count 12 thou/uL (130-400)
[2019-08-02 04:30] LABS: Anion Gap 12 mmol/L (10-20); BUN (Urea Nitrogen) 26 mg/dL (9.8-20.1); Calc. Creatinine Clearance 92 mL/min (70-130); Calcium 7.6 mg/dL (7.8-10.44); Carbon Dioxide 25 mmol/L (23-31); Chloride 114 mmol/L (98-107); Estimated GFR-MDRD Greater than 90; Glucose 108 mg/dL (80-115); Magnesium 1.7 mg/dL (1.6-2.6); Potassium 3.8 mmol/L (3.5-5.1); Sodium 147 mmol/L (136-145)
[2019-08-02 04:37] LABS: Band 27 % (5-11); Dohle Bodies SLIGHT; Hemoglobin 7.4 g/dL (12.0-16.0); Large Platelets SLIGHT; Lymphocytes 23 % (21-51); MDiff Complete? YES; Mean Corpuscular HGB CONC 33.8 g/dL (32.0-36.0); Mean Corpuscular Hemoglobin 31.3 pg (27.0-31.0); Mean Corpuscular Volume 92.6 fL (78.0-98.0); Mean Platelet Volume 12.6 fL (7.4-10.4); Monocytes 13 % (0-10); Neutrophil 37 % (42-75); Nucleated RBC 1 % (0); Platelet Morphology Comment Appears Decreased; RBC Distribution Width 14.1 % (11.5-14.5); Red Blood Cell (RBC) Count 2.37 mill/uL (4.20-5.40); Toxic Granulation SLIGHT; White Blood Cell (WBC) Count 1.6 thou/uL (4.8-10.8)
[2019-08-02] MEDS: methylPREDNISolone Sod Succ/PF 125 MG/2 ML VIAL IVP SCH (06:15)
[2019-08-02] MEDS: Atenolol 25 MG TAB PO SCH ×2 (08:40→21:16)
[2019-08-02] MEDS: Pantoprazole 40 MG GRANULES PACKET PO SCH (08:41)
[2019-08-02] MEDS: Gabapentin 300 MG CAP PO SCH ×3 (08:42→21:17)
[2019-08-02] MEDS: Magnesium Oxide 400 MG TAB PO SCH ×2 (08:42→21:17)
[2019-08-02] MEDS: Saccharomyces boulardii 250 MG CAP PO SCH (08:43)
[2019-08-02] MEDS: Meropenem 2 GM, Admixture Fee 1 EACH in Sodium Chloride 0.9% 100 ML IVPB SCH ×3 (08:47→23:28)
[2019-08-02] MEDS: Digoxin 0.5 MG/2 ML AMP SLOW IVP SCH (08:48)
[2019-08-02] MEDS ORDERED: methylPREDNISolone Sod Succ 40 MG VIAL IVP SCH (09:00)
[2019-08-02] MEDS: Amiodarone 450 MG in Dextrose 5% in Water 250 ML IVPB SCH ×2 (09:53→23:28)
--- NOTE | 2019-08-02 11:49 | PDOC.HOSPP ---
- Subjective Encounter Date: 08/02/19 Encounter Time: 08:45 Subjective: awake, no sob, has husky voice - Objective Vital Signs & Weight: Vital Signs (12 hours) Temp Pulse Resp Pulse Ox 08/02/19 10:53 75 20 95 08/02/19 08:48 82 08/02/19 08:00 90 L 08/02/19 07:10 82 22 H 97 08/02/19 07:00 97.8 F 08/02/19 03:00 98.0 F 08/02/19 02:24 87 24 H 96 Weight Admit Weight 161 lb 6.054 oz Weight 154 lb 5.177 oz Most Recent Monitor Data Heart Rate from ECG 76 NIBP 116/57 NIBP BP-Mean 76 Respiration from ECG 19 SpO2 90 I&O: 08/01/19 08/02/19 08/03/19 06:59 06:59 06:59 Intake Total 1943.2 991.2 118 Output Total 2009 1025 381 Balance -66.8 -33.8 -263 Result Diagrams: 08/02/19 03:30 08/02/19 03:30 Hospitalist ROS - Medication Medications: Active Medications Generic Name Dose Route Start Last Admin Trade Name Freq PRN Reason Stop Dose Admin Acetaminophen 650 mg 07/23/19 19:13 07/28/19 20:27 Tylenol PO 650 mg Q4H PRN Administration Headache/Fever or Pain Albuterol/Ipratropium 3 ml 07/19/19 00:28 07/29/19 10:20 Duoneb NEB 3 ml Q6H PRN Administration SOB &/or Wheezing Albuterol/Ipratropium 3 ml 07/30/19 02:30 08/02/19 10:53 Duoneb NEB 3 ml [id number] JACK Administration Lipase/Protease/Amylase 1 cap 07/31/19 06:10 07/31/19 06:19 Sandrine Jesus [id number] FS 1 cap .PER PROTOCOL PRN Administration TUBE OCCLUSION PROTOCOL Atenolol 25 mg 07/31/19 09:00 08/01/19 20:21 Tenormin PO Not Given BID JACK Al Hydroxide/Mg Hydroxide 60 0 ml 07/24/19 10:17 07/25/19 11:13 ml/ Lidocaine HCl 30 ml/ SSW 10 ml Diphenhydramine HCl 75 mg QIDPRN PRN Administration Mouth Irritation Digoxin 0.125 mg 07/29/19 09:00 08/02/19 08:48 Lanoxin SLOW IVP 0.125 mg DAILY JACK Administration Ferrous Sulfate 300 mg 07/31/19 08:00 08/02/19 08:55 Ferrous Sulfate PO Not Given QAM-WM JACK Gabapentin 600 mg 07/19/19 21:00 08/01/19 20:21 Neurontin PO Not Given TID [facility] Meropenem 2 gm/ Miscellaneous 100 mls @ 200 mls/hr 07/30/19 08:00 08/02/19 08 :47 Medication 1 each/ Sodium IVPB 100 mls Chloride 0800,1600,2359 JACK Administration Vancomycin HCl 500 mg/ Sodium 100 mls @ 100 mls/hr 07/30/19 13:00 08/02/19 00 :07 Chloride IVPB 100 mls 0100,1300 JACK Administration Micafungin Sodium 100 mg/ 100 mls @ 100 mls/hr 07/30/19 18:00 08/01/19 18:16 Sodium Chloride IVPB 100 mls Q24HR JACK Administration Magnesium Sulfate 1 gm/ Sodium 102 mls @ 102 mls/hr 07/31/19 05:18 08/02/19 04:56 Chloride IV 102 mls PRN PRN Administration MAG LEVEL 1.4 - 2.0 Amiodarone HCl 450 mg/ 259 mls @ 17.26 mls/hr 07/31/19 10:15 08/02/19 09:53 Dextrose/Water IVPB 259 mls INF JACK Administration 0.5 MG/MIN Loperamide HCl 2 mg 07/26/19 12:47 07/28/19 20:27 Imodium PO 2 mg Q2H PRN Administration Diarrhea/Loose Stools Magnesium Oxide 400 mg 07/19/19 21:00 08/01/19 20:21 Magnesium Oxide PO Not Given BID [facility] Methylprednisolone Sodium Succinate 40 mg 08/02/19 09:00 08/02/19 08:48 Solu-Medrol IVP 40 mg DAILY JACK Administration Multivitamins 1 tab 07/19/19 21:00 08/01/19 20:21 Theragran PO Not Given HS [facility] Pantoprazole Sodium 40 mg 07/31/19 09:00 08/01/19 09:00 Protonix PO Not Given DAILY [facility] Phenol 0 ml 07/22/19 03:29 07/22/19 04:02 Chloraseptic [place] 180 Ml Bot PO 2 spr PRN PRN Administration SORE THROAT Potassium Chloride 40 meq 07/31/19 05:18 07/31/19 05:29 K-Dur PO 40 meq ASDIR PRN Administration FOR SERUM K+ 2.5 - 3.5 Potassium Chloride 40 meq 07/31/19 05:18 08/01/19 04:17 Klor-Con PER TUBE 40 meq ASDIR PRN Administration FOR SERUM K+ 2.5-3.5 Propofol 1,000 mg 07/29/19 23:00 07/31/19 22:08 Diprivan IV 08/28/19 23:00 1,000 mg INF PRN Administration TO ACHIEVE GOAL RASS Protocol Saccharomyces Boulardii 250 mg 07/19/19 09:00 08/01/19 09:00 Florastor PO Not Given DAILY JACK Sertraline HCl 25 mg 07/19/19 09:00 08/01/19 09:00 Zoloft PO Not Given DAILY JACK Sodium Bicarbonate 650 mg 07/31/19 06:10 07/31/19 06:19 Bicarbonate, Sodium PER TUBE 650 mg .PER PROTOCOL PRN Administration ENTERAL TUBE OCCLUSION Sodium Chloride 10 ml 07/23/19 09:00 08/02/19 08:56 Flush - Normal Saline IVF 10 ml Q12HR JACK Administration Tbo-Filgrastim 480 mcg 07/22/19 09:00 08/02/19 08:55 Granix SC 480 mcg DAILY JACK Administration - Exam General Appearance: awake alert, ill appearing Eye: PERRL, anicteric sclera ENT: no oropharyngeal lesions, dry oral mucosa Neck: supple, no JVD Heart: RRR, no murmur Respiratory: no wheezes, no rales, rhonchi Gastrointestinal: soft, non-tender, non-distended, normal bowel sounds Extremities: no cyanosis, no edema Neurological: cranial nerve grossly intact, no focal deficits Hosp A/P (1) Acute respiratory failure with hypoxia and hypercapnia Code(s): J96.01 - ACUTE RESPIRATORY FAILURE WITH HYPOXIA; J96.02 - ACUTE RESPIRATORY FAILURE WITH HYPERCAPNIA Status: Resolved (2) HAP (hospital-acquired pneumonia) Code(s): J18.9 - PNEUMONIA, UNSPECIFIED ORGANISM; Y95 - NOSOCOMIAL CONDITION Status: Acute (3) Neutropenic sepsis Code(s): A41.9 - SEPSIS, UNSPECIFIED ORGANISM; D70.9 - NEUTROPENIA, UNSPECIFIED Status: Acute (4) Pancytopenia Code(s): D61.818 - OTHER PANCYTOPENIA Status: Acute (5) Hypertension Code(s): I10 - ESSENTIAL (PRIMARY) HYPERTENSION Status: Chronic Qualifiers: Hypertension type: essential hypertension Qualified Code(s): I10 - Essential (primary) hypertension (6) Small cell lung cancer Code(s): C34.90 - MALIGNANT NEOPLASM OF UNSP PART OF UNSP BRONCHUS OR LUNG Status: Chronic - Plan is on amiodarone, micafungin, vanc, solumedrol, atenolol, dig and nebs wbc around 1.6, platelets around 12, to get platelet transfusion today h/o small cell lung 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 oral diet per speech adv, has hoarseness likely from ET is off levophed, got extubated day before increase activity as tolerated may tx to telemetry or onc if specialists are ok. prognosis is guarded, pt is full code
[2019-08-02] MEDS ORDERED: Potassium Chloride 20 MEQ TAB PO SCH (13:00)
--- NOTE | 2019-08-02 13:10 | PRG ---
DATE OF SERVICE: 08/02/2019 SERVICE: Pulmonary Medicine. INTERVAL HISTORY: The patient indicates that she is actually breathing quite well. Denies any current chest discomfort, or fevers. She is coughing and bringing up a little bit of white yellow phlegm. Otherwise, there has been no interval change to her condition. PHYSICAL EXAMINATION: VITAL SIGNS: Afebrile; pulse75; blood pressure 119/54; respirations 18; and saturation 92%, currently on 4 L cannula. GENERAL: The patient is awake and alert, in no apparent distress. LUNGS: Decent air entry. Rhonchi are present. No prolonged expiratory phase or otherwise appreciated. HEART: Normal rate. Regular. ABDOMEN: Soft, nontender, and nondistended. Bowel sounds are positive. MUSCULOSKELETAL: No cyanosis or clubbing. No pitting in bilateral lower extremities. NEUROLOGIC: Grossly nonfocal. LABORATORY DATA: WBC 1.6, hemoglobin 7.4, platelets 12,000, all of these are roughly stable. Neutrophils are 37% on top of 27% bands. Monocytes and lymphocytes are starting to up-trend as well. Basic metabolic profile is otherwise unremarkable. Magnesium 1.7, potassium 3.8, and sodium 147. Digoxin 0.59, vancomycin 18.5. Bronchial washing is growing Achromobacter, which is sensitive to cefepime and Zosyn. ASSESSMENT: 1. Acute hypoxic and hypercapnic respiratory failure. 2. Hospital-acquired pneumonia. 3. Neutropenia with severe sepsis. 4. Pancytopenia. 5. Small cell lung cancer, on chemotherapy. 6. Septic shock. DISCUSSION AND PLAN: We will continue her empiric antibiotics including micafungin, vancomycin, and meropenem. Transfusion p.r.n. None needed today. She is stable for transition out of the ICU to the medical unit. Her steroids will be converted over to p.o. and a 5-day course will be completed. Magnesium and potassium will be replaced today and I will give her a laboratory holiday for tomorrow. Job ID: [id number] [facility]
[2019-08-02] MEDS ORDERED: Potassium Chloride 40 MEQ in Premix Bag 1 BAG IVPB SCH (13:45)
--- NOTE | 2019-08-02 13:50 | PDOC.MOPN ---
Interval History: sitting in chair, off BP meds. Some dysphagia - Vital Signs Vital Signs: Vital Signs (12 hours) Temp Pulse Resp Pulse Ox 08/02/19 12:00 97.7 F 08/02/19 10:53 75 20 95 08/02/19 08:48 82 08/02/19 08:00 90 L 08/02/19 07:10 82 22 H 97 08/02/19 07:00 97.8 F 08/02/19 03:00 98.0 F 08/02/19 02:24 87 24 H 96 Weight Admit Weight 161 lb 6.054 oz Weight 154 lb 5.177 oz Most Recent Monitor Data Heart Rate from ECG 75 NIBP 119/54 NIBP BP-Mean 75 Respiration from ECG 18 SpO2 92 - Physical Exam General: Alert, Oriented x3, No acute distress HEENT: Atraumatic, PERRLA, EOMI, Mucous membr. moist/pink Lungs: Other Cardiovascular: Other (irregular) Abdomen: Normal bowel sounds, Soft, No tenderness, No hepatospenomegaly, No masses Skin: No rashes, No breakdown, No significant lesion Neurological: Normal speech Psych/Mental Status: Mental status NL - Labs Result Diagrams: 08/02/19 03:30 08/02/19 03:30 Lab results: Laboratory Results - last 24 hr 08/02/19 10:17: Blood Type O POSITIVE, Antibody Screen NEGATIVE 08/02/19 03:30: WBC 1.6 L, RBC 2.37 L, Hgb 7.4 L, Hct 22.0 L, MCV 92.6, MCH 31.3 H, MCHC 33.8, RDW 14.1, Plt Count 12 L*, MPV 12.6 H, Neutrophils % (Manual ) 37 L, Band Neuts % (Manual) 27 H, Lymphocytes % (Manual) 23, Monocytes % ( Manual) 13 H, Nucleated RBCs # (Man) 1 H, Toxic Granulation SLIGHT, Dohle Bodies SLIGHT, Large Platelets SLIGHT, Plt Morphology Comment Appears Decreased L 08/02/19 03:30: Sodium 147 H, Potassium 3.8, Chloride 114 H, Carbon Dioxide 25, Anion Gap 12, BUN 26 H, Creatinine 0.64, Estimated GFR (MDRD) Greater than 90, Glucose 108, Calcium 7.6 L, Magnesium 1.7 07/30/19 11:20: Blood Type O POSITIVE, Antibody Screen NEGATIVE, Crossmatch See Detail Status: lab reviewed by me A/P - Problem (1) Atrial fibrillation with RVR Current Visit: Yes Code(s): I48.91 - UNSPECIFIED ATRIAL FIBRILLATION Status : Acute (2) Neutropenic sepsis Current Visit: Yes Code(s): A41.9 - SEPSIS, UNSPECIFIED ORGANISM; D70.9 - NEUTROPENIA, UNSPECIFIED Status: Acute (3) Small cell lung cancer Current Visit: Yes Code(s): C34.90 - MALIGNANT NEOPLASM OF UNSP PART OF UNSP BRONCHUS OR LUNG Status: Chronic (4) Acute respiratory failure with hypoxemia Current Visit: Yes Code(s): J96.01 - ACUTE RESPIRATORY FAILURE WITH HYPOXIA Status: Acute - Plan Plan: Cont antibiotics, antifungal May DC neutropenic precautions as ANC > 1.0 likely dc granix tomorrow Transfuse prn Hb < 7 or Plt < 10, platelets today
[2019-08-02] MEDS: Magnesium 2 GM/50 ML 2 GM in Premix Bag 1 BAG IVPB SCH ×2 (14:29→16:49)
[2019-08-02] MEDS ORDERED: Magnesium 2 GM/50 ML 2 GM in Premix Bag 1 BAG IVPB SCH (16:45)
[2019-08-02] MEDS: Micafungin 100 MG in Sodium Chloride 0.9% 100 ML IVPB SCH (17:55)
[2019-08-02] MEDS: Multivit, Therapeutic 1 TAB PO SCH (21:17)
[2019-08-03 00:58] LABS: Vancomycin, Trough 20.9 ug/mL
[2019-08-03] MEDS: Vancomycin HCl 500 MG in Sodium Chloride 0.9% 100 ML IVPB SCH ×2 (01:05→12:42)
[2019-08-03 06:44] LABS: Anion Gap 11 mmol/L (10-20); BUN (Urea Nitrogen) 23 mg/dL (9.8-20.1); Calc. Creatinine Clearance 82 mL/min (70-130); Calcium 7.7 mg/dL (7.8-10.44); Carbon Dioxide 27 mmol/L (23-31); Chloride 112 mmol/L (98-107); Estimated GFR-MDRD 85; Glucose 76 mg/dL (80-115); Potassium 4.1 mmol/L (3.5-5.1); Sodium 146 mmol/L (136-145)
[2019-08-03 06:45] LABS: Magnesium 2.1 mg/dL (1.6-2.6)
[2019-08-03 06:52] LABS: Phosphorus Less than 1.0 mg/dL (2.3-4.7)
[2019-08-03] MEDS ORDERED: Potassium Phosphate 30 MMOL in Sodium Chloride 0.9% 500 ML IVPB SCH (08:00)
[2019-08-03] MEDS: Digoxin 0.5 MG/2 ML AMP SLOW IVP SCH (09:04)
[2019-08-03] MEDS: Meropenem 2 GM, Admixture Fee 1 EACH in Sodium Chloride 0.9% 100 ML IVPB SCH ×2 (09:04→16:07)
[2019-08-03] MEDS ORDERED: Sterile Water 10 ML VIAL IVP SCH (09:49)
[2019-08-03] MEDS ORDERED: Activase 2 MG VIAL CATH SCH (09:49)
--- NOTE | 2019-08-03 10:21 | PDOC.HOSPP ---
- Subjective Encounter Date: 08/03/19 Encounter Time: 08:15 Subjective: feels weak, has dry cough is taking ice chips - Objective Vital Signs & Weight: Vital Signs (12 hours) Temp Pulse Resp BP BP Pulse Ox 08/03/19 09:04 87 08/03/19 07:35 97.6 F 87 17 128/56 L 94 L 08/03/19 07:24 80 20 92 L 08/03/19 03:02 98.0 F 86 18 115/57 L 91 L 08/03/19 02:30 77 18 92 L 08/02/19 22:23 87 20 91 L Weight Admit Weight 161 lb 6.054 oz Weight 145 lb 2 oz Most Recent Monitor Data Heart Rate from ECG 71 NIBP 125/53 NIBP BP-Mean 77 Respiration from ECG 17 SpO2 90 I&O: 08/02/19 08/03/19 08/04/19 06:59 06:59 06:59 Intake Total 991.2 735 Output Total 1025 626 Balance -33.8 109 Result Diagrams: 08/02/19 03:30 08/03/19 04:20 Hospitalist ROS - Medication Medications: Active Medications Generic Name Dose Route Start Last Admin Trade Name Freq PRN Reason Stop Dose Admin Acetaminophen 650 mg 07/23/19 19:13 07/28/19 20:27 Tylenol PO 650 mg Q4H PRN Administration Headache/Fever or Pain Albuterol/Ipratropium 3 ml 07/19/19 00:28 07/29/19 10:20 Duoneb NEB 3 ml Q6H PRN Administration SOB &/or Wheezing Albuterol/Ipratropium 3 ml 07/30/19 02:30 08/03/19 07:24 Duoneb NEB 3 ml [id number] JACK Administration Alteplase, Recombinant 4 mg 08/03/19 09:49 08/03/19 10:05 Cathflo CATH 08/03/19 14:00 4 mg ONE JACK Administration Lipase/Protease/Amylase 1 cap 07/31/19 06:10 07/31/19 06:19 Sandrine Jesus [id number] FS 1 cap .PER PROTOCOL PRN Administration TUBE OCCLUSION PROTOCOL Atenolol 25 mg 07/31/19 09:00 08/02/19 21:16 Tenormin PO Not Given BID JACK Al Hydroxide/Mg Hydroxide 60 0 ml 07/24/19 10:17 07/25/19 11:13 ml/ Lidocaine HCl 30 ml/ SSW 10 ml Diphenhydramine HCl 75 mg QIDPRN PRN Administration Mouth Irritation Digoxin 0.125 mg 07/29/19 09:00 08/03/19 09:04 Lanoxin SLOW IVP 0.125 mg DAILY JACK Administration Ferrous Sulfate 300 mg 07/31/19 08:00 08/02/19 08:55 Ferrous Sulfate PO Not Given QAM-WM [facility] Gabapentin 600 mg 07/19/19 21:00 08/02/19 21:17 Neurontin PO Not Given TID [facility] Meropenem 2 gm/ Miscellaneous 100 mls @ 200 mls/hr 07/30/19 08:00 08/03/19 09 :04 Medication 1 each/ Sodium IVPB 100 mls Chloride 0800,1600,2359 JACK Administration Vancomycin HCl 500 mg/ Sodium 100 mls @ 100 mls/hr 07/30/19 13:00 08/03/19 01 :05 Chloride IVPB 100 mls 0100,1300 JACK Administration Micafungin Sodium 100 mg/ 100 mls @ 100 mls/hr 07/30/19 18:00 08/02/19 17:55 Sodium Chloride IVPB 100 mls Q24HR JACK Administration Amiodarone HCl 450 mg/ 259 mls @ 17.26 mls/hr 07/31/19 10:15 08/02/19 23:28 Dextrose/Water IVPB 259 mls INF JACK Administration 0.5 MG/MIN Potassium Phosphate 30 mmol/ 510 mls @ 85 mls/hr 08/03/19 08:00 08/03/19 09: 04 Sodium Chloride IVPB 08/03/19 13:59 510 mls NOW JACK Administration Loperamide HCl 2 mg 07/26/19 12:47 07/28/19 20:27 Imodium PO 2 mg Q2H PRN Administration Diarrhea/Loose Stools Magnesium Oxide 400 mg 07/19/19 21:00 08/02/19 21:17 Magnesium Oxide PO Not Given BID [facility] Multivitamins 1 tab 07/19/19 21:00 08/02/19 21:17 Theragran PO Not Given HS [facility] Pantoprazole Sodium 40 mg 07/31/19 09:00 08/02/19 08:41 Protonix PO Not Given DAILY [facility] Phenol 0 ml 07/22/19 03:29 07/22/19 04:02 Chloraseptic [place] 180 Ml Bot PO 2 spr PRN PRN Administration SORE THROAT Saccharomyces Boulardii 250 mg 07/19/19 09:00 08/02/19 08:43 Florastor PO Not Given DAILY JACK Sertraline HCl 25 mg 07/19/19 09:00 08/02/19 08:43 Zoloft PO Not Given DAILY JACK Sodium Bicarbonate 650 mg 07/31/19 06:10 07/31/19 06:19 Bicarbonate, Sodium PER TUBE 650 mg .PER PROTOCOL PRN Administration ENTERAL TUBE OCCLUSION Sodium Chloride 10 ml 07/23/19 09:00 08/03/19 09:05 Flush - Normal Saline IVF 10 ml Q12HR JACK Administration Tbo-Filgrastim 480 mcg 07/22/19 09:00 08/03/19 09:04 Granix SC 480 mcg DAILY JACK Administration - Exam General Appearance: awake alert, ill appearing Eye: PERRL, anicteric sclera ENT: no oropharyngeal lesions, dry oral mucosa Neck: supple, no JVD Heart: no murmur, irregular Respiratory: no wheezes, no rales, rhonchi Gastrointestinal: soft, non-tender, non-distended, normal bowel sounds Extremities: no cyanosis, no edema Neurological: cranial nerve grossly intact, no focal deficits Hosp A/P (1) Acute respiratory failure with hypoxia and hypercapnia Code(s): J96.01 - ACUTE RESPIRATORY FAILURE WITH HYPOXIA; J96.02 - ACUTE RESPIRATORY FAILURE WITH HYPERCAPNIA Status: Resolved (2) HAP (hospital-acquired pneumonia) Code(s): J18.9 - PNEUMONIA, UNSPECIFIED ORGANISM; Y95 - NOSOCOMIAL CONDITION Status: Acute (3) Neutropenic sepsis Code(s): A41.9 - SEPSIS, UNSPECIFIED ORGANISM; D70.9 - NEUTROPENIA, UNSPECIFIED Status: Acute (4) Pancytopenia Code(s): D61.818 - OTHER PANCYTOPENIA Status: Acute (5) Hypertension Code(s): I10 - ESSENTIAL (PRIMARY) HYPERTENSION Status: Chronic Qualifiers: Hypertension type: essential hypertension Qualified Code(s): I10 - Essential (primary) hypertension (6) Small cell lung cancer Code(s): C34.90 - MALIGNANT NEOPLASM OF UNSP PART OF UNSP BRONCHUS OR LUNG Status: Chronic - Plan is on amiodarone, micafungin, vanc, solumedrol, atenolol, dig and nebs wbc around 1.6, platelets around 12 yesterday. h/o small cell lung 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 oral diet per speech adv, has hoarseness likely from ET, is npo now hope she is cleared for pureed diet today. increase activity as tolerated will need swing or skilled placement (currently on amio drip, is still npo, need these 2 to be resolved prior to dc). prognosis is guarded, pt is full code
[2019-08-03] MEDS ORDERED: Sodium Chloride 0.9% 1,000 ML IV SCH (10:30)
[2019-08-03 11:18] LABS: Band 27 % (5-11); Hemoglobin 9.1 g/dL (12.0-16.0); Lymphocytes 24 % (21-51); MDiff Complete? YES; Mean Corpuscular HGB CONC 34.2 g/dL (32.0-36.0); Mean Corpuscular Hemoglobin 31.9 pg (27.0-31.0); Mean Corpuscular Volume 93.2 fL (78.0-98.0); Mean Platelet Volume 9.7 fL (7.4-10.4); Metamyelocyte 4 % (0-0); Monocytes 6 % (0-10); Myelocyte 2 % (0-0); Neutrophil 37 % (42-75); Nucleated RBC 4 % (0); Platelet Count 47 thou/uL (130-400); Platelet Morphology Comment Appears Decreased; Polychromasia MODERATE = 3-4 cells (100X) (0-2/hpf); RBC Distribution Width 14.1 % (11.5-14.5); Red Blood Cell (RBC) Count 2.86 mill/uL (4.20-5.40); White Blood Cell (WBC) Count 12.1 thou/uL (4.8-10.8)
[2019-08-03] MEDS: Atenolol 25 MG TAB PO SCH ×2 (12:10→20:28)
[2019-08-03] MEDS: predniSONE 20 MG TAB PO SCH (12:10)
[2019-08-03] MEDS: Gabapentin 300 MG CAP PO SCH ×3 (12:10→20:28)
[2019-08-03] MEDS: Pantoprazole 40 MG GRANULES PACKET PO SCH (12:10)
[2019-08-03] MEDS: Magnesium Oxide 400 MG TAB PO SCH ×2 (12:10→20:28)
[2019-08-03] MEDS: Saccharomyces boulardii 250 MG CAP PO SCH (12:11)
[2019-08-03] MEDS ORDERED: Amiodarone 200 MG TAB PO SCH (13:15)
[2019-08-03] MEDS: Loperamide HCl 2 MG CAP PO PRN (14:06)
[2019-08-03] MEDS ORDERED: Sodium Phosphate 30 MMOL in Sodium Chloride 0.9% 250 ML 250 ML IVPB SCH (14:30)
[2019-08-03] MEDS ORDERED: Calcium Gluc 4.6 MEQ/10 ML (100 MG/ML) SLOW IVP SCH (14:44)
--- NOTE | 2019-08-03 15:49 | PRG ---
DATE OF SERVICE: 08/03/2019 SERVICE: Pulmonary Medicine. INTERVAL HISTORY: The patient is doing poorly from a respiratory standpoint. She says she has increased work of breathing, though she is still in the same amount of oxygen. Denies any current fevers or chills overnight. Otherwise, she is returning to her usual state of health. Her strength is improving, but she still says it is "shit." That being said, she is a one-person assist to get up to the bedside commode and back. PHYSICAL EXAMINATION: VITAL SIGNS: Afebrile, pulse 89, blood pressure 121/53, respirations 18, and saturation 94% on 5 L nasal cannula. GENERAL: The patient is awake and alert, in no apparent distress. LUNGS: Decent air entry. A little bit of rhonchi are present. She got a prolonged inspiratory and expiratory phase. HEART: Normal rate, regular. ABDOMEN: Soft, nontender, and nondistended. Bowel sounds are positive. MUSCULOSKELETAL: No cyanosis or clubbing. There is no pitting in the bilateral lower extremities. She has trace to 1+ pitting in the sacrum. : No Mathews. NEUROLOGIC: Grossly nonfocal. LABORATORY DATA: Sodium 146. Basic metabolic profile is otherwise unremarkable. Calcium 7.7, phosphorus less than the assay limit of 1.0, and magnesium 2.1. WBC 12.1, hemoglobin 9.1, platelets 47,000 and up-trending dramatically. Band count is 27% on top of 37% neutrophils. [id number] is low. Achromobacter is growing in the respiratory cultures. ASSESSMENT: 1. Acute hypoxic and hypercapnic respiratory failure. 2. Hospital-acquired pneumonia. 3. Neutropenia with severe sepsis. 4. Pancytopenia, resolving. 5. Small cell lung cancer, on chemotherapy. DISCUSSION AND PLAN: The patient is doing really quite well from a respiratory standpoint. Her white blood cell count is rebounding. We will continue steroids and nebulized medications and antibiotics. I will put her on D5 water instead of the normal saline as she is developing a hypernatremia. Phosphorus will be aggressively replaced, and also give her a dose of calcium. Pulmonary will continue to follow, but Dr. Thacker will resume coverage in the morning. Job ID: [id number]
[2019-08-03] MEDS: Dextrose 5% in Water 1,000 ML IV SCH (16:09)
--- NOTE | 2019-08-03 17:43 | PRG ---
DATE OF SERVICE: 08/03/2019 SUBJECTIVE: The patient has been transferred to [facility]. She is awake, alert, oriented, looks much better. Still having difficulty swallowing a little bit, but no actual odynophagia, just what she describes is it gets stuck when she tries to swallow sometimes. No respiratory symptoms or abdominal pain. Maybe a little bit of abdominal pain, having diarrhea, reportedly voiding without difficulty. OBJECTIVE: VITAL SIGNS: She has been afebrile for quite a few days. BP 130/60 , pulse 85, respirations 16. GENERAL: Chronically ill appearing, in no acute distress, oriented, follows commands, pleasant. LUNGS: Clear. ORAL CAVITY: Normal. ABDOMEN: Mildly tender, not distended. No bladder distention. EXTREMITIES: Moves extremities equally. LABORATORY STUDIES: Sodium 146, creatinine 0.69. White cell count 12.1, hemoglobin 9.1, platelets 47,000, 37% neutrophils, 27% bands. Fungitell was less than 31 and the bronchial washing. ASSESSMENT AND DISCUSSION: Metastatic small cell lung cancer, failure of prior chemo regimen, now on topotecan. Neutropenic fever with improvement of neutropenia and resolution of fever. Diarrhea, now developed. We will check her C diff results. Discontinue micafungin and vancomycin. Job ID: [id number] [facility]
[2019-08-03] MEDS: Multivit, Therapeutic 1 TAB PO SCH (20:28)
[2019-08-03] MEDS: Amiodarone 200 MG TAB PO SCH (20:29)
[2019-08-04] MEDS: Meropenem 2 GM, Admixture Fee 1 EACH in Sodium Chloride 0.9% 100 ML IVPB SCH ×2 (00:16→09:21)
[2019-08-04 04:59] LABS: Anion Gap 16 mmol/L (10-20); BUN (Urea Nitrogen) 13 mg/dL (9.8-20.1); Band 20 % (5-11); Calc. Creatinine Clearance 76 mL/min (70-130); Calcium 7.6 mg/dL (7.8-10.44); Carbon Dioxide 23 mmol/L (23-31); Chloride 108 mmol/L (98-107); Estimated GFR-MDRD 78; Glucose 83 mg/dL (80-115); Hemoglobin 8.2 g/dL (12.0-16.0); Lymphocytes 7 % (21-51); MDiff Complete? YES; Magnesium 1.4 mg/dL (1.6-2.6); Mean Corpuscular HGB CONC 33.4 g/dL (32.0-36.0); Mean Corpuscular Hemoglobin 31.4 pg (27.0-31.0); Mean Corpuscular Volume 93.9 fL (78.0-98.0); Mean Platelet Volume 10.8 fL (7.4-10.4); Metamyelocyte 3 % (0-0); Monocytes 11 % (0-10); Neutrophil 59 % (42-75); Platelet Count 38 thou/uL (130-400); Platelet Morphology Comment Appears Decreased; Potassium 3.6 mmol/L (3.5-5.1); RBC Distribution Width 14.1 % (11.5-14.5); Red Blood Cell (RBC) Count 2.62 mill/uL (4.20-5.40); Sodium 143 mmol/L (136-145); White Blood Cell (WBC) Count 11.5 thou/uL (4.8-10.8)
[2019-08-04 05:00] LABS: Phosphorus 3.2 mg/dL (2.3-4.7)
[2019-08-04] MEDS: predniSONE 20 MG TAB PO SCH (09:21)
[2019-08-04] MEDS: Amiodarone 200 MG TAB PO SCH ×2 (09:22→21:11)
[2019-08-04] MEDS: Digoxin 0.5 MG/2 ML AMP SLOW IVP SCH (09:23)
[2019-08-04] MEDS: Atenolol 25 MG TAB PO SCH ×2 (09:23→21:10)
[2019-08-04] MEDS: Pantoprazole 40 MG GRANULES PACKET PO SCH (09:24)
[2019-08-04] MEDS: Magnesium Oxide 400 MG TAB PO SCH ×2 (09:24→21:11)
[2019-08-04] MEDS: Gabapentin 300 MG CAP PO SCH ×3 (09:24→21:11)
[2019-08-04] MEDS: Saccharomyces boulardii 250 MG CAP PO SCH (09:25)
--- NOTE | 2019-08-04 11:02 | PDOC.HOSPP ---
- Subjective Encounter Date: 08/04/19 Encounter Time: 09:30 Subjective: has dry cough and sob not eating much per patient - Objective Vital Signs & Weight: Vital Signs (12 hours) Temp Pulse Resp BP Pulse Ox 08/04/19 10:53 77 20 08/04/19 09:03 95 08/04/19 08:04 97.8 F 80 20 138/59 L 95 08/04/19 07:13 69 20 08/04/19 04:00 97.9 F 72 16 129/59 L 95 08/04/19 02:44 67 16 91 L Weight Admit Weight 161 lb 6.054 oz Weight 144 lb Most Recent Monitor Data Heart Rate from ECG 71 NIBP 125/53 NIBP BP-Mean 77 Respiration from ECG 17 SpO2 90 I&O: 08/03/19 08/04/19 08/05/19 06:59 06:59 06:59 Intake Total 735 1415 Output Total 626 Balance 109 1415 Result Diagrams: 08/04/19 04:21 08/04/19 04:21 Hospitalist ROS - Medication Medications: Active Medications Generic Name Dose Route Start Last Admin Trade Name Freq PRN Reason Stop Dose Admin Acetaminophen 650 mg 07/23/19 19:13 07/28/19 20:27 Tylenol PO 650 mg Q4H PRN Administration Headache/Fever or Pain Albuterol/Ipratropium 3 ml 07/19/19 00:28 07/29/19 10:20 Duoneb NEB 3 ml Q6H PRN Administration SOB &/or Wheezing Albuterol/Ipratropium 3 ml 07/30/19 02:30 08/04/19 10:53 Duoneb NEB 3 ml [id number] JACK Administration Amiodarone HCl 400 mg 08/03/19 21:00 08/04/19 09:22 Cordarone PO 400 mg BID JACK Administration Lipase/Protease/Amylase 1 cap 07/31/19 06:10 07/31/19 06:19 Sandrine Jesus [id number] FS 1 cap .PER PROTOCOL PRN Administration TUBE OCCLUSION PROTOCOL Atenolol 25 mg 07/31/19 09:00 08/04/19 09:23 Tenormin PO 25 mg BID JACK Administration Al Hydroxide/Mg Hydroxide 60 0 ml 07/24/19 10:17 07/25/19 11:13 ml/ Lidocaine HCl 30 ml/ SSW 10 ml Diphenhydramine HCl 75 mg QIDPRN PRN Administration Mouth Irritation Ferrous Sulfate 300 mg 07/31/19 08:00 08/04/19 09:21 Ferrous Sulfate PO 300 mg QAM-WM JACK Administration Gabapentin 600 mg 07/19/19 21:00 08/04/19 09:24 Neurontin PO 600 mg TID JACK Administration Dextrose/Water 1,000 mls @ 50 mls/hr 08/03/19 14:30 08/03/19 16:09 D5w IV 1,000 mls .Q20H JACK Administration Loperamide HCl 2 mg 07/26/19 12:47 08/03/19 14:06 Imodium PO 2 mg Q2H PRN Administration Diarrhea/Loose Stools Magnesium Oxide 400 mg 07/19/19 21:00 08/04/19 09:24 Magnesium Oxide PO 400 mg BID JACK Administration Multivitamins 1 tab 07/19/19 21:00 08/03/19 20:28 Theragran PO 1 tab HS JACK Administration Pantoprazole Sodium 40 mg 07/31/19 09:00 08/04/19 09:24 Protonix PO 40 mg DAILY JACK Administration Phenol 0 ml 07/22/19 03:29 07/22/19 04:02 Chloraseptic [place] 180 Ml Bot PO 2 spr PRN PRN Administration SORE THROAT Prednisone 40 mg 08/03/19 08:00 08/04/19 09:21 Prednisone PO 40 mg QAM-WM JACK Administration Saccharomyces Boulardii 250 mg 07/19/19 09:00 08/04/19 09:25 Florastor PO 250 mg DAILY JACK Administration Sertraline HCl 25 mg 07/19/19 09:00 08/04/19 09:25 Zoloft PO 25 mg DAILY JACK Administration Sodium Bicarbonate 650 mg 07/31/19 06:10 07/31/19 06:19 Bicarbonate, Sodium PER TUBE 650 mg .PER PROTOCOL PRN Administration ENTERAL TUBE OCCLUSION Sodium Chloride 10 ml 07/23/19 09:00 08/04/19 09:25 Flush - Normal Saline IVF 10 ml Q12HR JACK Administration - Exam General Appearance: awake alert, ill appearing Eye: PERRL, anicteric sclera ENT: no oropharyngeal lesions, dry oral mucosa Neck: supple, no JVD Heart: no murmur, irregular Respiratory: no wheezes, no rales, rhonchi Gastrointestinal: soft, non-tender, non-distended, normal bowel sounds Extremities: no cyanosis, no edema Neurological: cranial nerve grossly intact, no focal deficits Hosp A/P (1) Acute respiratory failure with hypoxia and hypercapnia Code(s): J96.01 - ACUTE RESPIRATORY FAILURE WITH HYPOXIA; J96.02 - ACUTE RESPIRATORY FAILURE WITH HYPERCAPNIA Status: Resolved (2) HAP (hospital-acquired pneumonia) Code(s): J18.9 - PNEUMONIA, UNSPECIFIED ORGANISM; Y95 - NOSOCOMIAL CONDITION Status: Resolved (3) Neutropenic sepsis Code(s): A41.9 - SEPSIS, UNSPECIFIED ORGANISM; D70.9 - NEUTROPENIA, UNSPECIFIED Status: Resolved (4) Pancytopenia Code(s): D61.818 - OTHER PANCYTOPENIA Status: Acute (5) Hypertension Code(s): I10 - ESSENTIAL (PRIMARY) HYPERTENSION Status: Chronic Qualifiers: Hypertension type: essential hypertension Qualified Code(s): I10 - Essential (primary) hypertension (6) Small cell lung cancer Code(s): C34.90 - MALIGNANT NEOPLASM OF UNSP PART OF UNSP BRONCHUS OR LUNG Status: Chronic (7) Physical deconditioning Code(s): R53.81 - OTHER MALAISE Status: Acute (8) Dysphagia Code(s): R13.10 - DYSPHAGIA, UNSPECIFIED Status: Acute - Plan is on amiodarone oral, prednisone, atenolol, dig and nebs pancytopenia has resolved h/o small cell lung 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 oral diet per speech adv, has hoarseness likely from ET, dysphagia on pureed diet trial. increase activity as tolerated will need swing or skilled placement (needs to eat more calorie for dc plan). prognosis is guarded, pt is full code, d/w palliative care for possible palliative/hospice care options.
--- NOTE | 2019-08-04 11:11 | PDOC.CPN ---
- Subjective Date: 08/04/19 Time: 08:30 Interval history: The pt seen and examined. No overnight events. No cardiac complaints, except chronic fatigue. - Objective Allergies/Adverse Reactions: Allergies Allergy/AdvReac Type Severity Reaction Status Date / Time lisinopril Allergy cough Verified 07/26/19 17:16 lorazepam [From Ativan] Allergy Verified 07/26/19 17:16 Visit Medications: Current Medications Acetaminophen (Tylenol) 650 mg PO Q4H PRN PRN Reason: Headache/Fever or Pain Last Admin: 07/28/19 20:27 Dose: 650 mg Albuterol/Ipratropium (Duoneb) 3 ml NEB Q6H PRN PRN Reason: SOB &/or Wheezing Last Admin: 07/29/19 10:20 Dose: 3 ml Albuterol/Ipratropium (Duoneb) 3 ml NEB [id number] JACK Last Admin: 08/04/19 10:53 Dose: 3 ml Amiodarone HCl (Cordarone) 400 mg PO BID [facility] Last Admin: 08/04/19 09:22 Dose: 400 mg Lipase/Protease/Amylase ([place] [id number]) 1 cap FS .PER PROTOCOL PRN PRN Reason: TUBE OCCLUSION PROTOCOL Last Admin: 07/31/19 06:19 Dose: 1 cap Atenolol (Tenormin) 25 mg PO BID [facility] Last Admin: 08/04/19 09:23 Dose: 25 mg Bisacodyl (Dulcolax) 10 mg PO DAILYPRN PRN PRN Reason: Constipation Al Hydroxide/Mg Hydroxide 60 ml/ Lidocaine HCl 30 ml/Diphenhydramine HCl 75 mg 0 ml SSW QIDPRN PRN PRN Reason: Mouth Irritation Last Admin: 07/25/19 11:13 Dose: 10 ml Digoxin (Lanoxin) 0.125 mg PO DAILY [facility] Ferrous Sulfate (Ferrous Sulfate) 300 mg PO QAM-WM [facility] Last Admin: 08/04/19 09:21 Dose: 300 mg Gabapentin (Neurontin) 600 mg PO TID [facility] Last Admin: 08/04/19 09:24 Dose: 600 mg Dextrose/Water (D5w) 1,000 mls @ 50 mls/hr IV .Q20H [facility] Last Admin: 08/03/19 16:09 Dose: 1,000 mls Magnesium Sulfate 2 gm/ Device 50 mls @ 50 mls/hr IVPB ONE [facility] Loperamide HCl (Imodium) 2 mg PO Q2H PRN PRN Reason: Diarrhea/Loose Stools Last Admin: 08/03/19 14:06 Dose: 2 mg Magnesium Oxide (Magnesium Oxide) 400 mg PO BID [facility] Last Admin: 08/04/19 09:24 Dose: 400 mg Morphine Sulfate (Morphine) 2 mg SLOW IVP Q1H PRN PRN Reason: BREAKTHROUGH PAIN/Agitation Stop: 08/28/19 23:00 Multivitamins (Theragran) 1 tab PO HS [facility] Last Admin: 08/03/19 20:28 Dose: 1 tab Pantoprazole Sodium (Protonix) 40 mg PO DAILY [facility] Last Admin: 08/04/19 09:24 Dose: 40 mg Phenol (Chloraseptic [place] 180 Ml Bot) 0 ml PO PRN PRN PRN Reason: SORE THROAT Last Admin: 07/22/19 04:02 Dose: 2 spr Prednisone (Prednisone) 40 mg PO QAM-WM [facility] Last Admin: 08/04/19 09:21 Dose: 40 mg Saccharomyces Boulardii (Florastor) 250 mg PO DAILY [facility] Last Admin: 08/04/19 09:25 Dose: 250 mg Sertraline HCl (Zoloft) 25 mg PO DAILY [facility] Last Admin: 08/04/19 09:25 Dose: 25 mg Sodium Bicarbonate (Bicarbonate, Sodium) 650 mg PER TUBE .PER PROTOCOL PRN PRN Reason: ENTERAL TUBE OCCLUSION Last Admin: 07/31/19 06:19 Dose: 650 mg Sodium Chloride (Flush - Normal Saline) 10 ml IVF Q12HR [facility] Last Admin: 08/04/19 09:25 Dose: 10 ml Sodium Chloride (Flush - Normal Saline) 10 ml IVF PRN PRN PRN Reason: Saline Flush Sodium Chloride (Flush - Normal Saline) 10 ml IVF PRN PRN PRN Reason: Saline Flush Sodium Chloride (Flush - Normal Saline) 10 ml IVF PRN PRN PRN Reason: Saline Flush Vital Signs & Weight: Vital Signs Temp Pulse Resp BP Pulse Ox 08/04/19 10:53 77 20 08/04/19 09:03 95 08/04/19 08:04 97.8 F 80 20 138/59 L 95 08/04/19 07:13 69 20 08/04/19 04:00 97.9 F 72 16 129/59 L 95 08/04/19 02:44 67 16 91 L Admit Weight 161 lb 6.054 oz Weight 144 lb - Physical Exam General: alert & oriented x3 HEENT: mucus membranes moist Neck: supple neck Cardiac: regular rate and rhythm, S1/S2 Lungs: decreased breath sounds Neuro: cranial nerve 2-12 intact Extremities: no edema - Labs Result Diagrams: 08/04/19 04:21 08/04/19 04:21 Troponin/CKMB Troponin I 0.017 ng/mL (< 0.028) 07/18/19 20:15 - Telemetry Sinus rhythms and dysrhythmias: sinus rhythm - Assessment/Plan Assessment/Plan: 1. AFib with RVR most likely due to sepsis and anemia, pancytopenia. - No more Afib episodes since she tx back to 2N; well controlled HR when she is in SR; On Digoxin 0.125mg PO and Amiodarone 400mg BID since 08/03/2019; not on OAC 2/2 severe Anemia and Pancytopenia 2. Neutropenic sepsis - No longer neutropenic precautions (!) 3. Anemia with s/p multiple PRBC tx - 4. Hypomagnesemia - still low with schedule Mag PO; Mg 2mg IV x1 today 5. Hypokalemia - cont. to monitor 6. metastatic small cell lung cancer 7. Dysphagia and Odynophagia following chemotherapy-continue PPN until her symptoms improve MAR reviewed
[2019-08-04] MEDS: Dextrose 5% in Water 1,000 ML IV SCH (11:15)
[2019-08-04] MEDS ORDERED: Magnesium 2 GM/50 ML 2 GM in Premix Bag 1 BAG IVPB SCH (11:15)
--- NOTE | 2019-08-04 13:03 | PDOC.PALPN ---
Palliative Progress Note - Subjective O2 dependent. Shortness of breath, pronounced weakness. Arranged for sister Ebony Patel to be present for conversation in relation to goals of care and resuscitation status in light of guarded prognosis. - Objective Vital Signs: Vital Signs - Most Recent Temp Pulse Resp BP Pulse Ox 98.2 F 80 18 133/65 95 08/04/19 11:11 08/04/19 11:11 08/04/19 11:11 08/04/19 11:11 08/04/19 11:11 - Physical Exam Constitutional: cachectic, ill appearing, mild distress HEENT: EOMI, moist MMs, sclera anicteric, poor dentition Respiratory: accessory muscle use, labored respirations, tachypnea Cardiovascular: RRR Gastrointestinal: continent, non-tender, incontinent Genitourinary: incontinent Musculoskeletal: diffuse muscle atrophy Neurology: moves all 4 limbs Skin: bruising, fragile, friable Psychiatric: A&O x 3, depressed - Assessment (1) Palliative care encounter Code(s): Z51.5 - ENCOUNTER FOR PALLIATIVE CARE Current Visit: Yes Status: Acute (2) Diarrhea due to drug Code(s): K52.1 - TOXIC GASTROENTERITIS AND COLITIS Current Visit: Yes Status : Acute (3) Dysphagia Code(s): R13.10 - DYSPHAGIA, UNSPECIFIED Current Visit: Yes Status: Acute (4) Neutropenic sepsis Code(s): A41.9 - SEPSIS, UNSPECIFIED ORGANISM; D70.9 - NEUTROPENIA, UNSPECIFIED Current Visit: Yes Status: Resolved (5) Pancytopenia Code(s): D61.818 - OTHER PANCYTOPENIA Current Visit: Yes Status: Acute (6) Small cell lung cancer Code(s): C34.90 - MALIGNANT NEOPLASM OF UNSP PART OF UNSP BRONCHUS OR LUNG Current Visit: Yes Status: Chronic - Plan Plan: Patient sister Ebony Patel present for conversation in relation to Goal of Care. Discussed what is important to patient: family, her cats. Discussed option of transition to "swing" bed. Introduced conversation of Hospice and management of symptoms related to terminal condition in the home setting, allowing for her to be around her sister and cats. Also revisited resuscitation status, discussing her hope if she requires reintubation with her significant respiratory compromise. Ms Ramirez will visit with her sister in relation to transition home with hospice as well as consideration for DNAR. Ordered milkshake and [place] ice for patient to promote intake. Communicated with Dr Isbell and Dr Samayoa. [75] minutes spent on this encounter with >50% of the time in counseling and coordination of care. - ROS Constitutional: loss appetite, weakness ENT: alteration in dentition, difficulty swallowing Respiratory: shortness of breath, shortness of breath with extertion Cardiology: other (denies chest pain, palpitations) Gastrointestinal: other (denies vomiting) Genitourinary: incontinence Skin: bruising
--- NOTE | 2019-08-04 13:58 | PRG ---
DATE OF SERVICE: 08/04/2019 SUBJECTIVE: Irma Ramirez is doing well. She is out of the ICU. OBJECTIVE: VITAL SIGNS: She is afebrile. Heart rate is 80, respiratory rate is 18, oximetry is 95% on 5 L, and blood pressure is 138/59. LUNGS: Unchanged. HEART: Unchanged. ABDOMEN: Unchanged. LABORATORY DATA: White count up to 11.5, hemoglobin 8.2, and platelets 59. Electrolytes are unremarkable. IMPRESSION: 1. Bronchopneumonia leading to intubation. 2. Chronic obstructive pulmonary disease. 3. Lung cancer. 4. Deconditioning. I had a long discussion with her about code status. I have recommended that she not be intubated again or have chest compressions or CPR if needed. She was shaking her head no that she did not want this. Then, her daughter at the bedside told her that she did not need to make a decision now and that was just a suggestion from me and not something that she had to follow. I have explained to Ms. Ramirez that she gets intubated again, her children will likely have to decide when to disconnect her from life support. I believe she understands this and does not want it, but her daughter unfortunately at this time is not helpful with these decisions. We will continue to follow. There is nothing acute going on with her at this point in time. It looks like antimicrobial therapy was stopped over the weekend. Job ID: [id number]
--- NOTE | 2019-08-04 15:19 | PDOC.MOPN ---
Interval History: weak but eating more. - Vital Signs Vital Signs: Vital Signs (12 hours) Temp Pulse Resp BP BP BP BP 08/04/19 14:49 68 20 08/04/19 13:38 108/57 L 116/51 L 08/04/19 11:11 98.2 F 80 18 133/65 08/04/19 10:53 77 20 08/04/19 09:03 08/04/19 08:04 97.8 F 80 20 138/59 L 08/04/19 07:13 69 20 08/04/19 04:00 97.9 F 72 16 129/59 L Pulse Ox 08/04/19 14:49 08/04/19 13:38 08/04/19 11:11 95 08/04/19 10:53 08/04/19 09:03 95 08/04/19 08:04 95 08/04/19 07:13 08/04/19 04:00 95 Weight Admit Weight 161 lb 6.054 oz Weight 144 lb Most Recent Monitor Data Heart Rate from ECG 71 NIBP 125/53 NIBP BP-Mean 77 Respiration from ECG 17 SpO2 90 - Physical Exam General: Alert, Oriented x3, No acute distress HEENT: Atraumatic, PERRLA, EOMI, Mucous membr. moist/pink Lungs: Other Cardiovascular: Other (irregular) Abdomen: Normal bowel sounds, Soft, No tenderness, No hepatospenomegaly, No masses Extremities: No clubbing, No cyanosis, No edema, Normal pulses, No tenderness/ swelling Neurological: Normal speech Psych/Mental Status: Mental status NL - Labs Result Diagrams: 08/04/19 04:21 08/04/19 04:21 Lab results: Laboratory Results - last 24 hr 08/04/19 04:21: Phosphorus 3.2 08/04/19 04:21: WBC 11.5 H, RBC 2.62 L, Hgb 8.2 L, Hct 24.6 L, MCV 93.9, MCH 31.4 H, MCHC 33.4, RDW 14.1, Plt Count 38 L, MPV 10.8 H, Neutrophils % (Manual) 59, Band Neuts % (Manual) 20 H, Lymphocytes % (Manual) 7 L, Monocytes % (Manual ) 11 H, Metamyelocytes % (Man) 3 H, Plt Morphology Comment Appears Decreased L 08/04/19 04:21: Sodium 143, Potassium 3.6, Chloride 108 H, Carbon Dioxide 23, Anion Gap 16, BUN 13, Creatinine 0.74, Estimated GFR (MDRD) 78, Glucose 83, Calcium 7.6 L, Magnesium 1.4 L Status: lab reviewed by me A/P - Problem (1) Atrial fibrillation with RVR Current Visit: Yes Code(s): I48.91 - UNSPECIFIED ATRIAL FIBRILLATION Status : Acute (2) Neutropenic sepsis Current Visit: Yes Code(s): A41.9 - SEPSIS, UNSPECIFIED ORGANISM; D70.9 - NEUTROPENIA, UNSPECIFIED Status: Resolved (3) Small cell lung cancer Current Visit: Yes Code(s): C34.90 - MALIGNANT NEOPLASM OF UNSP PART OF UNSP BRONCHUS OR LUNG Status: Chronic (4) Acute respiratory failure with hypoxemia Current Visit: Yes Code(s): J96.01 - ACUTE RESPIRATORY FAILURE WITH HYPOXIA Status: Acute - Plan Plan: 1. Neutropenia resolved, mark zheng'd. 2. discussed code status with patient, agree she should be DNR. will discuss further tomorrow. 3. She would like to go to swing bed to see if she can get stronger. She wishes to pursue further treatment if possible. She understands she must recover and gain strength back before further treatment. She is also aware of the severity of her disease and that all care is palliative.
[2019-08-04] MEDS: Multivit, Therapeutic 1 TAB PO SCH (21:11)
[2019-08-05 06:48] LABS: Hemoglobin 7.5 g/dL (12.0-16.0); Mean Corpuscular HGB CONC 34.2 g/dL (32.0-36.0); Mean Corpuscular Hemoglobin 31.7 pg (27.0-31.0); Mean Corpuscular Volume 92.7 fL (78.0-98.0); Mean Platelet Volume 10.1 fL (7.4-10.4); Platelet Count 39 thou/uL (130-400); RBC Distribution Width 14.2 % (11.5-14.5); Red Blood Cell (RBC) Count 2.35 mill/uL (4.20-5.40); White Blood Cell (WBC) Count 8.8 thou/uL (4.8-10.8)
[2019-08-05 06:54] LABS: Band 3 % (5-11); Lymphocytes 18 % (21-51); MDiff Complete? YES; Monocytes 5 % (0-10); Neutrophil 74 % (42-75)
[2019-08-05 06:58] LABS: Anion Gap 9 mmol/L (10-20); BUN (Urea Nitrogen) 13 mg/dL (9.8-20.1); Calc. Creatinine Clearance 76 mL/min (70-130); Calcium 7.7 mg/dL (7.8-10.44); Carbon Dioxide 27 mmol/L (23-31); Chloride 106 mmol/L (98-107); Estimated GFR-MDRD 78; Glucose 120 mg/dL (80-115); Potassium 3.5 mmol/L (3.5-5.1); Sodium 138 mmol/L (136-145)
[2019-08-05 07:02] LABS: Phosphorus 2.4 mg/dL (2.3-4.7)
[2019-08-05] MEDS: Dextrose 5% in Water 1,000 ML IV SCH (10:37)
[2019-08-05] MEDS: Amiodarone 200 MG TAB PO SCH ×2 (10:38→20:57)
[2019-08-05] MEDS: Pantoprazole 40 MG GRANULES PACKET PO SCH (10:39)
[2019-08-05] MEDS: Digoxin 0.125 MG TAB PO SCH (10:42)
[2019-08-05] MEDS: Magnesium Oxide 400 MG TAB PO SCH ×2 (10:43→20:57)
[2019-08-05] MEDS: Gabapentin 300 MG CAP PO SCH ×3 (10:43→20:57)
[2019-08-05] MEDS: predniSONE 20 MG TAB PO SCH (10:43)
[2019-08-05] MEDS: Saccharomyces boulardii 250 MG CAP PO SCH (10:43)
[2019-08-05] MEDS: Atenolol 25 MG TAB PO SCH ×2 (11:35→20:58)
--- NOTE | 2019-08-05 12:02 | PDOC.HOSPP ---
- Subjective Encounter Date: 08/05/19 Encounter Time: 09:15 Subjective: feels better, says she is eating and drinking better now no sob on oxygen - Objective Vital Signs & Weight: Vital Signs (12 hours) Temp Pulse Pulse Pulse Resp BP BP 08/05/19 11:35 72 08/05/19 11:22 98.0 F 71 18 08/05/19 10:42 72 08/05/19 10:39 71 20 08/05/19 10:35 08/05/19 08:42 77 84 88/44 L 84/51 L 08/05/19 08:00 97.6 F 72 18 08/05/19 07:39 08/05/19 07:37 69 20 08/05/19 04:00 98.0 F 76 16 08/05/19 02:36 64 16 BP Pulse Ox 08/05/19 11:35 08/05/19 11:22 88/46 L 95 08/05/19 10:42 08/05/19 10:39 91 L 08/05/19 10:35 95/61 08/05/19 08:42 08/05/19 08:00 95/49 L 94 L 08/05/19 07:39 91 L 08/05/19 07:37 91 L 08/05/19 04:00 114/58 L 97 08/05/19 02:36 Weight Admit Weight 161 lb 6.054 oz Weight 145 lb 6.4 oz Most Recent Monitor Data Heart Rate from ECG 71 NIBP 125/53 NIBP BP-Mean 77 Respiration from ECG 17 SpO2 90 I&O: 08/04/19 08/05/19 08/06/19 06:59 06:59 06:59 Intake Total 1415 1737 Output Total 50 Balance 9234 1918 Result Diagrams: 08/05/19 06:15 08/05/19 06:15 Hospitalist ROS - Medication Medications: Active Medications Generic Name Dose Route Start Last Admin Trade Name Freq PRN Reason Stop Dose Admin Acetaminophen 650 mg 07/23/19 19:13 07/28/19 20:27 Tylenol PO 650 mg Q4H PRN Administration Headache/Fever or Pain Albuterol/Ipratropium 3 ml 07/19/19 00:28 07/29/19 10:20 Duoneb NEB 3 ml Q6H PRN Administration SOB &/or Wheezing Albuterol/Ipratropium 3 ml 07/30/19 02:30 08/05/19 10:39 Duoneb NEB 3 ml [id number] JACK Administration Amiodarone HCl 400 mg 08/03/19 21:00 08/05/19 10:38 Cordarone PO 400 mg BID JACK Administration Lipase/Protease/Amylase 1 cap 07/31/19 06:10 07/31/19 06:19 Sandrine Jesus [id number] FS 1 cap .PER PROTOCOL PRN Administration TUBE OCCLUSION PROTOCOL Atenolol 25 mg 07/31/19 09:00 08/05/19 11:35 Tenormin PO Not Given BID JACK Al Hydroxide/Mg Hydroxide 60 0 ml 07/24/19 10:17 07/25/19 11:13 ml/ Lidocaine HCl 30 ml/ SSW 10 ml Diphenhydramine HCl 75 mg QIDPRN PRN Administration Mouth Irritation Digoxin 0.125 mg 08/05/19 09:00 08/05/19 10:42 Lanoxin PO 0.125 mg DAILY JACK Administration Ferrous Sulfate 300 mg 07/31/19 08:00 08/05/19 10:39 Ferrous Sulfate PO 300 mg QAM-WM JACK Administration Gabapentin 600 mg 07/19/19 21:00 08/05/19 10:43 Neurontin PO 600 mg TID JACK Administration Dextrose/Water 1,000 mls @ 50 mls/hr 08/03/19 14:30 08/05/19 10:37 D5w IV 1,000 mls .Q20H JACK Administration Loperamide HCl 2 mg 07/26/19 12:47 08/03/19 14:06 Imodium PO 2 mg Q2H PRN Administration Diarrhea/Loose Stools Magnesium Oxide 400 mg 07/19/19 21:00 08/05/19 10:43 Magnesium Oxide PO 400 mg BID JACK Administration Multivitamins 1 tab 07/19/19 21:00 08/04/19 21:11 Theragran PO 1 tab HS JACK Administration Pantoprazole Sodium 40 mg 07/31/19 09:00 08/05/19 10:39 Protonix PO 40 mg DAILY JACK Administration Phenol 0 ml 07/22/19 03:29 07/22/19 04:02 Chloraseptic [place] 180 Ml Bot PO 2 spr PRN PRN Administration SORE THROAT Prednisone 40 mg 08/03/19 08:00 08/05/19 10:43 Prednisone PO 40 mg QAM-WM JACK Administration Saccharomyces Boulardii 250 mg 07/19/19 09:00 08/05/19 10:43 Florastor PO 250 mg DAILY JACK Administration Sertraline HCl 25 mg 07/19/19 09:00 08/05/19 10:43 Zoloft PO 25 mg DAILY JACK Administration Sodium Bicarbonate 650 mg 07/31/19 06:10 07/31/19 06:19 Bicarbonate, Sodium PER TUBE 650 mg .PER PROTOCOL PRN Administration ENTERAL TUBE OCCLUSION Sodium Chloride 10 ml 07/23/19 09:00 08/05/19 10:38 Flush - Normal Saline IVF 10 ml Q12HR JACK Administration - Exam General Appearance: awake alert Eye: PERRL, anicteric sclera ENT: no oropharyngeal lesions, dry oral mucosa Neck: supple, symmetric Heart: no murmur, no gallops Respiratory: no wheezes, no rales, rhonchi Gastrointestinal: soft, non-tender, non-distended, normal bowel sounds Extremities: no cyanosis, no edema Neurological: cranial nerve grossly intact, no focal deficits Hosp A/P (1) Acute respiratory failure with hypoxia and hypercapnia Code(s): J96.01 - ACUTE RESPIRATORY FAILURE WITH HYPOXIA; J96.02 - ACUTE RESPIRATORY FAILURE WITH HYPERCAPNIA Status: Resolved (2) HAP (hospital-acquired pneumonia) Code(s): J18.9 - PNEUMONIA, UNSPECIFIED ORGANISM; Y95 - NOSOCOMIAL CONDITION Status: Resolved (3) Neutropenic sepsis Code(s): A41.9 - SEPSIS, UNSPECIFIED ORGANISM; D70.9 - NEUTROPENIA, UNSPECIFIED Status: Resolved (4) Pancytopenia Code(s): D61.818 - OTHER PANCYTOPENIA Status: Acute (5) Hypertension Code(s): I10 - ESSENTIAL (PRIMARY) HYPERTENSION Status: Chronic Qualifiers: Hypertension type: essential hypertension Qualified Code(s): I10 - Essential (primary) hypertension (6) Small cell lung cancer Code(s): C34.90 - MALIGNANT NEOPLASM OF UNSP PART OF UNSP BRONCHUS OR LUNG Status: Chronic (7) Physical deconditioning Code(s): R53.81 - OTHER MALAISE Status: Acute (8) Dysphagia Code(s): R13.10 - DYSPHAGIA, UNSPECIFIED Status: Acute - Plan is on amiodarone oral, prednisone, atenolol, dig and nebs pancytopenia has resolved h/o small cell lung 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 oral diet per speech adv, has hoarseness likely from ET, dysphagia on pureed diet trial and doing well. increase activity as tolerated will need swing or skilled placement (needs to eat more calories for dc plan). prognosis is guarded, pt is full code, d/w palliative care for possible palliative/hospice care options. d/w CM, family is looking for skilled with hospice options
--- NOTE | 2019-08-05 12:34 | PDOC.PALPN ---
Palliative Progress Note - Subjective Sleeping but arousable. Improved swallowing, continues with pronounced weakness , unable to participate in PT outside of the bed but able to so mild strengthening exercises bedbound. - Objective Vital Signs: Vital Signs - Most Recent Temp Pulse Resp BP Pulse Ox 98.0 F 72 18 88/46 L 95 08/05/19 11:22 08/05/19 11:35 08/05/19 11:22 08/05/19 11:22 08/05/19 11:22 - Physical Exam Constitutional: cachectic, ill appearing HEENT: EOMI, moist MMs, sclera anicteric, poor dentition Respiratory: diminished lung sound, labored respirations Gastrointestinal: non-tender Musculoskeletal: no clubbing, diffuse muscle atrophy Neurology: moves all 4 limbs, no focal deficits Skin: cap refill <2 seconds, fragile Psychiatric: A&O x 3, normal mood - Assessment (1) Palliative care encounter Code(s): Z51.5 - ENCOUNTER FOR PALLIATIVE CARE Current Visit: Yes Status: Acute (2) Diarrhea due to drug Code(s): K52.1 - TOXIC GASTROENTERITIS AND COLITIS Current Visit: Yes Status : Acute (3) Dysphagia Code(s): R13.10 - DYSPHAGIA, UNSPECIFIED Current Visit: Yes Status: Acute (4) Neutropenic sepsis Code(s): A41.9 - SEPSIS, UNSPECIFIED ORGANISM; D70.9 - NEUTROPENIA, UNSPECIFIED Current Visit: Yes Status: Resolved (5) Pancytopenia Code(s): D61.818 - OTHER PANCYTOPENIA Current Visit: Yes Status: Acute (6) Small cell lung cancer Code(s): C34.90 - MALIGNANT NEOPLASM OF UNSP PART OF UNSP BRONCHUS OR LUNG Current Visit: Yes Status: Chronic - Plan Plan: Visited with patient, continue partial life review. She states her (who lives in [place]) is supportive of what decision she makes in relation to her goal of care. It is her nephews birthday today and she raised him, she is tearful and hopeful to visit with him via video later today. Continues to desire to remain with full resuscitative measures and not ready to make a decision in relation to hospice. Therapeutic listening and emotional support offered. [45] minutes spent on this encounter with >50% of the time in counseling and coordination of care. - ROS Constitutional: alert, weakness Eyes: other (denies visual changes) ENT: alteration in dentition, difficulty swallowing Respiratory: productive cough, shortness of breath, shortness of breath with extertion Cardiology: other (denies chest pain, palpitations) Gastrointestinal: other (negative for nausea, vomiting at time of assessement) Neurological: other (denies incoordination or change inspeech)
--- NOTE | 2019-08-05 13:26 | PDOC.CPN ---
- Subjective Date: 08/05/19 Time: 08:00 Interval history: The pt seen and examined. No overnight events. No cardiac complaints. - Objective Allergies/Adverse Reactions: Allergies Allergy/AdvReac Type Severity Reaction Status Date / Time lisinopril Allergy cough Verified 07/26/19 17:16 lorazepam [From Ativan] Allergy Verified 07/26/19 17:16 Visit Medications: Current Medications Acetaminophen (Tylenol) 650 mg PO Q4H PRN PRN Reason: Headache/Fever or Pain Last Admin: 07/28/19 20:27 Dose: 650 mg Albuterol/Ipratropium (Duoneb) 3 ml NEB Q6H PRN PRN Reason: SOB &/or Wheezing Last Admin: 07/29/19 10:20 Dose: 3 ml Albuterol/Ipratropium (Duoneb) 3 ml NEB [id number] [facility] Last Admin: 08/05/19 10:39 Dose: 3 ml Amiodarone HCl (Cordarone) 400 mg PO BID [facility] Last Admin: 08/05/19 10:38 Dose: 400 mg Lipase/Protease/Amylase ([place] [id number]) 1 cap FS .PER PROTOCOL PRN PRN Reason: TUBE OCCLUSION PROTOCOL Last Admin: 07/31/19 06:19 Dose: 1 cap Atenolol (Tenormin) 25 mg PO BID [facility] Last Admin: 08/05/19 11:35 Dose: Not Given Bisacodyl (Dulcolax) 10 mg PO DAILYPRN PRN PRN Reason: Constipation Al Hydroxide/Mg Hydroxide 60 ml/ Lidocaine HCl 30 ml/Diphenhydramine HCl 75 mg 0 ml SSW QIDPRN PRN PRN Reason: Mouth Irritation Last Admin: 07/25/19 11:13 Dose: 10 ml Digoxin (Lanoxin) 0.125 mg PO DAILY [facility] Last Admin: 08/05/19 10:42 Dose: 0.125 mg Ferrous Sulfate (Ferrous Sulfate) 300 mg PO QAM-WM [facility] Last Admin: 08/05/19 10:39 Dose: 300 mg Gabapentin (Neurontin) 600 mg PO TID [facility] Last Admin: 08/05/19 10:43 Dose: 600 mg Dextrose/Water (D5w) 1,000 mls @ 50 mls/hr IV .Q20H [facility] Last Admin: 08/05/19 10:37 Dose: 1,000 mls Loperamide HCl (Imodium) 2 mg PO Q2H PRN PRN Reason: Diarrhea/Loose Stools Last Admin: 08/03/19 14:06 Dose: 2 mg Magnesium Oxide (Magnesium Oxide) 400 mg PO BID [facility] Last Admin: 08/05/19 10:43 Dose: 400 mg Morphine Sulfate (Morphine) 2 mg SLOW IVP Q1H PRN PRN Reason: BREAKTHROUGH PAIN/Agitation Stop: 08/28/19 23:00 Multivitamins (Theragran) 1 tab PO HS [facility] Last Admin: 08/04/19 21:11 Dose: 1 tab Pantoprazole Sodium (Protonix) 40 mg PO DAILY [facility] Last Admin: 08/05/19 10:39 Dose: 40 mg Phenol (Chloraseptic [place] 180 Ml Bot) 0 ml PO PRN PRN PRN Reason: SORE THROAT Last Admin: 07/22/19 04:02 Dose: 2 spr Prednisone (Prednisone) 40 mg PO QAM-WM [facility] Last Admin: 08/05/19 10:43 Dose: 40 mg Saccharomyces Boulardii (Florastor) 250 mg PO DAILY [facility] Last Admin: 08/05/19 10:43 Dose: 250 mg Sertraline HCl (Zoloft) 25 mg PO DAILY [facility] Last Admin: 08/05/19 10:43 Dose: 25 mg Sodium Bicarbonate (Bicarbonate, Sodium) 650 mg PER TUBE .PER PROTOCOL PRN PRN Reason: ENTERAL TUBE OCCLUSION Last Admin: 07/31/19 06:19 Dose: 650 mg Sodium Chloride (Flush - Normal Saline) 10 ml IVF Q12HR [facility] Last Admin: 08/05/19 10:38 Dose: 10 ml Sodium Chloride (Flush - Normal Saline) 10 ml IVF PRN PRN PRN Reason: Saline Flush Sodium Chloride (Flush - Normal Saline) 10 ml IVF PRN PRN PRN Reason: Saline Flush Sodium Chloride (Flush - Normal Saline) 10 ml IVF PRN PRN PRN Reason: Saline Flush Vital Signs & Weight: Vital Signs Temp Pulse Pulse Pulse Resp BP BP 08/05/19 11:35 72 08/05/19 11:22 98.0 F 71 18 08/05/19 10:42 72 08/05/19 10:39 71 20 08/05/19 10:35 08/05/19 08:42 77 84 88/44 L 84/51 L 08/05/19 08:00 97.6 F 72 18 08/05/19 07:39 08/05/19 07:37 69 20 08/05/19 04:00 98.0 F 76 16 08/05/19 02:36 64 16 BP Pulse Ox 08/05/19 11:35 08/05/19 11:22 88/46 L 95 08/05/19 10:42 08/05/19 10:39 91 L 08/05/19 10:35 95/61 08/05/19 08:42 08/05/19 08:00 95/49 L 94 L 08/05/19 07:39 91 L 08/05/19 07:37 91 L 08/05/19 04:00 114/58 L 97 08/05/19 02:36 Admit Weight 161 lb 6.054 oz Weight 145 lb 6.4 oz - Physical Exam General: alert & oriented x3 HEENT: mucus membranes moist Neck: supple neck Cardiac: regular rate and rhythm Lungs: decreased breath sounds - Labs Result Diagrams: 08/05/19 06:15 08/05/19 06:15 Troponin/CKMB Troponin I 0.017 ng/mL (< 0.028) 07/18/19 20:15 - Assessment/Plan Assessment/Plan: 1. AFib with RVR most likely due to sepsis and anemia, pancytopenia. - No more Afib episodes since 08/02/2019; well controlled HR when she is in SR; On Digoxin 0.125mg PO and Amiodarone 400mg BID since 08/03/2019; not on OAC 2/2 severe Anemia and Pancytopenia 2. Neutropenic sepsis - No longer neutropenic precautions (!) 3. Anemia with s/p multiple PRBC tx - 4. Hypomagnesemia - still low with schedule Mag PO; Mg 2mg IV x1 today 5. Hypokalemia - cont. to monitor 6. metastatic small cell lung cancer 7. Dysphagia and Odynophagia following chemotherapy-continue PPN until her symptoms improve MAR reviewed Pt. seen and eval. by me. I agree with the A/P by the BATTERY LOADER. Cardiac status is stable. Maintaining NSR. chest : scattered rhonchi, RRR.
--- NOTE | 2019-08-05 14:43 | PDOC.MOPN ---
Interval History: eating more, breathing improved. Still weak. - Vital Signs Vital Signs: Vital Signs (12 hours) Temp Pulse Pulse Pulse Resp BP BP 08/05/19 11:35 72 08/05/19 11:22 98.0 F 71 18 08/05/19 10:42 72 08/05/19 10:39 71 20 08/05/19 10:35 08/05/19 08:42 77 84 88/44 L 84/51 L 08/05/19 08:00 97.6 F 72 18 08/05/19 07:39 08/05/19 07:37 69 20 08/05/19 04:00 98.0 F 76 16 BP Pulse Ox 08/05/19 11:35 08/05/19 11:22 88/46 L 95 08/05/19 10:42 08/05/19 10:39 91 L 08/05/19 10:35 95/61 08/05/19 08:42 08/05/19 08:00 95/49 L 94 L 08/05/19 07:39 91 L 08/05/19 07:37 91 L 08/05/19 04:00 114/58 L 97 Weight Admit Weight 161 lb 6.054 oz Weight 145 lb 6.4 oz Most Recent Monitor Data Heart Rate from ECG 71 NIBP 125/53 NIBP BP-Mean 77 Respiration from ECG 17 SpO2 90 - Physical Exam General: Alert, Oriented x3, No acute distress HEENT: Atraumatic, PERRLA, EOMI, Mucous membr. moist/pink Lungs: Other Cardiovascular: Regular rate, Normal S1, Normal S2, No murmurs, Gallops, Rubs Abdomen: Normal bowel sounds, Soft, No tenderness, No hepatospenomegaly, No masses Skin: No rashes, No breakdown, No significant lesion Neurological: Normal gait, Normal speech, Strength at 5/5 X4 ext, Normal tone, Sensation intact, Cranial nerves 3-12 NL, Reflexes 2+ - Labs Result Diagrams: 08/05/19 06:15 08/05/19 06:15 Lab results: Laboratory Results - last 24 hr 08/05/19 06:15: Magnesium 1.7 08/05/19 06:15: Phosphorus 2.4 08/05/19 06:15: WBC 8.8, RBC 2.35 L, Hgb 7.5 L, Hct 21.8 L, MCV 92.7, MCH 31.7 H , MCHC 34.2, RDW 14.2, Plt Count 39 L, MPV 10.1, Neutrophils % (Manual) 74, Band Neuts % (Manual) 3 L, Lymphocytes % (Manual) 18 L, Monocytes % (Manual) 5 08/05/19 06:15: Sodium 138, Potassium 3.5, Chloride 106, Carbon Dioxide 27, Anion Gap 9 L, BUN 13, Creatinine 0.74, Estimated GFR (MDRD) 78, Glucose 120 H, Calcium 7.7 L Status: lab reviewed by me A/P - Problem (1) Atrial fibrillation with RVR Current Visit: Yes Code(s): I48.91 - UNSPECIFIED ATRIAL FIBRILLATION Status : Acute (2) Neutropenic sepsis Current Visit: Yes Code(s): A41.9 - SEPSIS, UNSPECIFIED ORGANISM; D70.9 - NEUTROPENIA, UNSPECIFIED Status: Resolved (3) Small cell lung cancer Current Visit: Yes Code(s): C34.90 - MALIGNANT NEOPLASM OF UNSP PART OF UNSP BRONCHUS OR LUNG Status: Chronic (4) Acute respiratory failure with hypoxemia Current Visit: Yes Code(s): J96.01 - ACUTE RESPIRATORY FAILURE WITH HYPOXIA Status: Acute - Plan Plan: continue PT/OT, patient agrees to SNF No further chemo until strength improved. Recommend DNR
[2019-08-05] MEDS: Multivit, Therapeutic 1 TAB PO SCH (20:57)
[2019-08-06] MEDS: Dextrose 5% in Water 1,000 ML IV SCH (05:04)
[2019-08-06 05:31] LABS: Anion Gap 7 mmol/L (10-20); BUN (Urea Nitrogen) 18 mg/dL (9.8-20.1); Calc. Creatinine Clearance 66 mL/min (70-130); Calcium 8.2 mg/dL (7.8-10.44); Carbon Dioxide 30 mmol/L (23-31); Chloride 104 mmol/L (98-107); Estimated GFR-MDRD 66; Glucose 180 mg/dL (80-115); Potassium 4.4 mmol/L (3.5-5.1); Sodium 137 mmol/L (136-145)
[2019-08-06 05:56] LABS: Phosphorus 2.7 mg/dL (2.3-4.7)
[2019-08-06 06:15] LABS: Band 20 % (5-11); Hemoglobin 7.5 g/dL (12.0-16.0); Lymphocytes 18 % (21-51); MDiff Complete? YES; Mean Corpuscular HGB CONC 33.2 g/dL (32.0-36.0); Mean Corpuscular Volume 93.5 fL (78.0-98.0); Mean Platelet Volume 10.9 fL (7.4-10.4); Monocytes 7 % (0-10); Neutrophil 55 % (42-75); Platelet Count 47 thou/uL (130-400); Platelet Morphology Comment Appears Decreased; RBC Distribution Width 14.3 % (11.5-14.5); Red Blood Cell (RBC) Count 2.42 mill/uL (4.20-5.40); White Blood Cell (WBC) Count 6.6 thou/uL (4.8-10.8)
[2019-08-06 06:18] LABS: Basophilic Stippling SLIGHT = 1-2 cells (100X) (None Seen)
[2019-08-06] MEDS: predniSONE 20 MG TAB PO SCH (08:57)
[2019-08-06] MEDS: Saccharomyces boulardii 250 MG CAP PO SCH (08:58)
[2019-08-06] MEDS: Pantoprazole 40 MG GRANULES PACKET PO SCH (08:58)
[2019-08-06] MEDS: Magnesium Oxide 400 MG TAB PO SCH ×2 (08:58→20:16)
[2019-08-06] MEDS: Gabapentin 300 MG CAP PO SCH ×3 (08:58→20:16)
[2019-08-06] MEDS: Digoxin 0.125 MG TAB PO SCH (08:59)
[2019-08-06] MEDS: Amiodarone 200 MG TAB PO SCH ×2 (09:00→20:16)
[2019-08-06] MEDS: Atenolol 25 MG TAB PO SCH ×2 (09:00→20:12)
--- NOTE | 2019-08-06 10:09 | PDOC.HOSPP ---
- Subjective Encounter Date: 08/06/19 Encounter Time: 09:45 Subjective: awake, hoarseness and sob is better says she is eating better now - Objective Vital Signs & Weight: Vital Signs (12 hours) Temp Pulse Resp BP BP Pulse Ox 08/06/19 09:00 73 108/51 L 08/06/19 08:59 73 08/06/19 08:43 97.8 F 73 18 108/51 L 94 L 08/06/19 07:34 66 18 96 08/06/19 03:14 97.7 F 75 18 104/53 L 97 08/06/19 02:41 72 20 94 L 08/06/19 00:00 105/52 L 08/05/19 22:29 71 16 95 Weight Admit Weight 161 lb 6.054 oz Weight 142 lb 9 oz Most Recent Monitor Data Heart Rate from ECG 71 NIBP 125/53 NIBP BP-Mean 77 Respiration from ECG 17 SpO2 90 I&O: 08/05/19 08/06/19 08/07/19 06:59 06:59 06:59 Intake Total 1737 1596 Output Total 50 950 Balance 1687 646 Result Diagrams: 08/06/19 04:50 08/06/19 04:50 Hospitalist ROS - Medication Medications: Active Medications Generic Name Dose Route Start Last Admin Trade Name Freq PRN Reason Stop Dose Admin Acetaminophen 650 mg 07/23/19 19:13 07/28/19 20:27 Tylenol PO 650 mg Q4H PRN Administration Headache/Fever or Pain Albuterol/Ipratropium 3 ml 07/19/19 00:28 07/29/19 10:20 Duoneb NEB 3 ml Q6H PRN Administration SOB &/or Wheezing Albuterol/Ipratropium 3 ml 07/30/19 02:30 08/06/19 07:34 Duoneb NEB 3 ml [id number] JACK Administration Amiodarone HCl 400 mg 08/03/19 21:00 08/06/19 09:00 Cordarone PO 400 mg BID JACK Administration Lipase/Protease/Amylase 1 cap 07/31/19 06:10 07/31/19 06:19 Sandrine Jesus [id number] FS 1 cap .PER PROTOCOL PRN Administration TUBE OCCLUSION PROTOCOL Atenolol 25 mg 07/31/19 09:00 08/06/19 09:00 Tenormin PO Not Given BID JACK Al Hydroxide/Mg Hydroxide 60 0 ml 07/24/19 10:17 07/25/19 11:13 ml/ Lidocaine HCl 30 ml/ SSW 10 ml Diphenhydramine HCl 75 mg QIDPRN PRN Administration Mouth Irritation Digoxin 0.125 mg 08/05/19 09:00 08/06/19 08:59 Lanoxin PO 0.125 mg DAILY JACK Administration Ferrous Sulfate 300 mg 07/31/19 08:00 08/06/19 08:57 Ferrous Sulfate PO 300 mg QAM-WM JACK Administration Gabapentin 600 mg 07/19/19 21:00 08/06/19 08:58 Neurontin PO 600 mg TID JACK Administration Dextrose/Water 1,000 mls @ 50 mls/hr 08/03/19 14:30 08/06/19 05:04 D5w IV 1,000 mls .Q20H JACK Administration Loperamide HCl 2 mg 07/26/19 12:47 08/03/19 14:06 Imodium PO 2 mg Q2H PRN Administration Diarrhea/Loose Stools Magnesium Oxide 400 mg 07/19/19 21:00 08/06/19 08:58 Magnesium Oxide PO 400 mg BID JACK Administration Multivitamins 1 tab 07/19/19 21:00 08/05/19 20:57 Theragran PO 1 tab HS JACK Administration Pantoprazole Sodium 40 mg 07/31/19 09:00 08/06/19 08:58 Protonix PO 40 mg DAILY JACK Administration Phenol 0 ml 07/22/19 03:29 07/22/19 04:02 Chloraseptic [place] 180 Ml Bot PO 2 spr PRN PRN Administration SORE THROAT Prednisone 40 mg 08/03/19 08:00 08/06/19 08:57 Prednisone PO 40 mg QAM-WM JACK Administration Saccharomyces Boulardii 250 mg 07/19/19 09:00 08/06/19 08:58 Florastor PO 250 mg DAILY JACK Administration Sertraline HCl 25 mg 07/19/19 09:00 08/06/19 08:58 Zoloft PO 25 mg DAILY JACK Administration Sodium Bicarbonate 650 mg 07/31/19 06:10 07/31/19 06:19 Bicarbonate, Sodium PER TUBE 650 mg .PER PROTOCOL PRN Administration ENTERAL TUBE OCCLUSION Sodium Chloride 10 ml 07/23/19 09:00 08/06/19 09:01 Flush - Normal Saline IVF Not Given Q12HR JACK - Exam General Appearance: awake alert Eye: PERRL, anicteric sclera ENT: no oropharyngeal lesions, dry oral mucosa Neck: supple, no JVD Heart: RRR, no murmur Respiratory: no wheezes, no rales, rhonchi Gastrointestinal: soft, non-tender, normal bowel sounds Extremities: no cyanosis, no edema Neurological: cranial nerve grossly intact, no focal deficits Hosp A/P (1) Acute respiratory failure with hypoxia and hypercapnia Code(s): J96.01 - ACUTE RESPIRATORY FAILURE WITH HYPOXIA; J96.02 - ACUTE RESPIRATORY FAILURE WITH HYPERCAPNIA Status: Resolved (2) HAP (hospital-acquired pneumonia) Code(s): J18.9 - PNEUMONIA, UNSPECIFIED ORGANISM; Y95 - NOSOCOMIAL CONDITION Status: Resolved (3) Neutropenic sepsis Code(s): A41.9 - SEPSIS, UNSPECIFIED ORGANISM; D70.9 - NEUTROPENIA, UNSPECIFIED Status: Resolved (4) Pancytopenia Code(s): D61.818 - OTHER PANCYTOPENIA Status: Acute (5) Hypertension Code(s): I10 - ESSENTIAL (PRIMARY) HYPERTENSION Status: Chronic Qualifiers: Hypertension type: essential hypertension Qualified Code(s): I10 - Essential (primary) hypertension (6) Small cell lung cancer Code(s): C34.90 - MALIGNANT NEOPLASM OF UNSP PART OF UNSP BRONCHUS OR LUNG Status: Chronic (7) Physical deconditioning Code(s): R53.81 - OTHER MALAISE Status: Acute (8) Dysphagia Code(s): R13.10 - DYSPHAGIA, UNSPECIFIED Status: Acute - Plan is on amiodarone oral, prednisone, atenolol, dig and nebs pancytopenia has resolved h/o small cell lung 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 oral diet per speech adv, has hoarseness likely from ET, dysphagia on pureed diet trial and doing well, may advance diet if cleared by speech. increase activity as tolerated will need swing or skilled placement (needs to eat more calories for dc plan). prognosis is guarded, pt is full code, d/w palliative care for possible palliative/hospice care options. d/w CM, family is looking for skilled with hospice options May transfer to medical/onc floor
--- NOTE | 2019-08-06 10:28 | PDOC.MOPN ---
Interval History: working with PT. eating more. - Vital Signs Vital Signs: Vital Signs (12 hours) Temp Pulse Resp BP BP Pulse Ox 08/06/19 09:00 73 108/51 L 08/06/19 08:59 73 08/06/19 08:43 97.8 F 73 18 108/51 L 94 L 08/06/19 07:34 66 18 96 08/06/19 03:14 97.7 F 75 18 104/53 L 97 08/06/19 02:41 72 20 94 L 08/06/19 00:00 105/52 L 08/05/19 22:29 71 16 95 Weight Admit Weight 161 lb 6.054 oz Weight 142 lb 9 oz Most Recent Monitor Data Heart Rate from ECG 71 NIBP 125/53 NIBP BP-Mean 77 Respiration from ECG 17 SpO2 90 - Physical Exam General: Alert, Oriented x3, No acute distress HEENT: Atraumatic, PERRLA, EOMI, Mucous membr. moist/pink Lungs: Clear to auscultation, Normal air movement Cardiovascular: Regular rate, Normal S1, Normal S2, No murmurs, Gallops, Rubs Abdomen: Normal bowel sounds Neurological: Normal speech Psych/Mental Status: Mental status NL - Labs Result Diagrams: 08/06/19 04:50 08/06/19 04:50 Lab results: Laboratory Results - last 24 hr 08/06/19 04:50: Magnesium 1.6 08/06/19 04:50: Phosphorus 2.7 08/06/19 04:50: WBC 6.6, RBC 2.42 L, Hgb 7.5 L, Hct 22.6 L, MCV 93.5, MCH 31.0, MCHC 33.2, RDW 14.3, Plt Count 47 L, MPV 10.9 H, Neutrophils % (Manual) 55, Band Neuts % (Manual) 20 H, Lymphocytes % (Manual) 18 L, Monocytes % (Manual) 7 , Plt Morphology Comment Appears Decreased L, Basophilic Stippling SLIGHT = 1-2 cells 08/06/19 04:50: Sodium 137, Potassium 4.4, Chloride 104, Carbon Dioxide 30, Anion Gap 7 L, BUN 18, Creatinine 0.86, Estimated GFR (MDRD) 66, Glucose 180 H, Calcium 8.2 Status: lab reviewed by me A/P - Problem (1) Atrial fibrillation with RVR Current Visit: Yes Code(s): I48.91 - UNSPECIFIED ATRIAL FIBRILLATION Status : Acute (2) Neutropenic sepsis Current Visit: Yes Code(s): A41.9 - SEPSIS, UNSPECIFIED ORGANISM; D70.9 - NEUTROPENIA, UNSPECIFIED Status: Resolved (3) Small cell lung cancer Current Visit: Yes Code(s): C34.90 - MALIGNANT NEOPLASM OF UNSP PART OF UNSP BRONCHUS OR LUNG Status: Chronic (4) Acute respiratory failure with hypoxemia Current Visit: Yes Code(s): J96.01 - ACUTE RESPIRATORY FAILURE WITH HYPOXIA Status: Acute - Plan Plan: 1. continue PT/OT 2. transfer to Onc 3. await SNF placement.
--- NOTE | 2019-08-06 11:39 | PDOC.CPN ---
- Subjective Date: 08/06/19 Time: 08:00 Interval history: The pt seen and examined. No overnight events. No cardiac complaints. - Objective Allergies/Adverse Reactions: Allergies Allergy/AdvReac Type Severity Reaction Status Date / Time lisinopril Allergy cough Verified 07/26/19 17:16 lorazepam [From Ativan] Allergy Verified 07/26/19 17:16 Visit Medications: Current Medications Acetaminophen (Tylenol) 650 mg PO Q4H PRN PRN Reason: Headache/Fever or Pain Last Admin: 07/28/19 20:27 Dose: 650 mg Albuterol/Ipratropium (Duoneb) 3 ml NEB Q6H PRN PRN Reason: SOB &/or Wheezing Last Admin: 07/29/19 10:20 Dose: 3 ml Albuterol/Ipratropium (Duoneb) 3 ml NEB [id number] [facility] Last Admin: 08/06/19 10:55 Dose: 3 ml Amiodarone HCl (Cordarone) 400 mg PO BID [facility] Last Admin: 08/06/19 09:00 Dose: 400 mg Lipase/Protease/Amylase ([place] [id number]) 1 cap FS .PER PROTOCOL PRN PRN Reason: TUBE OCCLUSION PROTOCOL Last Admin: 07/31/19 06:19 Dose: 1 cap Atenolol (Tenormin) 25 mg PO BID [facility] Last Admin: 08/06/19 09:00 Dose: Not Given Bisacodyl (Dulcolax) 10 mg PO DAILYPRN PRN PRN Reason: Constipation Al Hydroxide/Mg Hydroxide 60 ml/ Lidocaine HCl 30 ml/Diphenhydramine HCl 75 mg 0 ml SSW QIDPRN PRN PRN Reason: Mouth Irritation Last Admin: 07/25/19 11:13 Dose: 10 ml Digoxin (Lanoxin) 0.125 mg PO DAILY [facility] Last Admin: 08/06/19 08:59 Dose: 0.125 mg Ferrous Sulfate (Ferrous Sulfate) 300 mg PO QAM-WM [facility] Last Admin: 08/06/19 08:57 Dose: 300 mg Gabapentin (Neurontin) 600 mg PO TID [facility] Last Admin: 08/06/19 08:58 Dose: 600 mg Dextrose/Water (D5w) 1,000 mls @ 50 mls/hr IV .Q20H [facility] Last Admin: 08/06/19 05:04 Dose: 1,000 mls Magnesium Sulfate 2 gm/ Device 50 mls @ 50 mls/hr IVPB ONE [facility] Loperamide HCl (Imodium) 2 mg PO Q2H PRN PRN Reason: Diarrhea/Loose Stools Last Admin: 08/03/19 14:06 Dose: 2 mg Magnesium Oxide (Magnesium Oxide) 400 mg PO BID [facility] Last Admin: 08/06/19 08:58 Dose: 400 mg Morphine Sulfate (Morphine) 2 mg SLOW IVP Q1H PRN PRN Reason: BREAKTHROUGH PAIN/Agitation Stop: 08/28/19 23:00 Multivitamins (Theragran) 1 tab PO HS [facility] Last Admin: 08/05/19 20:57 Dose: 1 tab Pantoprazole Sodium (Protonix) 40 mg PO DAILY [facility] Last Admin: 08/06/19 08:58 Dose: 40 mg Phenol (Chloraseptic [place] 180 Ml Bot) 0 ml PO PRN PRN PRN Reason: SORE THROAT Last Admin: 07/22/19 04:02 Dose: 2 spr Prednisone (Prednisone) 40 mg PO QAM-WM [facility] Last Admin: 08/06/19 08:57 Dose: 40 mg Saccharomyces Boulardii (Florastor) 250 mg PO DAILY [facility] Last Admin: 08/06/19 08:58 Dose: 250 mg Sertraline HCl (Zoloft) 25 mg PO DAILY [facility] Last Admin: 08/06/19 08:58 Dose: 25 mg Sodium Bicarbonate (Bicarbonate, Sodium) 650 mg PER TUBE .PER PROTOCOL PRN PRN Reason: ENTERAL TUBE OCCLUSION Last Admin: 07/31/19 06:19 Dose: 650 mg Sodium Chloride (Flush - Normal Saline) 10 ml IVF Q12HR [facility] Last Admin: 08/06/19 09:01 Dose: Not Given Sodium Chloride (Flush - Normal Saline) 10 ml IVF PRN PRN PRN Reason: Saline Flush Sodium Chloride (Flush - Normal Saline) 10 ml IVF PRN PRN PRN Reason: Saline Flush Sodium Chloride (Flush - Normal Saline) 10 ml IVF PRN PRN PRN Reason: Saline Flush Vital Signs & Weight: Vital Signs Temp Pulse Pulse Pulse Pulse Resp BP 08/06/19 10:55 75 16 08/06/19 10:00 80 75 89 08/06/19 09:00 73 108/51 L 08/06/19 08:59 73 08/06/19 08:43 97.8 F 73 18 08/06/19 08:20 08/06/19 07:34 66 18 08/06/19 03:14 97.7 F 75 18 08/06/19 02:41 72 20 08/06/19 00:00 BP BP BP BP Pulse Ox 08/06/19 10:55 95 08/06/19 10:00 100/65 106/59 L 116/53 L 08/06/19 09:00 08/06/19 08:59 08/06/19 08:43 108/51 L 94 L 08/06/19 08:20 94 L 08/06/19 07:34 96 08/06/19 03:14 104/53 L 97 08/06/19 02:41 94 L 08/06/19 00:00 105/52 L Admit Weight 161 lb 6.054 oz Weight 142 lb 9 oz - Physical Exam General: alert & oriented x3 HEENT: mucus membranes moist Neck: supple neck Cardiac: regular rate and rhythm, S1/S2 Lungs: decreased breath sounds Neuro: cranial nerve 2-12 intact Extremities: no edema - Labs Result Diagrams: 08/06/19 04:50 08/06/19 04:50 Troponin/CKMB Troponin I 0.017 ng/mL (< 0.028) 07/18/19 20:15 - Telemetry Sinus rhythms and dysrhythmias: sinus rhythm - Assessment/Plan Assessment/Plan: 1. AFib with RVR most likely due to sepsis and anemia, pancytopenia. - No more Afib episodes since 08/02/2019; well controlled HR when she is in SR; On Digoxin 0.125mg PO and Amiodarone 400mg BID since 08/03/2019; not on OAC 2/2 severe Anemia and Pancytopenia 2. Neutropenic sepsis - No longer neutropenic precautions 3. Anemia with s/p multiple PRBC tx - 4. Hypomagnesemia - still low with schedule Mag PO; Mg 2mg IV x1 today 5. Hypokalemia - cont. to monitor 6. metastatic small cell lung cancer 7. Dysphagia and Odynophagia following chemotherapy-continue PPN until her symptoms improve MAR reviewed Pt. seen and eval. by me. I agree with the A/P by the CASTING MACHINE OPERATOR HELPER. I will decrease the amiodarone to 200 mg bid. chest clear. RRR, no edema. nicolm
[2019-08-06] MEDS ORDERED: Magnesium 2 GM/50 ML 2 GM in Premix Bag 1 BAG IVPB SCH (11:45)
[2019-08-06 12:11] VITALS: BMI 25.2
--- NOTE | 2019-08-06 13:49 | PRG ---
DATE OF SERVICE: 08/06/2019 SUBJECTIVE: Ms. Ramirez is taking n.p.o. nutrition. We will stop her IV fluids. We will continue with her nebulized treatments every 4 hours, but change those to while awake. She will continue with 40 mg of prednisone a day for another 4 to 5 days and then she should go to 20 mg a day. OBJECTIVE: VITAL SIGNS: She is afebrile, heart rate is 88, respiratory rate is 20, oximetry is 97% on 3 L, and blood pressure 111/56. She is being referred to a skilled facility. LUNGS: Distant, clear. HEART: Regular rhythm. ABDOMEN: Soft. EXTREMITIES: Without edema. LABORATORY DATA: White count 6.6, hemoglobin 7.5, and platelets 47,000. Electrolytes are unremarkable. Creatinine is 0.86. IMPRESSION: 1. Status post respiratory failure with tracheobronchitis and early pneumonia, clinically doing well. 2. Lung cancer, status post chemotherapy. 3. Atrial fibrillation, now in sinus rhythm on p.o. amiodarone and digoxin. 4. Status post pancytopenia with her chemotherapy. PLAN: Continue supportive care placement. Job ID: [id number]
[2019-08-06] MEDS: Multivit, Therapeutic 1 TAB PO SCH (20:16)
[2019-08-07 06:24] LABS: Band 13 % (5-11); Hemoglobin 7.5 g/dL (12.0-16.0); Lymphocytes 3 % (21-51); MDiff Complete? YES; Mean Corpuscular HGB CONC 33.9 g/dL (32.0-36.0); Mean Corpuscular Hemoglobin 31.5 pg (27.0-31.0); Mean Platelet Volume 9.6 fL (7.4-10.4); Metamyelocyte 5 % (0-0); Monocytes 12 % (0-10); Myelocyte 7 % (0-0); Neutrophil 60 % (42-75); Platelet Count 74 thou/uL (130-400); Platelet Morphology Comment Appears Decreased; RBC Distribution Width 14.5 % (11.5-14.5); Red Blood Cell (RBC) Count 2.36 mill/uL (4.20-5.40); White Blood Cell (WBC) Count 9.6 thou/uL (4.8-10.8)
[2019-08-07 06:30] LABS: Phosphorus 2.7 mg/dL (2.3-4.7)
[2019-08-07 06:31] LABS: Anion Gap 9 mmol/L (10-20); BUN (Urea Nitrogen) 21 mg/dL (9.8-20.1); Calc. Creatinine Clearance 58 mL/min (70-130); Calcium 8.3 mg/dL (7.8-10.44); Carbon Dioxide 27 mmol/L (23-31); Chloride 106 mmol/L (98-107); Estimated GFR-MDRD 58; Glucose 121 mg/dL (80-115); Potassium 4.4 mmol/L (3.5-5.1); Sodium 138 mmol/L (136-145)
[2019-08-07] MEDS: Amiodarone 200 MG TAB PO SCH ×2 (08:57→20:09)
[2019-08-07] MEDS: Atenolol 25 MG TAB PO SCH ×2 (08:57→20:09)
[2019-08-07] MEDS: Gabapentin 300 MG CAP PO SCH ×3 (08:58→20:10)
[2019-08-07] MEDS: predniSONE 20 MG TAB PO SCH (08:58)
[2019-08-07] MEDS: Digoxin 0.125 MG TAB PO SCH (08:58)
[2019-08-07] MEDS: Magnesium Oxide 400 MG TAB PO SCH ×2 (08:58→20:10)
[2019-08-07] MEDS: Saccharomyces boulardii 250 MG CAP PO SCH (08:59)
[2019-08-07] MEDS: Pantoprazole 40 MG GRANULES PACKET PO SCH (08:59)
--- NOTE | 2019-08-07 09:50 | PDOC.MOPN ---
Interval History: no complaints, eating well. - Vital Signs Vital Signs: Vital Signs (12 hours) Temp Pulse Resp BP BP Pulse Ox 08/07/19 08:58 70 08/07/19 08:57 70 08/07/19 08:06 70 20 92 L 08/07/19 08:00 98.1 F 90 18 104/53 L 93 L 08/07/19 04:00 98.2 F 82 16 110/46 L 96 08/07/19 00:23 98 08/07/19 00:00 97.7 F 76 16 108/52 L 95 Weight Admit Weight 161 lb 6.054 oz Weight 142 lb 6 oz Most Recent Monitor Data Heart Rate from ECG 71 NIBP 125/53 NIBP BP-Mean 77 Respiration from ECG 17 SpO2 90 - Physical Exam General: Alert, Oriented x3, No acute distress HEENT: Atraumatic, PERRLA, EOMI, Mucous membr. moist/pink Lungs: Clear to auscultation, Normal air movement Cardiovascular: Regular rate, Normal S1, Normal S2, No murmurs, Gallops, Rubs Abdomen: Normal bowel sounds, Soft, No tenderness, No hepatospenomegaly, No masses Extremities: No clubbing, No cyanosis, No edema, Normal pulses, No tenderness/ swelling Skin: No rashes, No breakdown, No significant lesion Neurological: Normal gait, Normal speech, Strength at 5/5 X4 ext, Normal tone, Sensation intact, Cranial nerves 3-12 NL, Reflexes 2+ Psych/Mental Status: Mental status NL, Mood NL - Labs Result Diagrams: 08/07/19 05:55 08/07/19 05:55 Lab results: Laboratory Results - last 24 hr 08/07/19 05:55: Phosphorus 2.7 08/07/19 05:55: WBC 9.6, RBC 2.36 L, Hgb 7.5 L, Hct 21.9 L, MCV 93.0, MCH 31.5 H , MCHC 33.9, RDW 14.5, Plt Count 74 L, MPV 9.6, Neutrophils % (Manual) 60, Band Neuts % (Manual) 13 H, Lymphocytes % (Manual) 3 L, Monocytes % (Manual) 12 H, Metamyelocytes % (Man) 5 H, Myelocytes % 7 H, Plt Morphology Comment Appears Decreased L 08/07/19 05:55: Sodium 138, Potassium 4.4, Chloride 106, Carbon Dioxide 27, Anion Gap 9 L, BUN 21 H, Creatinine 0.96, Estimated GFR (MDRD) 58, Glucose 121 H , Calcium 8.3 Status: lab reviewed by me A/P - Problem (1) Atrial fibrillation with RVR Current Visit: Yes Code(s): I48.91 - UNSPECIFIED ATRIAL FIBRILLATION Status : Acute (2) Neutropenic sepsis Current Visit: Yes Code(s): A41.9 - SEPSIS, UNSPECIFIED ORGANISM; D70.9 - NEUTROPENIA, UNSPECIFIED Status: Resolved (3) Small cell lung cancer Current Visit: Yes Code(s): C34.90 - MALIGNANT NEOPLASM OF UNSP PART OF UNSP BRONCHUS OR LUNG Status: Chronic (4) Acute respiratory failure with hypoxemia Current Visit: Yes Code(s): J96.01 - ACUTE RESPIRATORY FAILURE WITH HYPOXIA Status: Acute - Plan Plan: awaiting snf placement advance diet as tolerated
--- NOTE | 2019-08-07 10:56 | PDOC.HOSPP ---
- Subjective Encounter Date: 08/07/19 Encounter Time: 10:15 Subjective: no sob, feels better is eating and drinking better - Objective Vital Signs & Weight: Vital Signs (12 hours) Temp Pulse Resp BP BP Pulse Ox 08/07/19 10:44 75 18 94 L 08/07/19 08:58 70 08/07/19 08:57 70 08/07/19 08:06 70 20 92 L 08/07/19 08:00 98.1 F 90 18 104/53 L 93 L 08/07/19 04:00 98.2 F 82 16 110/46 L 96 08/07/19 00:23 98 08/07/19 00:00 97.7 F 76 16 108/52 L 95 Weight Admit Weight 161 lb 6.054 oz Weight 142 lb 6 oz Most Recent Monitor Data Heart Rate from ECG 71 NIBP 125/53 NIBP BP-Mean 77 Respiration from ECG 17 SpO2 90 I&O: 08/06/19 08/07/19 08/08/19 06:59 06:59 06:59 Intake Total 1596 1230 Output Total 950 Balance 646 1230 Result Diagrams: 08/07/19 05:55 08/07/19 05:55 Hospitalist ROS - Medication Medications: Active Medications Generic Name Dose Route Start Last Admin Trade Name Freq PRN Reason Stop Dose Admin Acetaminophen 650 mg 07/23/19 19:13 07/28/19 20:27 Tylenol PO 650 mg Q4H PRN Administration Headache/Fever or Pain Albuterol/Ipratropium 3 ml 07/19/19 00:28 07/29/19 10:20 Duoneb NEB 3 ml Q6H PRN Administration SOB &/or Wheezing Albuterol/Ipratropium 3 ml 08/06/19 15:00 08/07/19 10:44 Duoneb NEB 3 ml [id number] JACK Administration Amiodarone HCl 200 mg 08/06/19 21:00 08/07/19 08:57 Cordarone PO 200 mg BID JACK Administration Lipase/Protease/Amylase 1 cap 07/31/19 06:10 07/31/19 06:19 Sandrine Jesus [id number] FS 1 cap .PER PROTOCOL PRN Administration TUBE OCCLUSION PROTOCOL Atenolol 25 mg 07/31/19 09:00 08/07/19 08:57 Tenormin PO 25 mg BID JACK Administration Al Hydroxide/Mg Hydroxide 60 0 ml 07/24/19 10:17 07/25/19 11:13 ml/ Lidocaine HCl 30 ml/ SSW 10 ml Diphenhydramine HCl 75 mg QIDPRN PRN Administration Mouth Irritation Digoxin 0.125 mg 08/05/19 09:00 08/07/19 08:58 Lanoxin PO 0.125 mg DAILY JACK Administration Ferrous Sulfate 300 mg 07/31/19 08:00 08/07/19 08:56 Ferrous Sulfate PO 300 mg QAM-WM JACK Administration Gabapentin 600 mg 07/19/19 21:00 08/07/19 08:58 Neurontin PO 600 mg TID JACK Administration Loperamide HCl 2 mg 07/26/19 12:47 08/03/19 14:06 Imodium PO 2 mg Q2H PRN Administration Diarrhea/Loose Stools Magnesium Oxide 400 mg 07/19/19 21:00 08/07/19 08:58 Magnesium Oxide PO 400 mg BID JACK Administration Multivitamins 1 tab 07/19/19 21:00 08/06/19 20:16 Theragran PO 1 tab HS JACK Administration Pantoprazole Sodium 40 mg 07/31/19 09:00 08/07/19 08:59 Protonix PO 40 mg DAILY JACK Administration Phenol 0 ml 07/22/19 03:29 07/22/19 04:02 Chloraseptic [place] 180 Ml Bot PO 2 spr PRN PRN Administration SORE THROAT Prednisone 40 mg 08/03/19 08:00 08/07/19 08:58 Prednisone PO 40 mg QAM-WM [facility] Administration Saccharomyces Boulardii 250 mg 07/19/19 09:00 08/07/19 08:59 Florastor PO 250 mg DAILY JACK Administration Sertraline HCl 25 mg 07/19/19 09:00 08/07/19 08:58 Zoloft PO 25 mg DAILY JACK Administration Sodium Bicarbonate 650 mg 07/31/19 06:10 07/31/19 06:19 Bicarbonate, Sodium PER TUBE 650 mg .PER PROTOCOL PRN Administration ENTERAL TUBE OCCLUSION Sodium Chloride 10 ml 07/23/19 09:00 08/07/19 08:59 Flush - Normal Saline IVF 10 ml Q12HR JACK Administration - Exam General Appearance: awake alert Eye: PERRL, anicteric sclera ENT: no oropharyngeal lesions, dry oral mucosa Neck: supple, no JVD Heart: RRR, no murmur Respiratory: no wheezes, no rales Gastrointestinal: soft, non-tender, non-distended, normal bowel sounds Extremities: no cyanosis, no edema Neurological: cranial nerve grossly intact, no focal deficits Psychiatric: normal affect, A&O x 3 Hosp A/P (1) Acute respiratory failure with hypoxia and hypercapnia Code(s): J96.01 - ACUTE RESPIRATORY FAILURE WITH HYPOXIA; J96.02 - ACUTE RESPIRATORY FAILURE WITH HYPERCAPNIA Status: Resolved (2) HAP (hospital-acquired pneumonia) Code(s): J18.9 - PNEUMONIA, UNSPECIFIED ORGANISM; Y95 - NOSOCOMIAL CONDITION Status: Resolved (3) Neutropenic sepsis Code(s): A41.9 - SEPSIS, UNSPECIFIED ORGANISM; D70.9 - NEUTROPENIA, UNSPECIFIED Status: Resolved (4) Pancytopenia Code(s): D61.818 - OTHER PANCYTOPENIA Status: Acute (5) Hypertension Code(s): I10 - ESSENTIAL (PRIMARY) HYPERTENSION Status: Chronic Qualifiers: Hypertension type: essential hypertension Qualified Code(s): I10 - Essential (primary) hypertension (6) Small cell lung cancer Code(s): C34.90 - MALIGNANT NEOPLASM OF UNSP PART OF UNSP BRONCHUS OR LUNG Status: Chronic (7) Physical deconditioning Code(s): R53.81 - OTHER MALAISE Status: Acute (8) Dysphagia Code(s): R13.10 - DYSPHAGIA, UNSPECIFIED Status: Acute - Plan is on amiodarone oral, prednisone, atenolol, dig and nebs pancytopenia is resolving h/o small cell lung 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 oral diet per speech adv, has hoarseness likely from ET, dysphagia on pureed diet trial and doing well, may advance diet if cleared by speech. increase activity as tolerated will need swing or skilled placement. prognosis is guarded, pt is full code, d/w palliative care for possible palliative/hospice care options. d/w CM, family is looking for skilled with hospice options May dc if placement is ready
[2019-08-07] MEDS: Multivit, Therapeutic 1 TAB PO SCH (20:10)
[2019-08-08 04:35] LABS: Band 28 % (5-11); Hemoglobin 8.3 g/dL (12.0-16.0); Lymphocytes 10 % (21-51); MDiff Complete? YES; Mean Corpuscular HGB CONC 33.1 g/dL (32.0-36.0); Mean Corpuscular Hemoglobin 31.1 pg (27.0-31.0); Mean Corpuscular Volume 94.1 fL (78.0-98.0); Mean Platelet Volume 9.1 fL (7.4-10.4); Metamyelocyte 3 % (0-0); Monocytes 6 % (0-10); Neutrophil 53 % (42-75); Nucleated RBC 1 % (0); Platelet Count 124 thou/uL (130-400); Platelet Morphology Comment Appears Decreased; RBC Distribution Width 15.3 % (11.5-14.5); Red Blood Cell (RBC) Count 2.66 mill/uL (4.20-5.40); White Blood Cell (WBC) Count 12.9 thou/uL (4.8-10.8)
[2019-08-08 04:44] LABS: Anion Gap 14 mmol/L (10-20); BUN (Urea Nitrogen) 23 mg/dL (9.8-20.1); Calc. Creatinine Clearance 55 mL/min (70-130); Calcium 8.8 mg/dL (7.8-10.44); Carbon Dioxide 27 mmol/L (23-31); Chloride 105 mmol/L (98-107); Estimated GFR-MDRD 56; Glucose 84 mg/dL (80-115); Phosphorus 3.2 mg/dL (2.3-4.7); Potassium 4.5 mmol/L (3.5-5.1); Sodium 141 mmol/L (136-145)
[2019-08-08] MEDS: Digoxin 0.125 MG TAB PO SCH (09:12)
[2019-08-08] MEDS: Atenolol 25 MG TAB PO SCH ×2 (09:12→20:33)
[2019-08-08] MEDS: Amiodarone 200 MG TAB PO SCH ×2 (09:12→20:33)
[2019-08-08] MEDS: predniSONE 20 MG TAB PO SCH (09:12)
[2019-08-08] MEDS: Gabapentin 300 MG CAP PO SCH ×3 (09:13→20:33)
[2019-08-08] MEDS: Saccharomyces boulardii 250 MG CAP PO SCH (09:13)
[2019-08-08] MEDS: Magnesium Oxide 400 MG TAB PO SCH ×2 (09:13→20:33)
[2019-08-08] MEDS: Pantoprazole 40 MG GRANULES PACKET PO SCH (09:14)
--- NOTE | 2019-08-08 10:57 | PDOC.PALPN ---
Palliative Progress Note - Subjective Strength improving, walked 25 feet with PT. Appetite improving. - Objective Vital Signs: Vital Signs - Most Recent Temp Pulse Resp BP Pulse Ox 97.9 F 80 18 104/51 L 96 08/08/19 07:34 08/08/19 09:12 08/08/19 07:34 08/08/19 07:34 08/08/19 08:00 - Physical Exam Constitutional: emaciated, ill appearing HEENT: EOMI, moist MMs, sclera anicteric Respiratory: no wheezing, unlabored breathing Cardiovascular: RRR Gastrointestinal: continent Genitourinary: continent Musculoskeletal: no clubbing, pulses present, diffuse muscle atrophy Neurology: moves all 4 limbs, no focal deficits Skin: cap refill <2 seconds, bruising, fragile, friable Psychiatric: A&O x 3, normal mood - Assessment (1) Palliative care encounter Code(s): Z51.5 - ENCOUNTER FOR PALLIATIVE CARE Current Visit: Yes Status: Acute (2) Diarrhea due to drug Code(s): K52.1 - TOXIC GASTROENTERITIS AND COLITIS Current Visit: Yes Status : Acute (3) Dysphagia Code(s): R13.10 - DYSPHAGIA, UNSPECIFIED Current Visit: Yes Status: Acute (4) Neutropenic sepsis Code(s): A41.9 - SEPSIS, UNSPECIFIED ORGANISM; D70.9 - NEUTROPENIA, UNSPECIFIED Current Visit: Yes Status: Resolved (5) Pancytopenia Code(s): D61.818 - OTHER PANCYTOPENIA Current Visit: Yes Status: Acute (6) Small cell lung cancer Code(s): C34.90 - MALIGNANT NEOPLASM OF UNSP PART OF UNSP BRONCHUS OR LUNG Current Visit: Yes Status: Chronic - Plan Plan: Lengthy conversation in relation to goal of care. Discussed transition to Skilled facility verses going home with Hospice. She feels that she would like to be home with her sister and cats in her home. Therapeutic listening and emotional support offered to patient. Dr Yang, Dr Samayoa notified. CM aware and verbal choice letter for [facility] as per patient request secondary to prior experience with [facility]. [75] minutes spent on this encounter with >50% of the time in counseling and coordination of care.
--- NOTE | 2019-08-08 11:44 | PDOC.HOSPP ---
- Subjective Encounter Date: 08/08/19 Encounter Time: 11:00 Subjective: awake, ambulated around 25ft with rw and PT, is eating better on [facility] soft diet no sob - Objective Vital Signs & Weight: Vital Signs (12 hours) Temp Pulse Resp BP Pulse Ox 08/08/19 11:14 98.7 F 71 18 91/47 L 96 08/08/19 09:12 80 08/08/19 08:00 96 08/08/19 07:34 97.9 F 80 18 104/51 L 96 08/08/19 06:39 97 08/08/19 06:20 70 16 08/08/19 03:49 97.6 F 70 20 119/56 L 97 08/08/19 00:49 94 L Weight Admit Weight 161 lb 6.054 oz Weight 140 lb 1 oz Most Recent Monitor Data Heart Rate from ECG 71 NIBP 125/53 NIBP BP-Mean 77 Respiration from ECG 17 SpO2 90 I&O: 08/07/19 08/08/19 08/09/19 06:59 06:59 06:59 Intake Total 1230 1320 Output Total 100 Balance 1230 1220 Result Diagrams: 08/08/19 03:45 08/08/19 03:45 Hospitalist ROS - Medication Medications: Active Medications Generic Name Dose Route Start Last Admin Trade Name Freq PRN Reason Stop Dose Admin Acetaminophen 650 mg 07/23/19 19:13 07/28/19 20:27 Tylenol PO 650 mg Q4H PRN Administration Headache/Fever or Pain Albuterol/Ipratropium 3 ml 07/19/19 00:28 07/29/19 10:20 Duoneb NEB 3 ml Q6H PRN Administration SOB &/or Wheezing Albuterol/Ipratropium 3 ml 08/06/19 15:00 08/08/19 06:20 Duoneb NEB 3 ml [id number] JACK Administration Amiodarone HCl 200 mg 08/06/19 21:00 08/08/19 09:12 Cordarone PO 200 mg BID JACK Administration Lipase/Protease/Amylase 1 cap 07/31/19 06:10 07/31/19 06:19 Sandrine Jesus [id number] FS 1 cap .PER PROTOCOL PRN Administration TUBE OCCLUSION PROTOCOL Atenolol 25 mg 07/31/19 09:00 08/08/19 09:12 Tenormin PO Not Given BID JACK Al Hydroxide/Mg Hydroxide 60 0 ml 07/24/19 10:17 07/25/19 11:13 ml/ Lidocaine HCl 30 ml/ SSW 10 ml Diphenhydramine HCl 75 mg QIDPRN PRN Administration Mouth Irritation Digoxin 0.125 mg 08/05/19 09:00 08/08/19 09:12 Lanoxin PO 0.125 mg DAILY JACK Administration Ferrous Sulfate 300 mg 07/31/19 08:00 08/08/19 09:12 Ferrous Sulfate PO 300 mg QAM-WM JACK Administration Gabapentin 600 mg 07/19/19 21:00 08/08/19 09:13 Neurontin PO 600 mg TID JACK Administration Loperamide HCl 2 mg 07/26/19 12:47 08/03/19 14:06 Imodium PO 2 mg Q2H PRN Administration Diarrhea/Loose Stools Magnesium Oxide 400 mg 07/19/19 21:00 08/08/19 09:13 Magnesium Oxide PO 400 mg BID JACK Administration Multivitamins 1 tab 07/19/19 21:00 08/07/19 20:10 Theragran PO 1 tab HS JACK Administration Pantoprazole Sodium 40 mg 07/31/19 09:00 08/08/19 09:14 Protonix PO 40 mg DAILY JACK Administration Phenol 0 ml 07/22/19 03:29 07/22/19 04:02 Chloraseptic [place] 180 Ml Bot PO 2 spr PRN PRN Administration SORE THROAT Prednisone 40 mg 08/03/19 08:00 08/08/19 09:12 Prednisone PO [address] Q[address] [facility] Administration Saccharomyces Boulardii 250 mg 07/19/19 09:00 08/08/19 09:13 Florastor PO 250 mg DAILY JACK Administration Sertraline HCl 25 mg 07/19/19 09:00 08/08/19 09:13 Zoloft PO 25 mg DAILY JACK Administration Sodium Bicarbonate 650 mg 07/31/19 06:10 07/31/19 06:19 Bicarbonate, Sodium PER TUBE 650 mg .PER PROTOCOL PRN Administration ENTERAL TUBE OCCLUSION Sodium Chloride 10 ml 07/23/19 09:00 08/08/19 09:31 Flush - Normal Saline IVF 10 ml Q12HR JACK Administration - Exam General Appearance: awake alert Eye: PERRL, anicteric sclera ENT: no oropharyngeal lesions, moist mucosa Neck: supple, no JVD Heart: RRR, no murmur Respiratory: no wheezes, no rales, rhonchi Gastrointestinal: soft, non-tender, non-distended, normal bowel sounds Extremities: no cyanosis, no edema Neurological: cranial nerve grossly intact, no focal deficits Psychiatric: A&O x 3 Hosp A/P (1) Acute respiratory failure with hypoxia and hypercapnia Code(s): J96.01 - ACUTE RESPIRATORY FAILURE WITH HYPOXIA; J96.02 - ACUTE RESPIRATORY FAILURE WITH HYPERCAPNIA Status: Resolved (2) HAP (hospital-acquired pneumonia) Code(s): J18.9 - PNEUMONIA, UNSPECIFIED ORGANISM; Y95 - NOSOCOMIAL CONDITION Status: Resolved (3) Neutropenic sepsis Code(s): A41.9 - SEPSIS, UNSPECIFIED ORGANISM; D70.9 - NEUTROPENIA, UNSPECIFIED Status: Resolved (4) Pancytopenia Code(s): D61.818 - OTHER PANCYTOPENIA Status: Resolved (5) Hypertension Code(s): I10 - ESSENTIAL (PRIMARY) HYPERTENSION Status: Chronic Qualifiers: Hypertension type: essential hypertension Qualified Code(s): I10 - Essential (primary) hypertension (6) Small cell lung cancer Code(s): C34.90 - MALIGNANT NEOPLASM OF UNSP PART OF UNSP BRONCHUS OR LUNG Status: Chronic (7) Physical deconditioning Code(s): R53.81 - OTHER MALAISE Status: Acute (8) Dysphagia Code(s): R13.10 - DYSPHAGIA, UNSPECIFIED Status: Acute - Plan is on amiodarone oral, prednisone, atenolol, dig and nebs pancytopenia is resolving h/o small cell lung 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 oral diet per speech adv, has hoarseness likely from ET, dysphagia improving, on [facility] soft diet and doing well, may advance diet if cleared by speech. increase activity as tolerated prognosis is guarded, pt is full code. d/w palliative care, pt is wanting go home with [facility], dc plan in am once hospice is set up at home. May dc if hospice set up is ready at home.
[2019-08-08] MEDS: Multivit, Therapeutic 1 TAB PO SCH (20:33)
[2019-08-09 06:25] LABS: Anion Gap 10 mmol/L (10-20); BUN (Urea Nitrogen) 19 mg/dL (9.8-20.1); Calc. Creatinine Clearance 55 mL/min (70-130); Calcium 8.4 mg/dL (7.8-10.44); Carbon Dioxide 29 mmol/L (23-31); Chloride 105 mmol/L (98-107); Estimated GFR-MDRD 55; Glucose 101 mg/dL (80-115); Potassium 4.4 mmol/L (3.5-5.1); Sodium 140 mmol/L (136-145)
[2019-08-09 06:39] LABS: Band 12 % (5-11); Hemoglobin 7.4 g/dL (12.0-16.0); Hypochromia SLIGHT = 6-15 cells (100X) (0-5/hpf); Lymphocytes 9 % (21-51); MDiff Complete? YES; Mean Corpuscular HGB CONC 32.7 g/dL (32.0-36.0); Mean Corpuscular Hemoglobin 30.9 pg (27.0-31.0); Mean Corpuscular Volume 94.6 fL (78.0-98.0); Mean Platelet Volume 8.3 fL (7.4-10.4); Metamyelocyte 1 % (0-0); Monocytes 6 % (0-10); Neutrophil 72 % (42-75); Platelet Count 131 thou/uL (130-400); Platelet Morphology Comment Appears Adequate; RBC Distribution Width 15.3 % (11.5-14.5); White Blood Cell (WBC) Count 9.5 thou/uL (4.8-10.8)
[2019-08-09] MEDS: predniSONE 20 MG TAB PO SCH (08:18)
[2019-08-09] MEDS: Amiodarone 200 MG TAB PO SCH (08:20)
[2019-08-09] MEDS: Atenolol 25 MG TAB PO SCH (08:20)
[2019-08-09] MEDS: Digoxin 0.125 MG TAB PO SCH (08:20)
[2019-08-09] MEDS: Gabapentin 300 MG CAP PO SCH ×2 (08:20→14:17)
[2019-08-09] MEDS: Pantoprazole 40 MG GRANULES PACKET PO SCH (08:21)
[2019-08-09] MEDS: Saccharomyces boulardii 250 MG CAP PO SCH (08:21)
[2019-08-09] MEDS: Magnesium Oxide 400 MG TAB PO SCH (08:21)
--- NOTE | 2019-08-09 11:19 | PDOC.HOSPP ---
- Subjective Encounter Date: 08/09/19 Encounter Time: 10:40 Subjective: no complaints is ambulating to bathroom and back wants to be full code for now - Objective Vital Signs & Weight: Vital Signs (12 hours) Temp Pulse Resp BP BP Pulse Ox 08/09/19 10:46 72 16 08/09/19 08:20 81 118/58 L 08/09/19 08:00 97.6 F 81 18 118/58 L 99 08/09/19 06:05 76 16 Weight Admit Weight 161 lb 6.054 oz Weight 139 lb 15.896 oz Most Recent Monitor Data Heart Rate from ECG 71 NIBP 125/53 NIBP BP-Mean 77 Respiration from ECG 17 SpO2 90 I&O: 08/08/19 08/09/19 08/10/19 06:59 06:59 06:59 Intake Total 1320 1030 Output Total 100 Balance 1220 1030 Result Diagrams: 08/09/19 05:56 08/09/19 05:56 Hospitalist ROS - Medication Medications: Active Medications Generic Name Dose Route Start Last Admin Trade Name Freq PRN Reason Stop Dose Admin Acetaminophen 650 mg 07/23/19 19:13 07/28/19 20:27 Tylenol PO 650 mg Q4H PRN Administration Headache/Fever or Pain Albuterol/Ipratropium 3 ml 07/19/19 00:28 07/29/19 10:20 Duoneb NEB 3 ml Q6H PRN Administration SOB &/or Wheezing Albuterol/Ipratropium 3 ml 08/06/19 15:00 08/09/19 10:46 Duoneb NEB 3 ml [id number] JACK Administration Amiodarone HCl 200 mg 08/06/19 21:00 08/09/19 08:20 Cordarone PO 200 mg BID JACK Administration Lipase/Protease/Amylase 1 cap 07/31/19 06:10 07/31/19 06:19 Sandrine Jesus [id number] FS 1 cap .PER PROTOCOL PRN Administration TUBE OCCLUSION PROTOCOL Atenolol 25 mg 07/31/19 09:00 08/09/19 08:20 Tenormin PO Not Given BID JACK Al Hydroxide/Mg Hydroxide 60 0 ml 07/24/19 10:17 07/25/19 11:13 ml/ Lidocaine HCl 30 ml/ SSW 10 ml Diphenhydramine HCl 75 mg QIDPRN PRN Administration Mouth Irritation Digoxin 0.125 mg 08/05/19 09:00 08/09/19 08:20 Lanoxin PO 0.125 mg DAILY JACK Administration Ferrous Sulfate 300 mg 07/31/19 08:00 08/09/19 08:18 Ferrous Sulfate PO 300 mg QAM-WM JACK Administration Gabapentin 600 mg 07/19/19 21:00 08/09/19 08:20 Neurontin PO 600 mg TID JACK Administration Loperamide HCl 2 mg 07/26/19 12:47 08/03/19 14:06 Imodium PO 2 mg Q2H PRN Administration Diarrhea/Loose Stools Magnesium Oxide 400 mg 07/19/19 21:00 08/09/19 08:21 Magnesium Oxide PO 400 mg BID JACK Administration Multivitamins 1 tab 07/19/19 21:00 08/08/19 20:33 Theragran PO 1 tab HS JACK Administration Pantoprazole Sodium 40 mg 07/31/19 09:00 08/09/19 08:21 Protonix PO 40 mg DAILY JACK Administration Phenol 0 ml 07/22/19 03:29 07/22/19 04:02 Chloraseptic [place] 180 Ml Bot PO 2 spr PRN PRN Administration SORE THROAT Prednisone 40 mg 08/03/19 08:00 08/09/19 08:18 Prednisone PO 40 mg QAM-WM JACK Administration Saccharomyces Boulardii 250 mg 07/19/19 09:00 08/09/19 08:21 Florastor PO 250 mg DAILY JACK Administration Sertraline HCl 25 mg 07/19/19 09:00 08/09/19 08:21 Zoloft PO 25 mg DAILY JACK Administration Sodium Bicarbonate 650 mg 07/31/19 06:10 07/31/19 06:19 Bicarbonate, Sodium PER TUBE 650 mg .PER PROTOCOL PRN Administration ENTERAL TUBE OCCLUSION Sodium Chloride 10 ml 07/23/19 09:00 08/09/19 08:22 Flush - Normal Saline IVF 10 ml Q12HR JACK Administration - Exam General Appearance: awake alert Eye: PERRL, anicteric sclera ENT: no oropharyngeal lesions, moist mucosa Neck: supple, no JVD Heart: RRR, no murmur Respiratory: no wheezes, no rales Gastrointestinal: soft, non-tender, non-distended, normal bowel sounds Extremities: no cyanosis, no edema Neurological: cranial nerve grossly intact, no focal deficits Psychiatric: normal affect, A&O x 3 Hosp A/P (1) Acute respiratory failure with hypoxia and hypercapnia Code(s): J96.01 - ACUTE RESPIRATORY FAILURE WITH HYPOXIA; J96.02 - ACUTE RESPIRATORY FAILURE WITH HYPERCAPNIA Status: Resolved (2) HAP (hospital-acquired pneumonia) Code(s): J18.9 - PNEUMONIA, UNSPECIFIED ORGANISM; Y95 - NOSOCOMIAL CONDITION Status: Resolved (3) Neutropenic sepsis Code(s): A41.9 - SEPSIS, UNSPECIFIED ORGANISM; D70.9 - NEUTROPENIA, UNSPECIFIED Status: Resolved (4) Pancytopenia Code(s): D61.818 - OTHER PANCYTOPENIA Status: Resolved (5) Hypertension Code(s): I10 - ESSENTIAL (PRIMARY) HYPERTENSION Status: Chronic Qualifiers: Hypertension type: essential hypertension Qualified Code(s): I10 - Essential (primary) hypertension (6) Small cell lung cancer Code(s): C34.90 - MALIGNANT NEOPLASM OF UNSP PART OF UNSP BRONCHUS OR LUNG Status: Chronic (7) Physical deconditioning Code(s): R53.81 - OTHER MALAISE Status: Acute (8) Dysphagia Code(s): R13.10 - DYSPHAGIA, UNSPECIFIED Status: Acute - Plan is on amiodarone oral, prednisone, atenolol, dig and nebs pancytopenia is resolving h/o small cell lung 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 oral diet per speech adv, has hoarseness likely from ET, dysphagia improving, on [facility] soft diet and doing well, may advance diet if cleared by speech. increase activity as tolerated prognosis is guarded, pt is full code. d/w palliative care, pt is wanting go home [facility]. May dc if hospice set up is ready at home.
[2019-08-09 14:40] VITALS: BP 116/54; TEMP 98
--- NOTE | 2019-08-10 18:10 | DIS ---
DATE OF ADMISSION: 07/18/2019 DATE OF DISCHARGE: 08/09/2019 DISCHARGE DISPOSITION: Home with hospice. PRIMARY DISCHARGE DIAGNOSES: Acute respiratory failure with hypoxia, status post extubation; hospital-acquired pneumonia; neutropenic sepsis; pancytopenia due to chemotherapy; hypertension; small cell lung cancer with metastasis to left adrenal and the right lobe of liver with possible bony metastasis; physical deconditioning; dysphagia. PROCEDURES DONE DURING HOSPITALIZATION: Please note, the patient has had prolonged stay in the hospital with multiple chest x-rays done as part of her being intubated. Echo with 2D Doppler done on the 21 of July showed moderate pericardial effusion, otherwise was technically difficult to assess ejection fraction. MRI brain done on 07/21/2019 showed no acute intracranial process or metastatic disease. This was done with and without contrast. CT angio chest done on 07/18/2019 showed no evidence of PE. Findings were suspicious for metastatic disease including bilateral hilar lymphadenopathy, sclerotic lesions within the vertebral bodies, right hepatic lobe lesion, and left adrenal lesion. Blood cultures drawn on 07/18/2019 showed no growth. Influenza A and B antigens were negative on admission. Discharge hemoglobin and hematocrit 7.4 and 22, platelet count 131, white count of 9.5, MCV 94. The patient had a white count of 0.3 on the 19 of July with hemoglobin and hematocrit of 7 and 22, platelet count of 116. Blood gas on the 28 of July showed a pH of 7.21, pCO2 of 59, PO2 of 59. BUN and creatinine 19 and 1.0 on the 08 of August. Albumin was 2.9 on the day of admission. DISCHARGE MEDICATIONS: 1. Atenolol 25 mg twice daily. 2. Gabapentin 600 mg p.o. three times daily. 3. [place] p.r.n. for pain. 4. Multivitamin one tablet once daily. 5. Amiodarone 200 mg p.o. twice daily for 10 days and 200 mg p.o. daily thereafter. 6. Digoxin 0.125 mg p.o. daily. 7. Ferrous sulfate 325 mg p.o. twice daily. 8. DuoNeb q.6 hourly p.r.n. 9. Protonix 40 mg p.o. daily. 10. Prednisone 10 mg twice daily for four days, then daily for 10 days, then half a tablet daily for 10 days, and to stop. 11. Florastor 250 mg p.o. daily. 12. Zoloft 25 mg p.o. daily. ALLERGIES: LISINOPRIL AND LORAZEPAM. DISCHARGE PLAN: The patient to follow up with Dr. Castillo Mccann in 1 week. She also needs to follow up with Dr. Brian Samayoa in 3 to 4 weeks. BRIEF COURSE DURING HOSPITALIZATION: The patient initially got admitted on the with fever of 103.7 degrees and pancytopenia with the patient being on chemotherapy. The patient had known history of extensive small cell cancer diagnosed in 2018. The patient soon decompensated and had to be intubated. She was on broad- spectrum antibiotics after pancultures were obtained. Ms. Ramirez has had consultations with Dr. Small for Oncology, Dr. Thacker for Pulmonology, Dr. Hoover for Cardiology, Dr. Betancur for Infectious Disease. She has had slow and progressive improvement with her respiratory failure and was successfully extubated. Post extubation, the patient has had hoarseness and dysphagia. This is slowly improving. At the time of discharge, she is on a mechanical soft diet. She has also ambulated nearly 25 to 40 feet with a rolling walker. She is able to go to the restroom in the hospital room and back by herself. In view of small cell lung cancer with multiple metastasis and severe deconditioning, the patient was given a choice of going into hospice. [facility], but later switched her mind to go home with hospice. [facility] has been arranged at the time of discharge. They have made all arrangements at home. The patient is still a full code and she wants to be see if she can improve physically and get back on her chemotherapy if at all possible. She is otherwise hemodynamically stable and will be shortly discharged to home. Please note, I have seen and examined the patient on the day of discharge. Job ID: [id number] [facility]
--- NOTE | 2019-08-11 05:32 | PQF ---
MARCO ANTONIO MENDES VINAYA KUMAR MD [id number] CLINICAL DOCUMENTATION CLARIFICATION FORM: POST DISCHARGE Addendum to original discharge summary date: ____ Late entry note date: __ DATE:08/11/2019 ATTN: Belkis Stahl Please exercise your independent, professional judgment in responding to the clarification form. Clinical indicators are provided on the bottom of this form for your review In your clinical opinion based on clinical findings below, can you please specify the etiology of Sepsis if due to: Please check appropriate box(es): [ x ] Sepsis due to Pneumonia with associated Acute Respiratory Failure [ x ] Sepsis associated with Pancytopenia due to Chemotherapy [ ] Unable to determine For continuity of documentation, please document condition throughout progress notes and discharge summary. Thank You. CLINICAL INDICATORS - SIGNS / SYMPTOMS / LABS Laboratory 07/17 WBC 2.7, RBC 2.79, Hgb 9.3,. Hct 26.6, Plt count 181, Lacyic Acid 2.5 Blood gas 07/28 pH 7.21. pCO2 59.4, pO2 59.4, O2 sat 84.1, O2 content 10.4, Base Excess -5.1 Vital sign 07/17 BP 89/49, Pulse 103, Resp 26, Temp 102.5 H&P p1 07/17 Dr Snyder presents to the hospital with complaints of fever x 1 day H&P p1 07/17 Dr Snyder recently started on topotecan H&P p2 07/17 Dr Snyder Sepsis, unclear ethoxy at this time Consult p1 07/18 Dr Small She has no specific symptoms to direct us to a source of infection' Hospitalist p1 07/18 Dr Malik 'f/u for neutropenic fever and sepsis likely due to recent chemotherapy with Topotecan Physician Documentation p1 07/21 Acute hypoxic respiratory failure Cardiology PN p3 07/29 Afib this is likely due to sepsis and anemia, pancytopenia Discharge summary p1 4/ 'hospital acquired pneumonia Discharge summary p1 4/ Pancytopenia due to chemotherapy RISK FACTORS H&P p1 07/17 69 year-old Female H&P p1 07/17 small-cell carcinoma of lung H&P p1 07/17 Former smoker H&P p1 07/17 COPD H&P p1 07/17 HTN H&P p1 07/17 hx of PE Hospitalist p5 07/18 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 Discharge summary p1 4 Mets to Bone, adrenal and liver TREATMENTS: Respiratory Panel 07/17 Oxygen 3L Respiratory Panel 07/28 Mechanical ventilator Intubated via bronchoscope 07/28JUL 07 Iv Levophed 4mg JUL 07 IV Cefepime 2gm JUL 07 IV Decadron 4mg Jul 07 IVF NS 1L JUL 07 DuoNeb 3ml Neb Jul 07 IV SoluMedrol 40mg ABG ordered 07/28 Blood Culture ordered 10/17 Transfusion of RBC 07/21 Transfusion of Platelet 07/23 Pulmo Consult 07/18 Miguel Rodriguez Oncology consult 07/22 Sheila Rader ID consult 07/29 Claudio Clinton Chest X-ray 07/21 (This form is maintained as a part of the permanent medical record) 2014 [email or web address] All Rights Reserved [email or web address]
== END 2019-08-09 15:53 | disposition hospice, home (50) | DRG 808 ==
LOC: ERS 19:59 → CCU 23:05 → ONC 07-19 16:52 → 2NO 07-22 15:44 → IMCU/EMU 07-29 10:26 → CCU 07-29 22:11 → 2NO 08-02 16:05 → ONC 08-06 11:05
PROVIDERS: ADMIT Internal Medicine; ATTEND Internal Medicine
PROC: 3E033XZ Introduction of Vasopressor into Peripheral Vein, Percutaneous Approach (ICD-10-PCS; 2019-07-18)
PROC: 30233N1 Transfusion of Nonautologous Red Blood Cells into Peripheral Vein, Percutaneous Approach (ICD-10-PCS; 2019-07-22)
PROC: 30233R1 Transfusion of Nonautologous Platelets into Peripheral Vein, Percutaneous Approach (ICD-10-PCS; 2019-07-24)
PROC: 5A1945Z Respiratory Ventilation, 24-96 Consecutive Hours (ICD-10-PCS; principal; 2019-07-29)
PROC: 5A09357 Assistance with Respiratory Ventilation, Less than 24 Consecutive Hours, Continuous Positive Airway Pressure (ICD-10-PCS; 2019-07-29)
PROC: 0BH18EZ Insertion of Endotracheal Airway into Trachea, Via Natural or Artificial Opening Endoscopic (ICD-10-PCS; 2019-07-29)
DX: D61.810 Antineoplastic chemotherapy induced pancytopenia (principal); J96.01 Acute respiratory failure with hypoxia; A41.9 Sepsis, unspecified organism; J18.9 Pneumonia, unspecified organism; R65.21 Severe sepsis with septic shock; J96.02 Acute respiratory failure with hypercapnia; Z51.5 Encounter for palliative care; R04.2 Hemoptysis; K52.1 Toxic gastroenteritis and colitis; I48.92 Unspecified atrial flutter; J44.0 Chronic obstructive pulmonary disease with (acute) lower respiratory infection; C78.7 Secondary malignant neoplasm of liver and intrahepatic bile duct; C79.51 Secondary malignant neoplasm of bone; C79.72 Secondary malignant neoplasm of left adrenal gland; C34.90 Malignant neoplasm of unspecified part of unspecified bronchus or lung; E87.2 Acidosis; I48.91 Unspecified atrial fibrillation; K21.9 Gastro-esophageal reflux disease without esophagitis; I10 Essential (primary) hypertension; T45.1X5A Adverse effect of antineoplastic and immunosuppressive drugs, initial encounter; E87.6 Hypokalemia; E83.42 Hypomagnesemia; R50.81 Fever presenting with conditions classified elsewhere; R13.10 Dysphagia, unspecified; Y95 Nosocomial condition; Z86.711 Personal history of pulmonary embolism; Z90.49 Acquired absence of other specified parts of digestive tract; Z88.8 Allergy status to other drugs, medicaments and biological substances; Z79.899 Other long term (current) drug therapy; Z79.01 Long term (current) use of anticoagulants
CPT/HCPCS: 36415; 36416; 36430; 70553; 71045; 71275; 80048; 80053; 80162; 80202; 81001; 82330; 82805; 83605; 83630; 83735; 84100; 84443; 84484; 85007; 85025; 85027; 86850; 86900; 86901; 87040; 87070; 87077; 87086; 87186; 87205; 87324; 87449; 87804; 93005; 93010; 93306; 94002; 94003; 94640; 94660; 96365; 96366; 96367; A9579; J0282; J0692; J1100; J1160; J1447; J1642; J1940; J2060; J2185; J2248; J2704; J2920; J2930; J2997; J3010; J3370; J3475; J3480; J3490; J7050; J7070; J7512; J7620; P9016; P9035; Q0163; Q9967